=== PATIENT | male | born 1930 | race Hispanic/Latino ===

== ENCOUNTER 2017-01-21 06:32 | Day surgery (SDC) | payer MEDICARE, MEDICAID ==
[2017-01-15 09:20] VITALS: BMI 29.9
[2017-01-21 06:52] LABS: ADD MANUAL DIFF? NO
[2017-01-21 06:59] LABS: BASO # 0.01 K/mm3 (0.0-2.0); BASO % 0.2 % (0.0-3.0); EOS # 0.2 (0.0-0.7); EOS % 2.6 % (1.5-5.0); GRAN # 3.62 (1.4-6.5); GRAN % 58.8 % (50.0-68.0); HEMATOCRIT 37.6 % (42.0-52.0); LYMPH # 1.7 (1.2-3.4); LYMPH % 27.5 % (22.0-35.0); MEAN CELL VOLUME 88.9 fL (80.0-105.0); MEAN CORPUSCULAR HEMOGLOBIN 29.3 pg (25.0-35.0); MEAN PLATELET VOLUME 9.7 fl (7.0-11.0); MONO # 0.7 (0.1-0.6); MONO % 10.9 % (1.0-6.0); PLATELET COUNT 158 10^3/uL (120.0-450.0); RED CELL DISTRIBUTION WIDTH 12.9 % (11.5-14.5); WHITE BLOOD COUNT 6.2 10^3/ul (4.5-11.0)
[2017-01-21 07:08] LABS: INR 1.06 (0.93-1.08); PARTIAL THROMBOPLASTIN TIME 26.3 Seconds (23.7-30.8)
[2017-01-21 07:12] VITALS: O2SAT 98
[2017-01-21 07:15] LABS: BLOOD UREA NITROGEN 18 mg/dL (7-21); CALCIUM 9.2 mg/dL (8.4-10.5); CARBON DIOXIDE 29 mmol/L (21-33); CHLORIDE 104 mmol/L (98-107); CHOLESTEROL 107 mg/dL (130-200); GFR AFRICAN-AMERICAN > 60; GLUCOSE,RANDOM 113 mg/dL (70-110); POTASSIUM 4.1 mmol/L (3.6-5.0); SODIUM 144 mmol/L (132-148)
--- NOTE | 2017-01-21 08:01 | HP ---
REASON FOR ADMISSION: Left heart catheterization, possible angioplasty. BRIEF CLINICAL HISTORY: This is an 86-year-old male with past medical history significant for davis ry artery disease, status post cardiac catheterization in at [facility] recently having sh ortness of breath, underwent a stress test, abnormal, so patient is scheduled for elective cardiac ca th, possible angioplasty. PAST MEDICAL HISTORY: Significant for coronary artery disease, hypertension, hyperlipidemia. SOCIAL HISTORY: Denies any history of smoking. Denies any history of alcohol abuse. Cardiac workup as follows: The patient underwent a stress test 12/31/2015, Lexiscan, that showed proba jimmie abnormal SPECT myocardial perfusion study, partially reversible apical and inferior defect suspic ious for ischemia, ejection fraction reported 60%. When compared from the last study dated 12/13/2014 , previous defect appears partially reversible on current study. EKG shows normal sinus. No acute ST-T changes noted. CURRENT MEDICATIONS: The patient is taking nitroglycerin sublingual p.r.n., metoprolol succinate 12. 5 mg daily, Zetia 10 mg daily, aspirin 81 mg daily, triamcinolone acetonide topical, Crestor 10 mg da aman, Norvasc 5 mg daily. REVIEW OF SYSTEMS: As per HPI. PHYSICAL EXAMINATION: VITAL SIGNS: Height of the patient is 5 feet 5 inches. Weight of the patient 180 pounds, body mass index 30 kg/m2. HEENT: PERRLA. Extraocular muscles intact. NECK: Supple. No carotid bruits. No thyromegaly. CHEST: Clear to auscultation. HEART: S1, S2 regular. ABDOMEN: Soft. EXTREMITIES: Clubbing and cyanosis negative. BLOOD WORKUP: Pending. IMPRESSION AND PLAN: Abnormal stress test, inferior anterior defect suspicious for ischemia on a str ess test dated 12/29/2016, and shows apical and inferior defect, ejection fraction 60% dated 12/29/2016. Abnormal stress test, rule out coronary artery disease. Further recommendation after cardiac cathete rization. We will load him with 300 mg of Plavix, aspirin 325. Further recommendation after the ___ __. We will follow with you. Thank you, Dr. Sanchez, for providing the opportunity in taking care of the patient. Tyree Dale MD cc: [phone] TT: 01/20/2017 20:22:41 rashmi
[2017-01-21] MEDS ORDERED: Lidocaine 2% Inj (20ml) ONE (08:41)
[2017-01-21] MEDS ORDERED: Midazolam 2 MG/2 ML VIAL ONE (08:42)
[2017-01-21] MEDS ORDERED: Iodixanol 320 MG/ML 200 ML BOTTLE IV ONE (08:43)
[2017-01-21] MEDS ORDERED: Iohexol 350mgl/ml 50 ML ONE (08:43)
[2017-01-21] MEDS ORDERED: Nitroglycerin 50mg in D5W 250 ML IV ONE (08:43)
[2017-01-21] MEDS ORDERED: Eptifibatide 20 mg/10mL Inj IVP ONE (09:45)
[2017-01-21] MEDS ORDERED: Bacitracin 500 Units/gm Oint Foilpak UD TOP ONE (10:56)
[2017-01-21] MEDS ORDERED: Sodium Chloride 0.9% 1,000 ML IV SCH (11:00)
[2017-01-21 14:03] LABS: ADD MANUAL DIFF? NO
[2017-01-21 14:05] LABS: BASO # 0.01 K/mm3 (0.0-2.0); BASO % 0.2 % (0.0-3.0); EOS # 0.1 (0.0-0.7); EOS % 1.8 % (1.5-5.0); GRAN # 2.93 (1.4-6.5); GRAN % 58.6 % (50.0-68.0); HEMATOCRIT 34.4 % (42.0-52.0); LYMPH # 1.2 (1.2-3.4); MEAN CELL VOLUME 87.8 fL (80.0-105.0); MEAN CORPUSCULAR HEMOGLOBIN 29.8 pg (25.0-35.0); MEAN PLATELET VOLUME 9.5 fl (7.0-11.0); MONO # 0.8 (0.1-0.6); MONO % 15.4 % (1.0-6.0); PLATELET COUNT 148 10^3/uL (120.0-450.0)
[2017-01-21 14:15] LABS: BLOOD UREA NITROGEN 14 mg/dL (7-21); CALCIUM 8.7 mg/dL (8.4-10.5); CARBON DIOXIDE 25 mmol/L (21-33); CHLORIDE 106 mmol/L (98-107); GFR AFRICAN-AMERICAN > 60; GLUCOSE,RANDOM 135 mg/dL (70-110); POTASSIUM 3.9 mmol/L (3.6-5.0); SODIUM 140 mmol/L (132-148)
[2017-01-21] MEDS ORDERED: Bacitracin 500 Units/gm Oint Foilpak UD ONE (14:59)
[2017-01-21 17:57] VITALS: BP 152/78; RESP 20; TEMP 98.5
[2017-01-21] MEDS ORDERED: Metoprolol Succinate 25 mg XL Tab PO SCH (18:00)
[2017-01-21 18:21] VITALS: PULSE 72
--- NOTE | 2017-01-21 18:24 | CARD ---
APPROVED REPORT EKG Measurement Heart [id number] <Conclusion> Normal sinus rhythm Left axis deviation Abnormal ECG
[2017-01-22] MEDS ORDERED: Rosuvastatin Calcium [Crestor] 20 MG (HOME MED) PO SCH (10:00)
--- NOTE | 2017-01-22 18:05 | CARD ---
APPROVED REPORT Procedure(s) performed: Left Heart Catheterization PTCA with Stenting of Mid LAD with EUSEBIA PTCA with Stenting of Distal RCA with EUSEBIA PTCA with Stenting of R PDA HISTORY dyslipidemia . INDICATION The indication(s) include : positive stress test. CASE TECHNIQUE The patient was brought electively to the Cardiac Catheterization Laboratory in a fasting state and was prepped and draped in a sterile manner. The left wrist was infiltrated with 2% Lidocaine subcutaneous anesthesia. A 6 Fr Glidesheath (Radial) sheath was inserted into the left radial artery without difficulty. Coronary angiography was performed using coronary diagnostic catheters. The left coronary system was accessed and visualized with a Diagnostic ,Jl3.5,5Fr catheter. The right coronary system was accessed and visualized with a Diagnostic ,JR3.5,5Fr catheter. The left ventricle was accessed and visualized with a pig tail catheter. Left ventricular/Aortic Valve gradient assessed on pullback. Left ventriculogram was performed in LAWLER projection. Closure device was deployed with a Fr TR Band (Large) without any complications. The patient tolerated the procedure well and there were no complications associated with the procedure. Vessel Analysis The patient's coronary anatomy is co-dominant. The left main coronary artery is a medium size vessel with diffuse calcification noted throughout this vessel and without significant stenosis. The left main bifurcates to the left anterior descending and circumflex. The left anterior descending artery is a medium size vessel with diffuse calcification noted throughout this vessel and with significant stenosis. There is a 80% stenosis in the mid segment. The first diagonal branch is a medium size vessel with diffuse calcification noted throughout this vessel and without significant stenosis. The second diagonal branch is a medium size vessel with diffuse calcification noted throughout this vessel and without significant stenosis. The third diagonal branch is a medium size vessel with diffuse calcification noted throughout this vessel and without significant stenosis. The circumflex artery is a medium size vessel with diffuse calcification noted throughout this vessel and with significant stenosis. There is a 100% stenosis in the mid segment. with bridge collaterals The first obtuse marginal branch is a medium size vessel with diffuse calcification noted throughout this vessel and without significant stenosis. The left posterior descending artery is a small size vessel with diffuse calcification noted throughout this vessel and without significant stenosis. The right coronary artery is a large size vessel with diffuse calcification noted throughout this vessel and with significant stenosis. There is a 90% stenosis in the distal segment. The right posterior descending artery is a medium size vessel with diffuse calcification noted throughout this vessel and with significant stenosis. There is a 95% stenosis in the proximal segment. The right posterolateral branch is a medium size vessel with diffuse calcification noted throughout this vessel and with significant stenosis. There is a 100% stenosis in the ostial segment. Left Ventricle The left ventricle is normal in size with normal contractility. There was no cardiomyopathy. The left ventricular ejection fraction is estimated to be 55%. The left ventricular end diastolic pressure is 15 mmHg. There was no gradient across the aortic valve upon pullback. PCI Technique Lesion Anticoagulation was achieved with Heparin. Percutaneous coronary intervention was performed on the mid left anterior descending artery segment. The lesion stenosis prior to intervention was 80% with CYNDEE 2 flow. A 6 Fr XB 3.5 Guide Catheter was used to engage the ostium. STENT DEPLOYMENT A drug-eluting stent 2.75 x 14 mm Resolute EUSEBIA was inserted and inflated up to 13.00atm for 28seconds. Final angiography reveals 0 % stenosis with CYNDEE 3 flow. PCI Technique Lesion 2 Percutaneous Coronary Intervention was performed on the Distal right coronary artery. The lesion stenosis prior to intervention was 90% with CYNDEE 2 flow. A 6 Fr 3DRC Guide Catheter was used to engage the ostium. BALLOON DILATION A Balloon catheter 2.75 x 9 mm Sprinter NC was inserted and inflated up to 6.00atm for 46seconds. STENT DEPLOYMENT A drug-eluting stent 3.0 x 9 mm Resolute EUSEBIA was inserted and inflated up to 14.00atm for 27seconds. Final angiography reveals 0 % stenosis with CYNDEE 3 flow. PCI Technique Lesion 3 Percutaneous Coronary Intervention was performed on the posterior descending septal perforators segment. The lesion stenosis prior to intervention was 95% with CYNDEE 2 flow. A 6 Fr 3DRC Guide Catheter was used to engage the ostium. BALLOON DILATION A Balloon catheter 2.5 x 20 mm Sprinter RX was inserted and inflated up to 6atm for 20seconds. STENT DEPLOYMENT A drug-eluting stent 2.5 x 12 mm Resolute EUSEBIA was inserted and inflated up to 12atm for 20seconds. Final angiography reveals 0 % stenosis with CYNDEE 3 flow. Conclusion Triple vessel Disease Preserved LV Fx Successful PTCa with EUSEBIA of Mid LAD, Distal RCa and R PDA done Recommendations Cardiac Rehabilitation Referral Aggressive Medical TherapyCardiac Risk Reduction Program Weight Loss Reduction Program CC; Dr. Sanchez.
== END 2017-01-21 21:17 | disposition home or self-care (01) ==
LOC: CATH 06:32 → 2RSO 11:09 → CATH 21:17
PROVIDERS: ATTEND Internal Medicine Cardiovascular Disease
DX: I25.10 Atherosclerotic heart disease of native coronary artery without angina pectoris (principal); R06.02 Shortness of breath; E78.5 Hyperlipidemia, unspecified; I10 Essential (primary) hypertension; R94.39 Abnormal result of other cardiovascular function study
CPT/HCPCS: 36415; 80048; 80061; 85025; 85610; 85730; 86850; 86900; 93005; 93458; 99152; 99153; C1725 ×2; C1769 ×3; C1874 ×3; C1887 ×4; J0360; J1327; J1644 ×2; J2250; J3010; J7030; J7040 ×2; Q9967

== ENCOUNTER 2017-01-29 09:51 | Inpatient (IN) | payer MEDICARE, MEDICAID ==
--- NOTE | 2017-01-29 10:27 | ED PDOC ---
Arrival/HPI - General Chief Complaint: Shortness Of Breath Time Seen by Provider: 01/29/17 10:09 Historian: Patient, Family EM Caveat: Language Barrier (family functioning as enterprise systems engineer as per patient request) - History of Present Illness Narrative History of Present Illness (Text): 01/29/17 10:14 A 86 year old male, whose past medical history includes CAD with 3 stents ( placed on 01/21/17), presents to the emergency department complaining of shortness of breath that began this morning. Patient reports he was was doing find until today when he decided to go out for a walk. He say when he got to the end of the block he started to feel short of breath. Patient took his nitroglycerin. He denies any chest pain, fever, cough, or any other complaints at this time. Patient cousin function as enterprise systems engineer, as per patient request. PMD: Dr. Sanchez 01/29/17 14:54 Time/Duration: Prior to Arrival Symptom Onset: Sudden Symptom Course: Unchanged Quality: Other Activities at Onset: Light Context: Exertion Past Medical History - Provider Review Nursing Documentation Reviewed: Yes - Cardiac Hx Pacemaker: No Other/Comment: cardiac stent january 21 2017 - Neurological Hx Paralysis: No - Hematological/Oncological Hx Blood Transfusions: No - Musculoskeletal/Rheumatological Hx Musculoskeletal Disorders: Yes - Psychiatric Hx Emotional Abuse: No Hx Physical Abuse: No Hx Substance Use: No - Surgical History Hx Cardiac Catheterization: Yes (january 21, 2017) - Anesthesia Hx Anesthesia Reactions: No Hx Malignant Hyperthermia: No - Suicidal Assessment Feels Threatened In Home Enviroment: No Family/Social History - Physician Review Nursing Documentation Reviewed: Yes Family/Social History: Unknown Family HX Smoking Status: Never Smoked Hx Alcohol Use: Yes (OCCASIONAL) Hx Substance Use: No Allergies/Home Meds Allergies/Adverse Reactions: Allergies No Known Allergies Allergy (Verified 11/22/13 14:42) Home Medications: Home Meds Medication Instructions Recorded Confirmed Aspirin [Ecotrin] 81 mg PO DAILY 01/15/17 01/29/17 Ezetimibe [Zetia] 10 mg PO DAILY 01/15/17 01/29/17 Metoprolol Succinate 12.5 mg PO BID 01/15/17 01/29/17 Nitroglycerin 0.4 mg SL PRN PRN 01/15/17 01/29/17 Rosuvastatin Calcium [Crestor] 20 mg PO DAILY 01/15/17 01/29/17 Triamcinolone 0.1% [Triamcinolone 1 appl TP BID 01/15/17 01/29/17 Acetonide] amLODIPine [Norvasc] 5 mg PO DAILY 01/15/17 01/29/17 Review of Systems - Physician Review All systems were reviewed & negative as marked: Yes - Review of Systems Constitutional: absent: Fevers Respiratory: SOB. absent: Cough Cardiovascular: absent: Chest Pain Physical Exam Vital Signs Reviewed: Yes Vital Signs Temp Pulse Resp BP Pulse Ox 01/29/17 14:00 66 16 150/80 95 01/29/17 10:19 18 01/29/17 10:15 98.2 F 75 18 140/73 99 01/29/17 10:09 98.2 F 75 18 140/73 99 Temperature: Afebrile Blood Pressure: Normal Pulse: Regular Respiratory Rate: Normal Appearance: Positive for: Well-Appearing, Non-Toxic, Comfortable Pain Distress: None Mental Status: Positive for: Alert and Oriented X 3 - Systems Exam Head: Present: Atraumatic, Normocephalic Pupils: Present: PERRL Extroacular Muscles: Present: EOMI Conjunctiva: Present: Normal Mouth: Present: Moist Mucous Membranes Neck: Present: Normal Range of Motion Respiratory/Chest: Present: Clear to Auscultation, Good Air Exchange. No: Respiratory Distress, Accessory Muscle Use Cardiovascular: Present: Regular Rate and Rhythm, Normal S1, S2. No: Murmurs Abdomen: Present: Normal Bowel Sounds. No: Tenderness, Distention, Peritoneal Signs Back: Present: Normal Inspection Upper Extremity: Present: Normal Inspection. No: Cyanosis, Edema Lower Extremity: Present: Normal Inspection. No: Edema Neurological: Present: GCS=15, CN II-XII Intact, Speech Normal Skin: Present: Warm, Dry, Normal Color. No: Rashes Psychiatric: Present: Alert, Oriented x 3, Normal Insight, Normal Concentration Medical Decision Making ED Course and Treatment: 01/29/17 10:14 Impression: A 86 year old male with dyspnea on exertion. Differential Diagnosis include but are not limited to: CHF Plan: -- EKG -- Chest X-ray -- Labs -- Urinalysis -- Reassess and disposition Progress Notes: EKG: Ordered, reviewed, and independently interpreted the EKG. Rate : 74 BPM Rhythm : NSR Interpretation : No ST/T changes. Comparison : No previous EKG for comparison. Patient cousin states he is leaving and if we need to contact him his phone number is [phone]. 01/29/17 10:45 Chest X-ray: Creator : Sloan Mcdaniels MD COMPARISON: No prior. FINDINGS: LUNGS: No active pulmonary disease. PLEURA: No significant pleural effusion identified, no pneumothorax apparent. CARDIOVASCULAR: Normal. OSSEOUS STRUCTURES: No significant abnormalities. VISUALIZED UPPER ABDOMEN: Normal. OTHER FINDINGS: None. IMPRESSION: No active disease. 01/29/17 12:18 Patient has an elevated D-Dimer. Angio-Chest CT ordered. 01/29/17 14:[address]: Creator : Sloan Mcdaniels MD COMPARISON: None available. FINDINGS: PULMONARY ARTERIES: Unremarkable. No pulmonary embolism. AORTA: There is a focal area of mural thrombus in the aortic arch seen on image 74 series 3 and coronal image 76. The thrombus measures 10 x 28 mm in size. The age of the thrombus is uncertain. There are no prior studies for comparison. LUNGS: Unremarkable. No nodule, mass or pulmonary consolidation. PLEURAL SPACES: Unremarkable. No effusion or pneuomothorax. HEART: Unremarkable. No cardiomegaly. No significant pericardial effusion. LYMPH NODES: No lymphadenopathy. BONES, CHEST WALL: Unremarkable. No fracture or destructive lesion OTHER FINDINGS: Unremarkable. IMPRESSION: No evidence of pulmonary embolus. 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 The age of the thrombus is uncertain. Dr. Dale paged. 01/29/17 14:[address] Dale, who is aware and states to give patient Heparin and admit to Dr. Zavala's service. Dr. Zavala paged. I have discussed the results and plan with the patient via family, who expresses understanding. Patient and family given the opportunity to ask question, all questions were answered and there is agreement with the plan to be admitted to the hospital. 01/29/17 14:54 pt with age indeterminate thrombus to aortic arch. case discussed with dr dale. requests heparin. pt will need echo r/o other thrombus, iv heparin. request dr valle as accepting. dr valle paged and accepts - Lab Interpretations Lab Results: 01/29/17 10:45 01/29/17 10:45 Lab Results 01/29/17 10:45: WBC 5.1, RBC 4.06, Hgb 12.2 L, Hct 36.0 L, MCV 88.7, MCH 30.0, MCHC 33.9, RDW 12.9, Plt Count 175, MPV 9.5, Gran % 57.3, Lymph % (Auto) 27.9, [place] % (Auto) 12.6 H, Eos % (Auto) 2.0, Baso % (Auto) 0.2, Gran # 2.92, Lymph # 1.4, [place] # 0.6, Eos # 0.1, Baso # 0.01, PT 11.2, INR 1.04, APTT 25.7, D-Dimer, Quantitative 0.69 H, Sodium 142, Potassium 4.3, Chloride 103, Carbon Dioxide 28 , Anion Gap 15, BUN 15, Creatinine 1.0, Est GFR ( Amer) > 60, Est GFR ( Non-Af Amer) > 60, Random Glucose 147 H, Calcium 9.2, Magnesium 2.3 H, Total Bilirubin 0.8, AST 39, ALT 28, Alkaline Phosphatase 86, Lactate Dehydrogenase 457, Total Creatine Kinase 66, Troponin I < 0.01, NT-Pro-B Natriuret Pep 217, Total Protein 7.8, Albumin 4.2, Globulin 3.6, Albumin/Globulin Ratio 1.2, Urine Color Yellow, Urine Appearance Clear, Urine pH 5.5, Ur Specific [place] >= 1.030 , Urine Protein Negative, Urine Glucose (UA) Negative, Urine Ketones Negative, Urine Blood Negative, Urine Nitrate Negative, Urine Bilirubin Small H, Urine Urobilinogen 0.2, Ur Leukocyte Esterase Negative I have reviewed the lab results: Yes - RAD Interpretation Radiology Orders: 01/29/17 10:22 CHEST PORTABLE [RAD] Stat 01/29/17 12:18 ANGIO CHEST PE PROTOCOL [CT] Stat - Medication Orders Current Medication Orders: Heparin Sodium/Sodium Chloride (Heparin 57089 Units/250ml 1/2 Normal Saline) 250 mls @ 15.268 mls/hr IV .[id number] PRN; Protocol; 18 UNITS/KG/HR PRN Reason: ADJUST RATE PER PROTOCOL Discontinued Medications Heparin Sodium (Porcine) (Heparin) 4,200 units IV ONCE ONE PRN Reason: Protocol Stop: 01/29/17 14:35 Iodixanol (Visipaque 320 Mg/Ml 100 Ml) Confirm Administered Dose 100 ml IV .K- MED ONE Stop: 01/29/17 13:27 - Scribe Statement The provider has reviewed the documentation as recorded by the Scribe Denny Carlisle Provider Scribe Attestation: All medical record entries made by the Scribe were at my direction and personally dictated by me. I have reviewed the chart and agree that the record accurately reflects my personal performance of the history, physical exam, medical decision making, and the department course for this patient. I have also personally directed, reviewed, and agree with the discharge instructions and disposition. Disposition/Present on Arrival - Present on Arrival Any Indicators Present on Arrival: No History of DVT/PE: No History of Uncontrolled Diabetes: No Urinary Catheter: No History of Decub. Ulcer: No History Surgical Site Infection Following: None - Disposition Have Diagnosis and Disposition been Completed?: Yes Diagnosis: Aortic mural thrombus, Dyspnea Disposition: HOSPITALIZED Disposition Time: 14:36 Patient Problems: Current Active Problems Problem Status Diagnosed Aortic mural thrombus Acute Dyspnea Acute Condition: STABLE Referrals: Tyree Sanchez MD [Primary Care Provider] - Follow up with primary
--- NOTE | 2017-01-29 10:45 | RAD ---
HISTORY: sob COMPARISON: No prior. FINDINGS: LUNGS: No active pulmonary disease. PLEURA: No significant pleural effusion identified, no pneumothorax apparent. CARDIOVASCULAR: Normal. OSSEOUS STRUCTURES: No significant abnormalities. VISUALIZED UPPER ABDOMEN: Normal. OTHER FINDINGS: None. IMPRESSION: No active disease.
[2017-01-29 10:49] LABS: ADD MANUAL DIFF? NO
[2017-01-29 10:52] LABS: BASO # 0.01 K/mm3 (0.0-2.0); BASO % 0.2 % (0.0-3.0); EOS # 0.1 (0.0-0.7); GRAN # 2.92 (1.4-6.5); GRAN % 57.3 % (50.0-68.0); LYMPH # 1.4 (1.2-3.4); LYMPH % 27.9 % (22.0-35.0); MEAN CELL VOLUME 88.7 fL (80.0-105.0); MEAN CORPUSCULAR HGB CONC 33.9 g/dl (31.0-37.0); MEAN PLATELET VOLUME 9.5 fl (7.0-11.0); MONO # 0.6 (0.1-0.6); MONO % 12.6 % (1.0-6.0); PLATELET COUNT 175 10^3/uL (120.0-450.0); RED CELL DISTRIBUTION WIDTH 12.9 % (11.5-14.5); WHITE BLOOD COUNT 5.1 10^3/ul (4.5-11.0)
[2017-01-29 10:57] LABS: PH,URINE 5.5 (4.7-8.0); URINE BILIRUBIN SMALL (NEGATIVE); URINE BLOOD NEGATIVE (NEGATIVE); URINE GLUCOSE (UA) NEGATIVE (NEGATIVE); URINE KETONE NEGATIVE (NEGATIVE); URINE LEUKOCYTE ESTERASE NEGATIVE Leu/uL (NEGATIVE); URINE PROTEIN NEGATIVE mg/dL (<30 mg/dL); URINE UROBILINOGEN 0.2 E.U./dL (<1 E.U./dL)
[2017-01-29 10:59] LABS: URINE APPEARANCE CLEAR (CLEAR); URINE COLOR YELLOW (YELLOW)
[2017-01-29 11:06] LABS: INR 1.04 (0.93-1.08); PARTIAL THROMBOPLASTIN TIME 25.7 Seconds (23.7-30.8)
[2017-01-29 11:07] LABS: D DIMER 0.69 mg/L FEU (0-0.50)
[2017-01-29 12:12] LABS: ALB/GLOB RATIO 1.2 (1.1-1.8); ALKALINE PHOSPHATASE 86 U/L (38-133); ALT/SGPT 28 U/L (7-56); AST/SGOT 39 U/L (15-59); BILIRUBIN,TOTAL 0.8 mg/dL (0.2-1.3); BLOOD UREA NITROGEN 15 mg/dL (7-21); CALCIUM 9.2 mg/dL (8.4-10.5); CARBON DIOXIDE 28 mmol/L (21-33); CHLORIDE 103 mmol/L (98-107); GFR AFRICAN-AMERICAN > 60; GLUCOSE,RANDOM 147 mg/dL (70-110); MAGNESIUM 2.3 mg/dL (1.7-2.2); POTASSIUM 4.3 mmol/L (3.6-5.0); SODIUM 142 mmol/L (132-148); TOTAL PROTEIN 7.8 g/dL (5.8-8.3)
[2017-01-29 12:32] LABS: TROPONIN I < 0.01 ng/mL
[2017-01-29] MEDS ORDERED: Iodixanol 320 MG/ML 100 ML BOTTLE IV ONE (13:26)
--- NOTE | 2017-01-29 14:13 | CT ---
PROCEDURE: CT Chest with contrast (Pulmonary Angiogram) HISTORY: sob elevated dimer COMPARISON: None available. TECHNIQUE: Axial computed tomography images were obtained of the chest in the pulmonary arterial phase of enhancement. Coronal and sagittal reformatted images were created and reviewed. Intravenous contrast dose: 100 cc of Visipaque Radiation dose: Total exam DLP = 697 mGy-cm. This CT exam was performed using one or more of the following dose reduction techniques: Automated exposure control, adjustment of the mA and/or kV according to patient size, and/or use of iterative reconstruction technique. FINDINGS: PULMONARY ARTERIES: Unremarkable. No pulmonary embolism. AORTA: There is a focal area of mural thrombus in the aortic arch seen on image 74 series 3 and coronal image 76. The thrombus measures 10 x 28 mm in size. The age of the thrombus is uncertain. There are no prior studies for comparison. LUNGS: Unremarkable. No nodule, mass or pulmonary consolidation. PLEURAL SPACES: Unremarkable. No effusion or pneuomothorax. HEART: Unremarkable. No cardiomegaly. No significant pericardial effusion. LYMPH NODES: No lymphadenopathy. BONES, CHEST WALL: Unremarkable. No fracture or destructive lesion OTHER FINDINGS: Unremarkable. IMPRESSION: No evidence of pulmonary embolus. 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 The age of the thrombus is uncertain.
[2017-01-29] MEDS ORDERED: Heparin25000 units/250ml 1/2NS 250 ML IV PRN (14:34)
[2017-01-29 15:44] VITALS: BMI 29.7
[2017-01-29] MEDS: Heparin25000 units/250ml 1/2NS 250 ML IV PRN ×2 (16:13→20:17)
--- NOTE | 2017-01-29 16:44 | CARD ---
APPROVED REPORT EKG Measurement Heart [id number] LA [id number] <Conclusion> Normal sinus rhythm Left axis deviation Left ventricular hypertrophy with QRS widening Abnormal ECG
[2017-01-29] MEDS ORDERED: Metoprolol Succinate 25 mg XL Tab PO SCH (18:00)
--- NOTE | 2017-01-29 18:55 | CARD ---
APPROVED REPORT EXAM: Two-dimensional and M-mode echocardiogram with Doppler and color Doppler. INDICATION R/O THROMBUS 2D DIMENSIONS Left Atrium (2D)4.4 (1.6-4.0cm)IVSd1.3 (0.7-1.1cm) LVDd4.9 (3.9-5.9cm)PWd1.3 (0.7-1.1cm) LVDs3.4 (2.5-4.0cm)FS (%) 30.3 % LVEF (%)57.4 (>50%) M-Mode DIMENSIONS Aortic Root3.30 (2.2-3.7cm)Aortic Cusp Exc.1.80 (1.5-2.0cm) Aortic Valve AoV Peak Gdzxpnth341.0cm/Haim Peak GR.13mmHg Mitral Valve MV E Rfbmjhet79.7cm/sMV A Zmaoyezi56.9cm/sE/A ratio0.8 TDI Lateral E' Peak V10.10cm/sMedial E' Peak V5.26cm/sE/Lateral E'6.4 E/Medial E'12.3 Pulmonary Valve PV Peak Jwveracy919.0cm/sPV Peak Grad.5mmHg Tricuspid Valve TR Peak Sgqheemw233vw/sRAP VFQCXSMK74pzFaPZ Peak Gr.48mmHg [id number] LEFT VENTRICLE The left ventricle is normal size. There is mild concentric left ventricular hypertrophy. The left ventricular function is normal.EF-55-60% There is mild hypokinesis in the apical anterior wall. Transmitral Doppler flow pattern is Grade III-reversible restrictive diastolic dysfunction. No left ventricle thrombus noted on this study. There is no ventricular septal defect visualized. There is no left ventricular aneurysm. There is no mass noted in the left ventricle. RIGHT VENTRICLE The right ventricle is normal size. There is normal right ventricular wall thickness. The right ventricular systolic function is normal. ATRIA The left atrium is mildly dilated. The right atrium size is normal. The interatrial septum is intact with no evidence for an atrial septal defect. AORTIC VALVE The aortic valve is thickened but opens well. The aortic valve is mildly sclerotic. No thrombus or Dissection noted. There is trace aortic regurgitation. There is no aortic valvular stenosis. There is no aortic valvular vegetation. MITRAL VALVE The mitral valve is thickened but opens well. Mitral regurgitation is trace. There is no mitral valve stenosis. There is no evidence of mitral valve prolapse. TRICUSPID VALVE The tricuspid valve leaflets are thickened , but open well. There is mild to moderate tricuspid regurgitation.RVSP-58 mmof Hg. There is no tricuspid valve stenosis. There is no tricuspid valve prolapse or vegetation. PULMONIC VALVE The pulmonic valve is borderline thickened. There is trace pulmonic valvular regurgitation. There is no pulmonic valvular stenosis. GREAT VESSELS The aortic root is normal in size. The ascending aorta is normal in size. The pulmonary artery is normal. The IVC is normal in size and collapses >50% with inspiration. PERICARDIAL EFFUSION There is no pleural effusion. There is no pericardial effusion. <Conclusion> The left ventricle is normal size. There is mild concentric left ventricular hypertrophy. The left ventricular function is normal.EF-55-60% There is trace aortic regurgitation. There is no aortic valvular stenosis. Mitral regurgitation is trace. There is mild to moderate tricuspid regurgitation.RVSP-58 mmof Hg. No Dissection or thrombus noted.
[2017-01-29] MEDS ORDERED: Pneumococcal 23-Valent Vaccine IM ONE (22:13)
[2017-01-30] MEDS: Heparin25000 units/250ml 1/2NS 250 ML IV PRN (03:45)
--- NOTE | 2017-01-30 05:24 | CP.PCM.PN ---
Subjective - Date & Time of Evaluation Date of Evaluation: 01/30/17 Time of Evaluation: 05:22 - Subjective Subjective: Patient was seen at bedside. Had rectal bleeding. about 2 cup full liquid dark ,coffee brown stool seen. He has been on heparin drip. 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 Has PMH of CAD,HTN, HLD,cardiac cath in 01/4998 at [facility]. Objective - Vital Signs/Intake and Output Vital Signs (last 24 hours): Temp Pulse Resp BP Pulse Ox 98.0 F 55 L 18 136/77 95 01/30/17 00:01 01/30/17 00:01 01/30/17 00:01 01/30/17 00:01 01/30/17 00:01 - Medications Medications: Current Medications Amlodipine Besylate (Norvasc) 5 mg PO DAILY [facility] Aspirin (Ecotrin) 81 mg PO DAILY [facility] Atorvastatin Calcium (Lipitor) 40 mg PO DAILY [facility] Last Admin: 01/29/17 17:32 Dose: 40 mg Clopidogrel Bisulfate (Plavix) 75 mg PO DAILY [facility] Ezetimibe (Zetia) 10 mg PO DAILY [facility] Heparin Sodium/Sodium Chloride (Heparin 78650 Units/250ml 1/2 Normal Saline) 250 mls @ 14.615 mls/hr IV .Q17H7M PRN; Protocol; 18 UNITS/KG/HR PRN Reason: ADJUST RATE PER PROTOCOL Last Admin: 01/30/17 03:45 Dose: 13.803 mls/hr Metoprolol Succinate (Toprol Xl) 12.5 mg PO BID [facility] Last Admin: 01/29/17 19:46 Dose: Not Given - Labs Labs: PT 11.2 Seconds (9.9-11.8) 01/29/17 10:45 INR 1.04 (0.93-1.08) 01/29/17 10:45 APTT 103.8 Seconds (23.7-30.8) H* 01/30/17 01:45 - Constitutional Appears: Well, No Acute Distress - Head Exam Head Exam: ATRAUMATIC, NORMAL INSPECTION, NORMOCEPHALIC - Eye Exam Eye Exam: Normal appearance - ENT Exam ENT Exam: Normal External Ear Exam - Neck Exam Neck Exam: Normal Inspection - Respiratory Exam Respiratory Exam: Clear to Ausculation Bilateral, NORMAL BREATHING PATTERN - Cardiovascular Exam Cardiovascular Exam: REGULAR RHYTHM. absent: JVD - GI/Abdominal Exam GI & Abdominal Exam: Soft, Normal Bowel Sounds. absent: Distended, Tenderness - Rectal Exam Rectal Exam: Deferred - Extremities Exam Extremities Exam: Normal Inspection - Back Exam Back Exam: NORMAL INSPECTION - Neurological Exam Neurological Exam: Alert - Psychiatric Exam Psychiatric exam: Normal Affect, Normal Mood - Skin Skin Exam: Normal Color Assessment and Plan - Assessment and Plan (Free Text) Assessment: A/P:Lower GI bleeding. Aortic mural thrombus on heparin. CAD. HTN. HLD. NPO. STAT CBC. Serial H & H. Protonix 40 mg IV stat. Hold heparin. Will discuss with PMD -did GI consultation-,spoke to him.Planning colonoscopy about noon time.
[2017-01-30 06:31] LABS: ADD MANUAL DIFF? NO
[2017-01-30 06:34] LABS: BASO # 0.02 K/mm3 (0.0-2.0); BASO % 0.4 % (0.0-3.0); EOS # 0.1 (0.0-0.7); EOS % 1.5 % (1.5-5.0); GRAN # 3.49 (1.4-6.5); GRAN % 66.5 % (50.0-68.0); HEMATOCRIT 35.8 % (42.0-52.0); LYMPH # 1.2 (1.2-3.4); LYMPH % 22.1 % (22.0-35.0); MEAN CELL VOLUME 88.2 fL (80.0-105.0); MEAN CORPUSCULAR HEMOGLOBIN 29.3 pg (25.0-35.0); MEAN CORPUSCULAR HGB CONC 33.2 g/dl (31.0-37.0); MEAN PLATELET VOLUME 9.4 fl (7.0-11.0); MONO # 0.5 (0.1-0.6); MONO % 9.5 % (1.0-6.0); PLATELET COUNT 163 10^3/uL (120.0-450.0); RED CELL DISTRIBUTION WIDTH 12.8 % (11.5-14.5); WHITE BLOOD COUNT 5.3 10^3/ul (4.5-11.0)
[2017-01-30] MEDS: Dextrose 5%/0.45% NS 1,000 ML IV SCH ×2 (06:48→22:30)
[2017-01-30] MEDS: Pantoprazole 40mg/100ml IVPB 100 ML IVPB SCH ×4 (06:48→21:13)
[2017-01-30 06:52] LABS: ALB/GLOB RATIO 1.1 (1.1-1.8); ALKALINE PHOSPHATASE 89 U/L (38-133); ALT/SGPT 38 U/L (7-56); AST/SGOT 41 U/L (15-59); BILIRUBIN,TOTAL 0.9 mg/dL (0.2-1.3); BLOOD UREA NITROGEN 16 mg/dL (7-21); CARBON DIOXIDE 29 mmol/L (21-33); CHLORIDE 103 mmol/L (98-107); CHOLESTEROL 98 mg/dL (130-200); GFR AFRICAN-AMERICAN > 60; GLUCOSE,RANDOM 104 mg/dL (70-110); MAGNESIUM 2.3 mg/dL (1.7-2.2); PHOSPHOROUS 3.5 mg/dL (2.5-4.5); POTASSIUM 4.1 mmol/L (3.6-5.0); SODIUM 141 mmol/L (132-148); TOTAL PROTEIN 7.3 g/dL (5.8-8.3)
--- NOTE | 2017-01-30 06:57 | CP.PCM.CON ---
History of Present Illness - History of Present Illness History of Present Illness: Reason for ICU Consult: Large GI Bleeding HPI: 86 y/o Jordanian male with a PMHx Htn, CAD s/p cardiac cath with placement of 3 stents 10 days ago on 01/21/17 who was admitted to the hospital for dyspnea on exertion. Patient was admitted to the telemetry floor and had a CT of the Chest done which showed a mural thrombus in the aortic arch. He was placed on a heparin drip however early this morning at approximately 5am (less than 2hrs ago) he had 2 moderate sized melanotic stools described as a cup's worth followed by a 3rd melanotic bowel movement that appeared to be approximately 400 -500cc worth in the bedpan. When using the Jordanian multi disciplined language analyst (ID # [id number]) the patient denies any complaints of shortness of breath, chest pain, abdominal pain, nausea, vomiting, headache, light headedness, dizziness, fever or chills. He does report some pain and discomfort from the needles used to draw his blood otherwise denies any new acute complaints. PMHx: as above Allergies: NKDA Fam Hx: unable to obtain Soc Hx: unable to obtain Meds: heparin drip - now off ASA 81mg po daily - on hold Plavix 75mg po daily - on hold Norvasc 5mg po daily Zetia Toprol XL 12.5mg po bid? Recent Echo shows an adequate EF of 57% Cath on 01/21/17: 3 total stents to mid LAD and RCA Review of Systems - Review of Systems Review of Systems: As per HPI otherwise negative for a 10 point review of systems Past Patient History - Past Social History Smoking Status: Former Smoker - CARDIAC Hx Cardiac Disorders: Yes (CAD) Hx Pacemaker: No Other/Comment: cardiac stent january 21 2017 - PULMONARY Hx Respiratory Disorders: No - NEUROLOGICAL Hx Neurological Disorder: No - HEENT Hx HEENT Problems: No (WEARS RX GLASSES) - RENAL Hx Chronic Kidney Disease: No - ENDOCRINE/METABOLIC Hx Endocrine Disorders: No - HEMATOLOGICAL/ONCOLOGICAL Hx Blood Disorders: No - INTEGUMENTARY Hx Dermatological Problems: No - MUSCULOSKELETAL/RHEUMATOLOGICAL Hx Musculoskeletal Disorders: No Hx Falls: No - GASTROINTESTINAL Hx Gastrointestinal Disorders: No - GENITOURINARY/GYNECOLOGICAL Hx Genitourinary Disorders: No - PSYCHIATRIC Hx Psychophysiologic Disorder: No Hx Emotional Abuse: No Hx Physical Abuse: No Hx Substance Use: No - SURGICAL HISTORY Hx Surgeries: Yes (HEART STENTS X 3 01-21-17) Hx Cardiac Catheterization: Yes (january 21, 2017) Other/Comment: SCAR TO LEFT LOWER LEG. CUT WHEN HE WAS A KID. - ANESTHESIA Hx Anesthesia Reactions: No Hx Malignant Hyperthermia: No Meds Allergies/Adverse Reactions: Allergies Allergy/AdvReac Type Severity Reaction Status Date / Time No Known Allergies Allergy Verified 01/29/17 19:01 - Medications Medications: Current Medications Amlodipine Besylate (Norvasc) 5 mg PO DAILY [facility] Aspirin (Ecotrin) 81 mg PO DAILY [facility] Atorvastatin Calcium (Lipitor) 40 mg PO DAILY [facility] Last Admin: 01/29/17 17:32 Dose: 40 mg Clopidogrel Bisulfate (Plavix) 75 mg PO DAILY [facility] Ezetimibe (Zetia) 10 mg PO DAILY [facility] Heparin Sodium/Sodium Chloride (Heparin 19771 Units/250ml 1/2 Normal Saline) 250 mls @ 14.615 mls/hr IV .Q17H7M PRN; Protocol; 18 UNITS/KG/HR PRN Reason: ADJUST RATE PER PROTOCOL Last Admin: 01/30/17 03:45 Dose: 13.803 mls/hr Dextrose/Sodium Chloride (Dextrose 5%/0.45% Ns 1000 Ml) 1,000 mls @ 125 mls/hr IV .Q8H [facility] Pantoprazole Sodium (Protonix 40mg Ivpb) 100 mls @ 20 mls/hr IVPB .Q5H [facility] Metoprolol Succinate (Toprol Xl) 12.5 mg PO BID [facility] Last Admin: 01/29/17 19:46 Dose: Not Given Physical Exam - Constitutional Appears: Well, Non-toxic, No Acute Distress - Head Exam Head Exam: ATRAUMATIC, NORMOCEPHALIC - Eye Exam Eye Exam: EOMI, Normal appearance - ENT Exam ENT Exam: Mucous Membranes Moist - Neck Exam Neck exam: Positive for: Normal Inspection - Respiratory Exam Respiratory Exam: Clear to Auscultation Bilateral, NORMAL BREATHING PATTERN. absent: Rhonchi, Wheezes - Cardiovascular Exam Cardiovascular Exam: Bradycardia, REGULAR RHYTHM, +S1, +S2 - GI/Abdominal Exam GI & Abdominal Exam: Hyperactive Bowel Sounds, Soft. absent: Guarding, Rebound , Tenderness - Rectal Exam Rectal Exam: Black Stool (malodorous melena) - Extremities Exam Extremities exam: Positive for: normal inspection. Negative for: calf tenderness - Neurological Exam Neurological exam: Alert, Oriented x3 - Psychiatric Exam Psychiatric exam: Normal Affect, Normal Mood Results - Vital Signs Recent Vital Signs: Last Vital Signs Temp 98.4 F 01/30/17 06:00 Pulse 55 L 01/30/17 06:00 Resp 20 01/30/17 06:00 BP 157/84 H 01/30/17 06:00 Pulse Ox 95 01/30/17 06:00 - Labs Result Diagrams: 01/30/17 06:30 01/30/17 06:30 Labs: Laboratory Results - last 24 hr 01/29/17 01/30/17 18:50 01:45 APTT 45.7 H 103.8 H* - Imaging and Cardiology CT scan - chest Status: Report reviewed by me (focal mural thrombus in the aortic arch; age of the thrombus is uncertain.) Assessment & Plan - Assessment and Plan (Free Text) Assessment: 86 y/o male with a PMHx Htn, dyslipidemia, CAD s/p recent stent placement 10 days ago was admitted to the hospital with dyspnea on exertion, found to have an age indeterminate aortic arch thrombus and was placed on a heparin drip. Patient has had 3 bouts of melanotic stool within the past 2 hours; although he is hemodynamically doing ok for now, he is extremely high risk given his recent stents as well as frequency and size of his bowel movements. He will be transferred to the ICU for closer care and monitoring. Plan: Neuro: no acute issues at this time; stable; will monitor Pulm: saturating well without any respiratory distress; will place on nasal cannula at 2L and titrate as needed CVS: most recent bp checked myself was 157/79 with a pulse of 50. He has been on beta blockade therapy which will be held to allow for tachyardia should he have a massive bleed; currently on D5 1/2NS @ 125cc/hr which I will continue; trend H&H Q4H; blood transfusion consent obtained by house doctor Calderon. Pending repeat labs, will transfuse as needed. GI: will keep him NPO; protonix iv drip ordered; as per my discussion with the house doctor, he stated speaking with GI (Dr. Baig) who planned to perform a colonoscopy early this afternoon. Renal: no acute issues at this time; will monitor closely; monitor strict i's and o's Endo: no acute issues ID: does not appear to have any infectious etiology at this time heme: repeat hgb shows a slight drop from 12.2 to 11.9 which is somewhat reassuring given the size of his melena; will repeat hgb in another 4 hours Case discussed with Dr. Calderon at length patient to be transferred to the ICU total time of care: 35 minutes
--- NOTE | 2017-01-30 08:52 | HP ---
CHIEF COMPLAINT: Shortness of breath, chest pain. HISTORY OF PRESENT ILLNESS: The patient is an 86-year-old male with past medical history of coronary artery disease with 3 stents placed on 01/21/17, came to the Emergency Room complaining of shortness of breath that began this morning. The patient reports he was doing fine until 2 days and he decided to go out for a walk. He says, when he got to end of the block, he started to feel shortness of abdi ath. The patient took doses of nitroglycerin. He denies any fever, chills, cough, nausea, vomiting, or diarrhea. No fever, no chills. The patient was seen in the Emergency Room. PAST MEDICAL HISTORY: Cardiac stents put in 01/21/2017. FAMILY HISTORY: Father and mother, noncontributory. HABITS: Never smoked; alcohol occasionally socially; substance abuse never. ALLERGIES: The patient is not allergic with any medication. HOME MEDICATIONS: Aspirin, Zetia, metoprolol, nitroglycerin, Crestor, triamcinolone, amlodipine. REVIEW OF SYSTEMS: The patient seen and examined on the bedside in ER. No fever, no chills. No hea dache, no dizziness. No hematuria or hematochezia. No nausea, vomiting, or diarrhea. PHYSICAL EXAMINATION: VITAL SIGNS: Temperature 98.2, pulse 75, respiratory rate 18, blood pressure 120/73, pulse oximetry 99. HEENT: Head normocephalic, atraumatic. Eyes: PERRLA. Extraocular muscles intact. Conjunctivae pi nk. Eyelids unremarkable. Nose patent. NECK: Supple. No carotid bruit, JVD or thyromegaly. CHEST: Bilaterally symmetrical. HEART: S1, S2 positive. LUNGS: Clear to auscultation. ABDOMEN: Soft. Bowel sounds present. No organomegaly. EXTREMITIES: No edema, no cyanosis. NEUROLOGIC: The patient is awake, alert, moving all 4 extremities. No focal deficit. LABORATORY DATA: White blood cells 5.1, hemoglobin 12.2, hematocrit 36.0, platelets 175. Sodium 142 , potassium 4.3, BUN 15, creatinine 1.0, glucose 147. ASSESSMENT AND PLAN: The patient is an 86-year-old male with coronary artery disease, status post 3 cardiac stents put on 01/21/17, history of hypertension, hypercholesterolemia, has aortic mural thromb us, dyspnea, shortness of breath. Discussion done with Dr. Dale, put the patient on heparin. Anemia . The patient and patient's family know about the patient's condition Gastrointestinal and deep vein thrombosis prophylaxis. Started on aspirin, Lipitor, amlodipine, Plavix, Toprol, Zetia. We will fo llow up. Rosita Zavala MD cc: [id number] TT: 01/30/2017 08:51:35 tn
--- NOTE | 2017-01-30 09:39 | PN ---
DATE: 01/30/2017 SUBJECTIVE: The patient is resting in bed, recently transferred to the intensive care unit. He has no complaints of chest pain, no abdominal pain, no active GI bleeding at this time. The patient is c omfortable on room air. No complaints of cough or congestion, and no shortness of breath, no wheezin g. No fever, chills, nausea or vomiting. PHYSICAL EXAMINATION: Note that his temperature is 98.4, pulse is 58, respirations are 17, and BP is 157/84. O2 sat is 95 on room air. HEAD: Atraumatic, normocephalic. EYES: Reactive to light. EARS, NOSE AND THROAT: Seem to be within normal limits. NECK: Supple. No JVD, no thyroid enlargement, no lymph nodes. HEART: Has a regular rate and rhythm. Normal S1, S2. LUNGS: Reveal good breath sounds bilaterally. ABDOMEN: Soft. Decreased bowel sounds. GENITALIA AND RECTAL: Deferred. MUSCULOSKELETAL: No joint deformities. EXTREMITIES: Reveal no edema. NEUROLOGICALLY: The patient seems to be grossly intact. As far as his laboratory are concerned, his white count is 5.3, hemoglobin is 11.9, hematocrit 35.8 w ith platelets of 163,000. The patient's PTT is 103.8. His sodium is 141, potassium 4.1, chloride 10 3, CO2 of 29, BUN of 19, creatinine of 1.0, and glucose of 104. CT of the chest reveals no obvious abnormalities. IMPRESSION: This patient has aortic mural thrombus and developed a lower gastrointestinal bleed, but continues to remain a stable hemoglobin. The patient has a history of coronary artery disease statu s post stents placed x 3, has a history of hypertension, and hyperlipidemia. PLAN: The patient is being followed by GI, and will be scheduled for a GI procedure to evaluate the GI bleed. The patient is getting IV fluids, and all anticoagulants have been DC'd. We will follow h is PTT closely. The patient will continue his pantoprazole, and we will follow him hemodynamically a nd follow his hemoglobin closely. We will continue to treat aggressively, along with the other consu ltants and the primary care doc. Kentrell Armijo MD cc: [id number] TT: 01/30/2017 09:38:18 Confirmation # [id number] Dictation # [id number] jn
[2017-01-30 11:47] LABS: HEMATOCRIT 34.2 % (42.0-52.0)
--- NOTE | 2017-01-30 12:20 | PN ---
DATE: 01/30/2017 REASON FOR CONSULTATION AND FOLLOWUP: Possible mural thrombus in the arch of the aorta, status post gastrointestinal bleed. Echo is negative for mural arch thrombus. BRIEF CLINICAL HISTORY: This is an 86-year-old male with past medical history significant for davis ry artery disease, status post catheterization 01/1998, who recently underwent cardiac catheterization on 01/21/2017 with placement of 3 drug-eluting stents, mid LAD, distal RCA and RPDA, who was admitted yesterday with complaint of dizziness and headache. Troponin was negative, but D-dimer was positive . The patient was sent for a CT angio that shows suspicious mural thrombus, so patient was admitted, started on heparin. Echo was done this morning and found to be negative mural thrombus. At 2 a.m., patient had a large rectal bleed, bright red blood per rectum, so moved to the ICU. Denies any ches t pain, shortness of breath, any palpitation. PHYSICAL EXAMINATION: VITAL SIGNS: Temperature afebrile, heart rate 58, blood pressure 157/84. HEENT: PERRLA. Extraocular muscles intact. NECK: Supple. No carotid bruits. No thyromegaly. CHEST: Clear to auscultation. HEART: S1, S2 regular. ABDOMEN: Soft. EXTREMITIES: Clubbing and cyanosis negative. BLOOD WORKUP: As follows: WBC ____, hemoglobin 11.8, hematocrit 35.8, platelet count 163. Chemistr y shows sodium 141, potassium ____, chloride 106, carbon dioxide 29, anion gap of 13, BUN 16, creatin ine 1.0. IMPRESSION: Rectal bleed, status post percutaneous transluminal coronary angioplasty of right davis ry artery and left anterior descending on 01/21/2017, a stent in mid left anterior descending, stent i n mid to distal right coronary artery and right posterior descending artery. The CT angio was suspic ious for thrombus in the aortic arch. A stat echo was done yesterday that shows ejection fraction 55 %-60%, trace aortic regurgitation, no active stenosis, mitral regurg trace, mild to moderate tricuspi d ____ systolic pressure 58, gastrointestinal bleed. RECOMMENDATION: We will discontinue heparin. Continue aspirin and Plavix. Moved to the ICU. Monit or H and H. GI consult, Dr. Baig. Monitor H and H. Try to avoid stopping aspirin and Plavix efrain use of recently placed stent, 3 stents, LAD, RCA, and RPDA one week ago. We will follow Diane sher. Thank you, Dr. Zavala, for providing the opportunity in taking care of this patient. YESTERDAY'S CONSULT DICTATED IS NOT AVAILABLE OF YET. Tyree Dale MD cc: [id number] TT: 01/30/2017 12:20:00 Confirmation # [id number] Dictation # [id number] rashmi
[2017-01-30 17:54] LABS: HEMATOCRIT 33.7 % (42.0-52.0)
[2017-01-30] MEDS ORDERED: Midazolam 2 MG/2 ML VIAL ONE (18:38)
[2017-01-30] MEDS ORDERED: Propofol 10 mg/ml Inj (20 ML) ONE (18:38)
[2017-01-30] MEDS ORDERED: Etomidate 20 mg/10ml Inj IV ONE (18:39)
--- NOTE | 2017-01-30 20:38 | CON ---
DATE: 01/30/2017 REFERRING PHYSICIAN: Dr. Zavala. REASON FOR CONSULT: Admitted to intensive care unit with a large GI bleed. Has pulmonary hypertensi on. May have sleep apnea syndrome. HISTORY OF PRESENT ILLNESS: This is an 86-year-old gentleman with known history of hypertension, cor onary artery disease status post coronary stent about 10 days ago, so was placed on aspirin and Plavi x, came in with some shortness of breath. Had a CT angio done which shows mural thrombus in the aort ic arch. Heparin was started. Within 2 hours or so had a melenotic stool. He was transferred to in tensive care unit, his heparin was stopped, and also noted aspirin and Plavix was stopped. Last vidhi l movement was 2 hours ago with dark, small amount of stool but no active bleed reported. He admits to have loud snoring, daytime sleepy and tired. No chest pain, no nausea, no vomiting, no leg pain o r leg swelling. PAST MEDICAL HISTORY: Hypertension, coronary artery disease status post coronary stent, aortic arch mural thrombus. ALLERGIES: None known. SOCIAL HISTORY: Nonsmoker, nondrinker. FAMILY HISTORY: No significant cardiopulmonary disease reported. MEDICATIONS: He is on IV fluid D5 half-normal saline 125 mL per hour, Ecotrin ____ mg which is on ho ld, Lipitor 40 mg daily, Norvasc 5 mg daily, Plavix 75 mg daily which is on hold, Protonix 40 mg IV d aily, Toprol-XL 12.5 mg twice a day, Zetia 10 mg daily. REVIEW OF SYSTEMS: No headache, no rhinitis. Admits to have loud snoring, daytime sleepy and tired. No chest pain, no nausea, no vomiting, no abdominal pain. Does have a dark-colored stool this afte rnoon. No leg pain or leg swelling. PHYSICAL EXAMINATION: Lying in the bed in no acute distress. Temp is 98, heart rate is 55, respiratory rate is 25, blood pressure 162/85, pulse ox 99% on room air . HENT: Moist mucous membranes. Crowded airway. Mallampati score is 4. NECK: Supple. No JVD. LUNGS: Has a fair airflow with few rhonchi. HEART: S1 and S2 irregular. ABDOMEN: Soft, nontender. No organomegaly. EXTREMITIES: There is no edema. NEUROLOGICALLY: Awake, alert. Follows simple commands. LABORATORY DATA: Shows latest hemoglobin 11.4, hematocrit 33.7, WBC 5.3, platelet is 163. His PTT l ast one 11 o'clock this morning is 25. Sodium 141, potassium 4.1, chloride 103, bicarbonate 29, BUN 16, creatinine 1.0, glucose 104, calcium is 9.0, phosphorus 2.5, magnesium 2.3, iron 91. AST 41, ALT 38, alk phos is 89, albumin 3.9, cholesterol is 89. TSH 2.14, B12 and folate is pending. CT scan of the chest is remarkable for aortic arch mural thrombus. No PE. IMPRESSION AND PLAN: Gastrointestinal bleed, coronary artery disease status post coronary stent, hyp ertension, anemia, aortic arch mural thrombus, pulmonary hypertension, cardiac diastolic dysfunction, may have sleep apnea syndrome. Dr. Dale's note reviewed from today, who suggested to continue aspirin and Plavix, and hold aspirin. Will clarify with about the anticoagulation and platelet inhibitors. Sleep apnea precauti on. Keep head elevated 45 degree. Will need attended sleep study once improved, as an outpatient. Follow up H and H. Thank you, and will follow with you. Tyree Duque MD cc: [id number] TT: 01/30/2017 20:37:42 Confirmation # [id number] Dictation # [id number] jn
[2017-01-30 22:14] LABS: FOLATE 8.8 ng/mL
--- NOTE | 2017-01-30 22:57 | PN ---
DATE: 01/30/2017 This patient underwent upper GI endoscopy which showed no obvious source of blood loss. The patient does have no active source of blood loss noticed. The patient has a polyp at the EG junction area wi th a small superficial erosion noticed, but there was clear bile noticed in the duodenum, and also th e stomach. There was some gastric intestinal metaplasia and gastritis noticed in the antral area. N o biopsies taken. PLAN: To monitor the closely hemoglobin, hematocrit, and restart the aspirin and Plavix in view of t he recent stent. I did discuss with Dr. Pratt and with Dr. Dale earlier, who felt that heparin is not indicated in view of this negative echo of thrombosis. Will continue to closely monitor the hem oglobin and hematocrit while the patient is on aspirin and Plavix. If there is any significant drop in hemoglobin or bleeding, will consider colonoscopic evaluation. I have discussed with Dr. Armijo, int ensivist, post-procedure regarding the findings and our GI recommendations. Thank you again for allowing us to participate in the care of the patient. Lesly Baig MD cc: [id number] TT: 01/30/2017 22:56:20 Confirmation # [id number] Dictation # [id number] gali
--- NOTE | 2017-01-31 00:44 | CON ---
DATE: 01/30/2017 REASON FOR CONSULTATION: GI bleeding. HISTORY OF PRESENT ILLNESS: This 86-year-old patient who had recently underwent coronary artery PCI with stent placement about 10 days ago. She had 3 stents placed; on aspirin and Plavix. Admitted wit h shortness of breath. The patient was found to have mildly elevated D-dimer; subsequently had a CT angio done which suspected of mural thrombus in the aortic arch. The patient was started on heparin. The patient was noticed to have dark stool per rectum. GI consult was requested to evaluate it. N o complaints of any abdominal pain. No vomiting. No history of any GI bleeding in the past. The edwige hinton has been on aspirin and Plavix for the last 10 days. No bleeding. This apparently appeared to have started after he was started on heparin. OTHER PAST MEDICAL HISTORY: Significant for hypertension, coronary artery disease, and history of ao rtic arch mural thrombus. ALLERGIES: No known drug allergies. SOCIAL HISTORY: Denies smoking. No alcohol. FAMILY HISTORY: Noncontributory. REVIEW OF THE OTHER SYSTEMS: Positive as above. All other systems reviewed, and negative. On examination, the patient is lying on the bed, not in acute distress. Heart rate 55, temperature 9 8, respirations 25, blood pressure is 162/85. HENT: Atraumatic. Anicteric. NECK: Supple. HEART: S1, S2 heard. LUNGS: Bilateral air entry present. ABDOMEN: Soft. There is no mass palpable. No tenderness. EXTREMITIES: No edema. NEUROLOGICALLY: Alert, oriented. Moves all the extremities. LABORATORY DATA: Hemoglobin 11.9 in the morning. Subsequently had 2 other settings. On admission i t was 12.2 , and today morning at 6:30 it was 11.9. Subsequently, had other readings done which sage ined stable. Hemoglobin is 11.2. No further episodes of bleeding per rectum or melena since transfe rred to the ICU. Chemistry is essentially unremarkable. Magnesium 2.3. Coagulation: The patient w as on heparin, which was discontinued, then repeat PTT was 25.3. IMPRESSION: This 86-year-old patient with a history of coronary artery disease status post percutane ous coronary intervention and 3 stents placed about 10 days ago, was presented to the Emergency Room with shortness of breath. The patient was found to have mildly elevated D-dimer. Had subsequently a CT angiogram done which showed aortic thrombus. The patient was started on heparin and was noticed to have dark stool. Appears to be like melanotic type of stool. The patient was transferred to the ICU. Since that the patient's hemoglobin has been stable. The patient's aspirin and Plavix has been on hold, and heparin has been discontinued. The differential diagnosis for this gastrointestinal bleeding should include right colonic bleeding, peptic ulcer disease, erosive esophagitis, and small bowel etiology also to be considered. Since the bleeding is not bright red, and black, then there is more concerned about the upper gastrointestinal and right colon bleeding than the left colon bleeding. The patient has been on Protonix IV. Hemogl obin has been stable. I did discuss with Dr. Dale regarding this patient's cardiac status. Since the patient had drug-elut ing stent, there is strong indication to restart the antiplatelet therapy as soon as possible. There is a higher risk giving any platelet transfusion at this time. The reasonable option in this patien t, and also the patient did have an echocardiogram done which did not demonstrate any significant thr ombosis requiring heparin therapy. PLAN: We will consider upper GI endoscopy to further evaluate the GI bleeding. If the upper GI endo scopy is negative, will restart the aspirin and Plavix and continue to monitor the hemoglobin and hem atocrit. If it hemoglobin continues to drop, then will consider colonoscopic evaluation. The real c oncern is to restart the aspirin and Plavix as early as possibly in view of the history of recent betty g-eluting stent. The findings and followup recommendations have been discussed with the patient through the interprete r, and informed consent was obtained for an EGD and colonoscopy. I have spent approximately 1 hour 15 minutes in evaluating the patient and coordinating the care, and arranging for a subsequent endoscopy. Thank you very much for allowing us to participate in the care of the patient. Will continue to clos nikky follow up his care, and suggest further management based on the clinical course. Lesly Baig MD cc: [id number] TT: 01/31/2017 00:43:51 Confirmation # [id number] Dictation # [id number] gali
[2017-01-31] MEDS: Pantoprazole 40mg/100ml IVPB 100 ML IVPB SCH (02:30)
--- NOTE | 2017-01-31 03:05 | PN ---
DATE: 01/30/2017 SUBJECTIVE: The patient is an 86-year-old male. The patient seen and examined at the bedside, weak and tired. No nausea, vomiting, or diarrhea. No fever. Denies any chest pain, no shortness of breath, no palpitations. Echo was done this morning and found to have negative mural thrombus, as per Dr. Dale. At 2: 00 a.m., the patient has a large rectal bleed, bright red blood per rectum, so moved to the ICU, and Dr. Dale was stopped the heparin. PHYSICAL EXAMINATION: VITAL SIGNS: Temperature 98, heart rate 18, blood pressure 157/84, respiratory rate 18. HEENT: Head normocephalic, atraumatic. Eyes: PERRLA, extraocular muscles intact, conjunctivae pink. Eyelids unremarkable. Nose patent. Mucous membranes moist. NECK: Supple. No carotid bruit, JVD, or thyromegaly. CHEST: Bilaterally symmetrical. HEART: S1, S2 positive. LUNGS: Clear to auscultation. ABDOMEN: Soft. Bowel sounds positive. No organomegaly. EXTREMITIES: No edema, no cyanosis. NEUROLOGIC: Awake, alert, and moving all 4 extremities. No focal deficit. LABORATORY DATA: White blood cells 5.3, hemoglobin 11.4, 11.2, 11.2, 11.9, 12.2 , is almost stable, platelets 163. Sodium 141, potassium 4.1, BUN 16, creatinine 1.0, Liver function tests within normal limits. ASSESSMENT AND PLAN: The patient is a an 86-year-old male with anemia, hemoglobin stable, hyperglycemia, hypermagnesemia, with history of hypertension , coronary artery disease status post coronary stent, aortic arch mural thrombosis; but today, echo shows there is no thrombosis, history of gastrointestinal bleeding, hypertension, pulmonary hypertension, cardiac diastolic dysfunction, maybe has sleep apnea syndrome. The patient is seen by Dr. Baig, discussion done with Dr. Baig. He did emergency endoscopy, esophagogastroduodenoscopy is done. It showed GE junction polyp, antral gastritis, antral polyp, intestinal metaplasia, but cannot find any source of active bleeding. According to him, we can continue aspirin, Plavix; even according to Dr. Dale, will continue on aspirin and Plavix. Discontinue heparin. Discussion done with Dr. Baig. GI and DVT prophylaxis. We will follow up. Rosita Zavala MD cc: [id number] TT: 01/31/2017 03:04:28 Confirmation # [id number] Dictation # [id number] vn [id number]
--- NOTE | 2017-01-31 04:00 | CON ---
DATE: 01/29/2017 SERVICE: Cardiology. REASON FOR CONSULTATION AND FOLLOWUP: Shortness of breath, history of recent catheterization, came i n with complaint of shortness of breath. BRIEF CLINICAL HISTORY: This is an 86-year-old female with a past medical history significant for co ronary artery disease who was complaining of shortness of breath, abnormal stress test. The patient underwent cardiac catheterization and a drug-eluting stent was placed in LAD, RCA and RPDA, now came in with complaint of shortness of breath, so patient underwent blood tests, troponin was negative, D- dimer was borderline, so patient was sent for CT angio that showed suspicious of mural thrombus, so t he patient was admitted. The patient denies any chest pain, but complained that he had a stressful s ituation after the patient's shortness of breath, nothing from baseline. PAST MEDICAL HISTORY: Significant for coronary artery disease, hypertension, hyperlipidemia, recent coronary intervention 01/21/2017. Previous cardiac workup as follows: The patient underwent cardiac catheterization and PTCA on 017 where the catheterization revealed triple vessel disease, preserved LV function, successful PTCA with a [place] of mid LAD, distal RCA and RPDA. ____ ejection fraction 55%, EDP was in the range of 15. The patient had a stress test prior to cardiac catheterization on 12/31/2015. Lexiscan shows probably abnormal ____ myocardial perfusion study, inferior defect suspicious for ischemia that prompted the c ardiac catheterization. When compared from the previous study 12/13/____ previous defect appears to b e reversible on the recent study. EKG shows normal sinus. No acute ST-T changes noted. CURRENT MEDICATIONS: The patient is taking at home, nitroglycerin p.r.n., metoprolol 12.5 mg daily, Zetia 10 mg daily, aspirin 81 mg daily, triamcinolone, Crestor 10 mg daily, Norvasc 5 mg daily and ba by aspirin as well. REVIEW OF SYSTEMS: As per HPI. PHYSICAL EXAMINATION: VITAL SIGNS: Temperature afebrile, heart rate ____, blood pressure 150/80. HEENT: PERRLA. Extraocular muscles intact. NECK: Supple. No carotid bruits. No thyromegaly. CHEST: Clear to auscultation. HEART: S1, S2 regular. ABDOMEN: Soft. EXTREMITIES: Clubbing and cyanosis negative. LABORATORY DATA: Blood workup as follows: WBC ____, hemoglobin 12.2, hematocrit 36.0, platelet coun t 175. INR 1.04. D-dimer 0.69. Sodium 140, potassium ____, chloride 106, carbon dioxide 28, anion gap of 15, BUN 15, creatinine 1.0. Troponin 0.01 negative. IMPRESSION AND PLAN: D-dimer positive. The patient went for CT angio that showed suspicious of mural thrombus, status post cardiac catheterization recently and intervention on 01/21/2017 with PTCA with a drug-eluting stent in the mid LAD, mid RCA and RPDA, preserved LV function, ejection fraction 55%, EDP ____. Since the patient has recent coronary intervention, will get a stat echo to verify the thr ombus. If ____ then will consider SKYLAR. Otherwise, echo will ____. In the interim, will start hepari n. Resume medication including aspirin, Plavix, beta marvin, Zetia. Will follow with you. Thank you, Dr. Zavala, for providing the opportunity in taking care of this patient. Tyree Dale MD cc: [id number] TT: 01/29/2017 21:46:30 Confirmation # [id number] Dictation # [id number] rashmi
[2017-01-31 06:36] LABS: ADD MANUAL DIFF? NO
[2017-01-31 06:58] LABS: ALB/GLOB RATIO 1.2 (1.1-1.8); ALKALINE PHOSPHATASE 70 U/L (38-133); ALT/SGPT 35 U/L (7-56); AST/SGOT 43 U/L (15-59); BILIRUBIN,TOTAL 0.8 mg/dL (0.2-1.3); BLOOD UREA NITROGEN 13 mg/dL (7-21); CALCIUM 8.5 mg/dL (8.4-10.5); CARBON DIOXIDE 29 mmol/L (21-33); CHLORIDE 105 mmol/L (98-107); GFR AFRICAN-AMERICAN > 60; GLUCOSE,RANDOM 111 mg/dL (70-110); MAGNESIUM 2.2 mg/dL (1.7-2.2); PHOSPHOROUS 3.2 mg/dL (2.5-4.5); POTASSIUM 3.9 mmol/L (3.6-5.0); SODIUM 142 mmol/L (132-148); TOTAL PROTEIN 6.5 g/dL (5.8-8.3)
[2017-01-31 07:17] LABS: BASO # 0.01 K/mm3 (0.0-2.0); BASO % 0.2 % (0.0-3.0); EOS # 0.1 (0.0-0.7); EOS % 3.1 % (1.5-5.0); GRAN # 2.32 (1.4-6.5); GRAN % 56.1 % (50.0-68.0); HEMATOCRIT 32.1 % (42.0-52.0); LYMPH % 23.7 % (22.0-35.0); MEAN CELL VOLUME 88.7 fL (80.0-105.0); MEAN CORPUSCULAR HEMOGLOBIN 29.6 pg (25.0-35.0); MEAN CORPUSCULAR HGB CONC 33.3 g/dl (31.0-37.0); MEAN PLATELET VOLUME 9.5 fl (7.0-11.0); MONO # 0.7 (0.1-0.6); MONO % 16.9 % (1.0-6.0); PLATELET COUNT 149 10^3/uL (120.0-450.0); RED CELL DISTRIBUTION WIDTH 12.9 % (11.5-14.5); WHITE BLOOD COUNT 4.1 10^3/ul (4.5-11.0)
--- NOTE | 2017-01-31 08:38 | PN ---
DATE: 01/31/2017 SUBJECTIVE: The patient is resting in bed and has no complaint of shortness of breath, cough, wheezi ng, chest congestion. No abdominal pain or chest pain at this time. The patient is comfortable on r oom air. The patient has been restarted on his aspirin and Plavix, but the heparin is being held. PHYSICAL EXAMINATION: VITAL SIGNS: His temperature is 98.4, his pulse is 54, respirations are 20, and BP is 163/77, O2 sat uration is 99% with nasal cannula. HEAD: Atraumatic, normocephalic. EYES: Reactive to light. EARS, NOSE AND THROAT: Seemed to be within normal limits. NECK: Supple. No JVD, no thyroid enlargement, no lymph nodes. CARDIOVASCULAR: Heart has a regular rate and rhythm, normal S1, S2. LUNGS: Reveal good breath sounds bilaterally. ABDOMEN: Soft, nontender, normal bowel sounds. GENITALIA AND RECTAL: Deferred. MUSCULOSKELETAL: No joint deformities. EXTREMITIES: Reveal trace lower extremity edema. NEUROLOGIC: He seems to be grossly intact. LABORATORIES: His last hemoglobin was 11.4. A.m. labs are pending. IMPRESSION: The patient has possible aortic mural thrombus and is status post a lower gastrointestin al bleed. His hemoglobin continues to remain stable. He has a history of coronary artery disease an d is status post stents and hypertension as well as hyperlipidemia. The patient is being followed by GI and cardiology. We will continue IV fluids, aspirin and Plavix, and will follow his hemoglobin c losely. We will continue to treat aggressively along with the other consultants and the primary care doctor. Kentrell Armijo MD cc: [id number] TT: 01/31/2017 08:38:26 Confirmation # [id number] Dictation # [id number] en
[2017-01-31] MEDS ORDERED: Dextrose 5%/0.45% NS 1,000 ML IV SCH (11:28)
--- NOTE | 2017-01-31 12:50 | PN ---
DATE: 01/31/2017 REASON FOR CONSULTATION AND FOLLOWUP: Admitted for possible mural thrombus in arch of aorta, was neg ative for by echo, but patient had a massive lower gastrointestinal bleed. BRIEF CLINICAL HISTORY: An 86-year-old male with a past medical history significant for coronary art leonidas disease, status post catheterization at [facility]. Recently, patient had a cardiac catheteri zation and 3 stents were deployed on 01/21/2017 in LAD, RCA and RPDA, who admitted with dizziness, unc ontrolled hypertension, but patient was about to be discharged when the D-dimer was positive, so genia ent underwent a CAT scan that suspicious of mural thrombus in arch of aorta, so patient started hepar in. Echo was done and was negative. Overnight, patient had lower gastrointestinal bleed and so move d to the ICU endoscopy. Denies any further episode of bleeding. PHYSICAL EXAMINATION: VITAL SIGNS: Temperature afebrile, heart rate , blood pressure 142/76. HEENT: PERRLA. Extraocular muscles intact. NECK: Supple. No carotid bruits. No thyromegaly. CHEST: Clear to auscultation. HEART: S1, S2 regular. ABDOMEN: Soft. EXTREMITIES: Clubbing, cyanosis negative. BLOOD WORKUP: WBC 4.8, hemoglobin 10.7, hematocrit 32.1, platelet count 149. Chemistry shows sodium 140, potassium 3.9, chloride of 105, carbon dioxide , anion gap of 12, BUN 13, creatinine 1.1. IMPRESSION: Gastrointestinal bleed, dropping H and H, history of recent 3 drug-eluting stents, 1 in right coronary artery, 1 in right posterior descending artery, 1 in left anterior descending, history of gastrointestinal bleed, status post CAT scan suspicious of mural thrombus in arch of aorta. Echo was done. It was negative for no thrombus. RECOMMENDATION: Continue aspirin and Plavix because patient had recent 3 stents on 01/21/2017. Monit or H and H. Decrease IV fluid to 50 mL an hour. If patient starts p.o., cleared by GI, then we will discontinue IV fluid. We will follow with you. If patient remains stable, he can be transferred ou t to telemetry. Thank you, Dr. Zavala, for providing us the opportunity in taking care of the patient. Tyree Dale MD cc:Rosita Zavala MD [id number] TT: 01/31/2017 12:49:49 Confirmation # [id number] Dictation # [id number] en
--- NOTE | 2017-01-31 18:00 | PN ---
DATE: 01/31/2017 REFERRING PHYSICIAN: Dr. Zavala. SUBJECTIVE: He is out of bed to chair, status post endoscopy done yesterday, which was basically unr emarkable for any bleeding source. There is no hematemesis, no melena today. He was started back on Plavix and aspirin last night. This morning has a clear liquid diet, tolerated well. No headache, no rhinitis, no nausea, no vomiting, no leg pain or leg swelling. OBJECTIVE: GENERAL: No acute distress. VITAL SIGNS: Temperature is 98, heart rate 66, respiratory rate is 20, blood pressure 158/96, pulse ox 97% on nasal cannula. HEENT: Moist mucous membranes. Crowded airway. Mallampati score is 4. NECK: Supple. No JVD. LUNGS: Have a fair airflow with few rhonchi. HEART: S1, S2. ABDOMEN: Soft, nontender. No organomegaly. EXTREMITIES: No edema. NEUROLOGIC: Awake, alert, follows simple commands. MEDICATIONS: He is on IV fluid D5 half normal saline 50 mL per hour, Ecotrin 81 mg daily, Lipitor 40 mg daily, Norvasc 5 mg daily, Plavix 75 mg daily, Protonix 40 mg daily, Toprol-XL 12.5 mg twice a da y, Zetia 10 mg daily. LABORATORY DATA: Shows hemoglobin 10.7, hematocrit 32.1, WBC 4.1, platelet count is 149. Sodium 142 , potassium 3.9, chloride 105, bicarbonate 29, BUN 13, creatinine 1.1, glucose 111, calcium 8.5, phos phorus 3.2, magnesium 2.2. AST 43, ALT 35, alkaline phosphatase is 70, albumin is 3.5. TSH is 2.14. Endoscopy report noted. IMPRESSION AND PLAN: Gastrointestinal bleed, coronary artery disease, status post coronary stent, hy pertension, anemia, aortic arch mural thrombus, pulmonary hypertension, cardiac diastolic dysfunction , may have sleep apnea syndrome. I spoke to nursing staff. The patient is started back on aspirin a nd Plavix. H and H is still dropping, but there is no melena or hematochezia. Started on clear liqu id diet. Follow up H and H closely. Sleep apnea precautions. Keep head elevated at 45 degrees. Av oid anticoagulation for now. May need to start on if iron is okay. Will follow with you. Tyree Duque MD cc: [id number] TT: 01/31/2017 18:00:12 Confirmation # [id number] Dictation # [id number] rn
--- NOTE | 2017-01-31 20:01 | PN ---
DATE: 01/31/2017 SUBJECTIVE: The patient was seen and examined on the bedside, looks comfortable. No nausea, vomiting, or diarrhea. Sitting on the chair. No fever , no chills, no rhinitis, no headache, no vomiting. No swelling of the legs. The patient is status post endoscopy done yesterday by Dr. Baig, which was basically unremarkable for any bleeding source. PHYSICAL EXAMINATION: VITAL SIGNS: Temperature 98, heart rate 66, respiratory rate 20, blood pressure 158/96, pulse oximeter 97% on nasal cannula. HEENT: Head normocephalic, atraumatic. Eyes: PERRLA. Extraocular muscles are intact. Conjunctivae are clear. Nose patent. Mucous membranes moist. NECK: Supple. No carotid bruit, JVD or thyromegaly. LUNGS: Has a fair airflow with a few rhonchi. ABDOMEN: Soft and nontender. No organomegaly. EXTREMITIES: No edema, no cyanosis. NEUROLOGIC: The patient is awake, alert, follows simple commands. MEDICATIONS: IV fluid, Ecotrin, Lipitor, Norvasc, Plavix, Protonix, Toprol, Zetia. LABORATORY DATA: Hemoglobin 10.7, hematocrit 32.1, white blood cells 4.1, platelets 149. Sodium 142, potassium 3.9, BUN 13, creatinine 1.1 and glucose 111. AST 43, ALT 35. TSH 2.14. ASSESSMENT AND PLAN: The patient is an 86-year-old male who had an episode of gastrointestinal bleeding, endoscopy and colonoscopy done by Dr. Baig; coronary artery disease status post coronary artery stent, hypertension, anemia , thrombosis, was on heparin, now after GI bleeding discontinued heparin, the patient is still on Plavix and aspirin; pulmonary hypertension, cardiac diastolic dysfunction, sleep apnea syndrome. We are monitoring H and H. If it is still dropping, will talk to GI, but there is no melena or hematochezia. Started the patient on a clear liquid diet. Sleep apnea precautions. Avoid anticoagulation for now. Out of bed, physical therapy. Will followup. Rosita Zavala MD cc: [id number] TT: 01/31/2017 20:00:14 Confirmation # [id number] Dictation # [id number] dn MTDD
--- NOTE | 2017-02-01 04:43 | PN ---
DATE: 01/31/2017 SUBJECTIVE: This patient was seen and evaluated earlier. Discussed with the ICU staff. The patient has had a bowel movement brown stool. No complaints of abdominal pain, tolerating the liquid diet. PHYSICAL EXAMINATION: VITAL SIGNS: Temperature is afebrile. Blood pressure 140/82, respiration 54. HEENT: Atraumatic, anicteric. NECK: Supple. HEART: S1, S2 heard. LUNGS: Bilateral normal vesicular breath sounds. ABDOMEN: Soft. There is no mass palpable. No tenderness. EXTREMITIES: No edema. NEUROLOGIC: Alert, oriented. Moves all the extremities. LABORATORY DATA: Hemoglobin 10.7, hematocrit 32.1, WBC 4.1, platelets was 149, BUN 13, creatinine 1. 1. IMPRESSION: This 86-year-old patient admitted with shortness of breath, history of coronary artery d isease, status post recent percutaneous coronary intervention with stent placement on aspirin and Chaya vix. Had episode of dark stool. Had an EGD done yesterday, had an EG junction polyp with a small ford perficial erosion. No obvious source of upper gastrointestinal source of active bleeding source noti manuelito. The patient does have a patchy erythematous areas in suggestive of intestinal metaplasia in the stomach. Biopsies were not taken as the patient has been on aspirin and Plavix. The patient was initially on heparin for a suspected thrombus of the aorta. Subsequently it was discontinued fol lowing the echocardiograph read as per senior tech manufacturing engineering. Hemodynamically, the patient remains stable, th ere is a slight drop in hemoglobin from 10.4 to 11.4 to 10.7. RECOMMENDATIONS: We follow up the hemoglobin and hematocrit and reduce the Protonix drip to once grupo ly 40 mg IV. The reasonable thing is to consider colonoscopy as the patient needs to be on aspirin a nd Plavix. The patient did have a documented dark bleeding and dark stool. We will prepare the genia ent for colonoscopy on Wednesday and we will continue to keep the patient on liquid diet. Thank you very much for allowing us to participate in the care of the patient. We will continue to c losely follow up care and suggest further management based on the clinical course. Lesly Baig MD cc: [id number] TT: 02/01/2017 04:43:44 Confirmation # [id number] Dictation # [id number] kn
[2017-02-01 05:29] LABS: ADD MANUAL DIFF? NO
[2017-02-01 05:41] LABS: BASO # 0.05 K/mm3 (0.0-2.0); EOS # 0.2 (0.0-0.7); EOS % 3.8 % (1.5-5.0); GRAN # 2.71 (1.4-6.5); GRAN % 56.8 % (50.0-68.0); HEMATOCRIT 32.8 % (42.0-52.0); LYMPH # 1.1 (1.2-3.4); LYMPH % 23.8 % (22.0-35.0); MEAN CELL VOLUME 89.6 fL (80.0-105.0); MEAN CORPUSCULAR HEMOGLOBIN 29.5 pg (25.0-35.0); MEAN CORPUSCULAR HGB CONC 32.9 g/dl (31.0-37.0); MEAN PLATELET VOLUME 9.7 fl (7.0-11.0); MONO # 0.7 (0.1-0.6); MONO % 14.6 % (1.0-6.0); PLATELET COUNT 144 10^3/uL (120.0-450.0); RED CELL DISTRIBUTION WIDTH 13.1 % (11.5-14.5); WHITE BLOOD COUNT 4.8 10^3/ul (4.5-11.0)
[2017-02-01 05:42] LABS: ALB/GLOB RATIO 1.1 (1.1-1.8); ALKALINE PHOSPHATASE 78 U/L (38-133); ALT/SGPT 32 U/L (7-56); AST/SGOT 39 U/L (15-59); BILIRUBIN,TOTAL 0.7 mg/dL (0.2-1.3); BLOOD UREA NITROGEN 10 mg/dL (7-21); CALCIUM 8.6 mg/dL (8.4-10.5); CARBON DIOXIDE 27 mmol/L (21-33); CHLORIDE 105 mmol/L (95-110); GFR AFRICAN-AMERICAN > 60; GLUCOSE,RANDOM 88 mg/dL (70-110); MAGNESIUM 2.2 mg/dL (1.7-2.2); PHOSPHOROUS 3.2 mg/dL (2.5-4.5); POTASSIUM 3.8 mmol/L (3.6-5.0); SODIUM 141 mmol/L (132-148); TOTAL PROTEIN 6.7 g/dL (5.8-8.3)
--- NOTE | 2017-02-01 12:25 | PN ---
DATE: 02/01/2017 Seen and examined at the bedside earlier in CCU. The patient was out of bed. No reports of acute ov ernight events. He denies any nausea, vomiting, no abdominal pain. Denies any blood per rectum. De nies any shortness of breath or chest pain. VITAL SIGNS: Temperature is 98.4, blood pressure 157/69, pulse 72, respirations 21, 99 on room air. LABORATORY DATA: WBC 4.8, H and H are 10.8 and 32.8, platelets of 144. Sodium 141, K is 3.8, BUN 10 , creatinine is 1.0, magnesium 2.2. LFTs are within normal limits. PHYSICAL EXAMINATION: HEENT: Sclerae anicteric. NECK: Supple. CARDIAC: S1, S2. LUNGS: Decreased breath sounds but good aeration, no rales or wheeze. ABDOMEN: With bowel sounds. Soft. It is not distended, nontender. No organomegaly. EXTREMITIES: No edema. NEUROLOGIC: Awake, alert, and oriented. ASSESSMENT: This is an 86-year-old male with a history of coronary artery disease status post PTCA _ ___ on aspirin and Plavix, admitted with shortness of breath; patient with lower gastrointestinal ble ed, status post endoscopy the other day, found to have an esophagogastric junction polyp and superfic ial erosions; no active gastrointestinal bleed noted. The patient initially started on heparin ____ for thrombus but, after gastrointestinal bleed, was discontinued. Other comorbidities are pulmonary hypertension, cardiac diastolic dysfunction. PLAN: The patient is going to be prepared for a colonoscopy tomorrow. He will go on a clear liquid diet and start GoLYTELY prep around 3 p.m. in the afternoon, n.p.o. after midnight, and we will reche ck his labs in the a.m. The patient remains on aspirin and Plavix. The patient was seen and case dis cussed with Dr. Baig, as per cardiology and pulmonary. Sondra HARDING cc: [id number] TT: 02/01/2017 12:25:01 Confirmation # [id number] Dictation # [id number] mn
--- NOTE | 2017-02-01 13:13 | PN ---
DATE: 02/01/2017 REASON FOR CONSULTATION AND FOLLOWUP: GI bleed, history of recent coronary intervention. BRIEF CLINICAL HISTORY: This is an 86-year-old male with past medical history significant for davis ry artery disease, status post catheterization and angioplasty on 01/21/2017 of LAD, mid RCA and RPDA . Admitted with dizziness and uncontrolled hypertension after a stressful situation at home. The pa mary jane was discharged with a D-dimer positive so the ER physician did a CAT scan and that showed suspi cious mural thrombus. Heparin is started. Stat echo was done. Echo was negative for mural thrombus . But patient had bright red blood per rectum and was moved to ICU. The patient had endoscopy yeste rday and now is going for colonoscopy. Denies any chest pain, shortness of breath, any palpitation. Denies any further episode of bleeding per rectum. PHYSICAL EXAMINATION: VITAL SIGNS: Temperature afebrile, heart rate ____, blood pressure 157/69. HEENT: PERRLA. Extraocular muscles intact. NECK: Supple. No carotid bruit or thyromegaly. CHEST: Clear to auscultation. HEART S1, S2 regular. ABDOMEN: Soft. EXTREMITIES: Clubbing and cyanosis are negative. BLOOD WORKUP: WBC 4.____, hemoglobin 10.8, hematocrit 32.8, platelet count 144. Chemistry shows sod ium 141, potassium 3.____, chloride 105, carbon dioxide 27, anion gap of 13, BUN 10, creatinine 1.0. IMPRESSION: Gastrointestinal bleed, bright red blood per rectum; recent coronary intervention of lef t anterior descending, right coronary artery, and right posterior descending artery 01/21/2017. CAT scan was suspicious for mural thrombus, but echocardiogram was essentially negative. RECOMMENDATIONS: Continue aspirin and Plavix because recently a stent was done, a week ago. Follow up GI. Discontinue IV fluid. The patient has adequate p.o. Further recommendation depending upon G I workup. Will follow with you. Thank you, Dr. Zavala, for providing the opportunity in taking care of this patient. Echo shows ejection fraction 65-70%, trace aortic regurgitation, trace to mild mitral regurgitation, mild to moderate tricuspid regurgitation, right ventricular systolic pressure of 58. Repeat the bloo d workup in the morning. Thank you, Dr. Zavala, for providing the opportunity in taking care of the patient. Tyree Dale MD cc:Rosita Zavala MD [id number] TT: 02/01/2017 11:46:55 Confirmation # [id number] Dictation # [id number] mn 02/01/2017 11:20:14
--- NOTE | 2017-02-01 14:09 | PN ---
DATE: 02/01/2017 SUBJECTIVE: This patient was seen and evaluated earlier. Discussed with ICU staff and also ICU atte nding. No further episodes of bleeding. Abdomen is soft, no tenderness, on clear liquid diet. The patient's hemoglobin remains stable at 10.8. The patient is back on aspirin and Plavix. This is an 86-year-old patient with status post [employer]ER and recent stent placement, has GI bleeding. Upp er GI endoscopy revealed EG junction polyp, gastritis, intestinal metaplasia. No active source of bl ood loss. Heparin is off now. The patient is scheduled for a colonoscopy to further evaluate the GI bleeding. It will be a diagnostic gastrointestinal bleeding. Continue the aspirin and Plavix. Gisele se monitoring of the hemoglobin and hematocrit. Thank you very much for allowing us to participate in the care of the patient. Lesly Baig MD cc: [id number] TT: 02/01/2017 14:08:51 Confirmation # [id number] Dictation # [id number] gali
--- NOTE | 2017-02-01 14:14 | CP.CCUPN ---
<Kye Price - Last Filed: 02/01/17 13:59> CCU Subjective - Physician Review Subjective (Free Text): 02/01/17 13:59 Patient seen and examined at bedside in ICU. Today is hospital day 4. No acute events overnight, no further bloody bowel movements. Patient denies any acute complaints; no chest pain, abdominal pain, emesis, shortness of breath, pain with respiration. Resting comfortably in bed. CCU Objective - Vital Signs / Intake & Output Intake and Output (Last 8hrs): Intake & Output 01/31/17 02/01/17 02/01/17 22:59 06:59 14:59 Intake Total 730 320 Output Total 450 600 Balance 280 -280 Intake: IV 250 20 Right Forearm 250 20 Oral 480 300 Output: Urine 450 600 Urine, Voided 450 600 Other: Voiding Method Bedside Commode Bedside Commode # Bowel Movements 1 - Physical Exam Head: Positive for: Atraumatic, Normocephalic. Negative for: Contusion, Abrasion, Laceration Extroacular Muscles: Positive for: EOMI. Negative for: Gaze Palsy, Entrapment Conjunctiva: Positive for: Normal. Negative for: Injected, Icteric Mouth: Positive for: Moist Mucous Membranes. Negative for: Dry, Drooling Nose (External): Positive for: Atraumatic. Negative for: Abrasion, Contusion, Laceration Neck: Positive for: Normal Range of Motion. Negative for: JVD Respiratory/Chest: Positive for: Clear to Auscultation, Good Air Exchange. Negative for: Respiratory Distress, Accessory Muscle Use, Wheezes, Decreased Breath Sounds, Rales, Rhonchi, Tachypneic, Tender to Palpation Cardiovascular: Positive for: Regular Rate and Rhythm, Normal S1, S2. Negative for: Murmurs, Irregular Rhythm, Tachycardic, Bradycardic Abdomen: Positive for: Normal Bowel Sounds. Negative for: Tenderness, Distention, Peritoneal Signs, Guarding, Mass/Organomegaly Upper Extremity: Positive for: Normal Inspection, Normal ROM, NORMAL PULSES, Other (spontaneously moving). Negative for: Cyanosis, Edema, Tenderness, Swelling, Erythema, Deformity Lower Extremity: Positive for: Normal Inspection, NORMAL PULSES, Normal ROM, Other (spontanously moving). Negative for: Edema, CALF TENDERNESS, Cyanosis, Tenderness, Swelling, Erythema, Deformity Neurological: Positive for: GCS=15, CN II-XII Intact, Speech Normal, Motor Func Grossly Intact (spontaneously moving all extremities) Skin: Positive for: Warm, Dry, Normal Color. Negative for: Rashes, Diaphoretic , Erythematous, Hot, Cold, Laceration, Abrasion Psychiatric: Positive for: Alert Other physical findings (Free Text): awake and alert, able to follow commands and answer simple yes/no questions appropriately, unable to assess orientation due to language barrier (albanian- speaking) - Medications Active Medications: Active Medications Generic Name Dose Route Start Last Admin Trade Name Freq PRN Reason Stop Dose Admin Amlodipine Besylate 5 mg 01/30/17 10:00 02/01/17 09:57 Norvasc PO 5 mg DAILY KIA Administration Aspirin 81 mg 01/30/17 10:00 02/01/17 09:55 Ecotrin PO 81 mg DAILY KIA Administration Atorvastatin Calcium 40 mg 01/29/17 17:00 02/01/17 09:56 Lipitor PO 40 mg DAILY KIA Administration Clopidogrel Bisulfate 75 mg 01/30/17 10:00 02/01/17 09:58 Plavix PO 75 mg DAILY KIA Administration Ezetimibe 10 mg 01/30/17 10:00 02/01/17 09:58 Zetia PO 10 mg DAILY KIA Administration Metoprolol Succinate 12.5 mg 01/29/17 18:00 01/29/17 19:46 Toprol Xl PO Not Given BID KIA Pantoprazole Sodium 40 mg 02/01/17 10:00 02/01/17 10:00 Protonix Inj IVP 40 mg DAILY KIA Administration Polyethylene Glycol/Electrolytes 4,000 ml 02/01/17 15:00 Golytely PO 02/01/17 15:01 ONCE ONE - Patient Studies Lab Studies: Microbiology Studies 01/30/17 08:15 MRSA Culture (Admit) - Final Nose MRSA NOT DETECTED Lab Studies 02/01/17 01/30/17 Range/Units 05:00 06:30 WBC 4.8 (4.5-11.0) 10^3/ul RBC 3.66 (3.5-6.1) 10^6/uL Hgb 10.8 L (14.0-18.0) gm/dL Hct 32.8 L (42.0-52.0) % MCV 89.6 (80.0-105.0) fL MCH 29.5 (25.0-35.0) pg MCHC 32.9 (31.0-37.0) g/dl RDW 13.1 (11.5-14.5) % Plt Count 144 (120.0-450.0) 10^3/uL MPV 9.7 (7.0-11.0) fl Gran % 56.8 (50.0-68.0) % Lymph % (Auto) 23.8 (22.0-35.0) % Mccracken % (Auto) 14.6 H (1.0-6.0) % Eos % (Auto) 3.8 (1.5-5.0) % Baso % (Auto) 1.0 (0.0-3.0) % Gran # 2.71 (1.4-6.5) Lymph # 1.1 L (1.2-3.4) Mccracken # 0.7 H (0.1-0.6) Eos # 0.2 (0.0-0.7) Baso # 0.05 (0.0-2.0) K/mm3 Sodium 141 (132-148) mmol/L Potassium 3.8 (3.6-5.0) mmol/L Chloride 105 (95-110) mmol/L Carbon Dioxide 27 (21-33) mmol/L Anion Gap 13 (10-20) BUN 10 (7-21) mg/dL Creatinine 1.0 (0.5-1.4) mg/dL Est GFR ( Amer) > 60 Est GFR (Non-Af Amer) > 60 Random Glucose 88 (70-110) mg/dL Hemoglobin A1c 5.9 (4.2-6.5) % Calcium 8.6 (8.4-10.5) mg/dL Phosphorus 3.2 (2.5-4.5) mg/dL Magnesium 2.2 (1.7-2.2) mg/dL Total Bilirubin 0.7 (0.2-1.3) mg/dL AST 39 (15-59) U/L ALT 32 (7-56) U/L Alkaline Phosphatase 78 (38-133) U/L Total Protein 6.7 (5.8-8.3) g/dL Albumin 3.5 (3.0-4.8) g/dL Globulin 3.1 gm/dL Albumin/Globulin Ratio 1.1 (1.1-1.8) Laboratory Results - last 24 hr 01/30/17 02/01/17 06:30 05:00 WBC 4.8 RBC 3.66 Hgb 10.8 L Hct 32.8 L MCV 89.6 MCH 29.5 MCHC 32.9 RDW 13.1 Plt Count 144 MPV 9.7 Gran % 56.8 Lymph % (Auto) 23.8 Mccracken % (Auto) 14.6 H Eos % (Auto) 3.8 Baso % (Auto) 1.0 Gran # 2.71 Lymph # 1.1 L Mccracken # 0.7 H Eos # 0.2 Baso # 0.05 Sodium 141 Potassium 3.8 Chloride 105 Carbon Dioxide 27 Anion Gap 13 BUN 10 Creatinine 1.0 Est GFR ( Amer) > 60 Est GFR (Non-Af Amer) > 60 Random Glucose 88 Hemoglobin A1c 5.9 Calcium 8.6 Phosphorus 3.2 Magnesium 2.2 Total Bilirubin 0.7 AST 39 ALT 32 Alkaline Phosphatase 78 Total Protein 6.7 Albumin 3.5 Globulin 3.1 Albumin/Globulin Ratio 1.1 Review of Systems - Review of Systems Systems not reviewed;Unavailable: Language Barrier (primarily albanian-speaking) Review of Systems: denies chest pain, shortness of breath, pain with respiration, abdominal pain, weakness Critical Care Progress Note - Nutrition Nutrition: Nutrition Category Date Time Status Liquid Diet [DIET] Diets 01/31/17 Lunch Ordered Assessment/Plan - Assessment and Plan (Free Text) Assessment: This is an 86 yo Georgian-speaking M with PMH of CAD s/p cardiac cath and 3 stents (01/21/17), HTN, and HLD initially admitted for dyspnea on exertion who was transferred to the ICU for acute GI bleed while on heparin for management of aortic arch mural thrombosis. Plan: Neuro: -awake, alert, following all commands, spontaneously moving all extremities -maintain normothermia Pulm: -initially presented with dyspnea on exertion, no current shortness of breath -clear to auscultation bilaterally on exam -satting well on room air, 99% on bedside monitor at time of exam -no need for supplemental O2 at this time -maintain SaO2 > 92% and paO2 > 60 -Pulm (Dr. Duque) consulted, appreciate any recs -Sleep apnea precautions, as per Pulm Cardio -s/p cardiac cath and placement of 3 drug-eleuting stents on 01/21/17 -Aortic arch mural thrombi found on CT, not seen on 2D echo, Cardio aware -Initially on heparin for thrombi, stopped after 3x bloody bowel movements; as per Cardio will continue on ASA/Plavix, will not restart Heparin -Hgb stable (10.7 today, 10.8 yesterday), hemodynamically stable -Maintain MAP > 65 -Cardio (Dr. Dale) consulted, appreciate any recs -Continue Zetia, Lipitor, ASA, Plavix, Norvasc, Toprol XL -TSH on 01/30 wnl, Lipid panel notable for Chol 98, LDL 42, HDL 34 -2D echo on 01/29 notable for LVEF 55-60%, trace AR, no , trace MR, mold- moderate TR, no dissection or thrombus noted -Chest CT on 01/29 notable for focal mural thrombus in aortic arch (age uncertain) , no evidence of PE -2 units pRBCs on hold, no transfusions thus far, no indication for transfusion at this time as Hgb stable at 10.8 GI: -Clear liquid diet as per GI, tolerating; can d/c IVF per GI -Protonix for GI ppx; converted from drip to 40mg daily as per GI -GI (Dr. Baig) consulted, appreciate any recs -Scheduled for colonoscopy tomorrow (02/02), NPO after midnight, bowel prep ordered by GI -Underwent EGD on 01/30, notable for 5mm polyp at gastroesophageal junction and chronic gastritis Renal: -Making urine, monitor I's & O's -no hematuria noted -Cr 1.0 (was 1.1) -monitor and replete electrolytes as needed -avoid nephrotoxic drugs where feasible -maintain euglycemia and euvolemia ID: -afebrile, no leukocytosis (WBCs 4.8, was 4.1) -continue to monitor Heme: -Hgb 10.8 was 10.7, stable -avoid AC due to GI bleed risk -SCDs for DVT ppx -continue antiplatelet agents due to CAD and recent cardiac cath with stent placement Dispo: ICU for GI bleed while on heparin for mural thrombi, pending colonoscopy per GI; stable for transfer to telemetry (discussed with cardio) FEN: Clear liquid diet, NPO after midnight for Colonscopy Access: Peripheral IV Consults: Cardio, GI, Pulm Ppx: Protonix for GI, SCDs for DVT (avoid AC given GI bleed risk) Code status: Unknown, so full code Patient seen, reviewed, and discussed with attending, Dr. Conner. - Date & Time Date: 02/01/17 Time: 15:20 <Dalila HAYNES,Daniel H - Last Filed: 02/01/17 15:27> CCU Objective - Vital Signs / Intake & Output Intake and Output (Last 8hrs): Intake & Output 02/01/17 02/01/17 02/01/17 06:59 14:59 22:59 Intake Total 320 Output Total 600 Balance -280 Intake: IV 20 Right Forearm 20 Oral 300 Output: Urine 600 Urine, Voided 600 Other: Voiding Method Bedside Commode - Medications Active Medications: Active Medications Generic Name Dose Route Start Last Admin Trade Name Freq PRN Reason Stop Dose Admin Amlodipine Besylate 5 mg 01/30/17 10:00 02/01/17 09:57 Norvasc PO 5 mg DAILY KIA Administration Aspirin 81 mg 01/30/17 10:00 02/01/17 09:55 Ecotrin PO 81 mg DAILY KIA Administration Atorvastatin Calcium 40 mg 01/29/17 17:00 02/01/17 09:56 Lipitor PO 40 mg DAILY KIA Administration Clopidogrel Bisulfate 75 mg 01/30/17 10:00 02/01/17 09:58 Plavix PO 75 mg DAILY KIA Administration Ezetimibe 10 mg 01/30/17 10:00 02/01/17 09:58 Zetia PO 10 mg DAILY KIA Administration Metoprolol Succinate 12.5 mg 01/29/17 18:00 01/29/17 19:46 Toprol Xl PO Not Given BID KIA Pantoprazole Sodium 40 mg 02/01/17 10:00 02/01/17 10:00 Protonix Inj IVP 40 mg DAILY KIA Administration - Patient Studies Lab Studies: Microbiology Studies 01/30/17 08:15 MRSA Culture (Admit) - Final Nose MRSA NOT DETECTED Lab Studies 02/01/17 01/30/17 Range/Units 05:00 06:30 WBC 4.8 (4.5-11.0) 10^3/ul RBC 3.66 (3.5-6.1) 10^6/uL Hgb 10.8 L (14.0-18.0) gm/dL Hct 32.8 L (42.0-52.0) % MCV 89.6 (80.0-105.0) fL MCH 29.5 (25.0-35.0) pg MCHC 32.9 (31.0-37.0) g/dl RDW 13.1 (11.5-14.5) % Plt Count 144 (120.0-450.0) 10^3/uL MPV 9.7 (7.0-11.0) fl Gran % 56.8 (50.0-68.0) % Lymph % (Auto) 23.8 (22.0-35.0) % Mccracken % (Auto) 14.6 H (1.0-6.0) % Eos % (Auto) 3.8 (1.5-5.0) % Baso % (Auto) 1.0 (0.0-3.0) % Gran # 2.71 (1.4-6.5) Lymph # 1.1 L (1.2-3.4) Mccracken # 0.7 H (0.1-0.6) Eos # 0.2 (0.0-0.7) Baso # 0.05 (0.0-2.0) K/mm3 Sodium 141 (132-148) mmol/L Potassium 3.8 (3.6-5.0) mmol/L Chloride 105 (95-110) mmol/L Carbon Dioxide 27 (21-33) mmol/L Anion Gap 13 (10-20) BUN 10 (7-21) mg/dL Creatinine 1.0 (0.5-1.4) mg/dL Est GFR ( Amer) > 60 Est GFR (Non-Af Amer) > 60 Random Glucose 88 (70-110) mg/dL Hemoglobin A1c 5.9 (4.2-6.5) % Calcium 8.6 (8.4-10.5) mg/dL Phosphorus 3.2 (2.5-4.5) mg/dL Magnesium 2.2 (1.7-2.2) mg/dL Total Bilirubin 0.7 (0.2-1.3) mg/dL AST 39 (15-59) U/L ALT 32 (7-56) U/L Alkaline Phosphatase 78 (38-133) U/L Total Protein 6.7 (5.8-8.3) g/dL Albumin 3.5 (3.0-4.8) g/dL Globulin 3.1 gm/dL Albumin/Globulin Ratio 1.1 (1.1-1.8) Laboratory Results - last 24 hr 01/30/17 02/01/17 06:30 05:00 WBC 4.8 RBC 3.66 Hgb 10.8 L Hct 32.8 L MCV 89.6 MCH 29.5 MCHC 32.9 RDW 13.1 Plt Count 144 MPV 9.7 Gran % 56.8 Lymph % (Auto) 23.8 Mccracken % (Auto) 14.6 H Eos % (Auto) 3.8 Baso % (Auto) 1.0 Gran # 2.71 Lymph # 1.1 L Mccracken # 0.7 H Eos # 0.2 Baso # 0.05 Sodium 141 Potassium 3.8 Chloride 105 Carbon Dioxide 27 Anion Gap 13 BUN 10 Creatinine 1.0 Est GFR ( Amer) > 60 Est GFR (Non-Af Amer) > 60 Random Glucose 88 Hemoglobin A1c 5.9 Calcium 8.6 Phosphorus 3.2 Magnesium 2.2 Total Bilirubin 0.7 AST 39 ALT 32 Alkaline Phosphatase 78 Total Protein 6.7 Albumin 3.5 Globulin 3.1 Albumin/Globulin Ratio 1.1 Critical Care Progress Note - Nutrition Nutrition: Nutrition Category Date Time Status Liquid Diet [DIET] Diets 01/31/17 Lunch Ordered Attending/Attestation - Attestation I have personally seen and examined this patient.: Yes I have fully participated in the care of the patient.: Yes I have reviewed all pertinent clinical information: Yes Notes (Text): 02/01/17 15:25 86 y/o M w/ Possible Mural thrombus age undefined on CT chest with G.I bleed. Currently off heparin drip per cardiology. TTE does not show mural thrombus. No P.E or VTE currently. HGB stablized, no active bleeding overnight. PPI, On advanced diet, plans for NPO after midnight. Colonscopy tomorrow. Out of bed to chair. cc time 45 min
[2017-02-01] MEDS ORDERED: Peg-Electrolyte Oral Soln 4L (Golytely) PO ONE (15:00)
--- NOTE | 2017-02-01 20:46 | PN ---
DATE: 02/01/2017 REFERRING PHYSICIAN: Dr. Zavala. SUBJECTIVE: He is lying in the bed, head at 45 degrees. Night was unremarkable. No headache, no rh initis. No nausea, no vomiting, no diarrhea. Denied any melena or hematochezia. No leg pain or leg swelling. OBJECTIVE: GENERAL: No acute distress. VITAL SIGNS: Temp is 98, heart rate is 77, respiratory rate is 20, blood pressure 157/69, pulse ox 9 8% on room air. HEENT: Moist mucous membranes. Crowded airway. Mallampati score is 4. NECK: Supple. No JVD. LUNGS: Have fair airflow with a few rhonchi. HEART: S1 and S2. ABDOMEN: Soft, nontender. No organomegaly. EXTREMITIES: There is no edema. NEUROLOGIC: Awake, alert, follows simple command. MEDICATIONS: He is on Ecotrin 81 mg daily, Lipitor 40 mg daily, Norvasc 5 mg daily, Plavix 75 mg grupo ly, Protonix 40 mg daily, Toprol-XL 12.5 mg twice a day, Zetia 10 mg daily. LABORATORY DATA: Shows hemoglobin 10.8, hematocrit 32.8, WBC 4.8, platelet count is 144. Sodium 141 , potassium 3.8, chloride 105, bicarbonate 27, BUN 10, creatinine 1.0, glucose 88, calcium is 8.6, ph osphorus 3.2, magnesium 2.2. AST 39, ALT 32, alkaline phosphatase is 78, albumin is 3.5. IMPRESSION AND PLAN: Gastrointestinal bleed; coronary artery disease, status post coronary stent; hy pertension, anemia, aortic mural thrombus, pulmonary hypertension, cardiac diastolic dysfunction, may have a sleep apnea syndrome. Esophagogastroduodenoscopy: Nondiagnostic. Awaiting for colonoscopy. Off anticoagulation, but on platelet inhibitor, both aspirin and Plavix. Followup H and H. GI foll owup. Follow up CBC in the morning. Thank you, and will follow with you. Tyree Duque MD cc: [id number] TT: 02/01/2017 20:46:21 Confirmation # [id number] Dictation # [id number] mn
--- NOTE | 2017-02-02 01:55 | PN ---
DATE: 02/01/2017 SUBJECTIVE: The patient is seen and examined on the bedside in the unit lying comfortably. No fever, no chills, no nausea, vomiting, or diarrhea. No change in the status. No rhinitis. Denies melena or hematochezia. No swelling of the legs. No shortness of breath. No headache, no dizziness. PHYSICAL EXAMINATION: VITAL SIGNS: Temperature 98, heart rate is 77, respiratory rate 20, blood pressure 157/69, and pulse oximetry 98% on room air. HEAD: Normocephalic and atraumatic. EYES: PERRLA. Extraocular muscles are intact. Conjunctivae are clear. Nose is patent. NECK: Supple. No carotid bruit. No JVD or thyromegaly. CHEST: Bilaterally symmetrical. HEART: S1, S2 positive. LUNGS: Clear to auscultation. ABDOMEN: Soft. Bowel sounds positive. No organomegaly. EXTREMITIES: No edema, no cyanosis. NEUROLOGIC: The patient is awake, alert, moving all 4 extremities. No focal deficit. MEDICATIONS: Ecotrin, Lipitor, Norvasc, Plavix, Protonix, Toprol, Zetia. LABORATORY DATA: Hemoglobin 10.8, hematocrit 32.8, white blood cells 4.8, platelets 144. Sodium 141, potassium 3.8, BUN 10, creatinine 1.0, glucose 88, calcium noted , AST 36, ALT 32, albumin 3.5. ASSESSMENT AND PLAN: The patient is an 86-year-old male who has GI bleeding, coronary artery disease status post coronary stent placed recently, hypertension , anemia, aortic Mural thrombosis while on heparin, started gastrointestinal bleeding, stopped heparin now patient is on Plavix and aspirin. Dr. Baig did the endoscopy cannot find active source of bleeding, pulmonary hypertension , cardiac diastolic dysfunction, sleep apnea syndrome. endoscopy done nondiagnostic waiting for colonoscopy. Follow H and H. Dr. Baig is on the case, was seen by Dr. Dale also. No further blood in the stool. No event overnight noted. CT scan of the chest showed Mural thrombosis undetermined. PE does not show Mural thrombosis. No PE or VTE. Currently H and H is stabilized. PPI, advance diet. Plans for n.p.o. after midnight. Colonoscopy tomorrow. We will follow up. Rosita Zavala MD cc: [id number] TT: 02/02/2017 01:54:11 Confirmation # [id number] Dictation # [id number] MTDD
[2017-02-02 06:09] LABS: ADD MANUAL DIFF? NO
[2017-02-02 06:19] LABS: BASO # 0.01 K/mm3 (0.0-2.0); BASO % 0.2 % (0.0-3.0); EOS # 0.1 (0.0-0.7); EOS % 2.9 % (1.5-5.0); GRAN # 2.41 (1.4-6.5); GRAN % 57.8 % (50.0-68.0); HEMATOCRIT 32.7 % (42.0-52.0); LYMPH # 1.1 (1.2-3.4); LYMPH % 25.7 % (22.0-35.0); MEAN CELL VOLUME 87.4 fL (80.0-105.0); MEAN CORPUSCULAR HEMOGLOBIN 29.9 pg (25.0-35.0); MEAN CORPUSCULAR HGB CONC 34.3 g/dl (31.0-37.0); MEAN PLATELET VOLUME 9.5 fl (7.0-11.0); MONO # 0.6 (0.1-0.6); MONO % 13.4 % (1.0-6.0); PLATELET COUNT 146 10^3/uL (120.0-450.0); RED CELL DISTRIBUTION WIDTH 12.9 % (11.5-14.5); WHITE BLOOD COUNT 4.2 10^3/ul (4.5-11.0)
[2017-02-02 06:25] LABS: INR 1.14 (0.93-1.08)
[2017-02-02 06:33] LABS: MAGNESIUM 2.1 mg/dL (1.7-2.2); PHOSPHOROUS 3.1 mg/dL (2.5-4.5)
--- NOTE | 2017-02-02 12:06 | PN ---
DATE: 02/02/2017 REASON FOR CONSULTATION: Gastrointestinal bleed, history of recent coronary intervention. BRIEF CLINICAL HISTORY: An 86-year-old male with past medical history significant for coronary arter y disease, status post cardiac catheterization and angioplasty 01/21/2017 with 3 stents, mid LAD, mid RCA, and RPDA, admitted with dizziness. CT angio was negative for PE, but suspicious for thrombus in the ascending aorta, so patient started on heparin. The patient had GI bleed. Echo shows no eviden ce of thrombus. The patient is going for colonoscopy today. PHYSICAL EXAMINATION: VITAL SIGNS: Temperature afebrile, heart rate 70, blood pressure 118/72. HEENT: PERRLA. Extraocular muscles intact. NECK: Supple. No carotid bruits. No thyromegaly. CHEST: Clear to auscultation. HEART: S1, S2 regular. ABDOMEN: Soft. EXTREMITIES: Clubbing and cyanosis negative. LABORATORY DATA: Blood workup as follows: WBC 4.2, hemoglobin , hematocrit 32.7, platelet coun t 146. Chemistry shows sodium 141, potassium chloride 105, carbon dioxide 27, anion gap of 13, BUN 10, creatinine 1.0. IMPRESSION: Gastrointestinal bleed, now H and H is stable, off anticoagulation, history of coronary artery disease, history of recent coronary intervention, 3 stents in left anterior descending, right coronary artery, and right posterior descending artery. RECOMMENDATION: The patient is going for colonoscopy. Discussed with Dr. Baig. Continue aspiri n and Plavix. We will follow with you. Further recommendation after colonoscopy. We will follow wi th you. If the patient remains stable, possible discharge in a day or two. We will repeat the blood workup in the morning. Tyree Dale MD cc: [id number] TT: 02/02/2017 12:05:15 Confirmation # [id number] Dictation # [id number] rashmi
[2017-02-02] MEDS ORDERED: Propofol 10 mg/ml Inj (20 ML) ONE (18:13)
--- NOTE | 2017-02-02 19:06 | PN ---
DATE: 02/02/2017 REFERRING PHYSICIAN: Dr. Zavala. SUBJECTIVE: He is lying in the bed. Night was unremarkable. No active bleed reported today. No ch est pain, no nausea, no vomiting. No leg pain or leg swelling. Scheduled for colonoscopy. OBJECTIVE: GENERAL: In no acute distress. VITAL SIGNS: Temp is 98, heart rate is 70, respiratory rate is 20, blood pressure 159/78, pulse ox 9 6% on room air. HEENT: Moist mucous membranes. Crowded airway. Mallampati score is 4. NECK: Supple. No JVD. LUNGS: Had a fair airflow with few rhonchi. HEART: S1, S2. ABDOMEN: Soft, nontender. No organomegaly. EXTREMITIES: There is no edema. NEUROLOGIC: Awake, alert, follows simple command. MEDICATIONS: He is on Ecotrin 81 mg daily, Lipitor 40 mg daily, Norvasc 5 mg daily, Plavix 75 mg grupo ly, Protonix 40 mg daily, Toprol-XL 12.5 mg twice a day, Zetia 10 mg daily. LABORATORY DATA: Shows hemoglobin 11.2, hematocrit 32.7, WBC 4.2, platelets is 146. INR 1.14. Sodi um from yesterday. Phosphorus 3.1, magnesium 2.1. IMPRESSION AND PLAN: Gastrointestinal bleed, coronary artery disease status post coronary artery genie nt, hypertension, anemia, aortic mural thrombus clot, pulmonary hypertension, cardiac diastolic dysfu nction, may have sleep apnea syndrome. EGD was unremarkable, scheduled for colonoscopy today. Pulmo nary point of view, doing well. Keep head elevated at 45 degrees. Gastric prophylaxis, on aspirin a nd Plavix. Follow up CBC and SMA-7 in the morning. GI followup. Tyree Duque MD cc: [id number] TT: 02/02/2017 19:05:22 Confirmation # [id number] Dictation # [id number] mn
--- NOTE | 2017-02-02 22:10 | PN ---
DATE: 02/02/2017 SUBJECTIVE: The patient is seen and examined on the bedside in the unit. Night was unremarkable. N o change in the status. No active bleeding. No shortness of breath, no chest pain. No nausea, vomi ting, or diarrhea. No swelling of the legs. Went for colonoscopy today. PHYSICAL EXAMINATION: VITAL SIGNS: Temperature 98, heart rate 70, respiratory rate 20, blood pressure 159/78, pulse oximet ry 96% on room air. HEENT: Head normocephalic, atraumatic. Eyes: PERRLA. Extraocular muscles intact. Conjunctivae pi nk. Eyelids unremarkable. Nose patent. Mucous membranes moist. NECK: Supple. No carotid bruit, JVD or thyromegaly. LUNGS: Have fair airflow with a few rhonchi. HEART: S1, S2 positive. ABDOMEN: Soft, nontender. No organomegaly. EXTREMITIES: No edema, no cyanosis. NEUROLOGIC: The patient is awake, alert, follows simple commands. MEDICATIONS: Ecotrin, Lipitor, Norvasc, Plavix, Protonix, Toprol, Zetia. LABORATORY DATA: Hemoglobin 11.2, hematocrit 32.7, white blood cell 4.2, platelets 146. Phosphorus 3.1, magnesium 2.1. ASSESSMENT AND PLAN: The patient is an 86-year-old male with coronary artery disease status post cor onary artery stent, hypertension; had aortic mural thrombotic clot, was put on heparin, started gastr ointestinal bleeding, got anemia. Now heparin stopped. The patient is getting Plavix and aspirin. Pulmonary hypertension, cardiac diastolic dysfunction, sleep apnea syndrome. Esophagogastroduodenosc opy was done by Dr. Baig. Cannot see any source of bleeding. Went for colonoscopy today. Accor ding to Dr. Baig, the patient has lesion at 26 cm, hemorrhoids, polyps at the anal verge. Seen b y Dr. Duque and the lead setter, Dr. Dale. Now hemoglobin and hematocrit are stable off anticoagul ation. Has 3 stents in the left anterior descending, right coronary artery, and right posterior desc ending artery. GI and DVT prophylaxis. Repeat labs. Will follow up. Rosita Zavala MD cc: [id number] TT: 02/02/2017 22:09:39 Confirmation # [id number] Dictation # [id number] mn
--- NOTE | 2017-02-02 23:13 | PN ---
DATE: 02/02/2017 This patient underwent colonoscopy examination, however, the scope could not be passed beyond 20 cm d ue to left partially obstructing ulcerated lesion. The endoscopic appearance was suggestive of malig deneen. There was small amount of bleeding on contact was noticed. The patient has been on aspirin a nd Plavix, so the decision was taken not to biopsy it at that time. The patient tolerated the proced ure well; after that, the patient sent back to the floor. The findings were discussed with Dr. Zavala. The plan is to do a CT of the abdomen and pelvis, and chest, with p.o. and IV contrast to rule out an y metastatic lesions. We will discuss with the coverstitch machine operator regarding further workup in view of the patient's recent drug-eluting stent, and the patient on aspirin and Plavix. Lelsy Baig MD cc: [id number] TT: 02/02/2017 23:12:49 Confirmation # [id number] Dictation # [id number] jn
[2017-02-03 05:17] LABS: ADD MANUAL DIFF? NO
[2017-02-03 05:23] LABS: BASO # 0.01 K/mm3 (0.0-2.0); BASO % 0.2 % (0.0-3.0); EOS # 0.1 (0.0-0.7); EOS % 3.1 % (1.5-5.0); GRAN # 2.42 (1.4-6.5); GRAN % 57.3 % (50.0-68.0); HEMATOCRIT 33.1 % (42.0-52.0); LYMPH % 24.3 % (22.0-35.0); MEAN CELL VOLUME 87.1 fL (80.0-105.0); MEAN CORPUSCULAR HEMOGLOBIN 29.7 pg (25.0-35.0); MEAN CORPUSCULAR HGB CONC 34.1 g/dl (31.0-37.0); MEAN PLATELET VOLUME 9.2 fl (7.0-11.0); MONO # 0.6 (0.1-0.6); MONO % 15.1 % (1.0-6.0); PLATELET COUNT 144 10^3/uL (120.0-450.0); RED CELL DISTRIBUTION WIDTH 12.9 % (11.5-14.5); WHITE BLOOD COUNT 4.2 10^3/ul (4.5-11.0)
[2017-02-03 06:11] LABS: BLOOD UREA NITROGEN 9 mg/dL (7-21); CARBON DIOXIDE 27 mmol/L (21-33); CHLORIDE 104 mmol/L (98-107); GFR AFRICAN-AMERICAN > 60; GLUCOSE,RANDOM 85 mg/dL (70-110); MAGNESIUM 2.3 mg/dL (1.7-2.2); PHOSPHOROUS 3.6 mg/dL (2.5-4.5); POTASSIUM 3.9 mmol/L (3.6-5.0); SODIUM 141 mmol/L (132-148)
[2017-02-03] MEDS ORDERED: Barium Sulfate Susp 2.1% w/v, 2.0% w/w 450 mL Bottle PO ONE (09:30)
[2017-02-03] MEDS ORDERED: Iohexol 350 MG/100 ML VIAL ONE (10:00)
--- NOTE | 2017-02-03 10:08 | PN ---
DATE: 02/03/2017 REASON FOR CONSULTATION AND FOLLOWUP: Gastrointestinal bleed, history of recent coronary interventio n, rule out CA colon, colonic mass. BRIEF CLINICAL HISTORY: This is an 86-year-old male with past medical history significant for davis ry artery disease, status post cardiac catheterization and angioplasty 01/11/2017, 3 stents, mid LAD, RCA and RPDA, admitted with dizziness. CT angio negative for PE, suspicious thrombus in the ascendin g aorta. The patient started on heparin. The patient has a GI bleed. Echo shows no evidence of thr ombus. Heparin was discontinued. The patient yesterday went under colonoscopy, found a colonic mass . EGD was negative. PHYSICAL EXAMINATION: VITAL SIGNS: Temperature afebrile, heart rate 70, blood pressure 124/76. HEENT: PERRLA. Extraocular muscles intact. NECK: Supple. No carotid bruits. No thyromegaly. CHEST: Clear to auscultation. HEART: S1, S2 regular. ABDOMEN: Soft. EXTREMITIES: Clubbing and cyanosis negative. 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 History of recent coronary intervention, 3 stents, mid left anterior descending, right coronary artery and right posterior desc ending artery on 01/21/2017. No evidence of ascending aortic thrombus. RECOMMENDATION: Continue aspirin and Plavix. The patient going for CAT scan. Surgical evaluation p ossibly once the CAT scan was done. We will follow with GI. Thank you, Dr. Zavala, for providing us the opportunity in taking care of the patient. Tyree Dale MD cc: [id number] TT: 02/03/2017 10:08:29 Confirmation # [id number] Dictation # [id number] tn
--- NOTE | 2017-02-03 11:48 | PN ---
DATE: 02/03/2017 Seen and examined at the bedside earlier today in CCU. He had a colonoscopy yesterday. Denies any n ausea, vomiting, or abdominal pain. No reports of any overt GI bleed. On colonoscopy, he was found to have a sigmoid mass and the colonoscopy could not be advanced beyond this. He is drinking the ora l CAT scan for CT scan of abdomen and pelvis. His cousin is at the bedside. VITAL SIGNS: Temperature is 98.2, blood pressure 124/76, pulse 72, respirations 17, 94 on room air. LABORATORY DATA: WBC is 4.2, H and H is 11.3 and 33.1, platelets are 144. Sodium 141, K is 3.9, BUN is 9, creatinine is 1.0, magnesium 2.3. PHYSICAL EXAMINATION: HEENT: Sclerae are anicteric. NECK: Supple. CARDIAC: S1, S2. LUNGS: Decreased breath sounds. No rales or wheeze. ABDOMEN: With bowel sounds, soft, nontender. No rebound or guarding. ASSESSMENT: This is an 86-year-old male with history of coronary artery disease with cardiac stents with no evidence of ascending aortic thrombus. He is status post gastrointestinal bleed, had an endo scopy. He had endoscopy and found to have chronic gastritis and gastroesophageal junction polyp. No specimens were obtained as patient was on aspirin and Plavix. Then he went for a colonoscopy yester day. He was found to have ulcerative partially obstructing large mass in the sigmoid colon at 20 cm, as well as internal hemorrhoids and a diminutive polyp in the rectum. The patient also has pulmonar y hypertension. PLAN: He is going for CT scan of abdomen and pelvis with IV and oral contrast to further evaluate th is obstructing mass. We will continue the clear liquid diet for now. Continue to monitor H and H. H e remains on aspirin and Plavix. Will continue GI prophylaxis with Protonix. Discussed with the pat ient at the bedside and family, as per cardiology, pulmonology. The patient was seen and case discus sed with Dr. Baig. Also discussed with Dr. Zavala. Sondra HARDING cc: [id number] TT: 02/03/2017 11:48:23 Confirmation # [id number] Dictation # [id number] rn
--- NOTE | 2017-02-03 13:14 | PN ---
DATE: 02/03/2017 REFERRING PHYSICIAN: Dr. Zavala SUBJECTIVE: He is lying in the bed, getting ready for his clear liquid lunch. Overnight events note d. No headache, no rhinitis, no cough, no chest pain. Had a colonoscopy yesterday. No leg pain or leg swelling. OBJECTIVE: GENERAL: No acute distress. VITAL SIGNS: Temperature is 98, heart rate is 72, respiratory rate is 20, blood pressure 124/76, pul se ox 94% on room air. HEENT: Moist mucous membrane. Crowded airway. Mallampati score is 4. NECK: Supple. No JVD. LUNGS: Has a fair airflow with few rhonchi. HEART: S1 and S2. ABDOMEN: Soft, nontender. No organomegaly. EXTREMITIES: There is no edema. NEUROLOGIC: Awake, alert, follows simple commands. MEDICATIONS: He is on Ecotrin 81 mg daily, Lipitor 40 mg daily, Norvasc 5 mg daily, Plavix 75 mg grupo ly, Protonix 40 mg daily, Toprol-XL 12.5 mg twice a day, Zetia 10 mg daily. LABORATORY DATA: Shows hemoglobin 11.3, hematocrit 33.1, WBC 4.2, platelet is 144. Sodium 141, pota ssium 3.9, chloride 104, bicarbonate 27, BUN 9, creatinine 1.0, glucose 85, calcium is 9.0, phosphoru s 3.6, magnesium is 2.3. IMPRESSION AND PLAN: Gastrointestinal bleed, coronary artery disease, status post coronary artery st ent, hypertension, anemia, aortic mural thrombus/clot, pulmonary hypertension, cardiac diastolic dysf unction, may have a sleep apnea syndrome. Colonoscopy remarkable for colonic tumor. Scheduled for a CT of the abdomen and pelvis today to make further decision about treatment. We will continue to fo angelo H and H. Sleep apnea precaution. If sedated, needs close cardiopulmonary monitoring. Case dis cussed with Dr. Zavala. I also spoke to patient. Spoke to nursing staff. Follow up labs in the [facility]. Thank you and we will follow with you. Tyree Duque MD cc: [id number] TT: 02/03/2017 13:13:09 Confirmation # [id number] Dictation # [id number] en
--- NOTE | 2017-02-03 14:12 | CT ---
PROCEDURE: CT Abdomen and Pelvis with contrast HISTORY: sigmoid mass COMPARISON: None. TECHNIQUE: Contrast dose: 100 cc of Omni 350 Radiation dose: Total exam DLP = 712 mGy-cm. This CT exam was performed using one or more of the following dose reduction techniques: Automated exposure control, adjustment of the mA and/or kV according to patient size, and/or use of iterative reconstruction technique. FINDINGS: LOWER THORAX: Unremarkable. LIVER: Unremarkable. No gross lesion or ductal dilatation. GALLBLADDER AND BILE DUCTS: Unremarkable. PANCREAS: Unremarkable. No gross lesion or ductal dilatation. SPLEEN: Unremarkable. ADRENALS: Unremarkable. No mass. KIDNEYS AND URETERS: Unremarkable. No hydronephrosis. No solid mass. There is a 9 cm simple cyst in the left kidney VASCULATURE: Unremarkable. No aortic aneurysm. BOWEL: There is mural thickening and enhancement measuring 7 cm in length in the sigmoid colon. This is consistent with the history of the sigmoid mass. There is no adjacent adenopathy. There is no obstruction APPENDIX: Normal appendix. PERITONEUM: Unremarkable. No free fluid. No free air. LYMPH NODES: Unremarkable. No enlarged lymph nodes. BLADDER: Unremarkable. REPRODUCTIVE: Unremarkable. BONES: No acute fracture. OTHER FINDINGS: None. IMPRESSION: Annular lesion in the sigmoid colon measuring 7 cm in length. There is no evidence of adenopathy or metastatic disease
--- NOTE | 2017-02-03 14:17 | PN ---
DATE: 02/03/2017 SUBJECTIVE: The patient is seen and examined on the bedside. Looks comfortable. I saw patient in the unit, then he was transferred to medical floor. Give clear liquid lunch. No overnight incident happened. Discussion done with Dr. Baig. The patient is going today for a CAT scan of the chest , abdomen and pelvis with p.o. and IV contrast. No confusion, no shortness of breath, no fever, no chills. PHYSICAL EXAMINATION: VITAL SIGNS: Temperature 98, heart rate 72, respiratory rate 20, blood pressure 124/80 , and pulse oximetry 94% on room air. HEENT: Head normocephalic, atraumatic. Eyes: PERRLA. Extraocular muscles intact. Conjunctivae pink. Eyelids unremarkable. Nose patent. Mucous membranes moist. NECK: Supple. No carotid bruit, JVD or thyromegaly. CHEST: Bilaterally symmetrical. HEART: S1, S2 positive. LUNGS: Have fair airflow with a few rhonchi. ABDOMEN: Soft, nontender. No organomegaly. EXTREMITIES: No edema, no cyanosis. NEUROLOGIC: Awake, alert and follows simple commands. MEDICATIONS: Ecotrin, Lipitor, Norvasc, Plavix, Protonix, Toprol, Zetia. LABORATORY DATA: Hemoglobin 11.3, hematocrit 33.1, white blood cells 4.2, and platelets 144. Sodium 141, potassium 3.9, BUN 9, creatinine 1.0, glucose 85, magnesium is 2.3. ASSESSMENT AND PLAN: The patient is an 86-year-old male with gastrointestinal bleeding, status post blood transfusion; coronary artery disease, status post coronary artery stent; hypertension; anemia, status post blood transfusion; aortic mural thrombus/clot; pulmonary hypertension, cardiac diastolic dysfunction, may have sleep apnea syndrome. Colonoscopy was done. 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 He cannot pass his scope beyond that tumor. Biopsy was not taken because the patient was taking Plavix and aspirin. According to Dr. Baig, tumor does not look benign. Scheduled CT of abdomen and pelvis with p.o. and IV contrast to make further decisions, diagnosis and treatment. We will continue to follow up H and H. Sleep apnea precautions. Length of time discussion done with the patient through the dean of graduate studies who speaks the [place]ian language. Then a length of time discussion done with the patient's nurse and Dr. Duque; a treatment plan made. Will follow up. Rosita Zavala MD cc: [id number] TT: 02/03/2017 14:16:45 Confirmation # [id number] Dictation # [id number] mn ILIANA
--- NOTE | 2017-02-03 23:59 | PN ---
DATE: 02/03/2017 ADDENDUM This is an addendum to the GI progress report dictated by Sondra Larkin NP. The patient's CT scan was reviewed and it did not show any obvious metastatic lesion. PHYSICAL EXAMINATION: ABDOMEN: Soft. No tenderness. IMPRESSION: Sigmoid colon mass lesion, ulcerated. Endoscopy appearance suggestive of malignancy. B iopsy was not taken as the patient was on aspirin and Plavix. The patient did have a contact bleedin g with the scope at the site of this ulcerated lesion. The patient had recent percutaneous coronary intervention with 3 stents, placed on aspirin and Plavix. Request for a surgical consultation. We h ave to make a decision about stopping the Plavix for the surgery. This will be further discussed wit h the group leader semiconductor processing. Thank you very much for allowing us to participate in the care of this patient. Lesly Baig MD cc: [id number] TT: 02/03/2017 23:59:04 Confirmation # [id number] Dictation # [id number] ln
[2017-02-04 07:55] LABS: ALB/GLOB RATIO 1.1 (1.1-1.8); ALKALINE PHOSPHATASE 100 U/L (38-133); ALT/SGPT 39 U/L (7-56); AST/SGOT 37 U/L (15-59); CALCIUM 8.8 mg/dL (8.4-10.5); CARBON DIOXIDE 31 mmol/L (21-33); CHLORIDE 102 mmol/L (98-107); GFR AFRICAN-AMERICAN > 60; GLUCOSE,RANDOM 89 mg/dL (70-110); MAGNESIUM 2.3 mg/dL (1.7-2.2); PHOSPHOROUS 3.7 mg/dL (2.5-4.5); POTASSIUM 3.9 mmol/L (3.6-5.0); SODIUM 142 mmol/L (132-148); TOTAL PROTEIN 6.9 g/dL (5.8-8.3)
[2017-02-04 08:03] LABS: EOS # 0.1 (0.0-0.7); EOS % 2.3 % (1.5-5.0); GRAN # 3.05 (1.4-6.5); GRAN % 64.9 % (50.0-68.0); HEMATOCRIT 33.1 % (42.0-52.0); LYMPH # 0.8 (1.2-3.4); LYMPH % 16.8 % (22.0-35.0); MEAN CORPUSCULAR HEMOGLOBIN 29.3 pg (25.0-35.0); MEAN CORPUSCULAR HGB CONC 33.2 g/dl (31.0-37.0); MEAN PLATELET VOLUME 9.7 fl (7.0-11.0); MONO # 0.8 (0.1-0.6); PLATELET COUNT 151 10^3/uL (120.0-450.0); RED CELL DISTRIBUTION WIDTH 13.2 % (11.5-14.5); WHITE BLOOD COUNT 4.7 10^3/ul (4.5-11.0)
[2017-02-04 08:05] LABS: ADD MANUAL DIFF? NO
[2017-02-04 08:11] LABS: BLOOD UREA NITROGEN 8 mg/dL (7-21)
--- NOTE | 2017-02-04 12:11 | PN ---
DATE: 02/04/2017 Seen and examined at the bedside earlier this morning. The patient went for a CAT scan yesterday, th e report was reviewed. The patient denies symptoms of nausea, vomiting or abdominal pain. No report s of any rectal bleeding, shortness of breath or chest pains. No acute overnight events reported. VITAL SIGNS: Temperature is 98.5, blood pressure 130/81, pulse 71, respirations 18, 94 on room air. LABORATORY DATA: Today, WBC is 4.7, H and H is 11.0 and 33.1, platelets 151. Sodium is 142, K is 3. 9, BUN is 8, creatinine is 1.1. Magnesium is 2.3. LFTs are within normal limits. CT scan ____ IV s hows an anular lesion in the sigmoid colon measuring 7 cm in length. There is no evidence of adenopa thy or metastatic disease. No adjacent adenopathy or no obstruction. PHYSICAL EXAMINATION: HEENT: Sclera is anicteric. NECK: Supple. CARDIAC: S1, S2. LUNGS: With decreased breath sounds, but good air entry, no rales or wheeze. ABDOMEN: With bowel sounds, soft, nontender. No rebound or guarding. EXTREMITIES: No edema. ASSESSMENT: An 86-year-old male with history of coronary artery disease with cardiac stents, status post no evidence of ascending aortic thrombus. The patient was on anticoagulants, had episode of gas trointestinal bleed. The patient had endoscopy, found to have gastroesophageal junction polyp and ga stritis. The patient was on aspirin and Plavix. No specimens were obtained. He is status post colo noscopy, found to have ____ partially obstructing large mass in the colon at 20 cm as well as ____ po lyp in the rectum and internal hemorrhoids. CT scan was done yesterday, which does report an annular mass, but no adenopathy or metastatic lesions. PLAN: The patient is going to have evaluation with surgery and oncology has been requested to evalua te this patient. Currently, he is on aspirin and his Plavix. We will continue GI prophylaxis. He i s on Protonix and remains on a clear liquid diet. The patient was seen and case discussed with Dr. Baig, who was covering rounds. Sondra HARDING cc: [id number] TT: 02/04/2017 12:10:15 Confirmation # [id number] Dictation # [id number] sn
--- NOTE | 2017-02-04 14:33 | CP.PCM.CON ---
<Paulie Coleman - Last Filed: 02/04/17 23:58> History of Present Illness - History of Present Illness History of Present Illness: Surgery Consult note. Dr. Diego 86yo M with PMHx of HTN, HLD and CAD s/p 3 coronary stents placed by Dr. Dale on 01/21/17. Patient was admitted on 01/29/17, came in with CC of shortness of breath. Patient was found to have an aortic arch thrombus and was transferred to the ICU on heparin drip. This was complicated with 3 melanotic episodes and heparin was stopped. Patient had a diagnostic colonoscopy on 02/02 which showed an ulcerated partially obstructing mass in the sigmoid colon at 20cm scope level. No spicemens were able to be sent for biopsy. CT Abd/Pelvis revealed a 7cm annular mass at the sigmoid with no CT evidence of metastases. General surgery was consulted for further evaluation. Currently, Patient denies any any abdominal pain, N/V/D. Patient does state that he has been passing gas, last BM was two days ago. No more episodes of blood per rectum reported. Denies any fever, chills. Patient is sitting up in chair. Does report mild dizziness. Tolerating soft diet. PT hx obtained using computational mathematician. PMH: HTN, HLD, CAD PSHx: PCI s/p 3 stents placed on 02/21 (on ASA and Plavix), R inguinal hernia repair Family Hx: Denies Social Hx: Former 20 pack year smoker, stopped smoking 30 years ago. 1 shot of vodka daily. Denies any illicit drugs. Lives alone. Review of Systems - Review of Systems All systems: reviewed and no additional remarkable complaints except - Constitutional Constitutional: absent: Fever - EENT Eyes: absent: Blurred Vision Nose/Mouth/Throat: absent: Epistaxis - Cardiovascular Cardiovascular: Dyspnea. absent: Chest Pain - Respiratory Respiratory: Dyspnea - Gastrointestinal Gastrointestinal: absent: Abdominal Pain, Diarrhea, Melena, Nausea, Vomiting Past Patient History - Past Social History Smoking Status: Former Smoker - CARDIAC Hx Cardiac Disorders: Yes (CAD) Hx Pacemaker: No Other/Comment: cardiac stent january 21 2017 - PULMONARY Hx Respiratory Disorders: No - NEUROLOGICAL Hx Neurological Disorder: No - HEENT Hx HEENT Problems: No (WEARS RX GLASSES) - RENAL Hx Chronic Kidney Disease: No - ENDOCRINE/METABOLIC Hx Endocrine Disorders: No - HEMATOLOGICAL/ONCOLOGICAL Hx Blood Transfusions: No - INTEGUMENTARY Hx Dermatological Problems: No - MUSCULOSKELETAL/RHEUMATOLOGICAL Hx Musculoskeletal Disorders: No Hx Falls: No - GASTROINTESTINAL Hx Gastrointestinal Disorders: No - GENITOURINARY/GYNECOLOGICAL Hx Genitourinary Disorders: No - PSYCHIATRIC Hx Psychophysiologic Disorder: No Hx Emotional Abuse: No Hx Physical Abuse: No Hx Substance Use: No - SURGICAL HISTORY Hx Surgeries: Yes (HEART STENTS X 3 01-21-17) - ANESTHESIA Hx Anesthesia Reactions: No Hx Malignant Hyperthermia: No Meds Allergies/Adverse Reactions: Allergies Allergy/AdvReac Type Severity Reaction Status Date / Time No Known Allergies Allergy Verified 03/22/17 19:50 - Medications Medications: Current Medications Amlodipine Besylate (Norvasc) 5 mg PO DAILY [facility] Last Admin: 02/04/17 09:48 Dose: 5 mg Aspirin (Ecotrin) 81 mg PO DAILY [facility] Last Admin: 02/04/17 09:49 Dose: 81 mg Atorvastatin Calcium (Lipitor) 40 mg PO DAILY [facility] Last Admin: 02/04/17 09:48 Dose: 40 mg Clopidogrel Bisulfate (Plavix) 75 mg PO DAILY [facility] Last Admin: 02/04/17 09:49 Dose: 75 mg Ezetimibe (Zetia) 10 mg PO DAILY [facility] Last Admin: 02/04/17 09:48 Dose: 10 mg Metoprolol Succinate (Toprol Xl) 12.5 mg PO BID [facility] Last Admin: 01/29/17 19:46 Dose: Not Given Pantoprazole Sodium (Protonix Inj) 40 mg IVP DAILY [facility] Last Admin: 02/04/17 09:48 Dose: 40 mg Physical Exam - Constitutional Appears: Well, No Acute Distress - Head Exam Head Exam: ATRAUMATIC, NORMAL INSPECTION, NORMOCEPHALIC - Eye Exam Eye Exam: EOMI - ENT Exam ENT Exam: Mucous Membranes Moist - GI/Abdominal Exam GI & Abdominal Exam: Normal Bowel Sounds, Soft. absent: Distended, Firm, Guarding, Tenderness Additional comments: ABD soft, non tender, BS all four quadrants. No distention. No rebound. No obvious surgical scars - Extremities Exam Extremities exam: Positive for: normal inspection - Neurological Exam Neurological exam: Alert - Psychiatric Exam Psychiatric exam: Normal Affect - Skin Skin Exam: Dry, Intact, Normal Color, Warm Results - Vital Signs Recent Vital Signs: Last Vital Signs Temp 98.9 F 02/04/17 12:00 Pulse 70 02/04/17 13:42 Resp 16 02/04/17 12:00 BP 115/75 02/04/17 12:00 Pulse Ox 94 L 02/04/17 06:00 - Labs Result Diagrams: 02/04/17 06:20 02/04/17 06:20 Labs: Laboratory Results - last 24 hr 02/04/17 06:20 WBC 4.7 RBC 3.76 Hgb 11.0 L Hct 33.1 L MCV 88.0 MCH 29.3 MCHC 33.2 RDW 13.2 Plt Count 151 MPV 9.7 Gran % 64.9 Lymph % (Auto) 16.8 L Ponce % (Auto) 16.0 H Eos % (Auto) 2.3 Baso % (Auto) 0.0 Gran # 3.05 Lymph # 0.8 L Ponce # 0.8 H Eos # 0.1 Baso # 0.00 Sodium 142 Potassium 3.9 Chloride 102 Carbon Dioxide 31 Anion Gap 13 BUN 8 Creatinine 1.1 Est GFR ( Amer) > 60 Est GFR (Non-Af Amer) > 60 Random Glucose 89 Calcium 8.8 Phosphorus 3.7 Magnesium 2.3 H Total Bilirubin 1.0 AST 37 ALT 39 Alkaline Phosphatase 100 Total Protein 6.9 Albumin 3.6 Globulin 3.3 Albumin/Globulin Ratio 1.1 Assessment & Plan - Assessment and Plan (Free Text) Assessment: 86yo M with PMHx of HTN, HLD, CAD s/p 3 cardiac stents on 01/21 (on ASA and Plavix), found to have sigmoid mass. - S/P Colonoscopy on 02/02. Large partially obstructing sigmoid mass. Unable to bx - CT Abd/Pelvis - 7cm annular mass at the sigmoid with no CT evidence of metastases - Discussed case with Dr. Dale, Cardiology. Patient is at high risk for cardiac event perioperatively. Patient recommended to continue on ASA/Plavix for 1-3 months at a minimum. - continue to monitor H/H. No current signs of bleeding - serial abdominal exams - tolerating soft diet - Will discuss with family and patient about the risks and benefits of any surgical intervention. - Patient will benefit from bx of mass. F/U GI recs. No evidence of metastasis on CT at this time. Discussed case with Dr. Johnathon Coleman PGY1 surgery pager: [phone] <Wesley Diego - Last Filed: 05/13/17 00:22> Results - Vital Signs Recent Vital Signs: Last Vital Signs Temp 98.0 F 02/05/17 08:00 Pulse 64 02/05/17 08:00 Resp 20 02/05/17 08:00 BP 126/62 02/05/17 10:07 Pulse Ox 96 02/05/17 10:33 - Labs Result Diagrams: 02/05/17 05:10 02/05/17 05:10 Assessment & Plan - Assessment and Plan (Free Text) Plan: Patient was seen and examined by me. I agree with assessment and plan as per resident's note. - Date & Time Date: 02/04/17 Time: 20:20
--- NOTE | 2017-02-04 16:58 | PN ---
DATE: 02/04/2017 REASON FOR CONSULTATION AND FOLLOWUP: Gastrointestinal bleed, history of recent coronary interventio n, rule out CA colon, clonic mass. BRIEF CLINICAL HISTORY: This is an 86-year-old male with past medical history significant for davis ry artery disease, status post cardiac catheterization and angioplasty, 3 stents -- one in LAD, one i n RCA, one in RPDA dated 01/21/2017, who came in with dizziness and then during the hospitalization, p torey had bright red blood per rectum. The patient was admitted and workup shows a large sigmoid co lonic mass highly suspicious for malignancy. Biopsy was not done because the patient was on aspirin and Plavix recently. A week ago, patient had coronary intervention with 3 stents, but touching with a colonoscope, patient was bleeding. CAT scan was negative for ____, metastasis, but shows an annul ar lesion. Being evaluated by surgery as well as hem/onc. PHYSICAL EXAMINATION: As follows: VITAL SIGNS: Temperature afebrile, heart rate 70, blood pressure 115/75. HEENT: PERRLA. Extraocular muscles intact. NECK: Supple. No carotid bruits. No thyromegaly. CHEST: Clear to auscultation. HEART: S1, S2 regular. ABDOMEN: Soft. EXTREMITIES: Clubbing, cyanosis negative. BLOOD WORKUP: As follows: WBC 4.7, hemoglobin 11, hematocrit 33.1, platelet count 151. Chemistry s hows sodium 142, potassium 3.9, chloride 102, carbon dioxide 31, anion gap of 13, BUN 8, creatinine 1 .1, magnesium 2.3. IMPRESSION: Large colonic mass suspicious of colon cancer. Biopsy was not taken because patient is on aspirin and Plavix and when touched with the colonoscope, patient started oozing. History of rect al bleed. No evidence of ascending aortic aneurysm as mentioned in the CT angio. Echo was negative for ascending aortic thrombus, no evidence. Coronary artery disease status post recent intervention in left anterior descending, right coronary artery and right posterior descending artery 3 stents, dr murphy, on 01/21/2017. Hypertension, hyperlipidemia. RECOMMENDATION: Continue aspirin, continue Plavix because of one week history of coronary interventi on. CT scan did not show any metastasis. Being evaluated as followup surgical as well heme/onc. Ca lled the nephew, Sloan ____, and updated patient's condition, who was unaware of his uncle's colonic mass. Explained that patient had a colonic mass suspicious for malignancy, not definite diagnosis ye t, and ____ his line of management. We will follow with you. Thank you, Dr. Zavala, for providing us the opportunity in taking care of the patient. We will disco ntinue telemetry. We will follow up blood workup. The patient himself does not understand or talk i n Maori. We will follow with you. Interim, continue aspirin, continue atorvastatin, continue amlo dipine, continue Plavix, continue low dose beta marvin and Zetia. We will follow with you. Thank you, Dr. Zavala, for providing us the opportunity in taking care of the patient. Follow up the lab in the morning. Again explained to the patient's nephew, ____ Sloan, on telephone number today and explained in detail. Tyree Dale MD cc: [id number] TT: 02/04/2017 16:57:15 Confirmation # [id number] Dictation # [id number] sn
--- NOTE | 2017-02-04 18:00 | PN ---
DATE: 02/04/2017 ADDENDUM REASON FOR DICTATION: Addendum to the initial progress note. REASON FOR ADDENDUM: Preop clearance for discontinuation of Plavix and aspirin. I received a call from senior vice president and chief information officer as well as , who was a medical physiologist rotating as senior vice president and chief information officer that Dr. Diego is scheduling the patient for OR for surgery on Wednesday and would like to stop the Plavix 5 days prior to surgery. I told him it would be very high risk for subacute stent thrombosis because the stent was placed one week ago and the 3 stents -- one in LAD, one in RCA, one in RPDA. Circ is total. So, can be very devastating, can lead to , arrhythmic from stopping of the Plavix because of acute stent thrombosis, but at the same time if the risk of metastasizing of the disease in the malignancy would be high, then patient can have the surgery. We will suggest at least hold Plavix on the day and if patient needed blood transfusion, give the blood as there is no substitute for aspirin and Plavix to substitute with heparin or Lovenox as wildlife policy professional has question to substitute it for heparin and Lovenox for a couple of days and then discontinue the aspirin and Plavix. But, as a matter of fact, no substitute and holding aspirin and Plavix and substituting with heparin and Lovenox will not fulfill and will not decrease the risk for subacute stent thrombosis because of the different mechanism of heparin and Plavix. So, if surgical intervention is needed immediately, no clear answer to stop and go for surgery or not to stop and go with Plavix and ASA, As patient can bleed massively and may need reexploration and evacuation of the blood clot after the surgery. At the same time, holding aspirin and Plavix would be very high risk for subacute stent thrombosis leading to arrhythmic and a massive DE. So , we will follow closely and if the surgical intervention needs, would suggest to hold Plavix for one day or two and continue aspirin perioperative and once the surgery is done, the patient can resume back Plavix as far as possible. Though it became very high risk, no clear cut answer for this and no definite answer, but we will follow with this and should be discussed with the patient about the risks with the family. Thank you for the questions and consideration for surgery. We will follow with you. Thank you, Dr. Zavala, for providing is the opportunity in taking the care of this patient. Tyree Dale MD cc: [id number] TT: 02/04/2017 18:00:03 Confirmation # [id number] Dictation # [id number] sn BARRIENTOS
--- NOTE | 2017-02-04 22:10 | CON ---
DATE: 02/04/2017 This is his consult on the telemetry floor. For Dr. Clinton. CHIEF COMPLAINT: Shortness of breath status post stenting, with new colon mass. HISTORY OF PRESENT ILLNESS: The patient is an 86-year-old male with 3 stents placed 01/21/[address] Maryellen Dale, admitted by the Emergency Room for shortness of breath on 01/29/2017. With this, the patient was then worked up and found to have anemic indices. The patient was typed and crossed but not tristan sfused, with the patient then worked up and found to have a 7 cm sigmoid colon mass for which he was evaluated by Dr. Baig, with no biopsy, as the patient is on Plavix. He is presently denying any type of obstruction, with no abdominal discomfort, and is in no acute distress. OBJECTIVE: PHYSICAL EXAMINATION: VITAL SIGNS: Temperature 98.1, pulse 63, respirations 19, blood pressure 123/74, with a pulse ox 94% . ALLERGIES: No known allergies. MEDICATIONS: For this patient include Ecotrin, Lipitor, Norvasc, Plavix, Protonix, Toprol-XL, and Ze tia. PAST MEDICAL HISTORY: For this patient is significant for ASCVD status post stenting 01/21/2017, hype rtension. Also, hyperlipidemia. FAMILY HISTORY/SOCIAL HISTORY: Noncontributory. Nonsmoker, rare alcohol. REVIEW OF SYSTEMS: Essentially negative to questioning except as above. OBJECTIVE: PHYSICAL EXAMINATION: VITAL SIGNS: Temperature 98.1, pulse 63, respirations 19, blood pressure 123/74, pulse ox of 94%. HENT: Unremarkable. NECK: Supple. HEART: Regular rate. LUNGS: Clear. ABDOMEN: Soft, obese, nontender. EXTREMITIES: No edema. SKIN: Warm, dry, and clear. Labs were done. White blood cell count today 4.7, hemoglobin 11.0, hematocrit 33.1, platelet count 1 51,000, with a chem panel completely within normal range except for magnesium 2.3. INR of 1.1 done t wo days prior. The patient had a CT scan of the chest done on 01/29/2017. It was read as no evidence of PE, focal t hrombus in the aortic arch, with further testing done by Dr. Dale showing that this was artifactual i nflating. However, the CT scan and endoscopy were significant for a lesion in the colon as described above. The assessment for this patient is that of new sigmoid colon mass suggestive of malignancy, anticoagu lation on Plavix and aspirin, status post stenting 12 days prior, hypertension, arteriosclerotic card iovascular, hyperlipidemia. The plan for this patient is to continue present medical regimen as per consultants' recommendations, with strong recommendation to hold off any type of surgical procedure after conversation with Dr. Abhilash ortega and Dr. Dale, as the patient is at significant risk for morbidity and mortality should his Plav ix and aspirin be discontinued prematurely. We will continue present medical regimen, and follow up as indicated. The patient was translated these findings and recommendations as he speaks Amharic, and this physician. Carlos Wong MD cc: [id number] TT: 02/04/2017 22:09:39 Confirmation # [id number] Dictation # [id number] jn
--- NOTE | 2017-02-04 22:17 | PN ---
DATE: 02/04/2017 REFERRING PHYSICIAN: Dr. Zavala. SUBJECTIVELY: He is sitting up in a chair. Unremarkable night. No headache, no rhinitis, no nausea , no vomiting, no abdominal pain, no leg pain or leg swelling. OBJECTIVELY: No acute distress. Temp is 98, heart rate 63, respiratory rate is 19, blood pressure 123/74, pulse ox 94% on room air. HENT: Moist mucous membranes. Crowded airway. Mallampati score is 4. NECK: Supple. No JVD. LUNGS: Have a fair airflow with few rhonchi. HEART: S1, S2. ABDOMEN: Soft, nontender. No organomegaly. EXTREMITIES: There is no edema. NEUROLOGICALLY: Awake, alert. Follows simple commands. MEDICATIONS: He is on Ecotrin 81 mg daily, Lipitor 40 mg daily, Norvasc 5 mg daily, Plavix 75 mg grupo ly, Protonix 40 mg daily, Toprol-XL 12.5 mg twice a day, Zetia 10 mg daily. LABORATORY DATA: Shows hemoglobin 11.0, hematocrit 33.1, WBC 4.7, platelet count is 151. Sodium 142 , potassium 3.9, chloride 102, bicarbonate 31, BUN 8, creatinine 1.1, glucose is 89, calcium is 8.8, phosphorus 2.7, magnesium is 2.3. AST 37, ALT 39, alk phos is 100, albumin is 3.6. CAT scan of the abdomen and pelvis done yesterday shows annular tear lesion in the sigmoid colon parviz uring 7 cm in length. There is no evidence of adenopathy or metastatic disease. IMPRESSION AND PLAN: Sigmoid mass with bleeding, coronary artery disease status post coronary artery stent, hypertension, anemia, aortic mural thrombosis, pulmonary hypertension, cardiac diastolic dysf unction, may have a sleep apnea syndrome. Will need surgery. The patient is being followed by GI, surgery, cardiology. Presently has a dilemma. Need surgery for resection of tumor, but at the same time cannot hold aspirin and Plavix. If surgery has to be done, understanding risk/benefit ratio, the patient could be switched to IV antiplatelet that could be sto pped day before surgery, and also could be restarted day after surgery. Hopefully, things go well wi th the surgery, but will leave those decisions between, of course cardiology and surgical team to dec nate. Pulmonary point of view, needs close cardiopulmonary monitoring. Sedated. Has a high risk for sleep apnea. Has a pulmonary hypertension with cardiac diastolic dysfunction. Thank you, and will follow with you. Tyree Duque MD cc: [id number] TT: 02/04/2017 22:17:03 Confirmation # [id number] Dictation # [id number] jn
--- NOTE | 2017-02-05 00:41 | PN ---
DATE: 02/04/2017 SUBJECTIVE: The patient is an 86-year-old male. The patient was seen and examined at the bedside, looks comfortable. No nausea, vomiting, or diarrhea. No hematuria or hematochezia. No swelling of the legs. No more blood in the stool. The patient was explained about his situation. PHYSICAL EXAMINATION: VITAL SIGNS: Temperature 98, heart rate is 63, respiratory rate 19, blood pressure 123/74, and pulse oximetry 94% on room air. HEENT: Head normocephalic, atraumatic. Eyes: PERRLA, extraocular muscles intact, conjunctivae pink. Eyelids: Unremarkable. Nose: Patent. Mucous membranes: Moist. NECK: Supple. No carotid bruit, no JVD or thyromegaly. CHEST: Bilaterally symmetrical. HEART: S1, S2 positive. LUNGS: Clear to auscultation. ABDOMEN: Soft. Bowel sounds present. No organomegaly. EXTREMITIES: No edema, no cyanosis. NEUROLOGIC: The patient is awake, alert, moving all 4 extremities, no focal deficits. MEDICATIONS: Ecotrin, Lipitor, Norvasc, Plavix, Protonix, Toprol, Zetia. LABORATORY DATA: Hemoglobin 11.0, hematocrit 33.1, white blood cells 4.7, platelets 151. Sodium 142, potassium 3.9, chloride 102, BUN 8, creatinine 1.1, glucose 89, calcium 8.8. AST 37, ALT 39. CT scan of abdomen and pelvis done yesterday with p.o. and IV contrast, shows big lesion in the sigmoid colon, maybe 7 cm in length. There is no evidence of adenopathy or metastatic disease. ASSESSMENT AND PLAN: The patient is a 86-year-old male with sigmoid mass with bleeding; 7 cm in length, coronary artery disease; status post coronary artery stent, hypertension, anemia, aortic mural thrombosis, pulmonary hypertension, cardiac diastolic dysfunction, sleep apnea syndrome. Discussion done with nursing practitioner, Oanh, about treatment plan. Consult called with Oncology surgery and Surgery, Dr. Diego, and will discuss with Dr. Dale. Appreciate admission Dr. Dale's and Dr. Duque's input. The patient needs surgery for resection of the tumor, but at the same time, cannot hold aspirin because of recent drug-eluting stent, but we have decided in the presence of risks and benefits, but gastrointestinal and deep venous thrombosis prophylaxis. We will follow up. Rosita Zavala MD cc: [id number] TT: 02/05/2017 00:40:40 Confirmation # [id number] Dictation # [id number] vn [id number]
--- NOTE | 2017-02-05 05:43 | CON ---
DATE: 02/04/2017 ADDENDUM: This is an addendum to the GI consultation report dictated by Sondra Larkin NP. The patient was seen and evaluated earlier. The patient's daughter was at bedside. The patient who lives alone, but daughters are living close by. Was brought to primary doctor's office in view of th sorin complaints of shortness of breath and epigastric pain. The patient was found to have O2 sat 91%. The patient complains of pain in the epigastric and also of the left . PHYSICAL EXAMINATION: On examination, the patient does have tenderness in the epigastric area. Ther e is no rebound guarding. IMPRESSION: This 86-year-old patient is status post liver transplant at the [facility] admitted with complaints of abdominal pain, vomiting, and also low grade fever and . We will continue to fol low up the cultures, followup the antibiotics as per ID, and followup of the cultures. Continue the antibiotics. We will continue to closely follow up her care and suggest further management based on the clinical course. Lesly Baig MD cc: [id number] TT: 02/05/2017 05:42:34 Confirmation # [id number] Dictation # [id number] gali
[2017-02-05 06:12] LABS: ADD MANUAL DIFF? NO; EOS # 0.1 (0.0-0.7); EOS % 2.9 % (1.5-5.0); GRAN # 2.75 (1.4-6.5); GRAN % 61.3 % (50.0-68.0); HEMATOCRIT 33.6 % (42.0-52.0); LYMPH # 0.9 (1.2-3.4); LYMPH % 19.8 % (22.0-35.0); MEAN CORPUSCULAR HEMOGLOBIN 29.6 pg (25.0-35.0); MEAN CORPUSCULAR HGB CONC 33.6 g/dl (31.0-37.0); MEAN PLATELET VOLUME 9.7 fl (7.0-11.0); MONO # 0.7 (0.1-0.6); PLATELET COUNT 150 10^3/uL (120.0-450.0); RED CELL DISTRIBUTION WIDTH 13.2 % (11.5-14.5); WHITE BLOOD COUNT 4.5 10^3/ul (4.5-11.0)
[2017-02-05 06:32] LABS: ALB/GLOB RATIO 1.1 (1.1-1.8); ALKALINE PHOSPHATASE 96 U/L (38-133); ALT/SGPT 37 U/L (7-56); AST/SGOT 30 U/L (15-59); BILIRUBIN,TOTAL 1.1 mg/dL (0.2-1.3); BLOOD UREA NITROGEN 10 mg/dL (7-21); CARBON DIOXIDE 29 mmol/L (21-33); CHLORIDE 104 mmol/L (98-107); GFR AFRICAN-AMERICAN > 60; GLUCOSE,RANDOM 106 mg/dL (70-110); MAGNESIUM 2.3 mg/dL (1.7-2.2); PHOSPHOROUS 3.7 mg/dL (2.5-4.5); POTASSIUM 3.9 mmol/L (3.6-5.0); SODIUM 142 mmol/L (132-148)
[2017-02-05 08:18] VITALS: BP 126/62; PULSE 64; RESP 20; TEMP 98; O2SAT 96
--- NOTE | 2017-02-05 14:06 | PN ---
DATE: 02/05/2017 The patient is in room 570, bed 2. REASON FOR CONSULTATION AND FOLLOWUP: Gastrointestinal bleeding, history of recent coronary artery i ntervention, rule out CA colon. HISTORY OF PRESENT ILLNESS: The patient is an 86-year-old male with past medical history significant for coronary artery disease, status post cardiac catheterization and angioplasty, 3 stents, 1 in LAD and RCA RPDA dated 01/21/2017 who came with dizziness and during the hospitalization, the patient had bright red blood per rectum. The patient was worked up for GI, was found to have large sigmoid colo n mass, highly suspicious for malignancy. Biopsy could not be done because the patient was on aspiri n and Plavix. The patient had only to this stent insertion a week ago. CAT scan negative for any me tastasis. There is no evidence of ascending aortic aneurysm or thrombosis on CT angio. The patient now denies any chest pain, shortness of breath, palpitation. PHYSICAL EXAMINATION: VITAL SIGNS: Blood pressure 126/62, respirations 20, pulse 64, temperature 98.0. HEENT: Head is normocephalic. Eyes: Pupils normal. Conjunctivae slightly pale. NECK: JVP low. Carotid equal. THORAX: AP diameter normal. LUNGS: Clear. CARDIOVASCULAR: S1, S2. ABDOMEN: Soft, no tenderness, no organomegaly. Bowel sounds normal. EXTREMITIES: No clubbing, no cyanosis. LABORATORY DATA: WBC 4.5, hemoglobin 11.3, hematocrit 33.6, platelets 150. Sodium 142, potassium 3. 9, BUN 10, and creatinine 1.1. AST, ALT normal. Total protein and albumin normal. DIAGNOSES: Large colonic mass, probably malignancy, coronary artery disease, recent angioplasty and stent insertion 1 week ago. No evidence of aortic aneurysm or thrombus in the aorta by CT angiograph y. Echo was negative for ascending aortic thrombus, 3 drug-eluting stents on 01/21/2017, hypertension , hyperlipidemia. PLAN: The patient has probably malignant tumor in the colon, but we cannot stop Plavix and aspirin a t present at least for 3 months, so it was suggested to postpone surgery for 3 months if possible. I f surgery will be done now, there is a high risk for bleeding. If we stop aspirin and Plavix, there is a high risk of acute stent closure causing myocardial infarction, so we will suggest to hold off t he surgery for 3 months and in the meantime, clinically cardiac status is stable. We will continue p resent therapy. Tyree Sanchez MD cc: [id number] TT: 02/05/2017 14:05:55 Confirmation # [id number] Dictation # [id number] tn
--- NOTE | 2017-02-05 14:53 | PN ---
DATE: 02/05/2017 REFERRING PHYSICIAN: Dr. Zavala. SUBJECTIVE: Sitting on side of the bed, seen by hematology/oncology. Night was unremarkable. No mo re rectal bleed. Does have snoring, daytime sleepy. No significant cough, no nausea, no vomiting, n o leg pain or leg swelling. OBJECTIVE: GENERAL: No acute distress. VITAL SIGNS: Temperature is 98, heart rate is 64, respiratory rate is 20, blood pressure 126/62, pul se ox 96% on room air. HEENT: Moist mucous membrane. Crowded airway. NECK: Supple. No JVD. LUNGS: Has a fair airflow with few rhonchi. HEART: S1, S2. ABDOMEN: Soft, nontender. No organomegaly. EXTREMITIES: There is no edema. NEUROLOGIC: Awake, alert, follows simple commands. MEDICATIONS: He is on Ecotrin 81 mg daily, Lipitor 40 mg daily, Norvasc 5 mg daily, Plavix 75 mg grupo ly, Protonix 40 mg daily, Toprol-XL 12.5 mg twice a day, Zetia 10 mg daily. LABORATORY DATA: Shows hemoglobin 11.3, hematocrit 33.6, WBC 4.5, platelet is 150. Sodium 142, pota ssium 3.9, chloride 104, bicarbonate 29, BUN 10, creatinine 1.1, glucose 106, calcium 9.0, phosphorus 3.7, magnesium 2.3, AST 30, ALT 37, alkaline phosphatase is 96, albumin is 3.7. Carcinoembryonic an tigen is 1.3. CA 19-9 antigen is still pending. IMPRESSION AND PLAN: Sigmoid mass with bleeding while on anticoagulation, coronary artery disease, s tatus post coronary artery stent, aortic mural thrombus, pulmonary hypertension, cardiac diastolic dy sfunction, may have sleep apnea syndrome. I spoke to oncology services. Also cardiology note review ed. GI evaluation noted. Decision is being made between hematology, GI and cardiology about continu ing aspirin and Plavix. Seems like because of patient being high risk for coronary thrombus, patient is kept on aspirin and Plavix and being sent home with close followup with primary care, oncology, G I and cardiology. Once cardiology gives okay to stop aspirin and Plavix, he could go under laparotom y and sigmoid surgery outpatient. Will need PFT and attended sleep study. We will follow with you. Tyree Duque MD cc: [facility] TT: 02/05/2017 14:52:49 Confirmation # [id number] Dictation # [id number] rn
--- NOTE | 2017-02-05 15:48 | CP.PCM.PN ---
<JaredPaulie blum - Last Filed: 02/05/17 16:27> Subjective - Date & Time of Evaluation Date of Evaluation: 02/05/17 Time of Evaluation: 08:20 - Subjective Subjective: Surgery Progress note. Dr. Diego Pt seen and examined at bedside. No acute events overnight. Patient reports BM last night. No melana or blood noted. Denies any abdominal pain, no N/V. No CP/ SOB. No F/C. No New complaints Objective - Vital Signs/Intake and Output Vital Signs (last 24 hours): Temp Pulse Resp BP Pulse Ox 98.0 F 64 20 126/62 96 02/05/17 08:00 02/05/17 08:00 02/05/17 08:00 02/05/17 10:07 02/05/17 10:33 Intake and Output: 02/05/17 02/05/17 06:59 18:59 Intake Total 660 600 Output Total 650 Balance 10 600 - Medications Medications: Current Medications Amlodipine Besylate (Norvasc) 5 mg PO DAILY [facility] Last Admin: 02/05/17 10:07 Dose: 5 mg Aspirin (Ecotrin) 81 mg PO DAILY [facility] Last Admin: 02/05/17 10:07 Dose: 81 mg Atorvastatin Calcium (Lipitor) 40 mg PO DAILY [facility] Last Admin: 02/05/17 10:06 Dose: 40 mg Clopidogrel Bisulfate (Plavix) 75 mg PO DAILY [facility] Last Admin: 02/05/17 10:08 Dose: 75 mg Ezetimibe (Zetia) 10 mg PO DAILY [facility] Last Admin: 02/05/17 10:06 Dose: 10 mg Metoprolol Succinate (Toprol Xl) 12.5 mg PO BID [facility] Last Admin: 01/29/17 19:46 Dose: Not Given Pantoprazole Sodium (Protonix Inj) 40 mg IVP DAILY [facility] Last Admin: 02/05/17 10:08 Dose: 40 mg - Labs Labs: 02/05/17 05:10 02/05/17 05:10 PT 12.3 Seconds (9.9-11.8) H 02/02/17 05:30 INR 1.14 (0.93-1.08) H 02/02/17 05:30 APTT 25.3 Seconds (23.7-30.8) 01/30/17 11:10 - Constitutional Appears: Well, No Acute Distress - Head Exam Head Exam: ATRAUMATIC, NORMAL INSPECTION, NORMOCEPHALIC - Eye Exam Eye Exam: EOMI, Normal appearance, PERRL Pupil Exam: PERRL - ENT Exam ENT Exam: Mucous Membranes Moist - GI/Abdominal Exam GI & Abdominal Exam: Soft, Normal Bowel Sounds. absent: Distended, Guarding, Rigid, Tenderness, Mass - Extremities Exam Extremities Exam: Normal Inspection - Neurological Exam Neurological Exam: Alert, Awake, Oriented x3 - Skin Skin Exam: Dry, Intact, Normal Color, Warm Assessment and Plan - Assessment and Plan (Free Text) Assessment: 86yo M with PMHx of HTN, HLD, CAD s/p 3 cardiac stents on 01/21 (on ASA and Plavix), found to have sigmoid mass. - S/P Colonoscopy on 02/02. Large partially obstructing sigmoid mass. Unable to bx - CT Abd/Pelvis - 7cm annular mass at the sigmoid with no CT evidence of metastases - High risk for cardiac event perioperatively. As per Cardiology, PT recommended to continue on ASA/Plavix for 1-3 months at a minimum. - continue to monitor H/H. Stable. No current signs of bleeding - tolerating soft diet. No signs of obstruction at this time - Will discuss with Primary team, family and patient about the risks and benefits of any surgical intervention. However, it may be advised to hold any surgical procedures until after 3 months as patient does not have any signs of acute obstruction. - F/U GI recs. No evidence of metastasis on CT at this time. Discussed case with Dr. Johnathon Coleman PGY1 surgery pager: [phone] <Wesley Diego - Last Filed: 05/13/17 00:24> Objective - Vital Signs/Intake and Output Vital Signs (last 24 hours): Temp Pulse Resp BP Pulse Ox 98.0 F 64 20 126/62 96 02/05/17 08:00 02/05/17 08:00 02/05/17 08:00 02/05/17 10:07 02/05/17 10:33 - Labs Labs: 02/05/17 05:10 02/05/17 05:10 PT 12.3 Seconds (9.9-11.8) H 02/02/17 05:30 INR 1.14 (0.93-1.08) H 02/02/17 05:30 APTT 25.3 Seconds (23.7-30.8) 01/30/17 11:10 Assessment and Plan - Assessment and Plan (Free Text) Plan: Patient was seen and examined by me. I agree with assessment and plan as per resident's note.
--- NOTE | 2017-02-05 16:27 | PN ---
DATE: 02/05/[address] Clinton. SUBJECTIVE: The patient is an 86-year-old male in no acute distress with recently diagnosed sigmoid mass, also status post stenting recently, with consideration for surgical procedure put on hold for n ow due to a significant possible problems. The patient is immediately post stenting. Therefore, we will recommend holding any surgical procedure for the time being as per Dr. Clinton's recommendation. He is otherwise without complaint. OBJECTIVE PHYSICAL EXAMINATION: VITAL SIGNS: Temperature 98, pulse 64, respirations 20, blood pressure 126/62, pulse ox 96%. HEENT: Unremarkable. NECK: Supple. HEART: Regular rate. LUNGS: Clear. ABDOMEN: Soft, nontender. EXTREMITIES: No edema. SKIN: Warm, dry and clear. NEUROLOGIC: Awake, alert, and oriented x 3. LABORATORY DATA: The patient's labs were done. White blood cell count 4.5, hemoglobin 11.3, hematoc rit 33.6, platelet count 150,000 with a chem panel within normal limits except for magnesium of 2.3. CEA value is 1.3. CA 19-9 is pending. The patient's colonoscopy report per Dr. Baig showed a postop diagnosis of lesion at ____ cm, hem orrhoids, polyps at the anal verge. He initially had a rectal bleed. 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 PLAN: To continue present medical regimen with consideration for stopping Plavix and aspirin once he is cleared by Dr. Dale and Dr. Sanchez, cardiologists, post-stenting with surgical procedure to be he ld off unless emergency with obstruction or increased bleeding should change the medical recommendati on. Otherwise, we will monitor clinically and with labs as per Dr. Zavala. Carlos Wong MD cc: [id number] TT: 02/05/2017 16:26:51 Confirmation # [id number] Dictation # [id number] tn
--- NOTE | 2017-02-05 16:28 | PN ---
DATE: 02/05/2017 Seen and examined at the bedside earlier today. No reports of any overt GI bleed or any nausea, vomi ting, or abdominal pain. He is tolerating oral intake. He reports bowel movements. No bleeding. VITAL SIGNS: Temperature is 98, blood pressure is 126/62, pulse 64, respirations 20, 96 on room air. LABORATORY DATA: WBC is 4.5, H and H is 11.3 and 33.6, platelets is 150. Chem: Sodium 142, K is 3. 9, BUN is 10, creatinine is 1.1. Magnesium is 2.3. His LFTs are within normal limits. PHYSICAL EXAMINATION: HEENT: Sclera is anicteric. NECK: Supple. CARDIAC: S1, S2. LUNGS: Sounds are clear. ABDOMEN: With bowel sounds, soft, nontender. No rebound or guarding. ASSESSMENT: This is an 86-year-old patient found to have a sigmoid mass. The patient had a gastroin testinal bleed, was on anticoagulant. The patient has history of coronary artery disease status post coronary artery stent, aortic mural thrombus, pulmonary hypertension. Sent patient for a CT scan an d no metastasis was noted. He also had an endoscopy and was found to have gastritis and a gastroesop hageal junction polyp. No biopsies were obtained from the endoscopy and colonoscopy as patient was o n Plavix. CT scan did not show any adenopathy or metastatic lesion. PLAN: The patient was evaluated by surgery who recommend biopsy. The patient had recent angioplasty and stent insertion a week ago. He has 3 drug-eluting stents and as per cardiology recommendations cannot stop Plavix and aspirin at the present time for at least 3 months. The patient is high risk f or acute stent closure causing CT and obviously if the Plavix is not stopped he is high risk for blee ding. So recommend holding off surgery for 3 months in the meantime. Appreciate cardiology input. The patient was also seen by oncology. For now the patient is going to be discharged home to follow up with Dr. Sanchez his primary care. The patient was seen and case discussed with Dr. Baig. Sondra HARDING cc: [id number] TT: 02/05/2017 16:27:19 Confirmation # [id number] Dictation # [id number] jn
[2017-02-05 16:54] LABS: CA 19-9 6.3 U/mL (0-37)
--- NOTE | 2017-02-06 07:45 | DS ---
CHIEF COMPLAINT: Shortness of breath, chest pain. HISTORY OF PRESENT ILLNESS: The patient is an 86-year-old male with past medical history of coronary artery disease with 3 stents placed on 01/21/17, came to the Emergency Room complaining of shortness of breath, began that morning. The patient reports that he was doing fine until 2 days ago, ready to go out for a walk. He says when he got to the end of the block he started feeling shortness of breath. The patient took doses of nitroglycerin. He denies any fever, chills, nausea, vomiting. We admitted the patient. CAT scan of the chest is done. Endoscopy done by Dr. Baig, colonoscopy done by Dr. Baig. CAT scan of the abdomen and pelvis done with IV and p.o. contrast. The patient was seen Dr. Baig, Dr. Wong consult called, who was covering Dr. Clinton to rule out cancer; seen by Dr. Duque for shortness of breath, Dr. Sanchez. CAT scan shows the patient has a clot in the aorta. The patient was started on heparin, then started bleeding rectally. Heparin was stopped. Kept the patient on Plavix and aspirin. The patient bled so badly, we had to give him blood transfusion. Colonoscopy done by Dr. Baig showed the patient has tumor in the colon that was not biopsied because the patient was on Plavix and aspirin. Endoscopy was also done. Endoscopy cannot explain the source of bleeding. Even the patient has gastritis. Now, surgical consult called, oncology consult called and plan is do procedure as outpatient because the patient is on Plavix and aspirin. As outpatient Dr. Johnathon Powell and Dr. Dale will work together to get surgery. The patient knows his condition. Now discharged home. Follow up as outpatient. PAST MEDICAL HISTORY: Cardiac stent. FAMILY HISTORY: Father and mother noncontributory. HABITS: Never smoked. Alcohol, occasionally socially. Substance abuse, never. ALLERGIES: The patient is not allergic to any medications. HOME MEDICATIONS: Aspirin, Zetia, metoprolol, nitroglycerin, Crestor, triamcinolone and amlodipine. REVIEW OF SYSTEMS: The patient seen and examined on the bedside early in the morning, looks comfortable. No nausea, vomiting, or diarrhea. No hematuria or hematochezia. No swelling of the leg. No chest pain, no palpitation, no headache, no dizziness, no fever, no chills. Feeling better. Actually tried to send the patient to [facility] , but according to physical therapy, the patient is not a candidate. PHYSICAL EXAMINATION: VITAL SIGNS: Temperature 98, blood pressure 123/62, pulse 64, respiratory rate 20 and oxygenation 96% on room air. HEENT: Head normocephalic, atraumatic. Eyes: PERRLA. Extraocular muscles intact. Conjunctivae pink. Eyelids unremarkable. Nose patent. NECK: Supple. No carotid bruit, JVD or thyromegaly. CHEST: Bilaterally symmetrical. HEART: S1, S2 positive. LUNGS: Clear to auscultation. ABDOMEN: Soft. Bowel sounds present. No organomegaly. EXTREMITIES: No edema, no cyanosis. NEUROLOGIC: The patient is awake, alert, follows simple commands. LABORATORY DATA: White blood cells 4.5, hemoglobin 11.3, hematocrit 33.6, and platelets 150. Sodium 142, potassium 3.9, BUN 10, creatinine 1.1, magnesium 2.3. Liver function tests within normal limits. ASSESSMENT AND PLAN: The patient is an 86-year-old male has sigmoid mass. The patient had associated gastrointestinal bleeding, was on anticoagulation, heparin. The patient has history of coronary artery disease, status post cardiac stents, aortic mural thrombus, pulmonary hypertension, sent for CAT scan of the abdomen and chest for metastatic disease. The patient had endoscopy and was found to have gastritis and gastroesophageal reflux disease, and gastroesophageal junction polyp. No biopsies were obtained from the endoscopy and colonoscopy as the patient was on Plavix and used to be on heparin. CT does not show any adrenopathy or metastatic disease. Plan is evaluation of surgery. The patient has recent angioplasty and stent insertion a week ago, had 3 drug-eluted stents. As per solar site assessment specialist's recommendation, cannot stop Plavix and aspirin at the present time for at least 3 months. The patient is high risk for acute stent closure causing myocardial infarction off this. If the Plavix is not stopped, he is high risk of bleeding with biopsy and surgery. So recommended holding surgery for 3 months. In the meantime, appreciated gastroenterology and cardiology input and working together. The patient seen by the oncologist. The patient is discharging home. Prescription of medications given. Follow up with primary care physician. Gastrointestinal and deep venous thrombosis prophylaxis. Colonic mass is suggestive of malignancy. According to oncology, continue present treatment. Considering for stopping Plavix and aspirin once cleared by Drs. Dale and Laura, cardiologists, post-stenting with surgical procedure to be held off unless emergency with the obstruction or increasing bleeding should change the medical recommendation. Otherwise, we will follow up. Rosita Zavala MD cc: [id number] TT: 02/06/2017 07:44:23 tn [email or web address]
== END 2017-02-05 18:00 | disposition home or self-care (01) | DRG 375 ==
LOC: ED 09:51 → ERH 14:56 → 2RNO 18:55 → CCU 01-30 08:24 → 2RNO 02-03 11:50 → 5RSO 02-04 18:04
PROVIDERS: ADMIT Internal Medicine; ATTEND Internal Medicine
PROC: 0DJ08ZZ Inspection of Upper Intestinal Tract, Via Natural or Artificial Opening Endoscopic (ICD-10-PCS; 2017-01-30)
PROC: 0DJD8ZZ Inspection of Lower Intestinal Tract, Via Natural or Artificial Opening Endoscopic (ICD-10-PCS; principal; 2017-02-02 13:30)
DX: C18.7 Malignant neoplasm of sigmoid colon (principal); K92.2 Gastrointestinal hemorrhage, unspecified; I74.11 Embolism and thrombosis of thoracic aorta; I27.2 Other secondary pulmonary hypertension; Z94.4 Liver transplant status; E83.41 Hypermagnesemia; I08.3 Combined rheumatic disorders of mitral, aortic and tricuspid valves; D64.9 Anemia, unspecified; I10 Essential (primary) hypertension; K21.9 Gastro-esophageal reflux disease without esophagitis; E78.5 Hyperlipidemia, unspecified; E78.00 Pure hypercholesterolemia, unspecified; G47.30 Sleep apnea, unspecified; I25.10 Atherosclerotic heart disease of native coronary artery without angina pectoris; Z95.5 Presence of coronary angioplasty implant and graft; K29.50 Unspecified chronic gastritis without bleeding; K62.1 Rectal polyp; K64.8 Other hemorrhoids; Z79.01 Long term (current) use of anticoagulants; Z79.02 Long term (current) use of antithrombotics/antiplatelets; Z79.82 Long term (current) use of aspirin; Z79.899 Other long term (current) drug therapy; Z87.891 Personal history of nicotine dependence; R73.9 Hyperglycemia, unspecified; K31.7 Polyp of stomach and duodenum

== ENCOUNTER 2017-03-10 02:56 | Inpatient (IN) | payer MEDICARE, MEDICAID ==
[2017-03-10] MEDS: Sodium Chloride 0.9% 1,000 ML IV SCH ×2 (03:18→15:00)
[2017-03-10 03:44] LABS: ALB/GLOB RATIO 1.2 (1.1-1.8); ALKALINE PHOSPHATASE 104 U/L (38-133); ALT/SGPT 33 U/L (7-56); AST/SGOT 43 U/L (15-59); BILIRUBIN,TOTAL 1.1 mg/dL (0.2-1.3); BLOOD UREA NITROGEN 17 mg/dL (7-21); CALCIUM 9.3 mg/dL (8.4-10.5); CARBON DIOXIDE 32 mmol/L (21-33); CHLORIDE 99 mmol/L (98-107); GFR AFRICAN-AMERICAN > 60; GLUCOSE,RANDOM 136 mg/dL (70-110); LIPASE 33 U/L (23-300); POTASSIUM 4.2 mmol/L (3.6-5.0); SODIUM 141 mmol/L (132-148); TOTAL PROTEIN 7.8 g/dL (5.8-8.3)
[2017-03-10 03:50] LABS: WHITE BLOOD COUNT 5.9 10^3/ul (4.5-11.0)
[2017-03-10 03:51] LABS: HEMATOCRIT 35.9 % (42.0-52.0); INR 1.03 (0.93-1.08); MEAN CELL VOLUME 88.9 fL (80.0-105.0); MEAN CORPUSCULAR HEMOGLOBIN 29.2 pg (25.0-35.0); MEAN CORPUSCULAR HGB CONC 32.9 g/dl (31.0-37.0); MEAN PLATELET VOLUME 9.7 fl (7.0-11.0); PARTIAL THROMBOPLASTIN TIME 26.4 Seconds (23.7-30.8)
[2017-03-10] MEDS ORDERED: metroNIDAZOLE IV 500 mg/100 ml 500 MG/100 ML BAG IVPB STA (04:26)
[2017-03-10] MEDS ORDERED: cefTRIAXone 1 gm 1 GM/100 ML BAG IV STA (04:26)
--- NOTE | 2017-03-10 04:33 | ED PDOC ---
Arrival/HPI - General Time Seen by Provider: 03/10/17 02:56 Historian: Patient - History of Present Illness Narrative History of Present Illness (Text): 03/10/17 02:56 Speedy De Jesus is an 87 year old male, whose past medical history includes colon cancer and CAD with stents, who presents to the Emergency department complaining of abdominal discomfort for the past 4 days. Patient states he has not had a bowel movement in 4 days. Relative states patient had magnesium citrate at home, with no significant relief. Patient denies any chest pain, shortness of breath, nausea, vomiting, diarrhea, urinary symptoms, back pain, neck pain, headache, dizziness, or any other complaints. Time/Duration: < week (4 days) Symptom Onset: Gradual Symptom Course: Unchanged Activities at Onset: Rest, Light Context: Home Past Medical History - Provider Review Nursing Documentation Reviewed: Yes - Cardiac Hx Cardiac Disorders: Yes (CAD) Hx Pacemaker: No Other/Comment: cardiac stent january 21 2017 - Pulmonary Hx Respiratory Disorders: No - Neurological Hx Neurological Disorder: No - HEENT Hx HEENT Disorder: No (WEARS RX GLASSES) - Renal Hx Renal Disorder: No - Endocrine/Metabolic Hx Endocrine Disorders: No - Hematological/Oncological Hx Blood Transfusions: No - Integumentary Hx Dermatological Disorder: No - Musculoskeletal/Rheumatological Hx Musculoskeletal Disorders: No Hx Falls: No - Gastrointestinal Hx Gastrointestinal Disorders: No - Genitourinary/Gynecological Hx Genitourinary Disorders: No - Psychiatric Hx Psychophysiologic Disorder: No Hx Emotional Abuse: No Hx Physical Abuse: No Hx Substance Use: No - Surgical History Hx Cardiac Catheterization: Yes (january 21, 2017) Other/Comment: SCAR TO LEFT LOWER LEG. CUT WHEN HE WAS A KID. - Anesthesia Hx Anesthesia Reactions: No Hx Malignant Hyperthermia: No - Suicidal Assessment Feels Threatened In Home Enviroment: No Family/Social History - Physician Review Nursing Documentation Reviewed: Yes Family/Social History: No Known Family HX Smoking Status: Former Smoker Hx Alcohol Use: Yes (OCCASIONALLY) Hx Substance Use: No Allergies/Home Meds Allergies/Adverse Reactions: Allergies No Known Allergies Allergy (Verified 01/29/17 19:01) Home Medications: Home Meds Medication Instructions Recorded Confirmed Aspirin [Ecotrin] 81 mg PO DAILY 01/15/17 03/10/17 Ezetimibe [Zetia] 10 mg PO DAILY 01/15/17 03/10/17 Metoprolol Succinate 12.5 mg PO BID 01/15/17 03/10/17 Nitroglycerin 0.4 mg SL PRN PRN 01/15/17 03/10/17 Rosuvastatin Calcium [Crestor] 20 mg PO DAILY 01/15/17 03/10/17 Triamcinolone 0.1% [Triamcinolone 1 appl TP BID 01/15/17 03/10/17 0.1% Oint] amLODIPine [Norvasc] 5 mg PO DAILY 01/15/17 03/10/17 Review of Systems - Physician Review All systems were reviewed & negative as marked: Yes - Review of Systems Constitutional: Normal. absent: Fevers Eyes: Normal ENT: Normal Respiratory: Normal. absent: SOB, Cough Cardiovascular: Normal. absent: Chest Pain Gastrointestinal: Abdominal Pain, Constipation. absent: Nausea, Vomiting Genitourinary Male: Normal. absent: Dysuria, Frequency, Hematuria, Urinary Output Changes Musculoskeletal: Normal. absent: Back Pain, Neck Pain Skin: Normal. absent: Rash Neurological: Normal. absent: Headache, Dizziness Endocrine: Normal Hemo/Lymphatic: Normal Psychiatric: Normal Physical Exam Vital Signs Reviewed: Yes Temperature: Afebrile Blood Pressure: Normal Pulse: Regular Respiratory Rate: Normal Appearance: Positive for: Well-Appearing, Non-Toxic, Comfortable Pain Distress: None Mental Status: Positive for: Alert and Oriented X 3 - Systems Exam Head: Present: Atraumatic, Normocephalic Pupils: Present: PERRL Extroacular Muscles: Present: EOMI Conjunctiva: Present: Normal Mouth: Present: Moist Mucous Membranes Neck: Present: Normal Range of Motion Respiratory/Chest: Present: Clear to Auscultation, Good Air Exchange. No: Respiratory Distress, Accessory Muscle Use Cardiovascular: Present: Regular Rate and Rhythm, Normal S1, S2. No: Murmurs Abdomen: Present: Tenderness (LLQ tenderness), Normal Bowel Sounds. No: Distention, Peritoneal Signs Back: Present: Normal Inspection Upper Extremity: Present: Normal Inspection. No: Cyanosis, Edema Lower Extremity: Present: Normal Inspection. No: Edema Neurological: Present: GCS=15, CN II-XII Intact, Speech Normal Skin: Present: Warm, Dry, Normal Color. No: Rashes Psychiatric: Present: Alert, Oriented x 3, Normal Insight, Normal Concentration Medical Decision Making ED Course and Treatment: 03/10/17 02:56 Impression: 86 year old male complaining of abdominal discomfort and constipation x 4 days. Plan: -- CT Abdomen and Pelvis w/o contrast -- EKG -- Chest X-ray -- Labs, lipase -- Fleet Enema -- IV fluids -- Reassess and disposition Prior Visits: Notes and results from previous visits were reviewed. Progress Notes: Reviewed EKG, NSR at 76 bpm. LAD. LVH. Non-specific ST/T wave changes. 03/10/17 04:17 Reviewed radiology, CT Abdomen and Pelvis shows: 1. Colonic diverticulosis with diverticulitis or segmental colitis of the sigmoid colon. Since 02/03/2017, inflammatory changes are decreased in the distal sigmoid but increased in the mid sigmoid. 2. Minimal nonobstructing bilateral renal calculi. 3. Borderline distention of the ascending and to a lesser degree transverse colon with pneumatosis of the colonic wall of the ascending and to a lesser degree transverse colon. There is no associated wall thickening and findings may related to the degree of colonic distention which is increased since the prior study. 4. Fluid in the colon to the level of the sigmoid which may be a reflection of diarrhea or loose stool. 03/10/17 04:[address] Zavala, who is aware and agrees with plan. Accepts pt in to her service. Pt will be admitted to [facility] for diverticulitis and abdominal pain. Requests Dr. Baig on consult. - Lab Interpretations Lab Results: 03/10/17 03:12 03/10/17 03:12 Lab Results 03/10/17 03:12: PT 11.1, INR 1.03, APTT 26.4 03/10/17 03:12: Sodium 141, Potassium 4.2, Chloride 99, Carbon Dioxide 32, Anion Gap 14, BUN 17, Creatinine 1.0, Est GFR ( Amer) > 60, Est GFR (Non- Af Amer) > 60, Random Glucose 136 H, Calcium 9.3, Total Bilirubin 1.1, AST 43, ALT 33, Alkaline Phosphatase 104, Total Protein 7.8, Albumin 4.3, Globulin 3.6, Albumin/Globulin Ratio 1.2, Lipase 33 03/10/17 03:12: WBC 5.9 D, RBC 4.04, Hgb 11.8 L, Hct 35.9 L, MCV 88.9, MCH 29.2 , MCHC 32.9, RDW 14.0, Plt Count 145, MPV 9.7 I have reviewed the lab results: Yes - RAD Interpretation Narrative RAD Interpretations (Text): CT Abdomen and Pelvis shows: Lower thorax: Mild bibasilar atelectasis or scar. ABDOMEN: Liver: Unremarkable. Gallbladder and bile ducts: Unremarkable. No calcified stones. No ductal dilation. Pancreas: Unremarkable. No ductal dilation. Spleen: Unremarkable. No splenomegaly. Adrenals: Unremarkable. No mass. Kidneys and ureters: Minimal nonobstructing bilateral renal calculi. There is a left renal cyst measuring up to 11.5 cm. Stomach and bowel: Borderline distention of the ascending and to a lesser degree the transverse colon. There is some pneumatosis of the ascending colon and to a lesser degree the transverse colon without wall thickening. There is fluid in the colon to the proximal sigmoid. There is diverticulosis of the colon with segmental wall thickening of the sigmoid but is greatest in the mid and distal portions. There is pericolonic induration about the mid sigmoid extending along the supplying mesentery suggesting diverticulitis or segmental colitis. Appendix: A normal appendix is seen. PELVIS: Bladder: Unremarkable. No stones. Reproductive: Unremarkable as visualized. ABDOMEN and PELVIS: Intraperitoneal space: Unremarkable. No free air. No significant fluid collection. Bones/joints: Minimal dextroscoliosis of the lumbar spine. No acute fracture. No dislocation. Soft tissues: Unremarkable. Vasculature: Slight ectasia of the infrarenal abdominal aorta measuring 3.1 cm. No abdominal aortic aneurysm. Lymph nodes: Unremarkable. No enlarged lymph nodes. IMPRESSION: 1. Colonic diverticulosis with diverticulitis or segmental colitis of the sigmoid colon. Since 02/03/2017, inflammatory changes are decreased in the distal sigmoid but increased in the mid sigmoid. 2. Minimal nonobstructing bilateral renal calculi. 3. Borderline distention of the ascending and to a lesser degree transverse colon with pneumatosis of the colonic wall of the ascending and to a lesser degree transverse colon. There is no associated wall thickening and findings may related to the degree of colonic distention which is increased since the prior study. 4. Fluid in the colon to the level of the sigmoid which may be a reflection of diarrhea or loose stool. Radiology Orders: 03/10/17 03:00 CHEST PORTABLE [RAD] Stat 03/10/17 03:01 ABD & PELVIS W/O PO OR IV CONT [CT] Stat Contact Assembler: ED Physician, Radiologist - EKG Interpretation Interpreted by ED Physician: Yes Type: 12 lead EKG - Medication Orders Current Medication Orders: Sodium Chloride (Sodium Chloride 0.9%) 1,000 mls @ 100 mls/hr IV .Q10H KIA Sodium Chloride (Sodium Chloride 0.9%) 1,000 mls @ 100 mls/hr IV .Q10H STA Stop: 03/10/17 14:34 Discontinued Medications Ceftriaxone Sodium (Rocephin 1 Gram Ivpb) 1 gm in 100 mls @ 200 mls/hr IV ONCE STA PRN Reason: Protocol Stop: 03/10/17 04:55 Metronidazole (Flagyl) 500 mg in 100 mls @ 100 mls/hr IVPB STAT STA PRN Reason: Protocol Stop: 03/10/17 05:25 Sodium Phosphate (Fleet Enema) 135 ml RC STAT STA Stop: 03/10/17 03:02 - Scribe Statement The provider has reviewed the documentation as recorded by the Scriblove Capellan All medical record entries made by the Scribe were at my direction and personally dictated by me. I have reviewed the chart and agree that the record accurately reflects my personal performance of the history, physical exam, medical decision making, and the department course for this patient. I have also personally directed, reviewed, and agree with the discharge instructions and disposition. Disposition/Present on Arrival - Present on Arrival Any Indicators Present on Arrival: No History of DVT/PE: No History of Uncontrolled Diabetes: No Urinary Catheter: No History Surgical Site Infection Following: None - Disposition Have Diagnosis and Disposition been Completed?: Yes Diagnosis: Diverticulitis Disposition: HOSPITALIZED Disposition Time: 04:34 Patient Plan: Admission Patient Problems: Current Active Problems Problem Status Onset Diverticulitis Acute Condition: STABLE Referrals: Tyree Sanchez MD [Primary Care Provider] - Follow up with primary
[2017-03-10] MEDS ORDERED: Sodium Chloride 0.9% 1,000 ML IV STA (04:35)
[2017-03-10 04:38] VITALS: BMI 28.8
--- NOTE | 2017-03-10 07:02 | RAD ---
HISTORY: abdominal pain COMPARISON: 01/29/2017 FINDINGS: LUNGS: No active pulmonary disease. PLEURA: No significant pleural effusion identified, no pneumothorax apparent. CARDIOVASCULAR: Normal. OSSEOUS STRUCTURES: Thoracic spondylosis VISUALIZED UPPER ABDOMEN: Normal. OTHER FINDINGS: None. IMPRESSION: No active disease.
--- NOTE | 2017-03-10 09:14 | CP.PCM.CON ---
<Jannie Rice - Last Filed: 03/10/17 09:30> History of Present Illness - History of Present Illness History of Present Illness: GI consult for Dr. Baig Speedy De Jesus is an 87 year old male, whose past medical history includes colon mass and CAD with stents, who presents with abdominal discomfort for the past 4 days. Patient states he has not had a bowel movement in 4 days. Relative states patient had magnesium citrate at home, with no significant relief. Patient denies any chest pain, shortness of breath, nausea, vomiting, diarrhea, urinary symptoms, back pain, neck pain, headache, dizziness, or any other complaints. Pt was here in January and c-scope showed partially obstructing circumferential sigmoid colon mass. Today CT showed dilated cecum and near obstructing sigmoid mass. Review of Systems - Review of Systems Systems not reviewed;Unavailable: Language Barrier Review of Systems: See HPI - Gastrointestinal Gastrointestinal: Abdominal Pain, Bloating, Change in Bowel Habits, Constipation. absent: Diarrhea, Loose Stools, Melena Past Patient History - Past Social History Smoking Status: Never Smoked - CARDIAC Hx Cardiac Disorders: Yes (CAD) Hx Pacemaker: No Other/Comment: cardiac stent january 21 2017 - PULMONARY Hx Respiratory Disorders: No - NEUROLOGICAL Hx Neurological Disorder: No - HEENT Hx HEENT Problems: No (WEARS RX GLASSES) - RENAL Hx Chronic Kidney Disease: No - ENDOCRINE/METABOLIC Hx Endocrine Disorders: No - HEMATOLOGICAL/ONCOLOGICAL Hx Blood Disorders: No - INTEGUMENTARY Hx Dermatological Problems: No - MUSCULOSKELETAL/RHEUMATOLOGICAL Hx Falls: No - GASTROINTESTINAL Hx Gall Bladder Disease: Yes Other/Comment: abdominal pain - GENITOURINARY/GYNECOLOGICAL Hx Genitourinary Disorders: No - PSYCHIATRIC Hx Psychophysiologic Disorder: No Hx Emotional Abuse: No Hx Physical Abuse: No - SURGICAL HISTORY Hx Cardiac Catheterization: Yes (january 21, 2017) Other/Comment: SCAR TO LEFT LOWER LEG. CUT WHEN HE WAS A KID. - ANESTHESIA Hx Anesthesia Reactions: No Hx Malignant Hyperthermia: No Meds Allergies/Adverse Reactions: Allergies Allergy/AdvReac Type Severity Reaction Status Date / Time No Known Allergies Allergy Verified 01/29/17 19:01 - Medications Medications: Current Medications Sodium Chloride (Sodium Chloride 0.9%) 1,000 mls @ 100 mls/hr IV .Q10H [facility] Last Admin: 03/10/17 03:18 Dose: 100 mls/hr Sodium Chloride (Sodium Chloride 0.9%) 1,000 mls @ 100 mls/hr IV .Q10H [facility] Stop: 03/10/17 14:34 Physical Exam - Constitutional Appears: No Acute Distress - Head Exam Head Exam: ATRAUMATIC, NORMAL INSPECTION, NORMOCEPHALIC - Eye Exam Eye Exam: EOMI, Normal appearance, PERRL Pupil Exam: NORMAL ACCOMODATION, PERRL - ENT Exam ENT Exam: Mucous Membranes Moist, Normal Exam - Neck Exam Neck exam: Positive for: Normal Inspection - Respiratory Exam Respiratory Exam: Clear to Auscultation Bilateral, NORMAL BREATHING PATTERN - Cardiovascular Exam Cardiovascular Exam: REGULAR RHYTHM - GI/Abdominal Exam GI & Abdominal Exam: Soft, Tenderness. absent: Distended, Firm, Guarding, Hernia, Pulsatile Mass, Rebound, Rigid Additional comments: Low abd TTP. - Extremities Exam Extremities exam: Positive for: normal inspection - Back Exam Back exam: NORMAL INSPECTION - Neurological Exam Neurological exam: Alert, CN II-XII Intact, Normal Gait, Oriented x3, Reflexes Normal - Psychiatric Exam Psychiatric exam: Normal Affect, Normal Mood - Skin Skin Exam: Dry, Intact, Normal Color, Warm Results - Vital Signs Recent Vital Signs: Last Vital Signs Temp 98.3 F 03/10/17 06:17 Pulse 68 03/10/17 06:17 Resp 20 03/10/17 08:09 BP 153/83 H 03/10/17 06:17 Pulse Ox 96 03/10/17 06:17 - Labs Result Diagrams: 03/10/17 03:12 03/10/17 03:12 Assessment & Plan - Assessment and Plan (Free Text) Assessment: 86 yr mail w PMH of sigmoid colon mass, GI bleed, CAD s/p PCI w drug eluded stents came with constipation and abd pain. CT shows Near obstructing Sigmoid mass and dilated cecum worrisome for perforation. Consider Clemens's procedure: Surgery consulted. Discussed with Dr. Dale regarding pt's cardiac status. Can hold anticoagulants. NPO IVF We will continue to follow closely. Case Discussed with Dr. Baig <Lesly Baig V - Last Filed: 03/10/17 21:39> Meds - Medications Medications: Current Medications Sodium Chloride (Sodium Chloride 0.9%) 1,000 mls @ 100 mls/hr IV .Q10H [facility] Last Admin: 03/10/17 03:18 Dose: 100 mls/hr Metronidazole (Flagyl) 500 mg in 100 mls @ 100 mls/hr IVPB Q8 [facility] PRN Reason: Protocol Ceftriaxone Sodium (Rocephin 1 Gram Ivpb) 1 gm in 100 mls @ 100 mls/hr IVPB DAILY [facility] PRN Reason: Protocol Ondansetron HCl (Zofran Inj) 4 mg IVP Q4H PRN PRN Reason: Nausea/Vomiting Pantoprazole Sodium (Protonix Inj) 40 mg IVP DAILY [facility] Results - Vital Signs Recent Vital Signs: Last Vital Signs Temp 98.3 F 03/10/17 06:17 Pulse 68 03/10/17 06:17 Resp 20 03/10/17 08:09 BP 153/83 H 03/10/17 06:17 Pulse Ox 96 03/10/17 06:17 - Labs Result Diagrams: 03/10/17 03:12 03/10/17 03:12 Assessment & Plan - Assessment and Plan (Free Text) Assessment: This is an addendum note for the consult of Dr. Jannie Rice, resident. The patient was seen and examined this morning. The chart, labs, ct scan and previous workup was reviewed. This patient has partially sigmoid obstructing mass, he is on ASA and Plavix for CAD, s/p PCI with drug eluding stent, came with abdominal pain.Parial colonic obstruction with cecal distention. The patient will need surgical intervention, discussed with Dr. Dale regarding anticoagulants. Also spoke to Dr. Beasley, will request for surgical and cardiology evaluation. Patient c/o LLQ pain, was started on IV antibiotics, less likely that this is diverticulitis. Discuused Dr Johansen . Patient has now passing flatus . Can avoid colostomy if we can prepare colon and this depends on clinical course.
[2017-03-10] MEDS: cefTRIAXone 1 gm 1 GM/100 ML BAG IVPB SCH (11:00)
--- NOTE | 2017-03-10 11:11 | CT ---
PROCEDURE: CT Abdomen and Pelvis without intravenous contrast HISTORY: abdominal pain > LL abdomen COMPARISON: 02/03/2017 TECHNIQUE: Without contrast.. Contrast Dose: Radiation dose: Total exam DLP = 807 mGy-cm. This CT exam was performed using one or more of the following dose reduction techniques: Automated exposure control, adjustment of the mA and/or kV according to patient size, and/or use of iterative reconstruction technique. FINDINGS: LOWER THORAX: Coronary artery calcifications are seen LIVER: Unremarkable. No gross lesion or ductal dilatation. GALLBLADDER AND BILE DUCTS: Unremarkable. PANCREAS: Unremarkable. No gross lesion or ductal dilatation. SPLEEN: Unremarkable. ADRENALS: Unremarkable. No mass. KIDNEYS AND URETERS: Unremarkable. No hydronephrosis. No solid mass. VASCULATURE: Unremarkable. No aortic aneurysm. BOWEL: There is acute diverticulitis of the mid sigmoid colon. There is also some persistent mural thickening of the distal sigmoid. An underlying mass cannot be excluded. There is also moderate distention of the ascending and transverse colon with retained stool. APPENDIX: Unremarkable. Normal appendix. PERITONEUM: Unremarkable. No free fluid. No free air. LYMPH NODES: Unremarkable. No enlarged lymph nodes. BLADDER: Unremarkable. REPRODUCTIVE: Unremarkable. BONES: No acute fracture. OTHER FINDINGS: The report concurs with the preliminary [facility] report IMPRESSION: Acute diverticulitis of the mid sigmoid colon. Persistent mural thickening in the distal sigmoid colon.
--- NOTE | 2017-03-10 12:27 | CP.PCM.CON ---
Addendum entered and electronically signed by Rene Richardson DO 03/10/17 16:19 : Addendum to plan: Once constipation resolved and colon clease done, pt will get colonoscopy with biopsy of mass. Then prep for one stage L colon mass resection. PGY3 Original Note: <Rene Richardson - Last Filed: 03/10/17 11:45> History of Present Illness - History of Present Illness History of Present Illness: 86M, known to surgical service. Pt had a diagnostic colonoscopy on 02/02 which showed an ulcerated partially obstructing mass in the sigmoid colon at 20cm. He required anticoagulation for aortic thrombus and recent PCI stenting at the time and cardiology recommended a minimum of 1-3 months of ASA/plavix to reduce perioperative thrombotic risk. On this admission, pt had presented with 4 days of generalized abdominal pain, with his last BM being 4 days ago. Denies any F/C , N/V, SOB, chest pain, melena, or hematochezia. Currently, pt had a soft non- bloody BM and pain has improved but is still present. PMH: HTN, HLD, CAD PSH: PCI s/p 3 stents placed on 02/21 (on ASA and Plavix), R inguinal hernia repair SH: Former 20 pack year smoker, quit 30 years ago. 1 shot of vodka daily. Denies any illicit drugs. Lives alone. All: NKDA Meds: see MAR Review of Systems - Review of Systems All systems: reviewed and no additional remarkable complaints except (as per HPI ) Past Patient History - Past Social History Smoking Status: Never Smoked - CARDIAC Hx Cardiac Disorders: Yes (CAD) Hx Pacemaker: No Other/Comment: cardiac stent january 21 2017 - PULMONARY Hx Respiratory Disorders: No - NEUROLOGICAL Hx Neurological Disorder: No - HEENT Hx HEENT Problems: No (WEARS RX GLASSES) - RENAL Hx Chronic Kidney Disease: No - ENDOCRINE/METABOLIC Hx Endocrine Disorders: No - HEMATOLOGICAL/ONCOLOGICAL Hx Blood Disorders: No - INTEGUMENTARY Hx Dermatological Problems: No - MUSCULOSKELETAL/RHEUMATOLOGICAL Hx Falls: No - GASTROINTESTINAL Hx Gall Bladder Disease: Yes Other/Comment: abdominal pain - GENITOURINARY/GYNECOLOGICAL Hx Genitourinary Disorders: No - PSYCHIATRIC Hx Psychophysiologic Disorder: No Hx Emotional Abuse: No Hx Physical Abuse: No - SURGICAL HISTORY Hx Cardiac Catheterization: Yes (january 21, 2017) Other/Comment: SCAR TO LEFT LOWER LEG. CUT WHEN HE WAS A KID. - ANESTHESIA Hx Anesthesia Reactions: No Hx Malignant Hyperthermia: No Meds Allergies/Adverse Reactions: Allergies Allergy/AdvReac Type Severity Reaction Status Date / Time No Known Allergies Allergy Verified 03/22/17 19:50 - Medications Medications: Current Medications Sodium Chloride (Sodium Chloride 0.9%) 1,000 mls @ 100 mls/hr IV .Q10H [facility] Last Admin: 03/10/17 03:18 Dose: 100 mls/hr Sodium Chloride (Sodium Chloride 0.9%) 1,000 mls @ 100 mls/hr IV .Q10H [facility] Stop: 03/10/17 14:34 Metronidazole (Flagyl) 500 mg in 100 mls @ 100 mls/hr IVPB Q8 [facility] PRN Reason: Protocol Ceftriaxone Sodium (Rocephin 1 Gram Ivpb) 1 gm in 100 mls @ 100 mls/hr IVPB DAILY [facility] PRN Reason: Protocol Ondansetron HCl (Zofran Inj) 4 mg IVP Q4H PRN PRN Reason: Nausea/Vomiting Pantoprazole Sodium (Protonix Inj) 40 mg IVP DAILY [facility] Physical Exam - Constitutional Appears: Non-toxic, No Acute Distress - Head Exam Head Exam: ATRAUMATIC, NORMOCEPHALIC - Eye Exam Eye Exam: EOMI. absent: Scleral icterus - ENT Exam ENT Exam: Mucous Membranes Moist Additional comments: trachea midline - Respiratory Exam Respiratory Exam: NORMAL BREATHING PATTERN. absent: Respiratory Distress - Cardiovascular Exam Cardiovascular Exam: RRR, +S1, +S2 - GI/Abdominal Exam GI & Abdominal Exam: Guarding (in RLQ), Soft, Tenderness (most in RLQ some in RUQ). absent: Distended, Firm, Rebound, Rigid - Rectal Exam Rectal Exam: Deferred - Extremities Exam Extremities exam: Positive for: normal capillary refill. Negative for: calf tenderness, tenderness - Back Exam Back exam: absent: CVA tenderness (L), CVA tenderness (R) - Neurological Exam Neurological exam: Alert, Oriented x3 - Psychiatric Exam Psychiatric exam: Normal Affect, Normal Mood - Skin Skin Exam: Dry, Warm Results - Vital Signs Recent Vital Signs: Last Vital Signs Temp 98.3 F 03/10/17 06:17 Pulse 68 03/10/17 06:17 Resp 20 03/10/17 08:09 BP 153/83 H 03/10/17 06:17 Pulse Ox 96 03/10/17 06:17 - Labs Result Diagrams: 03/10/17 03:12 03/10/17 03:12 - Imaging and Cardiology CT scan - abdomen Status: Image reviewed by me, Report reviewed by me Assessment & Plan - Assessment and Plan (Free Text) Assessment: 86M with annular sigmoid mass, partially obstructing Plan: Pt moving bowels Mag citrate Will diiscuss getting tissue biopsy with GI IVF D/W Dr. Johnathon Richardson PGY3 <Wesley Diego - Last Filed: 03/29/17 00:04> Results - Vital Signs Recent Vital Signs: Last Vital Signs Temp 96.3 F L 03/22/17 17:10 Pulse 77 03/22/17 17:10 Resp 17 03/22/17 17:10 BP 137/86 03/22/17 17:10 Pulse Ox 95 03/22/17 17:10 - Labs Result Diagrams: 03/22/17 06:00 03/22/17 06:00 Assessment & Plan - Assessment and Plan (Free Text) Plan: Patient was seen and examined by me. I agree with assessment and plan as per resident's note.
[2017-03-10] MEDS: metroNIDAZOLE IV 500 mg/100 ml 500 MG/100 ML BAG IVPB SCH ×2 (15:00→21:19)
--- NOTE | 2017-03-10 16:26 | CARD ---
APPROVED REPORT EKG Measurement Heart [id number] MD [id number] <Conclusion> Normal sinus rhythm Left axis deviation Left ventricular hypertrophy with QRS widening Abnormal ECG
--- NOTE | 2017-03-10 17:58 | CON ---
DATE: 03/10/2017 REASON FOR CONSULTATION: Acute abdomen and coronary artery disease, recent angioplasty and stent ins ertion. HISTORY OF PRESENT ILLNESS: This is an 86-year-old male who is known to have coronary artery disease and had successful PTCA with drug-eluting stent of mid LAD, distal RCA and RPDA on 01/21/2017, LV ej ection fraction of 55%. The patient now admitted with abdominal pain and a CAT scan of the abdomen s howed acute diverticulitis of the mid sigmoid colon and there is also persistent mural thickening of the distal sigmoid. An underlying mass cannot be excluded. There is also moderate distention of the ascending and transverse colon with retained stool. The patient lying flat in bed without any chest pain, shortness of breath or palpitation. The patient recently was found to have a large mass in th e sigmoid colon, but surgery was postponed because of the angioplasty and stents. We wanted to wait 3 months. PAST MEDICAL HISTORY: Significant for coronary artery disease, status post angioplasty, stent insert ion on 01/21/2017, hypertension, hyperlipidemia. PERSONAL HISTORY: Denies smoking, denies drinking. HOME MEDICATIONS: Amlodipine 5 mg daily, metoprolol succinate 12.5 mg b.i.d., Zetia 10 mg daily, asp irin 81 mg p.o. daily, Plavix 75 mg p.o. daily. From a list of medication on the chart [facility] it does not show that the patient was on Plavix at home. REVIEW OF SYSTEMS: All other systems were reviewed, positive mentioned in the history, others were n egative. ALLERGIES: Denies any allergies. PHYSICAL EXAMINATION: VITAL SIGNS: Blood pressure 153/83, earlier pressure was 128/74, respirations 18, pulse 68, temperat ure 98.3. HEAD: Normocephalic. EYES: Pupils normal. Conjunctivae normal. NECK: JVP low. Carotid equal. THORAX: AP diameter normal. LUNGS: Clear. CARDIOVASCULAR: S1, S2. ABDOMEN: Soft, vague tenderness, no organomegaly. EXTREMITIES: No clubbing, no cyanosis. LABORATORY DATA: WBC 5.9, hemoglobin 11.8, hematocrit 35.9, platelets 145. Sodium 141, potassium 4. 2, BUN 17, creatinine 1.0, random glucose 136. Calcium, bilirubin, AST, ALT normal. Total protein a nd albumin normal. Chest x-ray: No active disease. EKG showed regular sinus rhythm, left anterior hemiblock. DIAGNOSES: Coronary artery disease, angioplasty and drug-eluting stent insertion on 01/21 2017, hype rtension, hyperlipidemia, acute diverticulitis, colon mass, possibility of obstruction due to colon m ass. PLAN: The patient can go for surgery and he was on Plavix and aspirin. He can bleed, but if patient has an obstruction and there is no choice but to do surgery, then patient can go for surgery as a hi gh risk because once we stop Plavix and aspirin there is a high chance that patient can have acute my ocardial infarction due to acute stent closure which was inserted on 01/21/2017. In the meantime, th e patient on metronidazole 500 mg IV q. 8 hours, Protonix 40 IV daily, ceftriaxone 1 gram IV daily. The patient is getting IV fluid therapy. When patient is not n.p.o., we will put on metoprolol 12.5 mg b.i.d. We will follow with you. Tyree Sanchez MD cc: [id number] TT: 03/10/2017 17:57:49 Confirmation # [id number] Dictation # [id number] mn
--- NOTE | 2017-03-10 19:38 | CON ---
DATE: 03/10/2017 REFERRING PHYSICIAN: REASON FOR CONSULT: Loud snoring, daytime sleepy, may have a sleep apnea syndrome, admitted with abd ominal pain. HISTORY OF PRESENT ILLNESS: This is an 87-year-old gentleman with past medical history significant f or coronary artery disease with coronary stent, has a history of colonic mass in the past, has been h aving abdominal pain for a few days. Also, complaining about constipation, seen by GI and surgery. Had a CT of the abdomen done, which shows dilated cecum and near obstructing sigmoid mass. Denying a ny cough, no sputum production, no dysuria, no leg pain or leg swelling. PAST MEDICAL HISTORY: Coronary artery disease, coronary stent. ALLERGIES: None known. SOCIAL HISTORY: Nonsmoker, nondrinker. FAMILY HISTORY: No significant cardiopulmonary disease reported. MEDICATIONS: Presently, he is on Flagyl 500 mg q. 8 hours, Protonix 40 mg daily, Rocephin 1 g daily, IV fluid normal saline 100 mL per hour, Zofran on a p.r.n. basis. REVIEW OF SYSTEMS: No headache, no rhinitis. He is edentulous. Admitted to loud snoring, daytime s leepy and tired. No cough, no shortness of breath. No chest pain. Has abdominal discomfort and con stipation. No dysuria. No leg pain or leg swelling. PHYSICAL EXAMINATION: GENERAL: Lying in the bed in no acute distress. VITAL SIGNS: Temp is 98, heart rate is 68, respiratory rate is 20, blood pressure 153/83, pulse ox 9 6% on room air. HEENT: Edentulous, small oral cavity. Crowed airway. Mallampati score is 4. NECK: Supple. No JVD. LUNGS: Have a fair airflow with few rhonchi. HEART: S1, S2. ABDOMEN: Positive bowel sounds. Not much distended, but tender to palpation. EXTREMITIES: There is no edema. NEUROLOGIC: Awake, alert, follows simple commands. LABORATORY DATA: Shows hemoglobin 11.8, hematocrit 35.9, WBC 5.9, and platelet is 145. INR , P TT is 26, sodium 141, potassium 4.2, chloride 99, bicarbonate 32, BUN 17, creatinine 1.0, glucose 136 , calcium 9.3. Total bilirubin 1.1, AST 43, ALT 33, alkaline phosphatase is 104. Albumin 4.3, lipas e is 33. CAT scan of the abdomen and pelvis is done, which shows acute diverticulitis of the mid sig moid colon consistent with mural thickening in the distal sigmoid colon. mass cannot be exclu ded due to moderate distention of the transverse colon and retained stool. IMPRESSION AND PLAN: Diverticulitis with mural thickening of the sigmoid colon with partial obstruct ion, history of coronary artery disease with coronary stent, may have a component of sleep apnea synd sarah. The patient is being evaluated by gastroenterology and surgery. From the pulmonary point of v iew, he is okay. Needs close cardiopulmonary monitoring. Postoperative period may have component of sleep apnea. He also needs cardiology clearance because of recent coronary stent and has been on as pirin and Plavix. Thank you. I will follow with you. Tyree Duque MD cc: [id number] TT: 03/10/2017 19:37:22 Confirmation # [id number] Dictation # [id number] dn
--- NOTE | 2017-03-11 07:00 | HP ---
CHIEF COMPLAINT: Abdominal discomfort. HISTORY OF PRESENT ILLNESS: The patient is an 86-year-old male with past medical history of colon ca ncer, coronary artery disease with stents, came to the Emergency Department complaining of abdominal discomfort for past 4 days. The patient states he has not had bowel movements for 4 days. Caregiver states the patient had magnesium citrate at home with no significant relief. The patient denies any chest pain, shortness of breath, nausea or vomiting. No diarrhea, even has constipation. No back p ain, headache, dizziness, but sometimes complaining about shortness of breath. PAST MEDICAL HISTORY: Coronary artery disease, cardiac stent on 01/21/2017. FAMILY HISTORY: Father and mother noncontributory. HABITS: Former smoker. Alcohol: Occasionally. Substance abuse: No. ALLERGIES: The patient is not allergic with any medications. HOME MEDICATIONS: Aspirin, Zetia, metoprolol, nitroglycerin, Crestor, triamcinolone and amlodipine. REVIEW OF SYSTEMS: The patient seen and examined on the bedside, still complaining about abdominal p ain. No fever, no chills. No coughing. No chest pain. Having abdominal pain, constipation. No na usea or vomiting. No dysuria, frequency or hematuria or urinary output changes. No back pain, neck pain. No rashes. No headache, no dizziness. PHYSICAL EXAMINATION: VITAL SIGNS: Temperature 99, pulse 76, blood pressure 150/80, and respiratory rate 18. HEENT: Head normocephalic, atraumatic. Eyes: PERRLA. Extraocular muscles intact. Conjunctivae cl ear. Nose patent. Mucous membranes moist. NECK: Supple. No carotid bruit, JVD or thyromegaly. CHEST: Bilaterally symmetrical. HEART: S1, S2 positive. LUNGS: Clear to auscultation. ABDOMEN: Soft. Tender in the middle area. Bowel sounds are positive. No organomegaly. EXTREMITIES: No edema, no cyanosis. NEUROLOGIC: The patient is awake, alert, follows simple commands. LABORATORY DATA: White blood cells 5.8, hemoglobin 11.8, hematocrit 35.9, platelets 145. Sodium 141 , potassium 4.2, BUN 70, creatinine 1.0, glucose 136. ASSESSMENT AND PLAN: The patient is an 86-year-old male with history of colon cancer, coronary arter y disease, came with abdominal pain. CAT scan of the abdomen and pelvis done, showed acute diverticu litis of mid sigmoid colon, persistent mural thickening in the distal sigmoid colon. Needs antibioti cs for diverticulitis, seen by Dr. Sanchez and Dr. Duque for shortness of breath. Gastrointestinal a nd deep venous thrombosis prophylaxis. Repeat labs. We will follow up. Rosita Zavala MD cc: [id number] TT: 03/11/2017 06:59:47 tn
--- NOTE | 2017-03-11 16:54 | PN ---
DATE: 03/11/2017 REASON FOR CONSULTATION AND FOLLOWUP: Preop evaluation, coronary artery disease, cecal mass. BRIEF CLINICAL HISTORY: An 86-year-old male with past medical history significant for coronary arter y disease, status post PTCA recently, admitted last time with a GI bleed found to be a colonic mass, possible malignancy, now is obstructing and patient is n.p.o. Denies any chest pain, shortness of br eath, any palpitation. PHYSICAL EXAMINATION: VITAL SIGNS: Temperature afebrile, heart rate 80, blood pressure 120/80. HEENT: PERRLA. Extraocular muscles intact. NECK: Supple. No carotid bruits. No thyromegaly. CHEST: Clear to auscultation. HEART: S1, S2 regular. ABDOMEN: Soft. EXTREMITIES: Clubbing and cyanosis negative. LABORATORY DATA: Blood workup pending. IMPRESSION: Acute abdomen, intestinal obstruction secondary to cecal mass, history of gastrointestin al bleed, coronary artery disease, hypertension, hyperlipidemia. RECOMMENDATION: The patient is off aspirin and Plavix. The patient needs OR surgery. Discussed wit h GI. The patient is a high risk for surgery because of recent intervention and detrimental, bu t choices are limited. The patient may need to go surgery. We will follow closely. The patient is high risk, can get acute thrombosis and can from this. Thank you, Dr. Zavala, for providing the opportunity in taking care of this patient. Tyree Dale MD cc:Rosita Zavala MD [id number] TT: 03/11/2017 16:53:50 Confirmation # [id number] Dictation # [id number]
[2017-03-11 21:47] LABS: ADD MANUAL DIFF? NO
--- NOTE | 2017-03-11 22:28 | PN ---
DATE: 03/11/2017 REFERRING PHYSICIAN: Dr. Zavala. SUBJECTIVE: He is lying in the bed, head up 45 degrees. No headache, no rhinitis, no cough. Still has abdominal pain. No leg pain or leg swelling. OBJECTIVE: GENERAL: No acute distress. VITAL SIGNS: Temperature is 98, heart rate 68, respiratory rate is 18, blood pressure 156/83, pulse ox 95% on nasal cannula. HEENT: Moist mucous membrane. Crowded airway. Edentulous. NECK: Short, thick neck. LUNGS: Has a fair airflow with few rhonchi. HEART: S1 and S2. ABDOMEN: Positive bowel sounds. Positive tenderness on palpation. EXTREMITIES: There is no edema. NEUROLOGIC: Awake, alert, follows simple command. MEDICATIONS: He is on Flagyl 500 mg q. 8 hours, Protonix 40 mg daily, Rocephin 1 g daily, IV fluid n ormal saline 100 mL per hour, Zofran on p.r.n. basis. LABORATORY DATA: Reviewed. IMPRESSION AND PLAN: Diverticulitis with mural thickening in the sigmoid colon, partial obstruction, coronary artery disease, history of coronary stent, may have sleep apnea syndrome. Antiplatelets guadarrama ve been stopped in anticipation of surgery because of fear of intestinal obstruction. The genia ent is high risk for because of platelet inhibitor . The patient understands the risk and agrees with the treatment. Keep head elevated at 45 degrees. Sleep apnea precaution. If post operative cardiopulmonary monitoring. Thank you and will follow with you. Tyree Duque MD cc: [id number] TT: 03/11/2017 22:27:47 Confirmation # [id number] Dictation # [id number] ln
[2017-03-11] MEDS: metroNIDAZOLE IV 500 mg/100 ml 500 MG/100 ML BAG IVPB SCH (22:29)
[2017-03-12 05:12] LABS: ALB/GLOB RATIO 1.1 (1.1-1.8); ALKALINE PHOSPHATASE 90 U/L (38-133); ALT/SGPT 36 U/L (7-56); AST/SGOT 78 U/L (15-59); BILIRUBIN,TOTAL 1.1 mg/dL (0.2-1.3); BLOOD UREA NITROGEN 11 mg/dL (7-21); CALCIUM 8.6 mg/dL (8.4-10.5); CARBON DIOXIDE 27 mmol/L (21-33); CHLORIDE 104 mmol/L (98-107); GFR AFRICAN-AMERICAN > 60; GLUCOSE,RANDOM 82 mg/dL (70-110); POTASSIUM 3.8 mmol/L (3.6-5.0); SODIUM 140 mmol/L (132-148); TOTAL PROTEIN 6.8 g/dL (5.8-8.3)
[2017-03-12 05:21] LABS: CHOLESTEROL 95 mg/dL (130-200)
[2017-03-12 05:39] LABS: IRON 55 ug/dL (45-180)
[2017-03-12] MEDS: metroNIDAZOLE IV 500 mg/100 ml 500 MG/100 ML BAG IVPB SCH ×3 (05:43→22:44)
[2017-03-12] MEDS: Sodium Chloride 0.9% 1,000 ML IV SCH ×2 (05:46→21:09)
[2017-03-12 06:04] LABS: PH,URINE 6.5 (4.7-8.0); URINE BILIRUBIN NEGATIVE (NEGATIVE); URINE BLOOD NEGATIVE (NEGATIVE); URINE GLUCOSE (UA) NEGATIVE (NEGATIVE); URINE KETONE 40 mg/dL (NEGATIVE); URINE LEUKOCYTE ESTERASE NEGATIVE Leu/uL (NEGATIVE); URINE PROTEIN NEGATIVE mg/dL (<30 mg/dL); URINE UROBILINOGEN 0.2 E.U./dL (<1 E.U./dL)
[2017-03-12 06:05] LABS: URINE APPEARANCE CLEAR (CLEAR); URINE COLOR YELLOW (YELLOW)
--- NOTE | 2017-03-12 08:17 | PN ---
DATE: 03/11/2017 HISTORY OF PRESENT ILLNESS: This patient was seen and evaluated earlier. Appears much more comfortable than before. Positive bowel movements and flatus. PHYSICAL EXAMINATION: GENERAL: Lying on bed, comfortable. VITAL SIGNS: Afebrile. Blood pressure is 156/83, respirations 18. Heart rate is 68. HEENT: Atraumatic, anicteric. NECK: Supple. HEART: S1, S2 heard. LUNGS: Bilateral air entry present. ABDOMEN: There is some mild tenderness present in the right lower quadrant area. EXTREMITIES: No edema, no cyanosis. NEUROLOGIC: Alert, oriented. LABORATORY DATA: There were no labs available the time of examination. 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 PLAN: The reasonable thing is to start the patient on clear liquids and start the gentle bowel preparation. The idea is to do a bowel clearance and consider one-stage surgery. The patient is status post myocardial infarction. The patient had status post NSTEMI and stent placement recently. We will restart the patient on aspirin. He can start the aspirin. Will hold off the Plavix. The patient may benefit from surgery. We will start the bowel preparation over the weekend if the patient can tolerate and patient will be scheduled for OR on Wednesday. The patient can have a frozen section if needed. Biopsy may not be helpful for this patient as, endoscopically, it was a malignant-appearing structure. Thank you very much for allowing us to participate in the care of the patient. Lesly Baig MD cc: [id number] TT: 03/12/2017 02:53:09 Confirmation # [id number] Dictation # [id number] farhana BARRIENTOS
[2017-03-12] MEDS: cefTRIAXone 1 gm 1 GM/100 ML BAG IVPB SCH (09:53)
--- NOTE | 2017-03-12 11:15 | CP.PCM.PN ---
<Aleksandra Wall - Last Filed: 03/12/17 11:11> Subjective - Date & Time of Evaluation Date of Evaluation: 03/12/17 Time of Evaluation: 11:12 - Subjective Subjective: Progress Note: Dr. Diego Pt seen and examined. No acute overnight events. States he feels ok. Denies any complaints at this time. Denies F/C, N/V. Objective - Vital Signs/Intake and Output Vital Signs (last 24 hours): Temp Pulse Resp BP Pulse Ox 97.9 F 64 18 173/88 H 94 L 03/12/17 06:00 03/12/17 06:00 03/12/17 06:00 03/12/17 06:00 03/12/17 06:00 Intake and Output: 03/12/17 03/12/17 06:59 18:59 Intake Total 2250 Output Total 1650 Balance 600 - Medications Medications: Current Medications Sodium Chloride (Sodium Chloride 0.9%) 1,000 mls @ 100 mls/hr IV .Q10H [facility] Last Admin: 03/12/17 05:46 Dose: 100 mls/hr Metronidazole (Flagyl) 500 mg in 100 mls @ 100 mls/hr IVPB Q8 [facility] PRN Reason: Protocol Last Admin: 03/12/17 05:43 Dose: 100 mls/hr Ceftriaxone Sodium (Rocephin 1 Gram Ivpb) 1 gm in 100 mls @ 100 mls/hr IVPB DAILY [facility] PRN Reason: Protocol Last Admin: 03/12/17 09:53 Dose: 100 mls/hr Ondansetron HCl (Zofran Inj) 4 mg IVP Q4H PRN PRN Reason: Nausea/Vomiting Pantoprazole Sodium (Protonix Inj) 40 mg IVP DAILY [facility] Last Admin: 03/12/17 09:53 Dose: 40 mg - Labs Labs: 03/11/17 06:30 PT 11.1 Seconds (9.9-11.8) 03/10/17 03:12 INR 1.03 (0.93-1.08) 03/10/17 03:12 APTT 26.4 Seconds (23.7-30.8) 03/10/17 03:12 - Constitutional Appears: Well, No Acute Distress - Head Exam Head Exam: ATRAUMATIC, NORMOCEPHALIC - ENT Exam ENT Exam: Mucous Membranes Moist - Respiratory Exam Respiratory Exam: NORMAL BREATHING PATTERN - Cardiovascular Exam Cardiovascular Exam: RRR - GI/Abdominal Exam GI & Abdominal Exam: Soft. absent: Distended, Tenderness, Rebound - Extremities Exam Extremities Exam: absent: Tenderness - Neurological Exam Neurological Exam: Alert, Awake, Oriented x3 - Skin Skin Exam: Dry, Warm Assessment and Plan - Assessment and Plan (Free Text) Assessment: 86M with sigmoid mass Plan: - As per discussion with GI, there's no plan for colonoscopy at this time - Will start pt on FLD and keep on FLD through the weekend - Will give CLD on Wed & bowel prep on in preparation for OR on Wednesday - Hold Plavix for 7 days - plan discussed with Dr. Johnathon Wall, PGY-2 Surgery <Wesley Diego - Last Filed: 03/29/17 00:06> Objective - Vital Signs/Intake and Output Vital Signs (last 24 hours): Temp Pulse Resp BP Pulse Ox 96.3 F L 77 17 137/86 95 03/22/17 17:10 03/22/17 17:10 03/22/17 17:10 03/22/17 17:10 03/22/17 17:10 - Labs Labs: 03/22/17 06:00 03/22/17 06:00 PT 11.7 Seconds (9.9-11.8) 03/17/17 07:00 INR 1.08 (0.93-1.08) 03/17/17 07:00 APTT 25.7 Seconds (23.7-30.8) 03/17/17 07:00 Assessment and Plan - Assessment and Plan (Free Text) Plan: Patient was seen and examined by me. I agree with assessment and plan as per resident's note.
--- NOTE | 2017-03-12 11:17 | PN ---
DATE: 03/12/2017 Seen and examined at the bedside this morning. His nephew was at the bedside. The patient still has left lower quadrant discomfort, pain, but is not in any distress. No nausea, vomiting. Denies any shortness of breath or chest pain. He has not had any bowel movements since he initially came in. VITAL SIGNS: Temperature is 97.9, blood pressure 173/88, pulse 64, respirations 18. LABORATORIES: Noted from yesterday, the CMP: Sodium 140, K 3.8, BUN 11, creatinine 0.9. Iron is 55 , TIBC 232, it is low, percent saturation is 24. Total bilirubin is 1.1, AST 78, ALT 36, alk phos is 90. Vitamin B12 and folate are pending. No new labs are noted for today. CBC looks like it is pen ding. PHYSICAL EXAMINATION: HEENT: Sclera is anicteric. NECK: Supple. CARDIAC: S1, S2. LUNG SOUNDS: With decreased breath sounds, but good air entry. No rales or wheeze. ABDOMEN: With bowel sounds, soft. He does have tenderness to left lower quadrant. No rebound or gu arding or organomegaly. ASSESSMENT: This is an 86-year-old male who came with abdominal pain. He has a sigmoid lesion with partial obstruction and cecal distention. The patient initially was having bowel movement, nothing t hese past 2 days. The patient has history of coronary artery disease, status post percutaneous trans luminal coronary angioplasty recently. He also has history of hypertension. PLAN: The patient may benefit from surgery. The patient is going to be started on bowel prep over t for cleanout and plan for OR possibly on Wednesday and consider frozen section. Right now, t he patient is n.p.o. He is off of Plavix. He is getting IV antibiotics, ceftriaxone and Flagyl. Ge tting gastrointestinal GI prophylaxis of Protonix and is on IV fluids for hydration. Being followed by surgery and cardiology and pulmonology. We will follow closely. The patient was seen and case discussed with Dr. Baig. Sondra HARDING cc: [id number] TT: 03/12/2017 11:16:14 Confirmation # [id number] Dictation # [id number] en
[2017-03-12 13:22] LABS: FOLATE 12.4 ng/mL
[2017-03-12] MEDS ORDERED: POLYETHYLENE GLYCOL 3350 17 GM/Dose PACKET PO SCH (14:15)
[2017-03-12 16:14] LABS: BASO # 0.01 K/mm3 (0.0-2.0); BASO % 0.3 % (0.0-3.0); EOS # 0.1 (0.0-0.7); EOS % 2.9 % (1.5-5.0); GRAN # 2.18 (1.4-6.5); GRAN % 57.6 % (50.0-68.0); LYMPH # 0.9 (1.2-3.4); LYMPH % 24.9 % (22.0-35.0); MEAN CELL VOLUME 87.3 fL (80.0-105.0); MEAN CORPUSCULAR HEMOGLOBIN 29.1 pg (25.0-35.0); MEAN CORPUSCULAR HGB CONC 33.3 g/dl (31.0-37.0); MEAN PLATELET VOLUME 9.9 fl (7.0-11.0); MONO # 0.5 (0.1-0.6); MONO % 14.3 % (1.0-6.0); PLATELET COUNT 135 10^3/uL (120.0-450.0); RED CELL DISTRIBUTION WIDTH 13.8 % (11.5-14.5); WHITE BLOOD COUNT 3.8 10^3/ul (4.5-11.0)
--- NOTE | 2017-03-12 19:48 | PN ---
DATE: 03/12/2017 REASON FOR CONSULTATION AND FOLLOWUP: Status post recent stent placement, preop evaluation, acute ab domen probably secondary to cecal mass obstruction. BRIEF CLINICAL HISTORY: This is an 86-year-old male with a past medical history significant for sky nary artery disease, status post PTCA recently done. Admitted with GI bleed. Found to be colonic ma ss, possible malignancy, now is obstructing. The patient is n.p.o. and is being treated medically. PHYSICAL EXAMINATION: As follows: VITAL SIGNS: Temperature afebrile, heart rate 64, blood pressure 133/88. HEENT: PERRLA. Extraocular muscles intact. NECK: Supple. No carotid bruits. No thyromegaly. CHEST: Clear to auscultation. HEART: S1, S2 regular. ABDOMEN: Soft. EXTREMITIES: Clubbing and cyanosis negative. BLOOD WORKUP: As follows: WBC 3.8, hemoglobin 11, hematocrit 33, platelet count 135. Chemistry jaycee ws sodium 140, potassium ____, chloride 104, carbon dioxide 27, anion gap of 13, BUN 11, creatinine 0 .9. IMPRESSION: Status post percutaneous transluminal coronary angioplasty in 12/2016, acute intestinal o bstruction, colonic mass, possible malignancy. The patient is off aspirin and Plavix for possible ford rgery. The patient needs surgery. The patient can go for surgery with high risk, but stent can clos e also. Since we cannot keep aspirin, Plavix for indefinite period, we will start at least a baby as pirin today and if the patient is not going for surgery, consider restarting Plavix as well because i s a high risk for the stent, acute ____ stent thrombosis and the patient can from the acute stent thrombosis if leave it for protracted time without Plavix. Overall, patient's condition is critical and the judgment is very clinical to ____ continue Plavix or not because if the patient needs surger y, can he bleed torrential and patient also bled before at the time of last admission on aspirin and Plavix, so Plavix is on hold. We will continue baby aspirin for now. We will follow with you. Thank you, Dr. Zavala, for providing the opportunity in taking care of the patient. Tyree Dale MD cc: [facility] TT: 03/12/2017 19:47:19 Confirmation # [id number] Dictation # [id number] sn
--- NOTE | 2017-03-12 19:59 | PN ---
DATE: 03/12/2017 REFERRING PHYSICIAN: Dr. Zavala. SUBJECTIVE: Sitting side of the bed. Had a bowel movement today, unclear . Family is at [facility]. No headache, no rhinitis, no nausea. Still has abdominal pain. No leg pain or leg swelling. OBJECTIVE: GENERAL: No acute distress. VITAL SIGNS: Temperature is 98, heart rate is 64, respiratory rate is 18, blood pressure 166/99, pul se ox 94% on room air. HEENT: Moist mucous membrane. Crowded airway. Edentulous. NECK: Supple. No JVD. LUNGS: Has a fair airflow with few rhonchi. HEART: S1 and S2. ABDOMEN: Positive bowel sounds, mild tenderness on palpation. EXTREMITIES: There is no edema. NEUROLOGIC: Awake, alert, follows simple command. MEDICATIONS: Ecotrin 81 mg daily, Flagyl 500 mg q. 8 hours, MiraLax 17 grams daily, Norvasc 10 mg da aman, Protonix 40 mg daily, Rocephin 1 g daily, IV fluid normal saline 100 mL per hour, Zofran on a p. r.n. basis. LABORATORY DATA: Reviewed. No new lab is available. IMPRESSION AND PLAN: Sigmoid colon most suspicious for malignancy, diverticulitis, partial obstructi on, coronary artery disease, history of coronary stent, may have sleep apnea syndrome. Case discusse d with Dr. Bryan. Plavix has been discontinued. Restarted on aspirin yesterday. Plan is the pa tient will go laparotomy. They can do frozen section for diagnosis and hemicolectomy. I spoke to e patient and family. The patient understands the risk of thromboembolic disease, especially with a new stent, agrees with the plan. Sleep apnea precaution. If sedated, needs close cardiopulmonary mo nitoring, kallie and postoperative. Thank you and will follow with you. Tyree Duque MD cc: [id number] TT: 03/12/2017 19:58:34 Confirmation # [id number] Dictation # [id number] mn
[2017-03-13] MEDS: metroNIDAZOLE IV 500 mg/100 ml 500 MG/100 ML BAG IVPB SCH ×3 (05:25→21:30)
[2017-03-13] MEDS: Sodium Chloride 0.9% 1,000 ML IV SCH ×3 (05:25→21:18)
--- NOTE | 2017-03-13 06:40 | CP.PCM.PN ---
<Génessi Pleitez - Last Filed: 03/13/17 10:09> Subjective - Date & Time of Evaluation Date of Evaluation: 03/13/17 Time of Evaluation: 07:20 - Subjective Subjective: Pt s/e at bedside this AM. NAEO. Patient tolerated FLD and had a bowel movement overnight. Objective - Vital Signs/Intake and Output Vital Signs (last 24 hours): Temp Pulse Resp BP Pulse Ox 99.2 F 70 18 166/99 H 95 03/12/17 16:00 03/12/17 16:00 03/12/17 16:00 03/12/17 16:59 03/12/17 16:00 Intake and Output: 03/12/17 03/13/17 18:59 06:59 Intake Total 480 1860 Output Total 1500 Balance 480 360 - Medications Medications: Current Medications Amlodipine Besylate (Norvasc) 10 mg PO DAILY [facility] Last Admin: 03/12/17 16:59 Dose: 10 mg Aspirin (Ecotrin) 81 mg PO DAILY [facility] Sodium Chloride (Sodium Chloride 0.9%) 1,000 mls @ 100 mls/hr IV .Q10H [facility] Last Admin: 03/13/17 05:25 Dose: 100 mls/hr Metronidazole (Flagyl) 500 mg in 100 mls @ 100 mls/hr IVPB Q8 [facility] PRN Reason: Protocol Last Admin: 03/13/17 05:25 Dose: 100 mls/hr Ceftriaxone Sodium (Rocephin 1 Gram Ivpb) 1 gm in 100 mls @ 100 mls/hr IVPB DAILY [facility] PRN Reason: Protocol Last Admin: 03/12/17 09:53 Dose: 100 mls/hr Ondansetron HCl (Zofran Inj) 4 mg IVP Q4H PRN PRN Reason: Nausea/Vomiting Pantoprazole Sodium (Protonix Inj) 40 mg IVP DAILY [facility] Last Admin: 03/12/17 09:53 Dose: 40 mg Polyethylene Glycol (Miralax) 17 gm PO DAILY [facility] Last Admin: 03/12/17 14:51 Dose: 17 gm - Labs Labs: 03/11/17 06:30 03/11/17 06:30 PT 11.1 Seconds (9.9-11.8) 03/10/17 03:12 INR 1.03 (0.93-1.08) 03/10/17 03:12 APTT 26.4 Seconds (23.7-30.8) 03/10/17 03:12 - Constitutional Appears: Well, Non-toxic, No Acute Distress - Head Exam Head Exam: ATRAUMATIC, NORMOCEPHALIC - Eye Exam Eye Exam: Normal appearance. absent: Conjunctival injection, Scleral icterus - ENT Exam ENT Exam: Mucous Membranes Moist, Normal Oropharynx - Neck Exam Neck Exam: Normal Inspection - Respiratory Exam Respiratory Exam: NORMAL BREATHING PATTERN. absent: Accessory Muscle Use, Respiratory Distress - Cardiovascular Exam Cardiovascular Exam: RRR - GI/Abdominal Exam GI & Abdominal Exam: Soft, Tenderness (RUQ and LLQ mild tenderness), Normal Bowel Sounds. absent: Distended - Extremities Exam Extremities Exam: absent: Calf Tenderness, Pedal Edema, Tenderness - Neurological Exam Neurological Exam: Alert, Awake, Oriented x3 - Psychiatric Exam Psychiatric exam: Normal Affect, Normal Mood - Skin Skin Exam: Dry, Intact, Normal Color, Warm Assessment and Plan - Assessment and Plan (Free Text) Assessment: 86M with sigmoid mass and concern for large bowel obstruction BM yesterday, tolerating FLD well Afebrile, VSS Plan: - As per discussion with GI, there's no plan for colonoscopy at this time - Will start pt on FLD and keep on FLD through the weekend - Will give CLD on Wed & bowel prep on in preparation for OR on Wednesday-- prolonged bowel prep in attempt to avoid 2 stage procedure with colostomy - F/u AXR today to re-assess for obstruction - Hold Plavix for 7 days - plan discussed with Dr. Johnathon Pleitez, PGY1 <Wesley Diego - Last Filed: 03/29/17 00:06> Objective - Vital Signs/Intake and Output Vital Signs (last 24 hours): Temp Pulse Resp BP Pulse Ox 96.3 F L 77 17 137/86 95 03/22/17 17:10 03/22/17 17:10 03/22/17 17:10 03/22/17 17:10 03/22/17 17:10 - Labs Labs: 03/22/17 06:00 03/22/17 06:00 PT 11.7 Seconds (9.9-11.8) 03/17/17 07:00 INR 1.08 (0.93-1.08) 03/17/17 07:00 APTT 25.7 Seconds (23.7-30.8) 03/17/17 07:00 Assessment and Plan - Assessment and Plan (Free Text) Assessment: Patient was seen and examined by me. I agree with assessment and plan as per resident's note.
[2017-03-13 09:19] LABS: ADD MANUAL DIFF? NO
[2017-03-13 09:24] LABS: BASO # 0.01 K/mm3 (0.0-2.0); BASO % 0.3 % (0.0-3.0); EOS # 0.1 (0.0-0.7); EOS % 2.9 % (1.5-5.0); GRAN # 2.28 (1.4-6.5); GRAN % 60.6 % (50.0-68.0); LYMPH % 26.6 % (22.0-35.0); MEAN CELL VOLUME 85.9 fL (80.0-105.0); MEAN CORPUSCULAR HEMOGLOBIN 29.6 pg (25.0-35.0); MEAN CORPUSCULAR HGB CONC 34.4 g/dl (31.0-37.0); MEAN PLATELET VOLUME 9.1 fl (7.0-11.0); MONO # 0.4 (0.1-0.6); MONO % 9.6 % (1.0-6.0); PLATELET COUNT 152 10^3/uL (120.0-450.0); RED CELL DISTRIBUTION WIDTH 13.7 % (11.5-14.5); WHITE BLOOD COUNT 3.8 10^3/ul (4.5-11.0)
[2017-03-13] MEDS: cefTRIAXone 1 gm 1 GM/100 ML BAG IVPB SCH (09:33)
[2017-03-13] MEDS: POLYETHYLENE GLYCOL 3350 17 GM/Dose PACKET PO SCH ×2 (09:33→17:11)
[2017-03-13 09:35] LABS: ALB/GLOB RATIO 1.3 (1.1-1.8); ALKALINE PHOSPHATASE 91 U/L (38-133); ALT/SGPT 39 U/L (7-56); AST/SGOT 57 U/L (15-59); BLOOD UREA NITROGEN 8 mg/dL (7-21); CALCIUM 9.2 mg/dL (8.4-10.5); CARBON DIOXIDE 26 mmol/L (21-33); CHLORIDE 106 mmol/L (98-107); GFR AFRICAN-AMERICAN > 60; GLUCOSE,RANDOM 125 mg/dL (70-110); SODIUM 142 mmol/L (132-148); TOTAL PROTEIN 7.1 g/dL (5.8-8.3)
--- NOTE | 2017-03-13 14:55 | RAD ---
HISTORY: large bowel obstruction COMPARISON: No prior. FINDINGS: BOWEL: Normal. No obstruction. No free air. BONES: Normal. OTHER FINDINGS: None. IMPRESSION: No evidence of bowel obstruction.
--- NOTE | 2017-03-13 21:34 | PN ---
DATE: 03/13/2017 SUBJECTIVE: The patient was seen and examined on the bedside, sitting on the chair. No nausea, vomiting, or diarrhea. No hematuria or hematochezia. No swelling of the legs. No chest pain, no palpitations. No headache, no dizziness. No fever, no chills. PHYSICAL EXAMINATION: VITAL SIGNS: Temperature 98.4, pulse 72, blood pressure 157/86, respiratory rate 18. HEENT: Head normocephalic, atraumatic. Eyes PERRLA. Extraocular muscles intact Conjunctivae are clear. Nose patent. Mucous membranes moist. NECK: Supple. No carotid bruit, JVD or thyromegaly. CHEST: Bilaterally symmetrical. HEART: S1, S2 positive. LUNGS: Clear to auscultation. ABDOMEN: Soft. Bowel sounds present. No organomegaly. EXTREMITIES: No edema, no cyanosis. NEUROLOGIC: The patient is awake, alert, moving all 4 extremities. No focal deficits. MEDICATIONS: Ecotrin, Flagyl, MiraLax, Norvasc, Protonix, ceftriaxone, NS, Zofran. LABORATORY DATA: White blood cells 3.8, hemoglobin 12.4, hematocrit 36.0, platelets 152. Sodium 142, potassium 4.0, BUN 8, creatinine 0.9, glucose 125. ASSESSMENT AND PLAN: The patient is an 86-year-old male with leukopenia, anemia , hyperglycemia with a sigmoid mass and concern of large bowel obstruction. Had bowel movement yesterday. Tolerated fluid well. Afebrile. The patient will stay on fluid diet over the weekend and will get bowel preparation for Wednesday and Wednesday in preparing for operating room on Wednesday. Prolonged bowel movement preparation is attempting to avoid 2-staged procedure with colostomy. Hold Plavix for 7 days as per cardiology. GI is on the case. Bilingual Research Interviewer and lighting technician on the case also. The patient is status post percutaneous transluminal coronary angioplasty, acute intestinal obstruction, colonic mass. According to Dr. Dale, the patient can go for surgery with high risk, but stent can close also. Dr. Dale started the patient on baby aspirin. Holding Plavix, but after surgery may be able to restart Plavix. The patient is aware of his situation. Continue present treatment. Gastrointestinal and deep venous thrombosis prophylaxis. Will follow up. Rosita Zavala MD cc: [id number] TT: 03/13/2017 21:33:42 Confirmation # [id number] Dictation # [id number] mn MTDD
--- NOTE | 2017-03-13 21:40 | CP.PCM.PN ---
<Jannie Rice - Last Filed: 03/13/17 21:36> Subjective - Date & Time of Evaluation Date of Evaluation: 03/13/17 Time of Evaluation: 21:37 - Subjective Subjective: GI for Dr. Jovanni Charles s&eMaryellen MORENO. Having BM. Tolerating diet. Denies F/C/N/V/D/CP/SOB. AMbulating. Resting comfortably. Objective - Vital Signs/Intake and Output Vital Signs (last 24 hours): Temp Pulse Resp BP Pulse Ox 98.4 F 72 18 156/86 H 93 L 03/13/17 07:26 03/13/17 07:26 03/13/17 07:26 03/13/17 09:32 03/13/17 07:26 Intake and Output: 03/13/17 03/14/17 18:59 06:59 Intake Total 1320 Balance 1320 - Medications Medications: Current Medications Amlodipine Besylate (Norvasc) 10 mg PO DAILY [facility] Last Admin: 03/13/17 09:32 Dose: 10 mg Aspirin (Ecotrin) 81 mg PO DAILY [facility] Last Admin: 03/13/17 20:12 Dose: Not Given Sodium Chloride (Sodium Chloride 0.9%) 1,000 mls @ 100 mls/hr IV .Q10H [facility] Last Admin: 03/13/17 21:18 Dose: 100 mls/hr Metronidazole (Flagyl) 500 mg in 100 mls @ 100 mls/hr IVPB Q8 [facility] PRN Reason: Protocol Last Admin: 03/13/17 21:30 Dose: 100 mls/hr Ceftriaxone Sodium (Rocephin 1 Gram Ivpb) 1 gm in 100 mls @ 100 mls/hr IVPB DAILY [facility] PRN Reason: Protocol Last Admin: 03/13/17 09:33 Dose: 100 mls/hr Ondansetron HCl (Zofran Inj) 4 mg IVP Q4H PRN PRN Reason: Nausea/Vomiting Pantoprazole Sodium (Protonix Inj) 40 mg IVP DAILY [facility] Last Admin: 03/13/17 09:33 Dose: 40 mg Polyethylene Glycol (Miralax) 17 gm PO BID [facility] Last Admin: 03/13/17 17:11 Dose: 17 gm - Labs Labs: 03/13/17 09:15 03/13/17 09:15 PT 11.1 Seconds (9.9-11.8) 03/10/17 03:12 INR 1.03 (0.93-1.08) 03/10/17 03:12 APTT 26.4 Seconds (23.7-30.8) 03/10/17 03:12 - Constitutional Appears: No Acute Distress - Head Exam Head Exam: ATRAUMATIC, NORMAL INSPECTION, NORMOCEPHALIC - Eye Exam Eye Exam: EOMI, Normal appearance, PERRL Pupil Exam: NORMAL ACCOMODATION, PERRL - ENT Exam ENT Exam: Mucous Membranes Moist, Normal Exam - Neck Exam Neck Exam: Full ROM, Normal Inspection. absent: Lymphadenopathy - Respiratory Exam Respiratory Exam: Clear to Ausculation Bilateral, NORMAL BREATHING PATTERN - Cardiovascular Exam Cardiovascular Exam: REGULAR RHYTHM, +S1, +S2. absent: Murmur - GI/Abdominal Exam GI & Abdominal Exam: Soft, Normal Bowel Sounds. absent: Distended, Firm, Guarding, Rigid, Tenderness, Rebound - Extremities Exam Extremities Exam: Full ROM, Normal Capillary Refill, Normal Inspection. absent : Joint Swelling, Pedal Edema - Back Exam Back Exam: NORMAL INSPECTION - Neurological Exam Neurological Exam: Alert, Awake, CN II-XII Intact, Normal Gait, Oriented x3 - Psychiatric Exam Psychiatric exam: Normal Affect, Normal Mood - Skin Skin Exam: Dry, Intact, Normal Color, Warm Assessment and Plan - Assessment and Plan (Free Text) Assessment: Partial obstructing Sigmoid mass CT : Distended Cecum with stool. Thicken sigmoid wall C-scope: ulcerating circumferential mass on sigmoid AXR today: no obstruction or free air Surgery on board Diet and bowel regimen per surgery Miralax BID We will follow closely Monitor VS, abd pain, BM DW Dr. Baig <Lesly Baig V - Last Filed: 03/14/17 13:20> Subjective - Subjective Subjective: Dr Baig The patient was seen and examined at bedside. Medical records, lab studies, imagings were reviewed. Last 24 hours events reviewed. Agreed with the above findings and treatment plan as outlined in 's notes in the with the addition of the following ON MIRALAX BID on asa off plavix For or on Wednesday or wed Objective - Vital Signs/Intake and Output Vital Signs (last 24 hours): Temp Pulse Resp BP Pulse Ox 98.4 F 72 18 156/86 H 93 L 03/13/17 07:26 03/13/17 07:26 03/13/17 07:26 03/13/17 09:32 03/13/17 07:26 Intake and Output: 03/13/17 03/14/17 18:59 06:59 Intake Total 1320 Balance 1320 - Medications Medications: Current Medications Amlodipine Besylate (Norvasc) 10 mg PO DAILY [facility] Last Admin: 03/13/17 09:32 Dose: 10 mg Aspirin (Ecotrin) 81 mg PO DAILY [facility] Last Admin: 03/13/17 20:12 Dose: Not Given Sodium Chloride (Sodium Chloride 0.9%) 1,000 mls @ 100 mls/hr IV .Q10H [facility] Last Admin: 03/13/17 21:18 Dose: 100 mls/hr Metronidazole (Flagyl) 500 mg in 100 mls @ 100 mls/hr IVPB Q8 [facility] PRN Reason: Protocol Last Admin: 03/13/17 21:30 Dose: 100 mls/hr Ceftriaxone Sodium (Rocephin 1 Gram Ivpb) 1 gm in 100 mls @ 100 mls/hr IVPB DAILY [facility] PRN Reason: Protocol Last Admin: 03/13/17 09:33 Dose: 100 mls/hr Ondansetron HCl (Zofran Inj) 4 mg IVP Q4H PRN PRN Reason: Nausea/Vomiting Pantoprazole Sodium (Protonix Inj) 40 mg IVP DAILY [facility] Last Admin: 03/13/17 09:33 Dose: 40 mg Polyethylene Glycol (Miralax) 17 gm PO BID [facility] Last Admin: 03/13/17 17:11 Dose: 17 gm - Labs Labs: 03/13/17 09:15 03/13/17 09:15 PT 11.1 Seconds (9.9-11.8) 03/10/17 03:12 INR 1.03 (0.93-1.08) 03/10/17 03:12 APTT 26.4 Seconds (23.7-30.8) 03/10/17 03:12 Assessment and Plan - Assessment and Plan (Free Text) Plan: Jovanni addendum progress note This patient was seen and evaluated earlier. Patient he is on MiraLAX twice daily and also on full liquid diet the plan is to change to clear liquid diet,continue the MiraLAX Plavix was discontinued recently patient has been on aspirin Status post a drug-eluding stent .The patient did this time has sigmoid colon partially obstruction with significant cecal distention . The patient will be scheduled for OR after bowel clearence Patient cannot this surgery as an outpatient in view of his colonic obstruction and cecal distention.
--- NOTE | 2017-03-13 22:04 | PN ---
DATE: 03/13/2017 REFERRING PHYSICIAN: Dr. Zavala. SUBJECTIVE: The patient is out of bed to chair. Night was unremarkable. Had a bowel movement this morning, tolerated a clear liquid diet well. No headache, no rhinitis, no nausea, mild abdominal pa in. No leg pain or leg swelling. OBJECTIVE: GENERAL: No acute distress. VITAL SIGNS: Temp is 98, heart rate is 72, respiratory rate is 18, blood pressure 156/86, pulse ox _ ___% on room air. HEENT: Moist mucous membranes. Crowded airway. NECK: Supple, no JVD. LUNGS: Have a fair airflow with few rhonchi. HEART: S1 and S2. ABDOMEN: Soft, nontender. No organomegaly. EXTREMITIES: There is no edema. NEUROLOGIC: Awake, alert, follows simple commands. MEDICATIONS: He is on Ecotrin 81 mg daily, Flagyl 500 mg q. 8 hours, MiraLax 17 grams twice a day, N orvasc 10 mg daily, Protonix 40 mg daily, Rocephin 1 g daily, IV fluid normal saline 100 mL per hour, Zofran on a p.r.n. basis. LABORATORY DATA: Shows hemoglobin 12.4, hematocrit 36.0, WBC 3.8, platelet count is 152. Sodium 142 , potassium 4.0, chloride 106, bicarbonate 26, BUN 8, creatinine 0.9, glucose 125, calcium 9.2. AST 57, ALT 39, alkaline phosphatase is 91, albumin is 4.0. Had abdominal x-ray done today result is no evidence of bowel obstruction. IMPRESSION AND PLAN: Sigmoid colon most suspicious with malignancy, diverticulitis, coronary artery disease, history of coronary stent, may have sleep apnea syndrome, awaiting for surgery. Pulmonary p oint of view, his pulmonary status is optimized, may have component of sleep apnea syndrome, needs cl ose cardiopulmonary monitoring kallie and postop. Gastric prophylaxis. IV steroid. GI and surgery fo llowup. Thank you and will follow with you. Tyree Duque MD cc: [id number] TT: 03/13/2017 22:03:29 Confirmation # [id number] Dictation # [id number] jn
[2017-03-14 07:10] LABS: ADD MANUAL DIFF? NO
[2017-03-14 07:15] LABS: BASO # 0.01 K/mm3 (0.0-2.0); BASO % 0.3 % (0.0-3.0); EOS # 0.2 (0.0-0.7); EOS % 3.9 % (1.5-5.0); GRAN % 57.7 % (50.0-68.0); HEMATOCRIT 33.1 % (42.0-52.0); LYMPH # 0.9 (1.2-3.4); LYMPH % 23.4 % (22.0-35.0); MEAN CORPUSCULAR HEMOGLOBIN 28.6 pg (25.0-35.0); MEAN CORPUSCULAR HGB CONC 33.2 g/dl (31.0-37.0); MEAN PLATELET VOLUME 9.6 fl (7.0-11.0); MONO # 0.6 (0.1-0.6); MONO % 14.7 % (1.0-6.0); PLATELET COUNT 154 10^3/uL (120.0-450.0); RED CELL DISTRIBUTION WIDTH 13.9 % (11.5-14.5); WHITE BLOOD COUNT 3.8 10^3/ul (4.5-11.0)
[2017-03-14 07:31] LABS: ALB/GLOB RATIO 1.2 (1.1-1.8); ALKALINE PHOSPHATASE 74 U/L (38-133); ALT/SGPT 43 U/L (7-56); AST/SGOT 51 U/L (15-59); BILIRUBIN,TOTAL 0.6 mg/dL (0.2-1.3); BLOOD UREA NITROGEN 7 mg/dL (7-21); CALCIUM 8.7 mg/dL (8.4-10.5); CARBON DIOXIDE 28 mmol/L (21-33); CHLORIDE 109 mmol/L (98-107); GFR AFRICAN-AMERICAN > 60; GLUCOSE,RANDOM 92 mg/dL (70-110); POTASSIUM 3.7 mmol/L (3.6-5.0); SODIUM 143 mmol/L (132-148); TOTAL PROTEIN 6.2 g/dL (5.8-8.3)
--- NOTE | 2017-03-14 08:04 | CP.PCM.PN ---
<Jannie Rice - Last Filed: 03/14/17 07:57> Subjective - Date & Time of Evaluation Date of Evaluation: 03/14/17 Time of Evaluation: 07:57 - Subjective Subjective: Surgery for Dr. Diego Pt s&eMaryellen MORENO. Tolerating diet. Deneis F/C/N/V/D/CP/SOB. +BM. +void. +amb. Pain controlled. Objective - Vital Signs/Intake and Output Vital Signs (last 24 hours): Temp Pulse Resp BP Pulse Ox 98.6 F 69 19 155/90 H 97 03/14/17 07:40 03/14/17 07:40 03/14/17 07:40 03/14/17 07:40 03/14/17 07:40 Intake and Output: 03/14/17 03/14/17 06:59 18:59 Output Total 675 Balance -675 - Medications Medications: Current Medications Amlodipine Besylate (Norvasc) 10 mg PO DAILY [facility] Last Admin: 03/13/17 09:32 Dose: 10 mg Aspirin (Ecotrin) 81 mg PO DAILY [facility] Last Admin: 03/13/17 20:12 Dose: Not Given Sodium Chloride (Sodium Chloride 0.9%) 1,000 mls @ 100 mls/hr IV .Q10H [facility] Last Admin: 03/13/17 21:18 Dose: 100 mls/hr Metronidazole (Flagyl) 500 mg in 100 mls @ 100 mls/hr IVPB Q8 [facility] PRN Reason: Protocol Last Admin: 03/13/17 21:30 Dose: 100 mls/hr Ceftriaxone Sodium (Rocephin 1 Gram Ivpb) 1 gm in 100 mls @ 100 mls/hr IVPB DAILY [facility] PRN Reason: Protocol Last Admin: 03/13/17 09:33 Dose: 100 mls/hr Ondansetron HCl (Zofran Inj) 4 mg IVP Q4H PRN PRN Reason: Nausea/Vomiting Pantoprazole Sodium (Protonix Inj) 40 mg IVP DAILY [facility] Last Admin: 03/13/17 09:33 Dose: 40 mg Polyethylene Glycol (Miralax) 17 gm PO BID [facility] Last Admin: 03/13/17 17:11 Dose: 17 gm - Labs Labs: 03/14/17 07:00 03/14/17 07:00 PT 11.1 Seconds (9.9-11.8) 03/10/17 03:12 INR 1.03 (0.93-1.08) 03/10/17 03:12 APTT 26.4 Seconds (23.7-30.8) 03/10/17 03:12 - Constitutional Appears: Well, No Acute Distress - Head Exam Head Exam: ATRAUMATIC, NORMAL INSPECTION, NORMOCEPHALIC - Eye Exam Eye Exam: EOMI, Normal appearance, PERRL Pupil Exam: NORMAL ACCOMODATION, PERRL - ENT Exam ENT Exam: Mucous Membranes Moist, Normal Exam - Neck Exam Neck Exam: Full ROM, Normal Inspection. absent: Lymphadenopathy - Respiratory Exam Respiratory Exam: Clear to Ausculation Bilateral, NORMAL BREATHING PATTERN - Cardiovascular Exam Cardiovascular Exam: REGULAR RHYTHM, +S1, +S2. absent: Murmur - GI/Abdominal Exam GI & Abdominal Exam: Soft, Tenderness, Normal Bowel Sounds. absent: Distended, Firm, Guarding, Rigid, Hernia, Mass, Organomegaly, Pulsatile Mass, Rebound Additional comments: RLQ TTP. - Extremities Exam Extremities Exam: Full ROM, Normal Capillary Refill, Normal Inspection - Back Exam Back Exam: NORMAL INSPECTION - Neurological Exam Neurological Exam: Alert, Awake, CN II-XII Intact, Normal Gait, Oriented x3 - Psychiatric Exam Psychiatric exam: Normal Affect, Normal Mood - Skin Skin Exam: Dry, Intact, Normal Color, Warm Assessment and Plan - Assessment and Plan (Free Text) Assessment: 86M with sigmoid mass and concern for large bowel obstruction BM, tolerating FLD well Afebrile, VSS AXR: no free air, no acute findings. Plan: - As per discussion with GI, there's no plan for colonoscopy at this time - Will start pt on FLD and keep on FLD through the weekend - Will give CLD on Wed & bowel prep on in preparation for OR on Wednesday-- prolonged bowel prep in attempt to avoid 2 stage procedure with colostomy - Hold Plavix for 7 days - Will DW Dr. Diego <Wesley Diego - Last Filed: 03/29/17 00:07> Objective - Vital Signs/Intake and Output Vital Signs (last 24 hours): Temp Pulse Resp BP Pulse Ox 96.3 F L 77 17 137/86 95 03/22/17 17:10 03/22/17 17:10 03/22/17 17:10 03/22/17 17:10 03/22/17 17:10 - Labs Labs: 03/22/17 06:00 03/22/17 06:00 PT 11.7 Seconds (9.9-11.8) 03/17/17 07:00 INR 1.08 (0.93-1.08) 03/17/17 07:00 APTT 25.7 Seconds (23.7-30.8) 03/17/17 07:00 Assessment and Plan - Assessment and Plan (Free Text) Assessment: Patient was seen and examined by me. I agree with assessment and plan as per resident's note.
[2017-03-14] MEDS: cefTRIAXone 1 gm 1 GM/100 ML BAG IVPB SCH ×2 (10:13→11:16)
[2017-03-14] MEDS: POLYETHYLENE GLYCOL 3350 17 GM/Dose PACKET PO SCH ×2 (10:55→17:37)
[2017-03-14] MEDS: metroNIDAZOLE IV 500 mg/100 ml 500 MG/100 ML BAG IVPB SCH ×2 (14:25→21:40)
--- NOTE | 2017-03-14 17:03 | PN ---
DATE: 03/14/2017 ADDENDUM This patient was seen and evaluated earlier. Discussed with nursing staff. The patient has been mov ing his bowels on MiraLax twice daily. PHYSICAL EXAMINATION: VITAL SIGNS: Temperature is 98.6, blood pressure is 155/90, respiration is 19, O2 saturation 97%. HEENT: Atraumatic, anicteric. NECK: Supple. HEART: S1, S2 heard. LUNGS: Bilateral air entry present. ABDOMEN: Soft. There is only minimal tenderness on deep palpation in the right lower quadrant. EXTREMITIES: No edema, no cyanosis. LABORATORY DATA: Hemoglobin 11, hematocrit 33.1, WBCs 3.8, platelets 154. Chemistry is essentially unremarkable. IMPRESSION: This 87-year-old patient with sigmoid colon obstruction with cecal distention. The genia ent is now moving his bowels. The patient has been on MiraLax twice daily. PLAN: To change to clear liquid diet tomorrow and start the bowel preparation. The patient is off t he Plavix. Plavix has been discontinued. The patient is on antibiotics, ceftriaxone and also Flagyl . The patient is on aspirin. Thank you very much for allowing us to participate in the care of the patient. Lesly Baig MD cc: [id number] TT: 03/14/2017 17:02:19 Confirmation # [id number] Dictation # [id number] en
[2017-03-14] MEDS: Sodium Chloride 0.9% 1,000 ML IV SCH (17:37)
--- NOTE | 2017-03-14 23:50 | PN ---
DATE: 03/14/2017 REFERRING PHYSICIAN: Dr. Zavala. SUBJECTIVE: He is sitting up in a chair. Night was unremarkable. Had a bowel movement this morning . No nausea, no vomiting. Still has abdominal pain. No leg pain or leg swelling. OBJECTIVE: GENERAL: No acute distress. VITAL SIGNS: Temp is 98, heart rate is 73, respiratory rate is 20, blood pressure 155/83, pulse ox 9 5% on room air. HEENT: Moist mucous membranes. Crowded airway. Mallampati score is 4. NECK: Supple. No JVD. LUNGS: Has a fair airflow with few rhonchi. HEART: S1 and S2. ABDOMEN: Soft. No organomegaly. Abdomen in the left lower quadrant some tenderness. EXTREMITIES: There is no edema. NEUROLOGIC: Awake, alert, follows simple command. MEDICATIONS: He is on Ecotrin 81 mg daily, Flagyl 500 mg q. 8 hours, GoLYTELY started today, MiraLax 17 grams twice a day, Norvasc 10 mg daily, Protonix 40 mg daily, Rocephin 1 g daily, IV fluid normal saline 100 mL per hour, Zofran on a p.r.n. basis. LABORATORY DATA: Shows hemoglobin 11.0, hematocrit 33.1, WBC 3.8, and platelet count is 154. Sodium 142, potassium 3.7, chloride 109, bicarbonate 28, BUN 10, creatinine 0.7, glucose 92, calcium is 8.7 . AST 51, ALT 43, alkaline phosphatase is 74, albumin is 3.4. IMPRESSION AND PLAN: Sigmoid colon most suspicious for malignancy, diverticulitis, coronary artery d isease, history of coronary stent, may have sleep apnea syndrome, scheduled for surgery tomorrow. Pu lmonary point of view, doing okay, needs close cardiopulmonary monitoring, kallie and postoperative per iod. Gastric prophylaxis. Thank you and will follow with you. Tyree Duque MD cc: [id number] TT: 03/14/2017 23:49:26 Confirmation # [id number] Dictation # [id number] mn
[2017-03-15] MEDS: metroNIDAZOLE IV 500 mg/100 ml 500 MG/100 ML BAG IVPB SCH (05:53)
--- NOTE | 2017-03-15 07:21 | CP.PCM.PN ---
Subjective - Date & Time of Evaluation Date of Evaluation: 03/15/17 Time of Evaluation: 07:17 - Subjective Subjective: Gen Sx: Dr Diego Pt S&E. KIERRA. Tolerating FLD. Having BMs. Denies pain this morning. Denies N/V, SOB. Pt switched to CLD this morning and started on bowel prep Objective - Vital Signs/Intake and Output Vital Signs (last 24 hours): Temp Pulse Resp BP Pulse Ox 98.7 F 73 20 155/83 H 95 03/14/17 17:45 03/14/17 17:45 03/14/17 17:45 03/14/17 17:45 03/14/17 17:45 - Medications Medications: Current Medications Amlodipine Besylate (Norvasc) 10 mg PO DAILY [facility] Last Admin: 03/14/17 10:55 Dose: 10 mg Aspirin (Ecotrin) 81 mg PO DAILY [facility] Last Admin: 03/14/17 10:55 Dose: 81 mg Sodium Chloride (Sodium Chloride 0.9%) 1,000 mls @ 100 mls/hr IV .Q10H [facility] Last Admin: 03/14/17 17:37 Dose: 100 mls/hr Metronidazole (Flagyl) 500 mg in 100 mls @ 100 mls/hr IVPB Q8 [facility] PRN Reason: Protocol Last Admin: 03/15/17 05:53 Dose: 100 mls/hr Ceftriaxone Sodium (Rocephin 1 Gram Ivpb) 1 gm in 100 mls @ 100 mls/hr IVPB DAILY [facility] PRN Reason: Protocol Last Admin: 03/14/17 11:16 Dose: 100 mls/hr Ondansetron HCl (Zofran Inj) 4 mg IVP Q4H PRN PRN Reason: Nausea/Vomiting Pantoprazole Sodium (Protonix Inj) 40 mg IVP DAILY [facility] Last Admin: 03/14/17 11:14 Dose: 40 mg Polyethylene Glycol (Miralax) 17 gm PO BID [facility] Last Admin: 03/14/17 17:37 Dose: 17 gm Polyethylene Glycol/Electrolytes (Golytely) 4,000 ml PO ONCE ONE Stop: 03/15/17 08:01 - Labs Labs: 03/14/17 07:00 03/14/17 07:00 PT 11.1 Seconds (9.9-11.8) 03/10/17 03:12 INR 1.03 (0.93-1.08) 03/10/17 03:12 APTT 26.4 Seconds (23.7-30.8) 03/10/17 03:12 - Constitutional Appears: Non-toxic, No Acute Distress - Head Exam Head Exam: NORMOCEPHALIC - Respiratory Exam Respiratory Exam: absent: Accessory Muscle Use, Respiratory Distress - Cardiovascular Exam Cardiovascular Exam: REGULAR RHYTHM - GI/Abdominal Exam GI & Abdominal Exam: Distended, Soft, Normal Bowel Sounds. absent: Guarding, Rigid, Tenderness, Mass - Extremities Exam Extremities Exam: absent: Pedal Edema - Neurological Exam Neurological Exam: Alert, Awake - Psychiatric Exam Psychiatric exam: Normal Affect, Normal Mood - Skin Skin Exam: Normal Color, Warm Assessment and Plan - Assessment and Plan (Free Text) Assessment: 87M with near obstructing sigmoid mass Plan: - Switched to CLD - begin Go Lytely this morning - will do neomycin/erythromycin PO tomorrow -prolonged prep in attempt to avoid 2 stage procedure with colostomy - Hold Plavix for 7 days (today day 5) - JORDON Silveira, DO, PGY2
[2017-03-15 07:30] LABS: ADD MANUAL DIFF? NO
[2017-03-15 07:34] LABS: BASO # 0.01 K/mm3 (0.0-2.0); BASO % 0.2 % (0.0-3.0); EOS # 0.2 (0.0-0.7); EOS % 4.2 % (1.5-5.0); GRAN # 2.47 (1.4-6.5); GRAN % 57.4 % (50.0-68.0); HEMATOCRIT 31.8 % (42.0-52.0); LYMPH % 24.2 % (22.0-35.0); MEAN CELL VOLUME 86.6 fL (80.0-105.0); MEAN CORPUSCULAR HEMOGLOBIN 28.9 pg (25.0-35.0); MEAN CORPUSCULAR HGB CONC 33.3 g/dl (31.0-37.0); MEAN PLATELET VOLUME 9.3 fl (7.0-11.0); MONO # 0.6 (0.1-0.6); PLATELET COUNT 152 10^3/uL (120.0-450.0); RED CELL DISTRIBUTION WIDTH 14.1 % (11.5-14.5); WHITE BLOOD COUNT 4.3 10^3/ul (4.5-11.0)
[2017-03-15] MEDS ORDERED: Peg-Electrolyte Oral Soln 4L (Golytely) PO ONE (08:00)
[2017-03-15 08:02] LABS: ALB/GLOB RATIO 1.2 (1.1-1.8); ALKALINE PHOSPHATASE 69 U/L (38-133); ALT/SGPT 41 U/L (7-56); AST/SGOT 45 U/L (15-59); BILIRUBIN,TOTAL 0.5 mg/dL (0.2-1.3); BLOOD UREA NITROGEN 6 mg/dL (7-21); CALCIUM 8.7 mg/dL (8.4-10.5); CARBON DIOXIDE 27 mmol/L (21-33); CHLORIDE 109 mmol/L (98-107); GFR AFRICAN-AMERICAN > 60; GLUCOSE,RANDOM 90 mg/dL (70-110); POTASSIUM 3.7 mmol/L (3.6-5.0); SODIUM 142 mmol/L (132-148); TOTAL PROTEIN 6.1 g/dL (5.8-8.3)
--- NOTE | 2017-03-15 08:29 | PN ---
DATE: 03/12/2017 ADDENDUM: This is an addendum to the GI progress report dictated by MEHDI Daniel. The patient has been moving his bowels. Would gently start the bowel preparation. On full liquid diet. We would not advance the diet further. Discussed with the surgical team. The plan is to do a slow bowel clearance and schedule for colonoscopy. The patient scheduled for surgery. The patient has tenderness in the right lower quadrant is improving. The patient is presently on aspirin, Plavix has been discontinued. The patient has a history of status post OR with sent placement. The patient with large partially obstructing colonic lesion. Endoscopy revealed it as malignancy. The real concern the patient has significant cecal distention because of the obstruction. Since the patient has been recently on Plavix and also with partial obstruction, it is reasonable to wait for a few days and with gentle bowel preparation. We will continue to closely follow up his care and suggest further recommendation based on the clinical course. Lesly Baig MD cc: [id number] TT: 03/13/2017 08:58:16 Confirmation # [id number] Dictation # [id number] gali BARRIENTOS
--- NOTE | 2017-03-15 09:11 | PN ---
DATE: 03/12/2017 The patient seen and examined on the bedside. No acute event overnight noted. Feels better. No nausea, vomiting, diarrhea. No hematuria, hematochezia. No swelling of the leg. No chest pain or palpitation. No headache, no dizziness. PHYSICAL EXAMINATION: VITAL SIGNS: Temperature 97.9, pulse 64, respiratory 18, blood pressure 120/80 , pulse oximetry 94. HEENT: Head normocephalic, atraumatic. Eyes PERRLA. Extraocular movements intact. Conjunctivae clear. Nose patent. NECK: Supple. No carotid bruit, JVD or thyromegaly. CHEST: Bilaterally symmetrical. HEART: S1, S2 positive. LUNGS: Clear to auscultation. ABDOMEN: Soft. Bowel sounds positive. No organomegaly. EXTREMITIES: No edema, no cyanosis. NEUROLOGIC: The patient awake, alert, moving all 4 extremities. No focal deficit. MEDICATIONS: Flagyl, Rocephin, Zofran, Protonix, LABORATORY DATA: Sodium 140, potassium 3.8, BUN 11, creatinine 0.9, glucose 82. ASSESSMENT AND PLAN: The patient is an 86-year-old male with ,GI mass as per discussion with gastrointestinal. said no plan of colonoscopy at this time. Started patient on ld , keep on ld through the weekend. The patient is given , on Wednesday and bowel preparation Wednesday in the preparation for operating room. holding Plavix for [address] garcia. knows the case. He speaks his language also. The patient has history of coronary artery disease, status post cardiac stent, has mural thickening of the sigmoid colon, partial obstruction. Sleep apnea precautions. has been stopped in the anticipation of surgery. intestinal bleeding. The patient high risk for that . The patient understands the risks of treatment. Sleep apnea precautions, keeping head elevated to 45 degrees. Repeat labs. We will follow up. Rosita Zavala MD cc: [id number] TT: 03/12/2017 18:39:18 Confirmation # [id number] Dictation # [id number] BARRIENTOS
[2017-03-15] MEDS: cefTRIAXone 1 gm 1 GM/100 ML BAG IVPB SCH (10:00)
[2017-03-15] MEDS: POLYETHYLENE GLYCOL 3350 17 GM/Dose PACKET PO SCH ×3 (10:00→17:44)
--- NOTE | 2017-03-15 10:45 | PN ---
DATE: 03/14/2017 SUBJECTIVE: The patient was seen and examined on 03/14/17 and looks comfortable. No nausea, vomiting , or diarrhea. No hematuria or hematochezia, sitting on the chair, had bowel movement. Still has a little bit of abdominal pain. No swelling of the legs. No headache, no dizziness. No fever or chil ls. PHYSICAL EXAMINATION: VITAL SIGNS: Temperature is 98. Heart is 73, respiratory rate 20, blood pressure 155/83, and pulse oximetry 95% on room air. HEAD: Normocephalic, atraumatic. EYES: PERRLA. Extraocular muscles intact. Conjunctivae are clear. Nose is patent. Mucous membran es moist. NECK: Supple. No carotid bruit, JVD, or thyromegaly. CHEST: Bilaterally symmetrical. HEART: S1, S2 positive. LUNGS: Have a fair airflow with few rhonchi. ABDOMEN: Soft. No organomegaly. Had some tenderness in the left lower quadrant of the abdomen. EXTREMITIES: No edema, no cyanosis. NEUROLOGIC: The patient is awake, alert, follows simple commands, and moving all 4 extremities. MEDICATIONS: Ecotrin, Flagyl, GoLYTELY, MiraLax, Norvasc, Protonix, Rocephin, Zofran. LABORATORY DATA: Hemoglobin 11.0, hematocrit 33.1, white blood cells 3.8, and platelets 154. Sodium 142, potassium 3.7. BUN 10, creatinine 0.7. AST 51, ALT 43, albumin 3.5. ASSESSMENT AND PLAN: The patient, an 87-year-old male, has sigmoid colon mostly suspicious of malign theresa, diverticulitis, coronary artery disease, status post cardiac stents, sleep apnea syndrome, jas g for surgery by Dr. Diego. Managing Editor and set up mechanic coating machines on the case to clear the patient fo r surgery, and needs close cardiopulmonary monitoring, kallie- and postoperative period. Gastric prophylaxis: Gastrointestinal and deep venous thrombosis prophylaxis. Repeat labs. We will follow up. Rosita Zavala MD cc: [id number] TT: 03/15/2017 10:45:05 Confirmation # [id number] Dictation # [id number] jn
[2017-03-15 18:31] LABS: ALB/GLOB RATIO 1.4 (1.1-1.8); ALKALINE PHOSPHATASE 80 U/L (38-133); ALT/SGPT 38 U/L (7-56); AST/SGOT 48 U/L (15-59); BILIRUBIN,TOTAL 0.6 mg/dL (0.2-1.3); BLOOD UREA NITROGEN 5 mg/dL (7-21); CALCIUM 9.2 mg/dL (8.4-10.5); CARBON DIOXIDE 26 mmol/L (21-33); CHLORIDE 107 mmol/L (98-107); GFR AFRICAN-AMERICAN > 60; GLUCOSE,RANDOM 145 mg/dL (70-110); POTASSIUM 3.7 mmol/L (3.6-5.0); SODIUM 142 mmol/L (132-148); TOTAL PROTEIN 6.9 g/dL (5.8-8.3)
[2017-03-15 18:35] LABS: MEAN CELL VOLUME 86.3 fL (80.0-105.0); MEAN CORPUSCULAR HEMOGLOBIN 29.2 pg (25.0-35.0); MEAN CORPUSCULAR HGB CONC 33.8 g/dl (31.0-37.0); MEAN PLATELET VOLUME 9.4 fl (7.0-11.0); RED CELL DISTRIBUTION WIDTH 13.8 % (11.5-14.5); WHITE BLOOD COUNT 4.4 10^3/ul (4.5-11.0)
--- NOTE | 2017-03-15 22:02 | PN ---
DATE: 03/15/2017 PULMONARY PROGRESS NOTE REFERRING PHYSICIAN: Dr. Zavala. SUBJECTIVE: The patient is lying in the bed, head at 45 degrees. No headache, no rhinitis. Had a G oLYTELY, just had a bowel movement. Abdominal pain is better. No leg pain or leg swelling. OBJECTIVE: GENERAL: No acute distress. VITAL SIGNS: Temperature is 98, heart rate is 70, respiratory rate is 20, blood pressure 160/86, pul se ox 94% on room air. HEENT: Moist mucous membranes. Crowded airway. NECK: Supple. No JVD. LUNGS: Has a fair airflow with few rhonchi. HEART: S1, S2. ABDOMEN: Positive bowel sounds in the left lower quadrant, tenderness on palpation. EXTREMITIES: There is no edema. NEUROLOGIC: Awake, alert, follows simple commands. MEDICATIONS: He is on Ecotrin 81 mg daily, azithromycin 500 mg q. 4 hours, MiraLax 17 grams p.o. twi ce a day, neomycin 1000 mg q. 6 hours, Norvasc 10 mg daily, Protonix 40 mg daily, IV fluid normal jorge ine mL per hour, Zofran on a p.r.n. basis. LABORATORY DATA: Shows hemoglobin 11.5, hematocrit 34.0, WBC 4.4, platelet is 176. Sodium 142, pota ssium 3.7, chloride 107, bicarbonate 26, BUN 5, creatinine 0.5, glucose 145. Calcium is 9.2. AST is 48, ALT 38, alkaline phosphatase is 80, albumin is 4.0. IMPRESSION AND PLAN: Sigmoid colon mass suspicious for malignancy, diverticulitis, coronary artery d isease, history of coronary stent, sleep apnea syndrome. Continue with laxative, fluid for preparati on of surgery. Sleep apnea precaution. Gastric prophylaxis. Sequential compression device to lower extremity. Out of bed to chair. Thank you and will follow with you. Tyree Duque MD cc: [id number] TT: 03/15/2017 22:01:52 Confirmation # [id number] Dictation # [id number] mn
--- NOTE | 2017-03-16 00:44 | PN ---
DATE: 03/15/2017 ADDENDUM: This is an addendum to the GI progress report dictated by Sondra Larkin NP. SUBJECTIVE: The patient is scheduled for OR on Wednesday. The patient has been getting the bowel preparation on a clear liquid diet. 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 PLAN: Would recommend to discontinue the Flagyl, ceftriaxone, and antibiotics. Will continue to closely follow up her care. Lesly Baig MD cc: [id number] TT: 03/16/2017 00:43:47 Confirmation # [id number] Dictation # [id number] farhana BARRIENTOS
--- NOTE | 2017-03-16 06:26 | PN ---
DATE: 03/15/2017 SUBJECTIVE: The patient was seen and examined on the bedside. The patient comfortably drinking GoLY TELY. Cousin was standing on the bedside and giving him shave. Still having abdominal pain, but bet ter. No fever, no chills, nausea, vomiting, or diarrhea. No hematuria or hematochezia. No swelling of the leg. No chest pain, no palpitation, no headache, no dizziness. PHYSICAL EXAMINATION: VITAL SIGNS: Temperature 98.6, heart rate 70, respiratory rate 18, blood pressure 150/80, pulse oxim etry 94% on room air. HEENT: Head normocephalic, atraumatic. Eyes: PERRLA. Extraocular muscles intact. Conjunctivae cl ear. Nose patent. NECK: Supple. No carotid bruit, JVD or thyromegaly. CHEST: Bilaterally symmetrical. HEART: S1, S2 positive. LUNGS: Clear to auscultation. ABDOMEN: Soft. Bowel sounds present. No organomegaly. EXTREMITIES: No edema, no cyanosis. NEUROLOGIC: The patient is awake, alert, follows simple commands. MEDICATIONS: Ecotrin, azithromycin, MiraLax, neomycin, Norvasc, Protonix, and Zofran. LABORATORY DATA: Hemoglobin 11.5, hematocrit 34.0, white blood cells 4.4, and platelets 176. Sodium 142, potassium 3.7, BUN 5, creatinine 0.5, glucose 145, AST 48, ALT 38. ASSESSMENT AND PLAN: The patient is an 87-year-old male with coronary artery disease, cardiac stent ing, sigmoid colon mass suspicious of malignancy, diverticulitis, sleep apnea syndrome, obesity, is l axative, IV fluid and GoLYTELY , getting preparation for surgery. Sleep apnea precautions, gastric p rophylaxis, sequential compression devices to lower extremity. Out of bed to a chair. Discussion do ne with the patient and the patient's cousin did translation for me. All questions answered. We homar frank follow up. Rosita Zavala MD cc: [id number] TT: 03/16/2017 06:25:24 Confirmation # [id number] Dictation # [id number] tn
--- NOTE | 2017-03-16 08:06 | PN ---
DATE: 03/15/2017 The patient is in room 367, bed 1. REASON FOR CONSULTATION AND FOLLOWUP: Coronary artery disease, recent stent insertion, preop evaluat ion, acute abdomen, probably due to with obstruction. HISTORY OF PRESENT ILLNESS: An 87-year-old male with past medical history significant for coronary a rtery disease status post PTCA with recent insertion of a stent in 12/2016, admitted with abdominal p ain and the possibility of obstruction due to colonic . The patient denies any chest pain, shor tness of breath, palpitation. PHYSICAL EXAMINATION: VITAL SIGNS: Blood pressure is 158/94, respirations 20, pulse 72, temperature 98.2. HEAD: Normocephalic. EYES: Pupils normal. Conjunctivae slightly pale. NECK: JVP low. Carotid equal. THORAX: AP diameter normal. LUNGS: Clear. CARDIOVASCULAR: S1, S2. ABDOMEN: No tenderness, no organomegaly. EXTREMITIES: No clubbing, no cyanosis. LABORATORY DATA: WBC 4.3, hemoglobin 10.6, hematocrit 31.8, platelets 152. Sodium 142, potassium 3. 7, BUN 6, creatinine 0.9. AST and ALT normal. Total protein and albumin normal. Sugar 90, calcium 8.7. DIAGNOSES: Coronary artery disease, recent stent insertion 12/2016, acute , possible malignancy . PLAN: The patient has been taken off of from Plavix because of preparation for surgery. The patient has been restarted on the chest pain. The patient has high risk of acute stent closure leading to a n acute CO and further complication due to CO; however, patient need emergency surgery no choice ches t and proceed with surgery, but is high risk because of the danger of acute thrombosis of the stent a nd acute closure of a stent and MRA patient is asymptomatic from a clinical point of view at this [facility] ent present. The patient on aspirin 81 mg daily, Zosyn 500 mg p.o. q. 4 hours 5 doses have been give n, amlodipine 10 mg daily, Protonix 40 mg IV daily, IV fluid therapy and we will continue present the rapy and will follow with you. Tyree Sanchez MD cc: [id number] TT: 03/15/2017 18:28:46 Confirmation # [id number] Dictation # [id number] mn
--- NOTE | 2017-03-16 08:20 | PN ---
DATE: 03/15/2017 Seen and examined at the bedside this morning. The patient has been started on bowel prep for cleano ut and diet is a liquid diet. No reports of nausea or vomiting or reports of any overt GI bleed. VITAL SIGNS: Temperature is 98.2, blood pressure 158/94, pulse 72, respirations 20. LABORATORY DATA: WBC is 4.3, H and H are 10.6 and 31.8, platelets of 152. Chem: Sodium 142, K is 3 .7, BUN 6, creatinine 0.9. LFTs are within normal limits. Had an abdominal x-ray yesterday which wa s negative for bowel obstruction. PHYSICAL EXAMINATION: HEENT: Sclerae are anicteric. NECK: Supple. CARDIAC: S1, S2. LUNGS: With decreased breath sounds, but good aeration. Minimal rhonchi. No wheezing. ABDOMEN: With bowel sounds. Soft. Left lower quadrant tenderness. No rebound or guarding. EXTREMITIES: No edema. NEUROLOGIC: Awake, alert, and oriented. ASSESSMENT: An 87-year-old male with sigmoid colon obstruction and cecal distention; patient with hi story of yya-CT-wsvwvadnf myocardial infarction, status post stent placement, on Plavix, which is cur rently on hold in preparation for surgery. He also has history of hypertension. PLAN: The patient is starting bowel prep in preparation for surgery which is planned for early this week. The Plavix remains on hold, which is day 5. They will hold Plavix for 7 days. So, likely on Wednesday. The patient was started on antibiotics of Flagyl and Rocephin. With thoughts of divertic ulitis, we will discontinue this medication. Continue GI prophylaxis. He is on Protonix. ____ He w as on MiraLax, but patient is getting GoLYTELY; can hold the MiraLax during this time. IV fluids for hydration. He is being followed by surgery, pulmonology and cardiology. The patient was seen and c ase discussed with Dr. Baig. Sondra Selfes MEHDI cc: [id number] TT: 03/15/2017 11:51:26 Confirmation # [id number] Dictation # [id number] mn
[2017-03-16] MEDS: POLYETHYLENE GLYCOL 3350 17 GM/Dose PACKET PO SCH ×3 (09:23→11:26)
--- NOTE | 2017-03-16 11:25 | PN ---
DATE: 03/16/2017 The patient is in room 367, bed 1. REASON FOR CONSULTATION AND FOLLOWUP: Coronary artery disease, recent angioplasty with stent inserti on, preop evaluation, acute abdomen, probably due to colon mass obstruction. HISTORY OF PRESENT ILLNESS: An 87-year-old male with past medical history significant for coronary a rtery disease, status post PTCA and stent insertion in 12/2016, admitted with abdominal pain and there is a possibility of intestinal obstruction due to colonic mass. The patient denies any chest pain, s hortness of breath, or palpitation. The patient being planned for surgery tomorrow. PHYSICAL EXAMINATION: VITAL SIGNS: Blood pressure 157/86, respirations 20, pulse 65, temperature 97.5. HEAD: Normocephalic. EYES: Pupils normal. Conjunctivae are slightly pale. NECK: JVP low. Carotids equal. THORAX: AP diameter normal. LUNGS: Clear. CARDIOVASCULAR: S1, S2. ABDOMEN: Soft, no organomegaly. EXTREMITIES: No clubbing, no cyanosis. LABORATORY DATA: WBC 4.4, hemoglobin 11.5, hematocrit 34.0, platelets 176. Sodium 142, potassium 3. 7, BUN 5, creatinine 0.9. AST, ALT, total protein and albumin normal. DIAGNOSES: Coronary artery disease, recent stent insertion in 12/2016, acute abdomen with acute intes tinal obstruction, possible malignancy. PLAN: The patient has been off Plavix, which is a risk for acute stent closure causing HI. So far, patient clinically has been stable from cardiac point of view, but patient has intestinal obstruction and we have proceed with surgery. The patient has been put back on aspirin 81 mg daily. The patient is on amlodipine 10 mg daily, Protonix 40 daily, IV therapy. We will add beta marvin, Lopre ssor 12.5 b.i.d., monitoring the heart rate and blood pressure, and the patient can go for surgery as a very high risk because of danger of acute stent closure and possibility of HI because the patient has been off Plavix. We will follow closely with you. Tyree Sanchez MD cc: [id number] TT: 03/16/2017 11:24:34 Confirmation # [id number] Dictation # [id number] rn
--- NOTE | 2017-03-16 12:36 | PN ---
DATE: 03/16/2017 Seen and examined at the bedside this morning. His nephew is at the bedside. The patient is moving his bowels. Denies any nausea, vomiting. No fever or chills. His abdominal pain in the left lower quadrant is slightly better. No reports of bleeding. VITAL SIGNS: Temperature is 97.5, blood pressure 157/86, respirations 20, 95 room air. LABORATORY DATA: No new labs are noted for today. PHYSICAL EXAMINATION: HEENT: Sclerae are anicteric. NECK: Supple. CARDIAC: S1, S2. LUNGS: With decreased breath sounds but good air entry, no rales or wheeze. ABDOMEN: With bowel sounds. Soft, mild tenderness to the left lower quadrant. No rebound or guardi ng. ASSESSMENT: The patient with left lower quadrant abdominal pain, has sigmoid colon obstruction and c ecal distention. He is being prepared to have surgery for tomorrow. He took GoLYTELY bowel prep. T he patient has history of day-ND-jkrcmhxgx myocardial infarction and status post stent placement. Th e Plavix is on hold in preparation for the surgery. Other comorbidity is hypertension. PLAN: The patient is on aspirin daily. He started on erythromycin and neomycin as per surgery. Con tinue GI prophylaxis; he is on Protonix IV. He is on IV fluids for hydration. The patient will be n .p.o. after midnight for surgical intervention tomorrow. The patient was seen and discussed with Dr. Baig. Sondra HARDING cc: [id number] TT: 03/16/2017 12:35:09 Confirmation # [id number] Dictation # [id number] mn
--- NOTE | 2017-03-16 14:04 | CP.PCM.PN ---
<Caesar Silveira - Last Filed: 03/16/17 14:01> Subjective - Date & Time of Evaluation Date of Evaluation: 03/16/17 Time of Evaluation: 14:01 - Subjective Subjective: Gen Sx: Dr Diego Pt S&E. NAEO. Had go-lytely prep yesterday. Today getting Leon-Condin prep. Now NPO. Having BMs. Was tolerating diet yesterday. For OR tomorrow. Objective - Vital Signs/Intake and Output Vital Signs (last 24 hours): Temp Pulse Resp BP Pulse Ox 97.5 F L 65 20 157/86 H 95 03/16/17 08:32 03/16/17 08:32 03/16/17 08:32 03/16/17 09:22 03/16/17 08:32 Intake and Output: 03/16/17 03/16/17 06:59 18:59 Intake Total 540 Output Total 900 Balance -360 - Medications Medications: Current Medications Amlodipine Besylate (Norvasc) 10 mg PO DAILY COUNT INCLUDES [facility] Last Admin: 03/16/17 09:22 Dose: 10 mg Aspirin (Ecotrin) 81 mg PO DAILY COUNT INCLUDES [facility] Last Admin: 03/16/17 09:22 Dose: 81 mg Erythromycin (Erythromycin) 500 mg PO Q4H [facility]IA PRN Reason: Protocol Stop: 03/16/17 22:01 Last Admin: 03/16/17 09:22 Dose: 500 mg Sodium Chloride (Sodium Chloride 0.9%) 1,000 mls @ 100 mls/hr IV .Q10H COUNT INCLUDES THE [facility] Last Admin: 03/14/17 17:37 Dose: 100 mls/hr Metoprolol Tartrate (Lopressor) 12.5 mg PO BID COUNT INCLUDES THE [facility] Neomycin Sulfate (Neomycin Tab) 1,000 mg PO Q6 COUNT INCLUDES THE [facility] Stop: 03/17/17 00:01 Last Admin: 03/16/17 11:26 Dose: 1,000 mg Ondansetron HCl (Zofran Inj) 4 mg IVP Q4H PRN PRN Reason: Nausea/Vomiting Pantoprazole Sodium (Protonix Inj) 40 mg IVP DAILY COUNT INCLUDES THE [facility] Last Admin: 03/16/17 09:22 Dose: 40 mg - Labs Labs: 03/15/17 18:15 03/15/17 18:15 PT 11.1 Seconds (9.9-11.8) 03/10/17 03:12 INR 1.03 (0.93-1.08) 03/10/17 03:12 APTT 26.4 Seconds (23.7-30.8) 03/10/17 03:12 - Constitutional Appears: Non-toxic, No Acute Distress - Head Exam Head Exam: NORMOCEPHALIC - Respiratory Exam Respiratory Exam: absent: Respiratory Distress - Cardiovascular Exam Cardiovascular Exam: REGULAR RHYTHM. absent: Tachycardia - GI/Abdominal Exam GI & Abdominal Exam: Soft. absent: Distended, Firm, Guarding - Extremities Exam Extremities Exam: absent: Pedal Edema - Neurological Exam Neurological Exam: Alert, Awake, Oriented x3 - Psychiatric Exam Psychiatric exam: Normal Affect, Normal Mood - Skin Skin Exam: Normal Color, Warm Assessment and Plan - Assessment and Plan (Free Text) Assessment: 87M with near-obstructing sigmoid mass Plan: continue prep as ordered NPO @ [place] hold aspirin for OR tomorrow for yarelis-colectomy type and cross ordered with repeat coags for tomorrow morning will d/w Dr Johnathon Silveira, , PGY2 <Wesley Diego - Last Filed: 03/29/17 00:08> Objective - Vital Signs/Intake and Output Vital Signs (last 24 hours): Temp Pulse Resp BP Pulse Ox 96.3 F L 77 17 137/86 95 03/22/17 17:10 03/22/17 17:10 03/22/17 17:10 03/22/17 17:10 03/22/17 17:10 - Labs Labs: 03/22/17 06:00 03/22/17 06:00 PT 11.7 Seconds (9.9-11.8) 03/17/17 07:00 INR 1.08 (0.93-1.08) 03/17/17 07:00 APTT 25.7 Seconds (23.7-30.8) 03/17/17 07:00 Assessment and Plan - Assessment and Plan (Free Text) Plan: Patient was seen and examined by me. I agree with assessment and plan as per resident's note.
[2017-03-16 16:49] LABS: HEMATOCRIT 32.1 % (42.0-52.0); MEAN CELL VOLUME 86.3 fL (80.0-105.0); MEAN CORPUSCULAR HEMOGLOBIN 29.3 pg (25.0-35.0); RED CELL DISTRIBUTION WIDTH 13.9 % (11.5-14.5)
[2017-03-16 16:55] LABS: ALB/GLOB RATIO 1.3 (1.1-1.8); ALKALINE PHOSPHATASE 74 U/L (38-133); ALT/SGPT 43 U/L (7-56); AST/SGOT 43 U/L (15-59); BILIRUBIN,TOTAL 0.7 mg/dL (0.2-1.3); BLOOD UREA NITROGEN 4 mg/dL (7-21); CALCIUM 8.8 mg/dL (8.4-10.5); CARBON DIOXIDE 27 mmol/L (21-33); CHLORIDE 107 mmol/L (98-107); GFR AFRICAN-AMERICAN > 60; GLUCOSE,RANDOM 86 mg/dL (70-110); POTASSIUM 3.8 mmol/L (3.6-5.0); SODIUM 142 mmol/L (132-148); TOTAL PROTEIN 6.5 g/dL (5.8-8.3)
[2017-03-16] MEDS: Sodium Chloride 0.9% 1,000 ML IV SCH (21:19)
--- NOTE | 2017-03-16 23:41 | PN ---
DATE: 03/16/2017 REFERRING PHYSICIAN: Dr. Zavala. SUBJECTIVE: The patient is lying in the bed, head at 45 degrees. Night was unremarkable. On clear liquid diet, laxatives, having bowel movements. Abdomen is soft. Pain is decreased. No nause a. No leg pain or leg swelling. OBJECTIVE: GENERAL: In no acute distress. VITAL SIGNS: Temp is 98, heart rate 68, respiratory rate is 20, blood pressure 149/79, pulse ox 96% on room air. HEENT: Moist mucous membranes. Crowded airway. Mallampati score is 4. NECK: Supple. No JVD. LUNGS: Has a fair airflow with few rhonchi. HEART: S1, S2. ABDOMEN: Soft, nontender. EXTREMITIES: There is no edema. NEUROLOGIC: Awake, alert, follows simple command. MEDICATIONS: He is on Ecotrin 81 mg daily, metoprolol tartrate 12.5 mg twice a day, neomycin 1000 mg q. 6 hours, Norvasc 10 mg daily, Protonix 40 mg daily, IV fluid normal saline 100 mL per hour, Zofra n p.r.n. basis. LABORATORY DATA: Shows hemoglobin 10.9, hematocrit 32.1, WBC 4.0, platelet is 154. Sodium 142, pota ssium 3.8, chloride 107, bicarbonate 27, BUN 4, creatinine 0.8, glucose is 86, calcium is 8.8, AST 43 , ALT 43, alkaline phosphatase is 74, albumin 3.7. IMPRESSION AND PLAN: Sigmoid colon mass suspicious for malignancy, diverticulitis, coronary artery d isease, history of coronary stent, may have sleep apnea syndrome. Pulmonary point of view, is doing well. Keep head elevated at 45 degrees. I discussed sleep apnea syndrome, close cardiopulmona ry monitoring kallie and postoperatively. Sequential compression device to lower extremity. Gastric p rophylaxis. Scheduled for surgery for tomorrow. Thank you and will follow. Tyree Duque MD cc: [id number] TT: 03/16/2017 23:40:36 Confirmation # [id number] Dictation # [id number] mn
[2017-03-17] MEDS ORDERED: Propofol 10 mg/ml Inj (20 ML) ONE (07:51)
[2017-03-17] MEDS ORDERED: Midazolam 2 MG/2 ML VIAL ONE (07:52)
--- NOTE | 2017-03-17 07:52 | PN ---
DATE: 03/16/2017 SUBJECTIVE: The patient seen and examined on the bedside, sitting on the bed, having GoLYTELY. Today getting preparation, n.p.o., having bowel movement, was tolerating diet yesterday. Getting ready for surgery for tomorrow. No fever, no chills. No nausea, vomiting. No headache, no dizziness. PHYSICAL EXAMINATION: VITAL SIGNS: Temperature 97.5, pulse 55, respirations 20, blood pressure 157/86 , pulse 95. HEENT: Head normocephalic, atraumatic. Eyes: PERRLA. Extraocular muscles intact. Conjunctivae clear. Nose patent. Mucous membranes moist. NECK: Supple. No carotid bruit, JVD or thyromegaly. CHEST: Bilaterally symmetrical. HEART: S1, S2 positive. LUNGS: Clear to auscultation. ABDOMEN: Soft. Bowel sounds present. No organomegaly. EXTREMITIES: No edema, no cyanosis. NEUROLOGIC: The patient is awake, alert, follows simple commands. MEDICATIONS: Norvasc, Ecotrin, azithromycin, NS, Lopressor, neomycin, Zofran, Protonix. LABORATORY DATA: White blood cell is 4.4, hemoglobin 11.5, hematocrit 34.0, platelets 133. Sodium 142, potassium 3.7, BUN 5, creatinine 0.9, and glucose 154. ASSESSMENT AND PLAN: The patient is an 87-year-old male with leukopenia, anemia , hyperglycemia, has near obstructing sigmoid mass, getting preparation, n.p.o. , holding aspirin for tomorrow for hemicolectomy, typed and crossmatch with repeat coags for tomorrow morning. History of coronary artery disease, status post cardiac stenting, has history of non-ST elevated myocardial infarction, status post stent placement. Plavix is on hold for preparation of surgery. Other comorbidities are hypertension. The patient was started on azithromycin and neomycin as per surgery. Gastrointestinal prophylaxis: He is on Protonix IV , IV fluid for hydration. I reviewed Dr. Baig's, Dr. Sanchez's and surgical notes. We will follow up. Rosita Zavala MD cc: [id number] TT: 03/17/2017 07:52:02 Confirmation # [id number] Dictation # [id number] tn MTDJaqueline
[2017-03-17] MEDS ORDERED: Bupivacaine 0.5% Inj(30mL) ONE ×2 (07:55→11:36)
[2017-03-17] MEDS ORDERED: metroNIDAZOLE IV 500 mg/100 ml 500 MG/100 ML BAG IVPB STA (08:03)
[2017-03-17 08:05] LABS: INR 1.08 (0.93-1.08); PARTIAL THROMBOPLASTIN TIME 25.7 Seconds (23.7-30.8)
--- NOTE | 2017-03-17 08:40 | PN ---
DATE: 03/16/2017 ADDENDUM: This is a n addendum note to the GI progress note of ZEYAD Daniel. This patient was seen and evaluated earlier. The patient is scheduled for OR tomorrow. The patient has a large partially obstructing sigmoid colon lesion. History of status post PCI with stent placement recently, was on aspirin and Plavix. Presently, only on aspirin. The patient had only flexible sigmoidoscopy. Proximal colon was not evaluated. The patient would benefit from intraoperative proximal colonic evaluation. Thank you very much for allowing us to participate in the care of the patient. Lesly Baig MD cc: [id number] TT: 03/17/2017 08:39:04 Confirmation # [id number] Dictation # [id number] MTDD
[2017-03-17] MEDS ORDERED: Rocuronium 10 mg/ml (5 ml) ONE (08:48)
[2017-03-17] MEDS ORDERED: Desflurane Inhalation Anesthetic Liq (240 ml) ONE (08:48)
--- NOTE | 2017-03-17 09:16 | CP.PCM.PN ---
<Jannie Rice - Last Filed: 03/17/17 09:17> Subjective - Date & Time of Evaluation Date of Evaluation: 03/17/17 Time of Evaluation: 09:14 - Subjective Subjective: GI for Dr. Baig Pt s&e. Pt is going to OR for hemicolectomy today. Denies F/C/N/V. Had bowel prep. Objective - Vital Signs/Intake and Output Vital Signs (last 24 hours): Temp Pulse Resp BP Pulse Ox 98.3 F 76 20 140/85 96 03/17/17 07:13 03/17/17 07:13 03/17/17 07:13 03/17/17 07:13 03/17/17 07:13 Intake and Output: 03/17/17 03/17/17 06:59 18:59 Intake Total 0 Output Total 1000 Balance -1000 - Medications Medications: Current Medications Amlodipine Besylate (Norvasc) 10 mg PO DAILY [facility] Last Admin: 03/16/17 09:22 Dose: 10 mg Aspirin (Ecotrin) 81 mg PO DAILY [facility] Last Admin: 03/16/17 09:22 Dose: 81 mg Sodium Chloride (Sodium Chloride 0.9%) 1,000 mls @ 100 mls/hr IV .Q10H [facility] Last Admin: 03/16/17 21:19 Dose: 100 mls/hr Cefoxitin Sodium 2 gm/ Sodium (Chloride) 100 mls @ 100 mls/hr IV Q8H KIA PRN Reason: Protocol Metronidazole (Flagyl) 500 mg in 100 mls @ 100 mls/hr IVPB STAT STA PRN Reason: Protocol Stop: 03/17/17 09:02 Last Admin: 03/17/17 08:30 Dose: 100 mls Metoprolol Tartrate (Lopressor) 12.5 mg PO BID [facility] Last Admin: 03/16/17 17:49 Dose: 12.5 mg Ondansetron HCl (Zofran Inj) 4 mg IVP Q4H PRN PRN Reason: Nausea/Vomiting Pantoprazole Sodium (Protonix Inj) 40 mg IVP DAILY [facility] Last Admin: 03/16/17 09:22 Dose: 40 mg - Labs Labs: 03/16/17 16:35 03/16/17 16:35 PT 11.7 Seconds (9.9-11.8) 03/17/17 07:00 INR 1.08 (0.93-1.08) 03/17/17 07:00 APTT 25.7 Seconds (23.7-30.8) 03/17/17 07:00 - Constitutional Appears: No Acute Distress - Head Exam Head Exam: ATRAUMATIC, NORMAL INSPECTION, NORMOCEPHALIC - Eye Exam Eye Exam: EOMI, Normal appearance, PERRL Pupil Exam: NORMAL ACCOMODATION, PERRL - ENT Exam ENT Exam: Mucous Membranes Moist, Normal Exam - Neck Exam Neck Exam: Full ROM, Normal Inspection. absent: Lymphadenopathy - Respiratory Exam Respiratory Exam: Clear to Ausculation Bilateral, NORMAL BREATHING PATTERN - Cardiovascular Exam Cardiovascular Exam: REGULAR RHYTHM, +S1, +S2. absent: Murmur - GI/Abdominal Exam GI & Abdominal Exam: Soft, Normal Bowel Sounds. absent: Distended, Tenderness - Extremities Exam Extremities Exam: Full ROM, Normal Capillary Refill, Normal Inspection. absent : Joint Swelling, Pedal Edema - Neurological Exam Neurological Exam: Alert, Awake, CN II-XII Intact, Normal Gait, Oriented x3 - Psychiatric Exam Psychiatric exam: Normal Affect, Normal Mood - Skin Skin Exam: Dry, Intact, Normal Color, Warm Assessment and Plan - Assessment and Plan (Free Text) Assessment: Sigmoid mass -OR today for L hemicolectomy -Medical management -We will continue to follow -PT had flex sigmoidoscope. Recommend evaluating proximal colon intraop. DW Dr. Baig <Lesly Baig V - Last Filed: 05/05/17 14:38> Objective - Vital Signs/Intake and Output Vital Signs (last 24 hours): Temp Pulse Resp BP Pulse Ox 96.3 F L 77 17 137/86 95 03/22/17 17:10 03/22/17 17:10 03/22/17 17:10 03/22/17 17:10 03/22/17 17:10 - Labs Labs: 03/22/17 06:00 03/22/17 06:00 PT 11.7 Seconds (9.9-11.8) 03/17/17 07:00 INR 1.08 (0.93-1.08) 03/17/17 07:00 APTT 25.7 Seconds (23.7-30.8) 03/17/17 07:00 - GI/Abdominal Exam GI & Abdominal Exam: Soft, Normal Bowel Sounds. absent: Guarding, Tenderness, Rebound Assessment and Plan - Assessment and Plan (Free Text) Assessment: The patient was seen and examined at bedside. Chart reviewed. Last 24 hours events reviewed. Agreed with the above findings and treatment plan as outlined in 's note. Patient is for OR today.
[2017-03-17] MEDS ORDERED: Neostigmine Methylsulfate 3mg/3ml Syringe IV ONE (11:43)
[2017-03-17] MEDS ORDERED: HYDROmorphone 0.5 mg/0.5 ml ISec IVP PRN (11:59)
[2017-03-17] MEDS ORDERED: Dextrose 5%/Lactated Ringer's 1,000 ML IV SCH (11:59)
--- NOTE | 2017-03-17 12:00 | PCM.SURG1 ---
Surgeon's Initial Post Op Note - Surgeon's Notes Surgeon: Dr Diego Warehouse Delivery Driver: Dr Silveira PGY2, Neto SIERRA Type of Anesthesia: General Endo Pre-Operative Diagnosis: sigmoid mass Operative Findings: as above Post-Operative Diagnosis: as above Operation Performed: laparoscopic sigmoidectomy w/ primary anastamosis Specimen/Specimens Removed: sigmoid colon and mesentery. anastamosis circular resections Estimated Blood Loss: EBL {In ML}: 50 Blood Products Given: N/A Drains Used: Gabriel Post-Op Condition: Good Date of Surgery/Procedure: 03/17/17 Time of Surgery/Procedure: 12:00
--- NOTE | 2017-03-17 12:59 | RAD ---
HISTORY: preop COMPARISON: 03/10/2017 FINDINGS: LUNGS: No active pulmonary disease. PLEURA: No significant pleural effusion identified, no pneumothorax apparent. CARDIOVASCULAR: Normal. OSSEOUS STRUCTURES: No significant abnormalities. VISUALIZED UPPER ABDOMEN: Normal. OTHER FINDINGS: None. IMPRESSION: No active disease.
[2017-03-17] MEDS ORDERED: HYDROmorphone 0.5 mg/0.5 ml ISec ONE ×2 (13:15→13:44)
--- NOTE | 2017-03-17 13:34 | PN ---
DATE: 03/17/2017 The patient is in room 367, bed 1. REASON FOR CONSULTATION AND FOLLOWUP: Coronary artery disease. Recent angioplasty with stent insert ion, preop evaluation, acute abdomen, probably due to colon mass, obstruction. HISTORY OF PRESENT ILLNESS: An 87-year-old male with past medical history significant for coronary a rtery disease, status post PTCA and stent insertion in 12/2016, admitted with abdominal pain, possibil ity of intestinal obstruction due to colonic mass. The patient denies any chest pain, shortness of b reath, palpitation. PHYSICAL EXAMINATION: VITAL SIGNS: Blood pressure is 145/67, earlier pressure was 133/65, respirations 20, pulse 65, tempe rature 97.8. HEAD: Normocephalic. EYES: Pupils normal. Conjunctivae slightly pale. NECK: JVP low. Carotid equal. THORAX: AP diameter normal. LUNGS: Clear. CARDIOVASCULAR: S1, S2. ABDOMEN: Soft, no tenderness, no organomegaly. EXTREMITIES: No clubbing, no cyanosis. LABORATORY DATA: WBC 4.0, hemoglobin 10.9, hematocrit 32.1, platelets 154, sodium 142, potassium 3.8 , BUN 4, creatinine 0.8, calcium 8.8. AST, ALT normal. Total protein and albumin normal. Troponin less than 0.01. DIAGNOSES: Coronary artery disease, recent stent insertion in 12/2016, acute abdomen with acute intes tinal obstruction, possible malignancy. PLAN: The patient's plan has been already discussed in all our previous notes. The patient is high risk for surgery because we have to stop the Plavix due to the risk of acute stent closure and acute MS. Anyhow, the patient has intestinal obstruction to a mass. The patient needs to have surgery. W ith that understanding it is a high risk surgery because of that recent stent insertion and the patie nt not being on Plavix. I started on Lopressor 12.5 b.i.d. along with amlodipine 10 mg daily, aspiri n 81 mg daily, Protonix 40 IV daily. We will follow. Tyree Sanchez MD cc: [id number] TT: 03/17/2017 13:33:33 Confirmation # [id number] Dictation # [id number] tn
[2017-03-17] MEDS ORDERED: HYDROmorphone 0.5 mg/0.5 ml ISec IVP ONE (13:50)
[2017-03-17] MEDS ORDERED: metroNIDAZOLE IV 500 mg/100 ml 500 MG/100 ML BAG IVPB SCH (14:00)
[2017-03-17 17:12] LABS: MEAN CELL VOLUME 85.9 fL (80.0-105.0); MEAN CORPUSCULAR HEMOGLOBIN 28.9 pg (25.0-35.0); MEAN CORPUSCULAR HGB CONC 33.6 g/dl (31.0-37.0); MEAN PLATELET VOLUME 8.7 fl (7.0-11.0); RED CELL DISTRIBUTION WIDTH 13.7 % (11.5-14.5); WHITE BLOOD COUNT 11.2 10^3/ul (4.5-11.0)
[2017-03-17 17:28] LABS: ALB/GLOB RATIO 1.3 (1.1-1.8); ALKALINE PHOSPHATASE 71 U/L (38-133); ALT/SGPT 39 U/L (7-56); AST/SGOT 40 U/L (15-59); BILIRUBIN,TOTAL 1.2 mg/dL (0.2-1.3); BLOOD UREA NITROGEN 5 mg/dL (7-21); CALCIUM 8.5 mg/dL (8.4-10.5); CARBON DIOXIDE 24 mmol/L (21-33); CHLORIDE 103 mmol/L (98-107); GFR AFRICAN-AMERICAN > 60; GLUCOSE,RANDOM 188 mg/dL (70-110); POTASSIUM 3.5 mmol/L (3.6-5.0); SODIUM 135 mmol/L (132-148); TOTAL PROTEIN 6.2 g/dL (5.8-8.3)
[2017-03-17] MEDS: metroNIDAZOLE IV 500 mg/100 ml 500 MG/100 ML BAG IVPB SCH (17:29)
[2017-03-17] MEDS: Sodium Chloride 0.9% 1,000 ML IV SCH (17:31)
--- NOTE | 2017-03-17 17:49 | PN ---
DATE: 03/17/2017 REFERRING PHYSICIAN: Dr. Zavala. SUBJECTIVE: He is seen in the recovery room status post laparotomy, has drainage, awake, alert, has a nasogastric tube. No cough, no sputum production. He has abdominal pain. No leg pain or leg swel ling. OBJECTIVE: GENERAL: In no acute distress. VITAL SIGNS: Temp is 98, heart rate is 70, respiratory rate is 22, blood pressure 134/68, pulse ox 9 7% on 2 liters nasal cannula. HEENT: Moist mucous membranes. Crowded airway. Mallampati score is 4. NECK: Supple. No JVD. LUNGS: Has a fair airflow with few rhonchi. HEART: S1 and S2. ABDOMEN: Has a dressing. No bowel sounds. Has drainage. EXTREMITIES: There is no edema. NEUROLOGIC: Sleepy, arousable. MEDICATIONS: He is on 2 gram, Dilaudid 1 mg IV q. 4 hours p.r.n., Ecotrin 81 mg daily, Flagyl 500 mg 2 times a day, heparin 5000 units subQ q. 12 hours, metoprolol tartrate 12.5 mg b.i.d., Norvas c 10 mg daily, Protonix 40 mg daily, IV fluids, Zofran on a p.r.n. basis. LABORATORY DATA: Reviewed. INR 1.08, PTT is 26. Troponin less than 0.01. IMPRESSION AND PLAN: Status post laparoscopic hand-assisted left hemicolectomy with mobilization of splenic flexure, coronary artery disease, history of coronary stent, may have sleep apnea syndrome. Continue sleep apnea precaution. Keep head elevated at 45 degree. Careful with sedation. Continue to keep on a monitored floor. Gastric prophylaxis. SCD to lower extremity. DVT prophylaxis as per surgery. Thank you and will follow with you. Tyree Duque MD cc: [id number] TT: 03/17/2017 17:48:37 Confirmation # [id number] Dictation # [id number] mn
--- NOTE | 2017-03-17 18:34 | CARD ---
APPROVED REPORT EKG Measurement Heart [id number] [id number] <Conclusion> Normal sinus rhythm Left axis deviation Left ventricular hypertrophy with QRS widening Abnormal ECG
--- NOTE | 2017-03-18 00:15 | PN ---
DATE: 03/17/2017 SUBJECTIVE: The patient was seen and examined on the bedside, looks comfortable. Was seen before surgery. Awake, alert, getting ready to go for surgery. No cough, no sputum production. No fever, no chills. No headache, no dizziness. PHYSICAL EXAMINATION: VITAL SIGNS: Temperature 98, heart rate 70, respiratory 22, blood pressure 134/ 58, pulse 96 on 2 liter nasal cannula. HEENT: Head normocephalic, atraumatic. Eyes PERRLA. Extraocular muscles intact. Conjunctivae clear. Nose patent. Mucous membranes moist. NECK: Supple. No carotid bruit, JVD or thyromegaly. CHEST: Bilaterally symmetrical. HEART: S1, S2 positive. LUNGS: Clear to auscultation. ABDOMEN: Soft. Bowel sounds present. No organomegaly. EXTREMITIES: No edema, no cyanosis. NEUROLOGIC: The patient is awake, alert, moving all 4 extremities. No focal deficit. MEDICATIONS: Dilaudid, Ecotrin, Flagyl, heparin, metoprolol, Norvasc, Protonix , Zofran. LABORATORY DATA: INR 1.08. PTT 26. Troponin less than 0.01. ASSESSMENT AND PLAN: The patient is an 87-year-old male with coronary artery disease, history of coronary artery stent, sleep apnea syndrome. Today went for surgery, status post laparoscopic hand-assisted left hemicolectomy with mobilization of the splenic flexor. Continue sleep apnea precautions. The patient has history of cardiac stenting. Continue to keep on the floor. Gastric prophylaxis. Sequential compression devices to lower extremity. Deep venous thrombosis prophylaxis. Reviewed Dr. Duque's notes. Gastrointestinal and deep venous thrombosis prophylaxis. Repeat labs. We will follow up. Rosita Zavala MD cc: [id number] TT: 03/18/2017 00:14:46 Confirmation # [id number] Dictation # [id number] sn MTDD
[2017-03-18] MEDS: metroNIDAZOLE IV 500 mg/100 ml 500 MG/100 ML BAG IVPB SCH (00:43)
--- NOTE | 2017-03-18 01:02 | PN ---
DATE: 03/17/2017 ADDENDUM This patient was seen and evaluated earlier. This is an addendum to the GI progress report dictated by Dr. Rice. The patient is scheduled for OR at the time of examination. 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 Admitted with the ulcer, had cecal distention improved. History of NSTEMI status post INNER DIAMETER GRINDER TOOL stent placement. Was on aspirin and Plavix. Plavix has been on hold, only on aspirin. We will continue to closely follow up her care along with the surgical team and cardiology. Thank you very much for allowing us to participate in the care of the patient. Lesly Baig MD cc: [id number] TT: 03/18/2017 01:01:34 Confirmation # [id number] Dictation # [id number] sn MTDD
[2017-03-18] MEDS: Sodium Chloride 0.9% 1,000 ML IV SCH ×3 (05:04→22:30)
[2017-03-18] MEDS: HYDROmorphone 1 mg/ml ISec IVP PRN ×3 (05:32→21:56)
--- NOTE | 2017-03-18 07:38 | CP.PCM.PN ---
<Caesar Silveira Wilson - Last Filed: 03/18/17 07:35> Subjective - Date & Time of Evaluation Date of Evaluation: 03/18/17 Time of Evaluation: 07:35 - Subjective Subjective: Sx: Dr Diego Pt S&E. ROVERTOO. POD#1 s/p laparoscopic left yarelis-colectomy. Pt doing well, pain well controlled. Using incentive spirometer but with minimal inhalation. Denies N/V, F/C. Has not yet been OOB NGT: 20cc Simon: 2000cc BERNARDA: 120 cc Objective - Vital Signs/Intake and Output Vital Signs (last 24 hours): Temp Pulse Resp BP Pulse Ox 97.7 F 76 19 157/88 H 94 L 03/18/17 06:00 03/18/17 06:00 03/18/17 06:00 03/18/17 06:00 03/18/17 06:00 Intake and Output: 03/18/17 03/18/17 06:59 18:59 Intake Total 1967 Balance 1967 - Medications Medications: Current Medications Amlodipine Besylate (Norvasc) 10 mg PO DAILY [facility] Last Admin: 03/16/17 09:22 Dose: 10 mg Aspirin (Ecotrin) 81 mg PO DAILY [facility] Last Admin: 03/16/17 09:22 Dose: 81 mg Heparin Sodium (Porcine) (Heparin) 5,000 units SC Q12 [facility] PRN Reason: Protocol Hydromorphone HCl (Dilaudid) 1 mg IVP Q4H PRN PRN Reason: Pain, moderate (4-7) Last Admin: 03/18/17 05:32 Dose: 1 mg Sodium Chloride (Sodium Chloride 0.9%) 1,000 mls @ 100 mls/hr IV .Q10H [facility] Last Admin: 03/18/17 05:04 Dose: 100 mls/hr Metoprolol Tartrate (Lopressor) 12.5 mg PO BID [facility] Last Admin: 03/16/17 17:49 Dose: 12.5 mg Metoprolol Tartrate (Lopressor) 12.5 mg IVP BID [facility] Ondansetron HCl (Zofran Inj) 4 mg IVP Q4H PRN PRN Reason: Nausea/Vomiting Pantoprazole Sodium (Protonix Inj) 40 mg IVP DAILY [facility] Last Admin: 03/16/17 09:22 Dose: 40 mg - Labs Labs: 03/17/17 17:08 03/17/17 17:08 PT 11.7 Seconds (9.9-11.8) 03/17/17 07:00 INR 1.08 (0.93-1.08) 03/17/17 07:00 APTT 25.7 Seconds (23.7-30.8) 03/17/17 07:00 - Constitutional Appears: Non-toxic, No Acute Distress - Head Exam Head Exam: NORMOCEPHALIC - Respiratory Exam Respiratory Exam: absent: Accessory Muscle Use, Respiratory Distress - Cardiovascular Exam Cardiovascular Exam: REGULAR RHYTHM - GI/Abdominal Exam GI & Abdominal Exam: Soft, Tenderness (incisional). absent: Distended, Firm, Guarding, Rigid Additional comments: dressing c.d.i - Extremities Exam Extremities Exam: absent: Pedal Edema - Neurological Exam Neurological Exam: Alert, Awake, Oriented x3 - Psychiatric Exam Psychiatric exam: Normal Affect, Normal Mood - Skin Skin Exam: Normal Color, Warm Assessment and Plan - Assessment and Plan (Free Text) Assessment: 87M POD#1 s/p laparoscopic yarelis-colectomy Plan: cont NPO cont simon, NGT, and BERNARDA drains encourage OOB w/ ambulation encourage IS use will d/w cardiology restarting plavix, further recs to follow will d/w Dr Johnathon Silveira, PGY2 <Wesley Diego - Last Filed: 03/29/17 00:10> Objective - Vital Signs/Intake and Output Vital Signs (last 24 hours): Temp Pulse Resp BP Pulse Ox 96.3 F L 77 17 137/86 95 03/22/17 17:10 03/22/17 17:10 03/22/17 17:10 03/22/17 17:10 03/22/17 17:10 - Labs Labs: 03/22/17 06:00 03/22/17 06:00 PT 11.7 Seconds (9.9-11.8) 03/17/17 07:00 INR 1.08 (0.93-1.08) 03/17/17 07:00 APTT 25.7 Seconds (23.7-30.8) 03/17/17 07:00 Assessment and Plan - Assessment and Plan (Free Text) Plan: Patient was seen and examined by me. I agree with assessment and plan as per resident's note.
--- NOTE | 2017-03-18 14:27 | CP.PCM.PN ---
<Jannie Rice - Last Filed: 03/18/17 14:23> Subjective - Date & Time of Evaluation Date of Evaluation: 03/18/17 Time of Evaluation: 14:24 - Subjective Subjective: \ GI for Dr. Baig Pt s&e. Pt had surgery yesterday and tolerated it well. Pain controlled. Denies F/C/N/V/D. + void, + flatus. No BM. Had NGT. Objective - Vital Signs/Intake and Output Vital Signs (last 24 hours): Temp Pulse Resp BP Pulse Ox 98.1 F 79 18 160/85 H 94 L 03/18/17 12:00 03/18/17 12:00 03/18/17 12:00 03/18/17 12:00 03/18/17 06:00 Intake and Output: 03/18/17 03/18/17 06:59 18:59 Intake Total 1967 Output Total 80 Balance 1967 -80 - Medications Medications: Current Medications Amlodipine Besylate (Norvasc) 10 mg PO DAILY [facility] Last Admin: 03/16/17 09:22 Dose: 10 mg Aspirin (Ecotrin) 81 mg PO DAILY [facility] Last Admin: 03/16/17 09:22 Dose: 81 mg Heparin Sodium (Porcine) (Heparin) 5,000 units SC Q12 [facility] PRN Reason: Protocol Last Admin: 03/18/17 11:20 Dose: 5,000 units Hydromorphone HCl (Dilaudid) 1 mg IVP Q4H PRN PRN Reason: Pain, moderate (4-7) Last Admin: 03/18/17 11:24 Dose: 1 mg Sodium Chloride (Sodium Chloride 0.9%) 1,000 mls @ 100 mls/hr IV .Q10H [facility] Last Admin: 03/18/17 05:04 Dose: 100 mls/hr Metoprolol Tartrate (Lopressor) 12.5 mg PO BID [facility] Last Admin: 03/16/17 17:49 Dose: 12.5 mg Metoprolol Tartrate (Lopressor) 12.5 mg IVP BID [facility] Ondansetron HCl (Zofran Inj) 4 mg IVP Q4H PRN PRN Reason: Nausea/Vomiting Pantoprazole Sodium (Protonix Inj) 40 mg IVP DAILY [facility] Last Admin: 03/18/17 11:20 Dose: 40 mg - Labs Labs: 03/17/17 17:08 03/17/17 17:08 PT 11.7 Seconds (9.9-11.8) 03/17/17 07:00 INR 1.08 (0.93-1.08) 03/17/17 07:00 APTT 25.7 Seconds (23.7-30.8) 03/17/17 07:00 - Constitutional Appears: No Acute Distress - Head Exam Head Exam: ATRAUMATIC, NORMAL INSPECTION, NORMOCEPHALIC - Eye Exam Eye Exam: EOMI, Normal appearance, PERRL Pupil Exam: NORMAL ACCOMODATION, PERRL - ENT Exam ENT Exam: Mucous Membranes Moist, Normal Exam - Neck Exam Neck Exam: Full ROM, Normal Inspection. absent: Lymphadenopathy - Respiratory Exam Respiratory Exam: Clear to Ausculation Bilateral, NORMAL BREATHING PATTERN - Cardiovascular Exam Cardiovascular Exam: REGULAR RHYTHM, +S1, +S2. absent: Murmur - GI/Abdominal Exam GI & Abdominal Exam: Soft, Tenderness, Normal Bowel Sounds. absent: Distended, Firm, Guarding, Rigid, Hernia, Mass, Rebound Additional comments: Dressing C/D/I. ABd TTP on incisions. On Q in place. BERNARDA in place: ss fluids. - Rectal Exam Rectal Exam: NORMAL INSPECTION - Extremities Exam Extremities Exam: Full ROM, Normal Capillary Refill, Normal Inspection. absent : Joint Swelling, Pedal Edema - Back Exam Back Exam: NORMAL INSPECTION - Neurological Exam Neurological Exam: Alert, Awake, CN II-XII Intact, Normal Gait, Oriented x3 - Psychiatric Exam Psychiatric exam: Normal Affect, Normal Mood - Skin Skin Exam: Dry, Intact, Normal Color, Warm Assessment and Plan - Assessment and Plan (Free Text) Assessment: Sigmoid mass s/p Laparoscopic L hemicolectyomy w anastomosis -Diet per surgery -Restart Anticoagulation per Surgery and Cardio -MOnitor BERNARDA -We will continue to follow Will JORDON Baig <Lesly Baig V - Last Filed: 05/06/17 19:02> Objective - Vital Signs/Intake and Output Vital Signs (last 24 hours): Temp Pulse Resp BP Pulse Ox 96.3 F L 77 17 137/86 95 03/22/17 17:10 03/22/17 17:10 03/22/17 17:10 03/22/17 17:10 03/22/17 17:10 - Labs Labs: 03/22/17 06:00 03/22/17 06:00 PT 11.7 Seconds (9.9-11.8) 03/17/17 07:00 INR 1.08 (0.93-1.08) 03/17/17 07:00 APTT 25.7 Seconds (23.7-30.8) 03/17/17 07:00 - GI/Abdominal Exam GI & Abdominal Exam: Soft, Tenderness, Normal Bowel Sounds
[2017-03-18] MEDS: Metoprolol 1 mg/ml Inj IVP SCH ×2 (16:15→21:55)
[2017-03-18 16:35] LABS: HEMATOCRIT 33.9 % (42.0-52.0); MEAN CELL VOLUME 84.3 fL (80.0-105.0); MEAN CORPUSCULAR HEMOGLOBIN 29.4 pg (25.0-35.0); MEAN CORPUSCULAR HGB CONC 34.8 g/dl (31.0-37.0); RED CELL DISTRIBUTION WIDTH 13.6 % (11.5-14.5); WHITE BLOOD COUNT 11.8 10^3/ul (4.5-11.0)
[2017-03-18 16:49] LABS: ALB/GLOB RATIO 1.2 (1.1-1.8); ALKALINE PHOSPHATASE 71 U/L (38-133); ALT/SGPT 36 U/L (7-56); AST/SGOT 30 U/L (15-59); BILIRUBIN,TOTAL 1.3 mg/dL (0.2-1.3); BLOOD UREA NITROGEN 5 mg/dL (7-21); CALCIUM 8.5 mg/dL (8.4-10.5); CARBON DIOXIDE 25 mmol/L (21-33); CHLORIDE 97 mmol/L (98-107); GFR AFRICAN-AMERICAN > 60; GLUCOSE,RANDOM 141 mg/dL (70-110); POTASSIUM 3.4 mmol/L (3.6-5.0); SODIUM 129 mmol/L (132-148); TOTAL PROTEIN 6.4 g/dL (5.8-8.3)
--- NOTE | 2017-03-18 19:52 | PN ---
DATE: 03/18/2017 REFERRING PHYSICIAN: Dr. Zavala. SUBJECTIVE: He is out of bed to chair, has some nausea. No vomiting, no shortness of breath, no declan st pain. Has abdominal pain, no leg pain or leg swelling. OBJECTIVE: GENERAL: No acute distress. VITAL SIGNS: Temp is 98, heart rate is 79, respiratory rate is 18, blood pressure 156/79, pulse ox 9 4% on nasal cannula. HEENT: Moist mucous membrane. Crowded airway. Mallampati score is 4. NECK: Supple. No JVD. LUNGS: Has a fair airflow with few rhonchi. HEART: S1, S2. ABDOMEN: Positive bowel sounds. Positive mild tenderness. Surgical drainage is seen. EXTREMITIES: There is no edema. NEUROLOGIC: Awake, alert, follows simple commands. MEDICATIONS: He is on hydralazine 10 mg q. 6 hours p.r.n., Dilaudid 1 mg IV q. 4 hours p.r.n., Ecot rin 81 mg daily, heparin 5000 units subQ q. 12 hours, metoprolol tartrate 12.5 mg twice a day, metop rolol 5 mg q. 6 hours, Norvasc 10 mg daily, Protonix 40 mg daily, IV fluid normal saline 100 mL per h our, Zofran on a p.r.n. basis. LABORATORY DATA: Shows hemoglobin 11.8, hematocrit 33.9, WBC 11.8, platelet is 161. Sodium 129, pot assium 3.4, chloride 97, bicarbonate 25, BUN 5, creatinine 0.6, glucose 141, calcium 8.5. AST 30, AL T 36, alkaline phosphatase is 71. Albumin is 3.4. IMPRESSION AND PLAN: Status post laparoscopic left hemicolectomy with the mobilization of splenic fl exure, coronary artery disease, history of coronary stent, sleep apnea syndrome. Pulmonary point of view, doing okay. Keep head elevated at 45 degree. Careful with sedation. Gastric prophylaxis, alexsander p venous thrombosis prophylaxis. Surgical followup. Thank you and will follow with you. Tyree Duque MD cc: [id number] TT: 03/18/2017 19:51:49 Confirmation # [id number] Dictation # [id number] gali
--- NOTE | 2017-03-18 19:54 | PN ---
DATE: 03/18/2017 REASON FOR CONSULTATION AND FOLLOWUP: Coronary artery disease, status post recent PTCA, acute abdome n, colonic mass status post left hemicolectomy, end-to-end anastomosis. BRIEF CLINICAL HISTORY: This is an 87-year-old male with a past medical history significant for sky nary artery disease, status post PTCA and status post a stent in 12/2016, admitted with abdominal pain with GI bleed, intestinal obstruction. Underwent a left hemicolectomy and end-to-end anastomosis. Complaining of abdominal pain, but otherwise okay. Denies any chest pain, shortness of breath, or an y palpitations. PHYSICAL EXAMINATION: VITAL SIGNS: Temperature afebrile, heart rate 82, blood pressure 156/90. HEENT: PERRLA. Extraocular muscles intact. NECK: Supple. No carotid bruits. No thyromegaly. CHEST: Clear to auscultation. HEART: S1, S2 regular. ABDOMEN: Soft. EXTREMITIES: Clubbing and cyanosis negative. BLOOD WORKUP: As follows: WBC 11.8, hemoglobin 11.8, hematocrit 33.9, platelet count 161. Chemistr y shows sodium 120, potassium 3.4, chloride 97, carbon dioxide 25, anion gap of 10, BUN 5, creatinine 0.7. IMPRESSION: Status post recently angioplasty 12/2016 with a drug-eluting stent, intestinal obstructio n, chronic; status post left hemicolectomy and end-to-end anastomosis, laparoscopic, anemia. No evid ence of acute myocardial infarction. Possibly malignancy of the colon. The patient is off Plavix du e to high risk. So far, the patient is doing okay. RECOMMENDATION: Continue beta marvin. Since the patient n.p.o., will change to 5 mg q.6 with hydralazine p.r.n. for high blood pressure. Once the patient is okayed and cleared from surgery, wi ll start baby aspirin first and then will start Plavix later on as the bleeding stops Will follow maria victoria villalpando you. Thank you, Dr. Zavala, for providing me the opportunity in taking care of this patient. Tyree Dale MD cc: [id number] TT: 03/18/2017 19:54:03 Confirmation # [id number] Dictation # [id number] dn
--- NOTE | 2017-03-18 21:58 | PN ---
DATE: 03/18/2017 SUBJECTIVE: The patient was seen and examined at the bedside. Using spirometer. Out of bed to the chair. Had some nausea. No fever, no chills, no vomiting, no shortness of breath, no chest pain, no abdominal pain, no swelling of the legs, no hematuria or hematochezia. PHYSICAL EXAMINATION: VITAL SIGNS: Temperature 98, heart rate is 79, respiratory rate 18, blood pressure 156/79, and pulse oximetry 94% on nasal cannula. HEAD: Normocephalic, atraumatic. EYES: PERRLA. Extraocular muscles intact. Conjunctivae clear. Nose patent. Mucous membranes moist. NECK: Supple. No carotid bruit, JVD or thyromegaly. CHEST: Bilaterally symmetrical. HEART: S1, S2 positive. LUNGS: Has a fair airflow with a few rhonchi. ABDOMEN: Soft, bowel sounds positive. Is mildly tender. Surgical drain is working. EXTREMITIES: No edema, no cyanosis. NEUROLOGIC: He is awake and alert. Follows simple commands and moving all 4 extremities. MEDICATIONS: Hydralazine, Dilaudid, Ecotrin, heparin, metoprolol, Norvasc, Protonix, IV fluid, Zofran. LABORATORY DATA: Hemoglobin 11.8, hematocrit 33.9, white blood cell 11.8 and platelets 151. Sodium 129, potassium 3.4, BUN 5, creatinine 0.6, glucose 141, AST 30, ALT 36. ASSESSMENT AND PLAN: The patient is an 87-year-old male status post laparoscopic left hemicolectomy with mobilization of the splenic flexure, coronary artery disease, history of coronary artery stent, sleep apnea syndrome , Keep head elevated at 45 degrees. Gastric prophylaxis, deep vein thrombosis prophylaxis. Surgeons on the case. Out of bed. Physical therapy. Will follow up. Rosita Zavala MD cc: [id number] TT: 03/18/2017 21:58:05 Confirmation # [id number] Dictation # [id number] zay BARRIENTOS
--- NOTE | 2017-03-19 02:21 | PN ---
DATE: 03/18/2017 ADDENDUM: This is an addendum to the GI progress report dictated by Dr. Rice. Status post colectomy. Continue the antibiotics. Continue the postop as per surgery, coronary artery disease status post PCI. The patient's aspirin and Plavix on hold. Would restart the Plavix when he is given surgical c learance. Lesly Baig MD cc: [id number] TT: 03/19/2017 02:21:00 Confirmation # [id number] Dictation # [id number] an
[2017-03-19] MEDS: Metoprolol 1 mg/ml Inj IVP SCH ×4 (05:32→23:53)
[2017-03-19] MEDS: HYDROmorphone 1 mg/ml ISec IVP PRN ×2 (05:36→22:15)
--- NOTE | 2017-03-19 08:13 | CP.PCM.PN ---
Addendum entered and electronically signed by Caesar Silveira DO 03/19/17 16: 13: OK to resume plavix 03/20/17 Original Note: <Maricel Silveiraew Wilson - Last Filed: 03/19/17 08:10> Subjective - Date & Time of Evaluation Date of Evaluation: 03/19/17 Time of Evaluation: 08:10 - Subjective Subjective: Gen Sx: Dr Diego Pt S&E. NAEO. NGT removed yesterday. Simon removed this morning. Has been NPO w/ ice chips and tolerating. Denies N/V. Not yet passing flatus. Dressings changed this morning. Hitting 1500cc on incentive spirometer. BERNARDA w/ 130cc out/24hours Objective - Vital Signs/Intake and Output Vital Signs (last 24 hours): Temp Pulse Resp BP Pulse Ox 97.9 F 79 20 174/90 H 92 L 03/19/17 05:40 03/19/17 05:40 03/19/17 05:40 03/19/17 05:40 03/19/17 05:40 Intake and Output: 03/19/17 03/19/17 06:59 18:59 Intake Total 1300 Output Total 1950 Balance -650 - Medications Medications: Current Medications Amlodipine Besylate (Norvasc) 10 mg PO DAILY [facility] Last Admin: 03/16/17 09:22 Dose: 10 mg Aspirin (Ecotrin) 81 mg PO DAILY [facility] Last Admin: 03/16/17 09:22 Dose: 81 mg Heparin Sodium (Porcine) (Heparin) 5,000 units SC Q12 [facility] PRN Reason: Protocol Last Admin: 03/18/17 21:55 Dose: 5,000 units Hydralazine HCl (Apresoline) 10 mg IVP Q6 PRN PRN Reason: FOR SBP>170 and Diastolic>100 Hydromorphone HCl (Dilaudid) 1 mg IVP Q4H PRN PRN Reason: Pain, moderate (4-7) Last Admin: 03/19/17 05:36 Dose: 1 mg Sodium Chloride (Sodium Chloride 0.9%) 1,000 mls @ 100 mls/hr IV .Q10H [facility] Last Admin: 03/18/17 22:30 Dose: 100 mls/hr Metoprolol Tartrate (Lopressor) 12.5 mg PO BID [facility] Last Admin: 03/16/17 17:49 Dose: 12.5 mg Metoprolol Tartrate (Lopressor) 5 mg IVP Q6 [facility] Last Admin: 03/19/17 05:32 Dose: 5 mg Ondansetron HCl (Zofran Inj) 4 mg IVP Q4H PRN PRN Reason: Nausea/Vomiting Pantoprazole Sodium (Protonix Inj) 40 mg IVP DAILY [facility] Last Admin: 03/18/17 11:20 Dose: 40 mg - Labs Labs: 03/18/17 16:33 03/18/17 16:33 PT 11.7 Seconds (9.9-11.8) 03/17/17 07:00 INR 1.08 (0.93-1.08) 03/17/17 07:00 APTT 25.7 Seconds (23.7-30.8) 03/17/17 07:00 - Constitutional Appears: Non-toxic, No Acute Distress - Head Exam Head Exam: NORMOCEPHALIC - Eye Exam Eye Exam: Normal appearance - Respiratory Exam Respiratory Exam: absent: Accessory Muscle Use, Respiratory Distress - Cardiovascular Exam Cardiovascular Exam: REGULAR RHYTHM. absent: Tachycardia - GI/Abdominal Exam GI & Abdominal Exam: Soft, Tenderness (minimal post op pain). absent: Distended , Firm Additional comments: incisions c/d/i - Extremities Exam Extremities Exam: absent: Pedal Edema - Neurological Exam Neurological Exam: Alert, Awake, Oriented x3 - Psychiatric Exam Psychiatric exam: Normal Affect, Normal Mood - Skin Skin Exam: Normal Color, Warm Assessment and Plan - Assessment and Plan (Free Text) Assessment: 87M POD#2 laparoscopic left yarelis-colectomy Plan: d/c simon - trial to void cont ice chips cont incentive spirometer physical therapy will d/w attending restarting plavix this morning will d/w Dr Johnathon Silveira, DO, PGY2 <Wesley Diego - Last Filed: 03/29/17 00:12> Objective - Vital Signs/Intake and Output Vital Signs (last 24 hours): Temp Pulse Resp BP Pulse Ox 96.3 F L 77 17 137/86 95 03/22/17 17:10 03/22/17 17:10 03/22/17 17:10 03/22/17 17:10 03/22/17 17:10 - Labs Labs: 03/22/17 06:00 03/22/17 06:00 PT 11.7 Seconds (9.9-11.8) 03/17/17 07:00 INR 1.08 (0.93-1.08) 03/17/17 07:00 APTT 25.7 Seconds (23.7-30.8) 03/17/17 07:00 Assessment and Plan - Assessment and Plan (Free Text) Plan: Patient was seen and examined by me. I agree with assessment and plan as per resident's note.
[2017-03-19 08:59] LABS: BLOOD UREA NITROGEN 9 mg/dL (7-21); CALCIUM 8.6 mg/dL (8.4-10.5); CARBON DIOXIDE 27 mmol/L (21-33); CHLORIDE 103 mmol/L (98-107); GFR AFRICAN-AMERICAN > 60; GLUCOSE,RANDOM 93 mg/dL (70-110); POTASSIUM 3.3 mmol/L (3.6-5.0); SODIUM 136 mmol/L (132-148)
[2017-03-19 09:00] LABS: HEMATOCRIT 30.9 % (42.0-52.0); MEAN CELL VOLUME 85.1 fL (80.0-105.0); MEAN CORPUSCULAR HEMOGLOBIN 29.8 pg (25.0-35.0); MEAN PLATELET VOLUME 9.1 fl (7.0-11.0)
[2017-03-19] MEDS: Sodium Chloride 0.9% 1,000 ML IV SCH ×2 (10:03→22:15)
--- NOTE | 2017-03-19 15:48 | PN ---
DATE: 03/19/2017 SUBJECTIVE: Seen and examined at the bedside this morning. His family member was at the bedside. Denies any nausea, vomiting. He does have abdominal pain from surgery, but it is under control. He is belching. No reports of any bowel movement. No reports of any overt GI bleed. No acute overnight events. VITAL SIGNS: Temperature 97.9, blood pressure 174/90, pulse 79, respirations 20. LABORATORY DATA: WBC is 8.0, H and H are 10.8 and 30.9, platelets are 165. Sodium 136, K is 3.3, BUN is 9, creatinine 0.8. PHYSICAL EXAMINATION: HEENT: Sclerae are anicteric. NECK: Supple. CARDIAC: S1, S2. LUNGS: With decreased breath sounds but good air entry. No rales or wheeze. ABDOMEN: With bowel sounds. It is soft. He does have a surgical incision and dressings that are intact. Some are with javon that are open to air. No erythema or drainage. BERNARDA drain is in place with minimal serosanguineous drainage right now. The output was 130 mL. LOWER EXTREMITIES: No edema. NEUROLOGIC: Awake, alert, and oriented. ASSESSMENT: The patient with sigmoid mass status post laparoscopic left hemicolectomy with anastomosis. The patient has a history of an IL, status post cardiac catheterization with drug-eluting stent. PLAN: The patient is n.p.o. except ice chips. Diet as per surgery. Monitor H and H. The patient was hypokalemic, received potassium replacement. Continue PPI. He is on IV fluids for hydration. The patient is on heparin 5000 units subQ q. 12. The patient was seen and case discussed with Dr. Baig. Sondra Chaya MEHDI cc: [id number] TT: 03/19/2017 12:21:38 Confirmation # [id number] Dictation # [id number] farhana BARRIENTOS
--- NOTE | 2017-03-19 19:37 | PN ---
DATE: 03/19/2017 REFERRING PHYSICIAN: Dr. Zavala. SUBJECTIVE: He is lying in the bed, sleepy, arousable, feels better. Still has mild nausea and abdo majo pain. No chest pain, no dysuria. No leg pain or leg swelling. OBJECTIVE: GENERAL: In no acute distress. VITAL SIGNS: Temperature is 98, heart rate 74, respiratory rate is 20, blood pressure 135/89, pulse ox 93% on room air. HEENT: Moist mucous membranes. Crowded airway. Mallampati score is 4. NECK: Supple. No JVD. LUNGS: Has a fair airflow with a few rhonchi. HEART: S1, S2. ABDOMEN: Soft, mild tenderness on palpation. Surgical scar looks . EXTREMITIES: There is no edema. NEUROLOGIC: Sleepy, arousable, follows simple commands. MEDICATIONS: He is on hydralazine 10 mg q.6 hours p.r.n., Dilaudid 1 mg IV q.4 hours p.r.n., Ecotrin 81 mg daily, heparin 5000 units subQ q.12 hours, metoprolol tartrate 12.5 mg twice a day, Norvasc 10 mg daily, Plavix 75 mg daily, potassium IV, Protonix 40 mg daily, IV fluid normal saline at 75 mL pe r hour, Zofran on a p.r.n. basis. LABORATORY DATA: Shows hemoglobin 10.8, hematocrit , WBC 8.0, platelet is 165. Sodium 136, pot assium 3.3, chloride 103, bicarbonate 27, BUN 9, creatinine 0.8, glucose 93, calcium is 8.6. IMPRESSION AND PLAN: Status post laparoscopic left hemicolectomy with mobilization of splenic flexur e, coronary artery disease, history of coronary stent, sleep apnea syndrome. Pulmonary point of view , doing well. Keep head elevated at 45 degrees. Sleep apnea precaution. Gastric prophylaxis. Deep venous thrombosis prophylaxis. If cleared by GI and surgery may transfer to [facility] for continued care . Thank you and will follow with you. Tyree Duque MD cc: [id number] TT: 03/19/2017 19:36:21 Confirmation # [id number] Dictation # [id number] dn
--- NOTE | 2017-03-19 21:15 | PN ---
DATE: 03/19/2017 SUBJECTIVE: The patient is seen and examined on the bedside. Feeling better. No diarrhea, no fever , no chills. No swelling of the leg. Has mild nauseousness and abdominal pain. PHYSICAL EXAMINATION: VITAL SIGNS: Temperature 98.1, heart rate 74, respiratory rate 20, blood pressure 140/80, and pulse oximeter 93% on room air. HEENT: Head normocephalic, atraumatic. Eyes, PERRLA. Extraocular muscles intact. Conjunctivae are clear. Nose patent. Mucous membranes moist. NECK: Supple. No carotid bruit, JVD or thyromegaly. CHEST: Bilaterally symmetrical. HEART: S1, S2 positive. LUNGS: Has fair airflow with few rhonchi. HEART: S1, S2 positive. ABDOMEN: Soft, mildly tender on palpation. Surgical area looks healthy with draining tubes. EXTREMITIES: No edema, no cyanosis. NEUROLOGIC: The patient is awake, alert and moving all 4 extremities. No focal deficits. Following simple commands. MEDICATIONS: Hydralazine, Dilaudid, Ecotrin, heparin, metoprolol, Norvasc, Plavix, potassium, Proton ix, IV fluid, Zofran. LABORATORY DATA: Hemoglobin 10.8, hematocrit noted. White blood cells 8.0, platelets 165. Sodium 1 36. Glucose 93. BUN 9, creatinine 0.8. ASSESSMENT AND PLAN: The patient is an 87-year-old male with multiple medical problems, anemia, sky nary artery disease, status post cardiac stenting, status post laparoscopic left hemicolectomy with m obilization of the splenic flexor, sleep apnea syndrome, status post surgery. Sleep apnea precaution s, gastric prophylaxis and deep vein thrombosis prophylaxis. Will try to go to TCU for the patient. Reviewed Dr. Duque's notes and GI notes. The patient is n.p.o. except for ice chips. Monitoring H and H and electrolytes. Continue PPI, IV fluid hydration, and heparin. Reviewed surgical notes als o. POD #2. Discontinue Rose, trial of voiding. Continue incentive spirometer, physical therapy. We will follow up. Rosita Zavala MD cc: [id number] TT: 03/19/2017 21:15:07 Confirmation # [id number] Dictation # [id number] rn
[2017-03-20] MEDS: Metoprolol 1 mg/ml Inj IVP SCH (05:06)
[2017-03-20 07:38] LABS: ADD MANUAL DIFF? NO
[2017-03-20 07:43] LABS: EOS # 0.1 (0.0-0.7); EOS % 0.8 % (1.5-5.0); GRAN # 4.65 (1.4-6.5); GRAN % 72.7 % (50.0-68.0); LYMPH # 0.8 (1.2-3.4); LYMPH % 12.1 % (22.0-35.0); MEAN CELL VOLUME 86.1 fL (80.0-105.0); MEAN CORPUSCULAR HEMOGLOBIN 29.2 pg (25.0-35.0); MEAN CORPUSCULAR HGB CONC 33.9 g/dl (31.0-37.0); MEAN PLATELET VOLUME 9.1 fl (7.0-11.0); MONO # 0.9 (0.1-0.6); MONO % 14.4 % (1.0-6.0); PLATELET COUNT 167 10^3/uL (120.0-450.0); RED CELL DISTRIBUTION WIDTH 14.1 % (11.5-14.5); WHITE BLOOD COUNT 6.4 10^3/ul (4.5-11.0)
[2017-03-20 08:00] LABS: ALB/GLOB RATIO 1.2 (1.1-1.8); ALKALINE PHOSPHATASE 68 U/L (38-133); ALT/SGPT 34 U/L (7-56); AST/SGOT 29 U/L (15-59); BILIRUBIN,TOTAL 0.7 mg/dL (0.2-1.3); BLOOD UREA NITROGEN 9 mg/dL (7-21); CALCIUM 8.6 mg/dL (8.4-10.5); CARBON DIOXIDE 29 mmol/L (21-33); CHLORIDE 104 mmol/L (95-110); GFR AFRICAN-AMERICAN > 60; GLUCOSE,RANDOM 88 mg/dL (70-110); PHOSPHOROUS 2.5 mg/dL (2.5-4.5); POTASSIUM 3.2 mmol/L (3.6-5.0); SODIUM 140 mmol/L (132-148)
[2017-03-20] MEDS ORDERED: Potassium Chloride 20 mEq ER Tab PO ONE ×2 (08:35→08:40)
--- NOTE | 2017-03-20 08:39 | CP.PCM.PN ---
<Jannie Rice - Last Filed: 03/20/17 08:36> Subjective - Date & Time of Evaluation Date of Evaluation: 03/20/17 Time of Evaluation: 08:36 - Subjective Subjective: Surgery for Dr. Johnathon Charles s&tracie MORENO. Voiding. Tolerating CLD. Denies F/C/N/V/D/Cp/SOB. No BM. No flatus. Pain controlled. Objective - Vital Signs/Intake and Output Vital Signs (last 24 hours): Temp Pulse Resp BP Pulse Ox 97.3 F L 65 20 177/84 H 95 03/20/17 05:18 03/20/17 05:18 03/20/17 05:18 03/20/17 05:18 03/20/17 05:18 Intake and Output: 03/20/17 03/20/17 06:59 18:59 Intake Total 1515 Output Total 2430 Balance -915 - Medications Medications: Current Medications Amlodipine Besylate (Norvasc) 10 mg PO DAILY [facility] Last Admin: 03/16/17 09:22 Dose: 10 mg Aspirin (Ecotrin) 81 mg PO DAILY [facility] Last Admin: 03/16/17 09:22 Dose: 81 mg Clopidogrel Bisulfate (Plavix) 75 mg PO DAILY [facility] Hydralazine HCl (Apresoline) 10 mg IVP Q6 PRN PRN Reason: FOR SBP>170 and Diastolic>100 Hydromorphone HCl (Dilaudid) 1 mg IVP Q4H PRN PRN Reason: Pain, moderate (4-7) Last Admin: 03/19/17 22:15 Dose: 1 mg Sodium Chloride (Sodium Chloride 0.9%) 1,000 mls @ 75 mls/hr IV .[id number] [facility] Last Admin: 03/19/17 22:15 Dose: 75 mls/hr Metoprolol Tartrate (Lopressor) 12.5 mg PO BID [facility] Last Admin: 03/16/17 17:49 Dose: 12.5 mg Ondansetron HCl (Zofran Inj) 4 mg IVP Q4H PRN PRN Reason: Nausea/Vomiting Pantoprazole Sodium (Protonix Inj) 40 mg IVP DAILY [facility] Last Admin: 03/19/17 10:14 Dose: 40 mg Potassium Chloride (K-Dur 20 Meq Er Tab) 20 meq PO ONCE ONE Stop: 03/20/17 08:36 - Labs Labs: 03/20/17 07:35 03/20/17 07:35 PT 11.7 Seconds (9.9-11.8) 03/17/17 07:00 INR 1.08 (0.93-1.08) 03/17/17 07:00 APTT 25.7 Seconds (23.7-30.8) 03/17/17 07:00 - Constitutional Appears: No Acute Distress - Head Exam Head Exam: ATRAUMATIC, NORMAL INSPECTION, NORMOCEPHALIC - Eye Exam Eye Exam: EOMI, Normal appearance, PERRL Pupil Exam: NORMAL ACCOMODATION, PERRL - ENT Exam ENT Exam: Mucous Membranes Moist, Normal Exam - Neck Exam Neck Exam: Full ROM, Normal Inspection. absent: Lymphadenopathy - Respiratory Exam Respiratory Exam: Clear to Ausculation Bilateral, NORMAL BREATHING PATTERN - Cardiovascular Exam Cardiovascular Exam: REGULAR RHYTHM, +S1, +S2. absent: Murmur - GI/Abdominal Exam GI & Abdominal Exam: Soft, Tenderness, Normal Bowel Sounds. absent: Distended, Firm, Guarding, Rigid, Rebound Additional comments: Dressing C/D/I. On Q in place. BERNARDA in place: minimal output. - Exam Exam: NORMAL INSPECTION - Extremities Exam Extremities Exam: Full ROM, Normal Capillary Refill, Normal Inspection. absent : Joint Swelling, Pedal Edema - Back Exam Back Exam: NORMAL INSPECTION - Neurological Exam Neurological Exam: Alert, Awake, CN II-XII Intact, Normal Gait, Oriented x3 - Psychiatric Exam Psychiatric exam: Normal Affect, Normal Mood - Skin Skin Exam: Dry, Intact, Normal Color, Warm Assessment and Plan - Assessment and Plan (Free Text) Assessment: 87M POD#3 laparoscopic left yarelis-colectomy Plan: CLD. Advance when signs of bowel function. No BM , No flatus yet cont incentive spirometer physical therapy Restart ASA, Plavix, PO BP meds today. Hep SC DCed will d/w Dr Diego <Wesley Diego - Last Filed: 03/29/17 00:13> Objective - Vital Signs/Intake and Output Vital Signs (last 24 hours): Temp Pulse Resp BP Pulse Ox 96.3 F L 77 17 137/86 95 03/22/17 17:10 03/22/17 17:10 03/22/17 17:10 03/22/17 17:10 03/22/17 17:10 - Labs Labs: 03/22/17 06:00 03/22/17 06:00 PT 11.7 Seconds (9.9-11.8) 03/17/17 07:00 INR 1.08 (0.93-1.08) 03/17/17 07:00 APTT 25.7 Seconds (23.7-30.8) 03/17/17 07:00 Assessment and Plan - Assessment and Plan (Free Text) Assessment: Patient was seen and examined by me. I agree with assessment and plan as per resident's note.
[2017-03-20] MEDS: HYDROmorphone 1 mg/ml ISec IVP PRN (09:27)
[2017-03-20] MEDS ORDERED: Potassium Chloride 40 mEq/30 ml LIQ UD PO ONE (13:08)
[2017-03-20] MEDS: Sodium Chloride 0.9% 1,000 ML IV SCH (13:18)
[2017-03-20] MEDS ORDERED: Potassium Chloride 20 mEq/15 ml LIQ UD PO ONE (14:00)
--- NOTE | 2017-03-20 14:07 | PN ---
DATE: 03/20/2017 REASON FOR CONSULTATION AND FOLLOWUP: Coronary artery disease, status post recent PTCA, chronic mass , left hemicolectomy, end to end anastomosis. BRIEF CLINICAL HISTORY: An 87-year-old male with past medical history significant for coronary arter y disease status post PTCA recently on 12/2016, admitted with abdominal pain, GI bleed, found to have mass, status post left hemicolectomy, end-to-end anastomosis. He denies any chest pain, shortness of breath, any palpitation. Started ice chips, tolerating. PHYSICAL EXAMINATION: VITAL SIGNS: Temperature afebrile, heart rate 60, blood pressure 152/85. HEENT: PERRLA. Extraocular muscles intact. NECK: Supple. No carotid bruits. No thyromegaly. CHEST: Clear to auscultation. HEART: S1, S2 regular. ABDOMEN: Soft. EXTREMITIES: Clubbing and cyanosis negative. BLOOD WORKUP: As follows: WBC 6.4, hemoglobin 10.____, , hematocrit 31.0, platelet count 167. Chemistry shows sodium 140, potassium 3.2, chloride 104, ____ anion gap of 10, BUN 9, creatinine 0.8 . IMPRESSION: Hypokalemia. No evidence of myocardial infarction, coronary artery disease status post percutaneous transluminal coronary angioplasty 12/2016, status post ____ status post end-to-end anasto mosis, hemicolectomy. RECOMMENDATIONS: Start Plavix from today. Supplement aggressively potassium and we will give 40 of KCl again at 2:00. Follow up the lab in the morning. We will follow with you. Thank you, Dr. Zavala, for providing the opportunity in taking care of the patient. Once the patient is stable, possible transfer to rehab facility center. Tyree Dale MD cc: [id number] TT: 03/20/2017 14:07:17 Confirmation # [id number] Dictation # [id number] jn
--- NOTE | 2017-03-20 18:25 | PN ---
DATE: 03/20/2017 REFERRING PHYSICIAN: Dr. Zavala. SUBJECTIVE: He is lying in the bed. No headache, no rhinitis, no vomiting. Mild abdominal pain. N o dysuria. No leg pain or leg swelling. OBJECTIVE: GENERAL: No acute distress. VITAL SIGNS: Temp is 98, heart rate is 71, respiratory rate is 20, blood pressure 147/78. HEENT: Moist mucous membranes. Crowded airway. Mallampati score is 4. NECK: Supple. No JVD. LUNGS: Have a fair airflow with few rhonchi. HEART: S1 and S2. ABDOMEN: Positive bowel sounds, mild tenderness. EXTREMITIES: There is no edema. NEUROLOGIC: Awake, alert, and follows simple command. MEDICATIONS: He is on Apresoline 10 mg q. 6 hours p.r.n., Dilaudid 1 mg q. 4 hours p.r.n., Ecotrin 81 mg daily, heparin 5000 units subQ q. 12 hours, metoprolol tartrate 12.5 mg, Norvasc 10 mg daily, Plavix 75 mg daily, Protonix 40 mg daily, IV fluid normal saline 75 mL per hour, Zofran on a p.r.n. b asis. LABORATORY DATA: Shows hemoglobin 10.5, hematocrit 31.0, WBC 6.4, platelet is 167. Sodium 140, pota ssium 3.2, chloride 104, bicarbonate 29, BUN is 9, creatinine 0.8, glucose is 88, calcium is 8.6, lucila sphorus is 2.5, magnesium 2.0. AST 29, ALT 34, alkaline phosphatase is 68, albumin is 3.3. IMPRESSION AND PLAN: Status post laparoscopic left hemicolectomy with mobilization of the splenic fr acture, coronary artery disease, history of coronary stent, sleep apnea. Pulmonary point of view, do ing okay. Continue pain management, IV fluid. Gastric prophylaxis, deep vein thrombosis prophylaxis . Surgical followup. Out of bed to chair. Physical therapy. Once bed available may benefit to go to [facility] for continued therapy. Thank you and will follow with you. Tyree Duque MD cc: [id number] TT: 03/20/2017 18:25:07 Confirmation # [id number] Dictation # [id number] jn
[2017-03-20] MEDS ORDERED: HYDROmorphone 1 mg/ml ISec IVP PRN (21:49)
--- NOTE | 2017-03-20 22:16 | PN ---
DATE: 03/20/2017 SUBJECTIVE: The patient was seen and examined on the bedside, looks comfortable. No nausea, vomiting, or diarrhea. No hematuria or hematochezia. No swelling of the leg. No chest pain, no palpitations. No headache or dizziness. PHYSICAL EXAMINATION: VITAL SIGNS: Temperature 98, heart rate 71, respirations 20, blood pressure 147 /78. HEENT: Head normocephalic, atraumatic. Eyes PERRLA. Extraocular muscles intact. Conjunctivae are clear. Nose patent. Mucous membranes moist. NECK: Supple. No carotid bruit, JVD or thyromegaly. CHEST: Bilaterally symmetrical. HEART: S1, S2 positive. LUNGS: Has a fair airflow with a few rhonchi. ABDOMEN: Positive bowel sounds, mild tenderness at the surgical site. EXTREMITIES: No edema, no cyanosis. NEUROLOGIC: Awake, alert, follows simple commands. MEDICATIONS: Dilaudid, Ecotrin, heparin, metoprolol, Norvasc, Plavix, Protonix , and IV fluid. LABORATORY DATA: Hemoglobin 10.5, hematocrit 31.0, white blood cells 6.4, and platelets 164. Sodium 140, potassium 3.2, BUN 9, creatinine 0.8, glucose 88, AST 29, ALT 34. ASSESSMENT AND PLAN: The patient is an 87-year-old male status post laparoscopic left hemicolectomy with mobilization of the splenic flexure, coronary artery disease, history of coronary artery stenting, sleep apnea. Is getting IV fluid, gastric prophylaxis, deep venous thrombosis prophylaxis. Surgical followup. Out of bed with physical therapy. Try to transfer the patient to TCU. Repeat labs. Will followup. Rosita Zavala MD cc: [id number] TT: 03/20/2017 22:15:54 Confirmation # [id number] Dictation # [id number] MTDD
[2017-03-21] MEDS: Sodium Chloride 0.9% 1,000 ML IV SCH ×2 (07:52→07:53)
[2017-03-21 08:22] LABS: ALB/GLOB RATIO 1.1 (1.1-1.8); ALKALINE PHOSPHATASE 73 U/L (38-133); ALT/SGPT 39 U/L (7-56); AST/SGOT 42 U/L (15-59); BILIRUBIN,TOTAL 0.7 mg/dL (0.2-1.3); BLOOD UREA NITROGEN 6 mg/dL (7-21); CALCIUM 8.6 mg/dL (8.4-10.5); CARBON DIOXIDE 26 mmol/L (21-33); CHLORIDE 105 mmol/L (98-107); GFR AFRICAN-AMERICAN > 60; GLUCOSE,RANDOM 100 mg/dL (70-110); POTASSIUM 3.1 mmol/L (3.6-5.0); SODIUM 139 mmol/L (132-148); TOTAL PROTEIN 6.3 g/dL (5.8-8.3)
--- NOTE | 2017-03-21 08:58 | PN ---
DATE: 03/20/2017 SUBJECTIVE: This patient was seen and evaluated earlier today. The patient is comfortable, tolerating the diet. PHYSICAL EXAMINATION: VITAL SIGNS: Temperature 98, pulse 71, blood pressure 129/81. HEENT: Atraumatic, anicteric. NECK: Supple. HEART: S1, S2 heard. LUNGS: Bilateral air entry present. ABDOMEN: Soft. EXTREMITIES: No cyanosis, no clubbing. LABORATORY DATA: Hemoglobin 10.5, hematocrit 31, WBC 6.4, platelets 167, BUN 9 , creatinine is 0.8. 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 Plavix was on hold before preoperatively. It has been restarted now. Continue to closely follow up the hemoglobin and hematocrit. Thank you very much for allowing us to participate in the care of the patient. Lesly Baig MD cc: [id number] TT: 03/21/2017 08:58:06 Confirmation # [id number] Dictation # [id number] jn MTDD
[2017-03-21] MEDS: Potassium Chloride 20 mEq ER Tab PO SCH (10:10)
[2017-03-21] MEDS ORDERED: Potassium Chloride 20 mEq ER Tab PO ONE ×2 (11:30→17:00)
--- NOTE | 2017-03-21 12:13 | PN ---
DATE: 03/21/2017 REASON FOR CONSULTATION AND FOLLOWUP: Coronary artery disease status post recent PTCA, colonic mass, left hemicolectomy, end-to-end anastomosis. BRIEF CLINICAL HISTORY: An 87-year-old male with past medical history significant for coronary arter y disease status post PTCA recently in 12/2016 admitted with abdominal and gastrointestinal bleed, fou nd to have mass, is status post hemicolectomy, and status post end-to-end anastomosis. Denies any ch est pain, shortness of breath, off Plavix for surgery, now restarted. PHYSICAL EXAMINATION: VITAL SIGNS: Temperature afebrile, heart rate 7____, blood pressure 138/78. HEENT: PERRLA. Extraocular muscles intact. NECK: Supple. No carotid bruits. No thyromegaly. CHEST: Clear to auscultation. HEART: S1, S2 regular. ABDOMEN: Soft. EXTREMITIES: Clubbing and cyanosis negative. LABORATORY DATA: Blood workup as follows: WBC 6.____, hemoglobin 10.5, hematocrit 31.0, platelet co unt 167. Chemistry shows sodium 139, potassium 3.1, chloride 105, carbon dioxide 26, anion gap of 11 , BUN 6, creatinine 0.7. IMPRESSION: Colonic mass status post resection, left hemicolectomy, status post end-to-end anastomos is, coronary artery disease status post percutaneous transluminal coronary angioplasty with a drug-el uting stent recently, hypokalemia. RECOMMENDATION: Increase ____ support as tolerated. Supplement potassium aggressively. Continue DV T prophylaxis. Started Plavix yesterday. We will continue aspirin. Continue metoprolol. We will f ollow with you. Thank you, Dr. Zavala, for providing me the opportunity in taking care of the patient. Tyree Dale MD cc: [id number] TT: 03/21/2017 12:12:20 Confirmation # [id number] Dictation # [id number] gali
--- NOTE | 2017-03-21 13:23 | CP.PCM.PN ---
<Jannie Rice - Last Filed: 03/21/17 13:19> Subjective - Date & Time of Evaluation Date of Evaluation: 03/21/17 Time of Evaluation: 13:20 - Subjective Subjective: Surgery for Dr. Hernandez Pt leeory&tracie MORENO. Reports having BM. Tolerating diet. Denies F/C/N/V/CP/SOB. AMbulating. + void. pain controlled. On Q pump DCed this AM. Objective - Vital Signs/Intake and Output Vital Signs (last 24 hours): Temp Pulse Resp BP Pulse Ox 98 F 70 18 148/81 98 03/21/17 11:18 03/21/17 11:18 03/21/17 11:18 03/21/17 11:18 03/21/17 06:00 Intake and Output: 03/21/17 03/21/17 06:59 18:59 Intake Total 3268 Output Total 4515 Balance -1247 - Medications Medications: Current Medications Amlodipine Besylate (Norvasc) 10 mg PO DAILY [facility] Last Admin: 03/21/17 10:10 Dose: 10 mg Aspirin (Ecotrin) 81 mg PO DAILY [facility] Last Admin: 03/21/17 10:11 Dose: 81 mg Clopidogrel Bisulfate (Plavix) 75 mg PO DAILY [facility] Last Admin: 03/21/17 10:10 Dose: 75 mg Heparin Sodium (Porcine) (Heparin) 5,000 units SC Q12 [facility] PRN Reason: Protocol Last Admin: 03/21/17 10:10 Dose: 5,000 units Hydralazine HCl (Apresoline) 10 mg IVP Q6 PRN PRN Reason: FOR SBP>170 and Diastolic>100 Hydromorphone HCl (Dilaudid) 0.5 mg IVP Q6H PRN PRN Reason: Pain, moderate (4-7) Metoprolol Tartrate (Lopressor) 12.5 mg PO BID [facility] Last Admin: 03/21/17 10:11 Dose: 12.5 mg Pantoprazole Sodium (Protonix Inj) 40 mg IVP DAILY [facility] Last Admin: 03/21/17 10:10 Dose: 40 mg Potassium Chloride (K-Dur 20 Meq Er Tab) 20 meq PO DAILY [facility] Last Admin: 03/21/17 10:10 Dose: 20 meq Potassium Chloride (K-Dur 20 Meq Er Tab) 40 meq PO ONCE ONE Stop: 05/28/17 17:01 - Labs Labs: 03/20/17 07:35 03/21/17 07:30 PT 11.7 Seconds (9.9-11.8) 03/17/17 07:00 INR 1.08 (0.93-1.08) 03/17/17 07:00 APTT 25.7 Seconds (23.7-30.8) 03/17/17 07:00 - Constitutional Appears: No Acute Distress - Head Exam Head Exam: ATRAUMATIC, NORMAL INSPECTION, NORMOCEPHALIC - Eye Exam Eye Exam: EOMI, Normal appearance, PERRL Pupil Exam: NORMAL ACCOMODATION, PERRL - ENT Exam ENT Exam: Mucous Membranes Moist, Normal Exam - Neck Exam Neck Exam: Full ROM, Normal Inspection. absent: Lymphadenopathy - Respiratory Exam Respiratory Exam: Clear to Ausculation Bilateral, NORMAL BREATHING PATTERN - Cardiovascular Exam Cardiovascular Exam: REGULAR RHYTHM, +S1, +S2. absent: Murmur - GI/Abdominal Exam GI & Abdominal Exam: Soft, Normal Bowel Sounds. absent: Distended, Firm, Guarding, Rigid, Tenderness, Rebound Additional comments: Incision C/D/I. [place] in place. - Exam Exam: NORMAL INSPECTION - Extremities Exam Extremities Exam: Full ROM, Normal Capillary Refill, Normal Inspection. absent : Joint Swelling, Pedal Edema - Back Exam Back Exam: NORMAL INSPECTION - Neurological Exam Neurological Exam: Alert, Awake, CN II-XII Intact, Normal Gait, Oriented x3 - Psychiatric Exam Psychiatric exam: Normal Affect, Normal Mood - Skin Skin Exam: Dry, Intact, Normal Color, Warm Assessment and Plan - Assessment and Plan (Free Text) Assessment: 87M POD#4 laparoscopic left yarelis-colectomy Plan: HHD. BM + cont incentive spirometer physical therapy Cont ASA, Plavix, PO BP meds OK to DC in surgical standpoint will d/w Dr Diego <Wesley Diego - Last Filed: 03/29/17 00:14> Objective - Vital Signs/Intake and Output Vital Signs (last 24 hours): Temp Pulse Resp BP Pulse Ox 96.3 F L 77 17 137/86 95 03/22/17 17:10 03/22/17 17:10 03/22/17 17:10 03/22/17 17:10 03/22/17 17:10 - Labs Labs: 03/22/17 06:00 03/22/17 06:00 PT 11.7 Seconds (9.9-11.8) 03/17/17 07:00 INR 1.08 (0.93-1.08) 03/17/17 07:00 APTT 25.7 Seconds (23.7-30.8) 03/17/17 07:00 Assessment and Plan - Assessment and Plan (Free Text) Assessment: Patient was seen and examined by me. I agree with assessment and plan as per resident's note.
--- NOTE | 2017-03-21 17:32 | PN ---
DATE: 03/21/2017 REFERRING PHYSICIAN: Dr. Zavala. SUBJECTIVE: He is lying in the bed, head at 45 degree. No headache, no rhinitis. Improving slowly appetite. Abdominal pain is better. Colostomy bag working well. No leg pain or leg swelling. OBJECTIVE: GENERAL: In no acute distress. VITAL SIGNS: Temperature is 98, heart rate is 72, respiratory rate is 18, blood pressure 148/81, pul se ox 98% on room air. HEENT: Moist mucous membranes. Crowded airway. Mallampati score is 4. NECK: Supple. No JVD. LUNGS: Has a fair airflow with a few rhonchi. HEART: S1 and S2. ABDOMEN: Positive bowel sounds. The suture site line looks okay. Colostomy bag draining well. EXTREMITIES: There is no edema. NEUROLOGIC: Awake, alert, follows simple commands. MEDICATIONS: He is on hydralazine 10 mg q.6 hours, Dilaudid 0.5 mg q.6 hours p.r.n., Ecotrin 81 mg d aily, heparin 5000 units SubQ.12 hours, potassium 20 mEq daily, metoprolol tartrate 25 mg twice daily , Norvasc 10 mg daily, Plavix 75 mg daily, Protonix 40 mg IV daily. LABORATORY DATA: Reviewed and noted. Sodium 139, potassium 3.1, chloride 105, bicarbonate 26, BUN 6 , creatinine 0.7, glucose 100, calcium is 8.6, AST 22, ALT 39, alkaline phosphatase is 73, albumin is 3.3. IMPRESSION AND PLAN: Status post laparoscopic left hemicolectomy, coronary artery disease, history o f coronary stent, may have sleep apnea syndrome, activities of daily living dysfunction. Already sta rted on Plavix. Gastric prophylaxis and deep venous thrombosis prophylaxis. Out of bed to chair. S tart physical therapy. May benefit from TRCU type services. Thank you and will follow with you. Tyree Duque MD cc: [id number] TT: 03/21/2017 17:31:50 Confirmation # [id number] Dictation # [id number] dn
--- NOTE | 2017-03-21 21:05 | PN ---
DATE: 03/21/2017 The patient was seen and examined at the bedside, looks a little bit better, but still having abdominal pain and dressing is out. Colostomy bag working well. No swelling of the legs. Improving slowly. Appetite is coming back. No fever, no chills. PHYSICAL EXAMINATION: VITAL SIGNS: Temperature 98, heart rate 72, respiratory rate 18, blood pressure 140/81, and pulse oximeter 98% on room air. HEENT: Head normocephalic, atraumatic. Nose patent. Mucous membranes moist. NECK: Supple. No carotid bruit, JVD or thyromegaly. CHEST: Bilaterally symmetrical. HEART: S1, S2 positive. LUNGS: Clear to auscultation. ABDOMEN: Soft. Bowel sounds present. No organomegaly. EXTREMITIES: No edema, no cyanosis. NEUROLOGIC: The patient is awake, alert, moving all 4 extremities. No focal deficits. MEDICATIONS: Hydralazine, DuoNeb, Ecotrin, heparin, Protonix, metoprolol, Norvasc, Plavix, Protonix. LABORATORY DATA: Sodium 139, potassium 3.1, chloride 105, BUN 6, creatinine 0.7 , glucose 100. AST 22, ALT 39. ASSESSMENT AND PLAN: The patient is an 87-year-old male with multiple medical problems, history of coronary artery disease with a cardiac stenting, status post laparoscopic left hemicolectomy, sleep apnea syndrome, he is not able to do that. The patient is getting Plavix. Gastric prophylaxis. Gastrointestinal and deep venous thrombosis prophylaxis. Will repeat labs and will followup. Rosita Zavala MD cc: [id number] TT: 03/21/2017 21:04:05 Confirmation # [id number] Dictation # [id number] [email or web address] BARRIENTOS
--- NOTE | 2017-03-22 07:22 | CP.PCM.PN ---
Addendum entered and electronically signed by Jannie Rice DO 03/22/17 07:43: OK to DC home for surgical standpoint w Toradol 10mg q6hr PRN #15 tabs. Will DC BERNARDA today and pain wound with betadine. F/U with Dr. Mckeon in [address] Diego Original Note: <Jannie Rice - Last Filed: 03/22/17 07:18> Subjective - Date & Time of Evaluation Date of Evaluation: 03/22/17 Time of Evaluation: 07:19 - Subjective Subjective: Surgery for Dr. Diego Pt s&e. NAEON. Tolerating diet. Having reg BM. +void. +amb. Reports pain on the incisions and feels tired. Denies F/C/N/V/CP/SOB Objective - Vital Signs/Intake and Output Vital Signs (last 24 hours): Temp Pulse Resp BP Pulse Ox 98.3 F 63 19 163/96 H 96 03/22/17 06:00 03/22/17 06:00 03/22/17 06:00 03/22/17 06:00 03/22/17 06:00 Intake and Output: 03/22/17 03/22/17 06:59 18:59 Intake Total 300 Output Total 1450 Balance -1150 - Medications Medications: Current Medications Amlodipine Besylate (Norvasc) 10 mg PO DAILY [facility] Last Admin: 03/21/17 10:10 Dose: 10 mg Aspirin (Ecotrin) 81 mg PO DAILY [facility] Last Admin: 03/21/17 10:11 Dose: 81 mg Clopidogrel Bisulfate (Plavix) 75 mg PO DAILY [facility] Last Admin: 03/21/17 10:10 Dose: 75 mg Heparin Sodium (Porcine) (Heparin) 5,000 units SC Q12 [facility] PRN Reason: Protocol Last Admin: 03/22/17 06:17 Dose: Not Given Hydralazine HCl (Apresoline) 10 mg IVP Q6 PRN PRN Reason: FOR SBP>170 and Diastolic>100 Hydromorphone HCl (Dilaudid) 0.5 mg IVP Q6H PRN PRN Reason: Pain, moderate (4-7) Metoprolol Tartrate (Lopressor) 12.5 mg PO BID [facility] Last Admin: 03/21/17 17:21 Dose: 12.5 mg Pantoprazole Sodium (Protonix Inj) 40 mg IVP DAILY [facility] Last Admin: 03/21/17 10:10 Dose: 40 mg Potassium Chloride (K-Dur 20 Meq Er Tab) 20 meq PO DAILY [facility] Last Admin: 03/21/17 10:10 Dose: 20 meq - Labs Labs: 03/20/17 07:35 03/21/17 07:30 PT 11.7 Seconds (9.9-11.8) 03/17/17 07:00 INR 1.08 (0.93-1.08) 03/17/17 07:00 APTT 25.7 Seconds (23.7-30.8) 03/17/17 07:00 - Constitutional Appears: No Acute Distress - Head Exam Head Exam: ATRAUMATIC, NORMAL INSPECTION, NORMOCEPHALIC - Eye Exam Eye Exam: EOMI, Normal appearance, PERRL Pupil Exam: NORMAL ACCOMODATION, PERRL - ENT Exam ENT Exam: Mucous Membranes Moist, Normal Exam - Neck Exam Neck Exam: Full ROM, Normal Inspection. absent: Lymphadenopathy - Respiratory Exam Respiratory Exam: Clear to Ausculation Bilateral, NORMAL BREATHING PATTERN - Cardiovascular Exam Cardiovascular Exam: REGULAR RHYTHM, +S1, +S2. absent: Murmur - GI/Abdominal Exam GI & Abdominal Exam: Soft, Tenderness, Normal Bowel Sounds. absent: Distended, Firm, Guarding, Rigid, Rebound Additional comments: Incision javon. C/D/I. TTP - Exam Exam: NORMAL INSPECTION - Extremities Exam Extremities Exam: Full ROM, Normal Capillary Refill, Normal Inspection. absent : Joint Swelling, Pedal Edema - Back Exam Back Exam: NORMAL INSPECTION - Neurological Exam Neurological Exam: Alert, Awake, CN II-XII Intact, Normal Gait, Oriented x3 - Psychiatric Exam Psychiatric exam: Normal Affect, Normal Mood - Skin Skin Exam: Dry, Intact, Normal Color, Warm Assessment and Plan - Assessment and Plan (Free Text) Assessment: 87M POD#5 laparoscopic left yarelis-colectomy Plan: HHD. BM + cont incentive spirometer physical therapy Cont ASA, Plavix, PO BP meds OK to DC in surgical standpoint. TCU eval pending. will d/w Dr Diego <Wesley Diego - Last Filed: 03/29/17 00:14> Objective - Vital Signs/Intake and Output Vital Signs (last 24 hours): Temp Pulse Resp BP Pulse Ox 96.3 F L 77 17 137/86 95 03/22/17 17:10 03/22/17 17:10 03/22/17 17:10 03/22/17 17:10 03/22/17 17:10 - Labs Labs: 03/22/17 06:00 03/22/17 06:00 PT 11.7 Seconds (9.9-11.8) 03/17/17 07:00 INR 1.08 (0.93-1.08) 03/17/17 07:00 APTT 25.7 Seconds (23.7-30.8) 03/17/17 07:00 Assessment and Plan - Assessment and Plan (Free Text) Assessment: Patient was seen and examined by me. I agree with assessment and plan as per resident's note.
[2017-03-22 07:38] LABS: ADD MANUAL DIFF? NO
[2017-03-22 07:42] LABS: BASO # 0.01 K/mm3 (0.0-2.0); BASO % 0.2 % (0.0-3.0); EOS # 0.2 (0.0-0.7); EOS % 2.7 % (1.5-5.0); GRAN # 3.64 (1.4-6.5); GRAN % 65.2 % (50.0-68.0); HEMATOCRIT 33.6 % (42.0-52.0); LYMPH # 0.9 (1.2-3.4); LYMPH % 16.7 % (22.0-35.0); MEAN CELL VOLUME 85.5 fL (80.0-105.0); MEAN CORPUSCULAR HEMOGLOBIN 28.5 pg (25.0-35.0); MEAN CORPUSCULAR HGB CONC 33.3 g/dl (31.0-37.0); MEAN PLATELET VOLUME 9.2 fl (7.0-11.0); MONO # 0.9 (0.1-0.6); MONO % 15.2 % (1.0-6.0); PLATELET COUNT 192 10^3/uL (120.0-450.0); RED CELL DISTRIBUTION WIDTH 13.8 % (11.5-14.5); WHITE BLOOD COUNT 5.6 10^3/ul (4.5-11.0)
[2017-03-22 08:04] LABS: BLOOD UREA NITROGEN 10 mg/dL (7-21); CALCIUM 9.4 mg/dL (8.4-10.5); CARBON DIOXIDE 29 mmol/L (21-33); CHLORIDE 105 mmol/L (98-107); GFR AFRICAN-AMERICAN > 60; GLUCOSE,RANDOM 107 mg/dL (70-110); PHOSPHOROUS 4.1 mg/dL (2.5-4.5); POTASSIUM 4.1 mmol/L (3.6-5.0); SODIUM 141 mmol/L (132-148)
[2017-03-22] MEDS: Potassium Chloride 20 mEq ER Tab PO SCH (09:41)
[2017-03-22 17:11] VITALS: BP 137/86; PULSE 77; RESP 17; TEMP 96.3; O2SAT 95
--- NOTE | 2017-03-22 17:57 | PN ---
DATE: 03/22/2017 REASON FOR CONSULTATION AND FOLLOWUP: Coronary artery disease, status post recent PTCA, colonic mas s, left hemicolectomy, end-to-end anastomosis. BRIEF CLINICAL HISTORY: An 87-year-old male with a past medical history significant for coronary art leonidas disease status post PTCA recently, in 12/2016, admitted with abdominal pain, gastrointestinal ble ed, found to have a mass in the colon, status post right hemicolectomy, status post end-to-end anasto mosis. Denies any chest pain, shortness of breath. Talked to the surgical coder; the patient is cleared from their point of view. PHYSICAL EXAMINATION: VITAL SIGNS: Temperature afebrile, heart rate 71, blood pressure 121/81. HEENT: PERRLA. Extraocular muscles intact. NECK: Supple. No carotid bruit or thyromegaly. CHEST: Clear to auscultation. HEART: S1, S2 regular. ABDOMEN: Soft. EXTREMITIES: Clubbing and cyanosis negative. BLOOD WORKUP: As follows: WBC 5.6, hemoglobin 11, hematocrit 33.6, platelet count 192. Chemistry s hows sodium 141, potassium 4.____, chloride 105, carbon dioxide 29, anion gap of 11, BUN 10, creatini ne 0.8. IMPRESSION: Colonic mass, status post resection, left hemicolectomy, status post end-to-end anastomo sis, coronary artery disease, status post percutaneous transluminal angioplasty with drug-eluting genie nt recently, hypokalemia. RECOMMENDATIONS: started aspirin, Plavix. Ambulate. Transferred to transitional care unit. Contin ue metoprolol. Discussed with the surgical coder. Discussed with the nurse taking care. Continu e DVT prophylaxis. Continue to supplement potassium as needed. Will follow with you. Thank you, Dr. Zavala, for providing the opportunity in taking care of the patient. Tyree Dale MD cc: [id number] TT: 03/22/2017 17:56:55 Confirmation # [id number] Dictation # [id number] farhana
--- NOTE | 2017-03-22 20:32 | PN ---
DATE: 03/22/2017 REFERRING PHYSICIAN: Dr. Zavala. SUBJECTIVE: He is lying in the bed, head at 45 degrees, friend is at bedside. No headache, no rhini tis, no chest pain. No nausea, has abdominal pain. No leg pain or leg swelling. Has difficulty amb ulating. OBJECTIVE: GENERAL: In no acute distress. VITAL SIGNS: Temp is 98, heart rate is 77, respiratory rate is 20, blood pressure 137/86, pulse ox 9 5% on room air. HEENT: Moist mucous membranes. Crowded airway. NECK: Supple. No JVD. LUNGS: Has fair airflow with rhonchi. HEART: S1 and S2. ABDOMEN: Soft, suture line looks okay. Mild tenderness. EXTREMITIES: There is no edema. NEUROLOGIC: Awake, alert, follows simple commands. MEDICATIONS: Reviewed. LABORATORY DATA: Shows hemoglobin 11.2, hematocrit 33.6, WBC 5.6, platelet is 192. Sodium 141, pota ssium 4.1, chloride 105, bicarbonate 29, BUN 10, creatinine 0.8, glucose 107, calcium is 9.4, phospho angela 4.1, magnesium is 2.1. IMPRESSION AND PLAN: Status post laparoscopic left hemicolectomy, coronary artery disease, history o f coronary stent, sleep apnea syndrome, activities of daily living dysfunction. The patient lives al one. Has stairs to go up to the house which he cannot practically do, needs rehab. Good idea to tr lyudmila to [facility] for continued care. Fall precautions. Sleep apnea precaution. Gastric prophylaxis. DVT prophylaxis. Thank you and will follow with you. Tyree Duque MD cc: [id number] TT: 03/22/2017 20:32:05 Confirmation # [id number] Dictation # [id number] mn
--- NOTE | 2017-03-23 08:23 | PN ---
DATE: 03/19/2017 REASON FOR CONSULTATION AND FOLLOWUP: Coronary artery disease, status post recent PTCA, acute abdome n, colonic mass, status post hemicolectomy and end-to-end anastomosis. BRIEF CLINICAL HISTORY: This is an 87-year-old male with a past medical history significant for sky nary artery disease, status post percutaneous transluminal coronary angioplasty with a drug-eluting s tent 12/2016, admitted with abdominal pain, GI bleed and obstruction. Underwent left hemicolect som and end-to-end anastomosis. He is complaining of abdominal pain ; otherwise feels okay. De nies any chest pain. PHYSICAL EXAMINATION: VITAL SIGNS: Temperature afebrile, heart rate 74, blood pressure 134/89. HEENT: PERRLA. Extraocular muscles intact. NECK: Supple. No carotid bruits. No thyromegaly. CHEST: Clear to auscultation. HEART: S1, S2 regular. ABDOMEN: Soft. EXTREMITIES: Clubbing and cyanosis negative. LABORATORY DATA: Blood workup as follows: WBC 8, hemoglobin 10, hematocrit 30.9, platelet count 165 . Chemistry shows sodium 130, potassium 3.3, chloride 103, carbon dioxide 27, anion gap of 9, BUN 9, creatinine 0.8. IMPRESSION: Hypokalemia, status post left hemicolectomy with end-to-end anastomosis, history of sky nary artery disease, status post drug-eluting stent on 12/2016. PLAN: Will consider restarting Plavix when okay from the surgical point of view, 24 hours 100 mL were drained. I would now continue baby aspirin. Will supplement potassium and keep his potassiu m around 6. If it is okay will start Plavix from tomorrow. Discuss with the instructor adjunct surgical technician. I w ill repeat the blood workup in the morning. I will give 20 mEq of KCl and keep potassium around 4. Thank you, Dr. Zavala, for providing me the opportunity in taking care of the patient. Tyree Dale MD cc: [id number] TT: 03/19/2017 18:32:36 Confirmation # [id number] Dictation # [id number] dn
--- NOTE | 2017-03-23 13:45 | OP ---
PROCEDURE DATE: 03/17/2017 PREOPERATIVE DIAGNOSIS: Partially obstructing sigmoid colon lesion. POSTOPERATIVE DIAGNOSIS: Partially obstructing sigmoid colon lesion. PROCEDURES PERFORMED: 1. Laparoscopic hand-assisted low anterior resection of the rectosigmoid. 2. Splenic flexure mobilization. SURGEON: Dr. Diego DIESEL ELECTRICIAN: Dr. Silveira and Nurse VICTOR M Lees ANESTHESIOLOGIST: Dr. Beckford ANESTHESIA: General endotracheal anesthesia. ESTIMATED BLOOD LOSS: 50 mL. SPECIMEN: Rectosigmoid. INDICATION: The patient is an 87-year-old male with a history of a rectal lesion which was very tigh t and patient was unable to have a full colonoscopy. This was suspected to be a cancer. However, du e to the fact that the patient had a recent heart attack and drug-eluting stents placed, the patient' s surgery was slightly delayed to at least 2-1/2 months since the episode. Now, with a full consent and explanation from the cardiology of the risks involved, the patient was brought in for resection o f the lesion in order to prevent him from possible full obstruction. This is also suspected to be ca ncerous and therefore, a cancer operation was performed. The patient was brought to the operating room and placed on the operating table in a supine position. The patient was connected to EKG, blood pressure and pulse oximeter monitors. The patient then und erwent general endotracheal anesthesia, was prepped and draped in usual sterile fashion. A Rose cat heter was placed. First, a standard timeout procedure took place and everybody in the room agreed as to the patient's i dentity, diagnosis and procedure to be performed. Tahira Lees, who is a VICTOR M, was the commercial real estate assistant for this procedure and was involved in the entire aspect of this procedure, starting from the abdominal wall incision through the laparoscopic p art of the procedure and then through the closure of all the wounds. First, using 2 towel clips, the anterior abdominal wall was elevated and a small incision was made ford perior to the umbilicus for placement of the 12 mm trocar for insertion of the scope. Once this was done, careful evaluation of the abdominal cavity revealed the presence of a thickened wall distal sig moid with some adhesions of the sigmoid colon to the lateral wall. There was also mild distention of the cecum. The visible portion of the remaining bowel, including small bowel, appeared to be normal . There were no abnormal lesions on the liver noted. At this point, I proceeded with placing a seco nd 12 mm trocar in the right lower quadrant and a 5 mm trocar in the right upper quadrant. A careful dissection started after patient was placed in the Trendelenburg position with exposure of the infer ior mesenteric artery and careful dissection around it and all the lymph nodes adjacent to it were th en carefully swept towards the specimen. The artery itself was then carefully dissected slightly fur ther up until the left colic artery was identified and the inferior mesenteric artery was then transe cted using Harmonic scalpel. The transection took place just past the takeoff of the left colic radhika ry. The mesenteric vein was also transected out of that spot using electrocautery. Once this was do ne, I then proceeded with further dissection of the sigmoid colon mesentery all the way down into pel vis where the retrorectal space was carefully mobilized and entered. The ureters were identified on both sides and once the rectum was mobilized at least to the mid portion of it, I then proceeded with transection of the mesentery on the left side of the sigmoid colon to the level of about distal desc ending colon. Once this portion of the specimen was completely freed up, I then carefully brought do wn the distal descending colon and it appeared that there was length required in order to bring it fu lly down into the pelvis and creat anastomosis without tension. At this point, I then proceeded with dissection of the lateral aspect of the descending colon and mobilized along the line of Toldt with mobilization of the splenic flexure. In order to accomplish that, a second 5 mm trocar was inserted in the left lower quadrant. Now, the dissection took place all the way up the descending colon and t he splenic flexure was mobilized. At this point, I noted that there was adequate length of the speci men for the creation of anastomosis. I then proceeded with making an opening for the hand assist tessa stomosis creation and then brought out the specimen through the wound protector. The curved DANIELE stap ler was placed and the rectum was carefully elevated and transected using the stapler, about 5 cm pas t the palpable tumor. Once this was done, the specimen was brought out through that wound protector and the proximal sigmoid colon was then marked and the automatic suture device for anastomosis creati on with the EA stapler was applied to it. The specimen was then excised together with the excess sig moid colon, measuring about 15 cm proximal to the wound. All the lymph nodes at the mesentery of romario t portion of the colon were included with the specimen. Now, the distal descending colon was measure d with sizers up to 33 mm and a 33 sizer EA stapler was used. The anvil was placed into the distal d escending colon and the suture was ligated around the stalk of the anvil in order to create tight sea l. Once this was done, I then proceeded with placing the EA stapler through the rectum into the mid proximal rectum stump. I then carefully brought out the spike through the wall of the rectum. Then, the anvil was attached to the EA stapler. The stapler was closed and fired and the anvil together w ith the stapler device were removed. The anastomosis appeared to be without any tension. An air aury t was done on it and it appeared to be airtight. An extra couple of stitches of 3-0 silk for reinfor cement were placed on the anastomosis. The wound was then copiously irrigated. All the irrigant flu id was suctioned out. The abdominal wound was then closed using #1 PDS in a running fashion. Once t his was tested, all the irrigant fluid was suctioned out. A Gabriel drain was inserted and brought out through the left lower quadrant and placed around the anastomosis site and along the left pericolic gutter. This was all done prior to the closure of the wounds. The laparoscopy port wounds were also closed using 0 Vicryl for the fascia, 3-0 Vicryl for subcutaneus tissue and 4-0 Monocryl for skin. On-Q pump for the pain control was also placed prior to the closure. Now, a sterile dressing was ti lied to all the wounds. The patient tolerated the procedure well and there were no complications. T he patient was awakened and transferred to the recovery room for further observation. Wesley Diego MD cc: [id number] TT: 03/23/2017 13:44:36 en
--- NOTE | 2017-03-25 08:39 | DS ---
CHIEF COMPLAINT: Abdominal discomfort. HISTORY OF PRESENT ILLNESS: The patient is an 87-year-old male with past medical history of coronary artery disease with stents, came to the Emergency Room Department complaining of abdominal discomfort for 4 days. The patient states that he has not had bowel movement for 4 days. Caregiver states that patient had magnesium citrate at home with no significant relief. The patient denies any chest pain, shortness of breath, nausea or vomiting. No back pain. No headache, no dizziness. We admitted the patient, did CAT scan of the abdomen and pelvis, seen by surgeon, Dr. Diego, and GI. Plan was to go for surgery as the patient had small bowel obstruction. Dr. Duque and Dr. Sanchez consults called for cardiac clearance and pulmonary credence. The patient was prepared for surgery, seen by Dr. Baig and Dr. Diego. Finally, he went for surgery. Hemicolectomy, end-to-end anastomosis was done. The patient tolerated the procedure very well, improved, started food. No nausea, vomiting, or diarrhea. No hematuria or hematochezia. The patient lives alone, is not able to do his ADLs. Transferred to TCU for deconditioning , further treatment. Just came to know recently that the patient has adenocarcinoma. Oncology consult called in TCU and the patient will get physical therapy there, transferred there for continuity of care. PAST MEDICAL HISTORY: Coronary artery disease, cardiac stent on 01/21/17. FAMILY HISTORY: Father and mother noncontributory. HABITS: Alcohol occasionally. Substance abuse no. Smoking no. ALLERGIES: The patient is not allergic with any medications. HOME MEDICATIONS: Aspirin, Zetia, metoprolol, nitroglycerin, Crestor, triamcinolone and amlodipine. REVIEW OF SYSTEMS: The patient is seen and examined on the bedside on 03/22. Looks comfortable. No nausea, vomiting, or diarrhea. No hematuria or hematochezia. No swelling of the leg. No chest pain, no palpitation, no headache, no dizziness. Still having abdominal pain. BERNARDA is removed by Dr. Diego's team. No dyspnea. Has difficulty in ambulating, is not able to do his ADLs. PHYSICAL EXAMINATION: VITAL SIGNS: Temperature 98, heart rate 77, respiratory rate 20, blood pressure 137/86, pulse oximetry 95% on room air. HEENT: Head normocephalic, atraumatic. Eyes: PERRLA. Extraocular muscles intact. Conjunctivae clear. Nose patent. Mucous membranes moist. NECK: Supple. No carotid bruit, JVD or thyromegaly. CHEST: Bilaterally symmetrical. HEART: S1, S2 positive. LUNGS: Clear to auscultation. ABDOMEN: Soft. Bowel sounds positive. No organomegaly. Abdomen is turning sander tender on palpation. EXTREMITIES: No edema, no cyanosis. NEUROLOGIC: The patient is awake, alert, moving all 4 extremities. No focal deficit. LABORATORY DATA: Hemoglobin 11.2, hematocrit 33.3, white blood cells 5.6, platelets 196. Sodium 141, potassium 4.1, BUN 10, creatinine 0.8, magnesium 2.1. ASSESSMENT AND PLAN: The patient is an 87-year-old male status post laparoscopic left hemicolectomy, coronary artery disease, history of coronary artery stent, sleep apnea syndrome, activities of daily living dysfunction, has end-to-end anastomosis. The patient lives alone. He has stairs to go up in house which he cannot do, needs rehab. was suggested by chicken sexer and the surgical team, so we transferred the patient to TCU. Sleep apnea precautions. Gastric prophylaxis and deep venous thrombosis prophylaxis. We will continue hydralazine, DuoNeb, heparin, Protonix, metoprolol, Norvasc, Plavix restarted and Protonix. We will continue treatment there. Today, I came to know patient has adenocarcinoma of the colon and I called oncology consult. Rosita Zavala MD cc: [id number] TT: 03/25/2017 08:38:09 tn MTDD
== END 2017-03-22 17:39 | DRG 330 ==
LOC: ED 02:56 → ERH 05:00 → 3RNO 06:41 → 2RSO 03-17 15:28
PROVIDERS: ADMIT Internal Medicine; ATTEND Internal Medicine
PROC: 0DTP4ZZ Resection of Rectum, Percutaneous Endoscopic Approach (ICD-10-PCS; 2017-03-17)
PROC: 0DTN4ZZ Resection of Sigmoid Colon, Percutaneous Endoscopic Approach (ICD-10-PCS; principal; 2017-03-17 07:30)
DX: C19 Malignant neoplasm of rectosigmoid junction (principal); K56.60 Unspecified intestinal obstruction; K57.32 Diverticulitis of large intestine without perforation or abscess without bleeding; D64.9 Anemia, unspecified; I10 Essential (primary) hypertension; I25.10 Atherosclerotic heart disease of native coronary artery without angina pectoris; E78.5 Hyperlipidemia, unspecified; G47.30 Sleep apnea, unspecified; E87.6 Hypokalemia; I25.2 Old myocardial infarction; Z79.02 Long term (current) use of antithrombotics/antiplatelets; Z79.82 Long term (current) use of aspirin; Z95.5 Presence of coronary angioplasty implant and graft; Z87.891 Personal history of nicotine dependence

== ENCOUNTER 2017-03-22 17:24 | Inpatient (IN) | payer OTHER, MEDICAID ==
[2017-03-22 18:29] VITALS: BMI 27.4
[2017-03-22] MEDS: HYDROmorphone 0.5 mg/0.5 ml ISec IVP PRN (19:53)
[2017-03-22] MEDS ORDERED: Pneumococcal 23-Valent Vaccine IM ONE (21:46)
[2017-03-23] MEDS: HYDROmorphone 0.5 mg/0.5 ml ISec IVP PRN (05:09)
--- NOTE | 2017-03-23 07:11 | CP.PCM.PN ---
<Caesar Silveira - Last Filed: 03/23/17 07:07> Subjective - Date & Time of Evaluation Date of Evaluation: 03/23/17 Time of Evaluation: 07:08 - Subjective Subjective: Gen Sx: Dr Diego Pt S&E. Pt transferred to TCU overnight. Tolerating diet. Has been OOB ambulating with PT. Having bowel movements. Admits to pain, mainly in lower abdomen, controlled with pain meds. Objective - Vital Signs/Intake and Output Vital Signs (last 24 hours): Temp Pulse Resp BP Pulse Ox 98.3 F 77 18 110/73 94 L 03/23/17 05:42 03/23/17 05:42 03/23/17 05:42 03/23/17 05:42 03/23/17 05:42 - Medications Medications: Current Medications Amlodipine Besylate (Norvasc) 10 mg PO DAILY [facility] PRN Reason: Protocol Aspirin (Ecotrin) 81 mg PO 0800 [facility] Clopidogrel Bisulfate (Plavix) 75 mg PO DAILY [facility] Heparin Sodium (Porcine) (Heparin) 5,000 units SC Q12 [facility] PRN Reason: Protocol Last Admin: 03/22/17 21:02 Dose: 5,000 units Hydralazine HCl (Apresoline) 10 mg IVP Q6 PRN PRN Reason: For SBP more than 170 Hydromorphone HCl (Dilaudid) 0.5 mg IVP Q6H PRN PRN Reason: Pain, moderate (4-7) Last Admin: 03/23/17 05:09 Dose: 0.5 mg Metoprolol Tartrate (Lopressor) 12.5 mg PO 0800,1800 [facility] Pantoprazole Sodium (Protonix Inj) 40 mg IVP 0600 [facility] Last Admin: 03/23/17 05:09 Dose: 40 mg Potassium Chloride (K-Dur 20 Meq Er Tab) 20 meq PO 0800 [facility] - Constitutional Appears: Non-toxic, No Acute Distress - Head Exam Head Exam: NORMOCEPHALIC - Respiratory Exam Respiratory Exam: absent: Accessory Muscle Use, Respiratory Distress - Cardiovascular Exam Cardiovascular Exam: REGULAR RHYTHM. absent: Bradycardia, Tachycardia - GI/Abdominal Exam GI & Abdominal Exam: Soft, Tenderness (LLQ). absent: Distended, Firm, Guarding Additional comments: incisions c/d/i - Neurological Exam Neurological Exam: Alert, Awake, Oriented x3 - Psychiatric Exam Psychiatric exam: Normal Affect, Normal Mood - Skin Skin Exam: Normal Color, Warm Assessment and Plan - Assessment and Plan (Free Text) Assessment: 87M POD#6 s/p laparoscopic left-hemicolectomy Plan: cont diet cont hsq cont plavix/aspirin cont physical therapy cont incentive spirometer pt is clear for d/c from surgery once able to resume ADL's independently will d/w Dr Johnathon Silveira, DO, PGY2 <Wesley Diego - Last Filed: 03/29/17 00:15> Objective - Vital Signs/Intake and Output Vital Signs (last 24 hours): Temp Pulse Resp BP Pulse Ox 98.6 F 81 20 93/58 L 97 03/27/17 09:58 03/28/17 17:26 03/27/17 09:58 03/28/17 17:26 03/27/17 09:58 - Medications Medications: Current Medications Amlodipine Besylate (Norvasc) 10 mg PO DAILY [facility] PRN Reason: Protocol Last Admin: 03/28/17 11:00 Dose: 10 mg Aspirin (Ecotrin) 81 mg PO 0800 [facility] Last Admin: 03/28/17 09:00 Dose: 81 mg Clopidogrel Bisulfate (Plavix) 75 mg PO DAILY [facility] Last Admin: 03/28/17 11:00 Dose: 75 mg Docusate Sodium (Colace) 100 mg PO BID [facility] Last Admin: 03/28/17 17:26 Dose: 100 mg Heparin Sodium (Porcine) (Heparin) 5,000 units SC Q12 [facility] PRN Reason: Protocol Last Admin: 03/28/17 21:45 Dose: 5,000 units Hydralazine HCl (Apresoline) 10 mg PO QID PRN PRN Reason: Systolic Blood Pressure Metoprolol Tartrate (Lopressor) 12.5 mg PO 0800,1800 [facility] Last Admin: 03/28/17 17:26 Dose: Not Given Pantoprazole Sodium (Protonix Ec Tab) 40 mg PO 0630 [facility] Last Admin: 03/28/17 06:26 Dose: 40 mg Potassium Chloride (K-Dur 20 Meq Er Tab) 20 meq PO 0800 [facility] Last Admin: 03/28/17 09:00 Dose: 20 meq - Labs Labs: 03/27/17 07:57 03/27/17 07:57 Assessment and Plan - Assessment and Plan (Free Text) Plan: Patient was seen and examined by me. I agree with assessment and plan as per resident's note.
[2017-03-23 07:38] LABS: ADD MANUAL DIFF? NO
[2017-03-23 07:43] LABS: EOS # 0.2 (0.0-0.7); EOS % 2.5 % (1.5-5.0); GRAN # 3.76 (1.4-6.5); GRAN % 62.4 % (50.0-68.0); HEMATOCRIT 33.4 % (42.0-52.0); LYMPH # 1.2 (1.2-3.4); LYMPH % 19.3 % (22.0-35.0); MEAN CELL VOLUME 86.5 fL (80.0-105.0); MEAN CORPUSCULAR HEMOGLOBIN 28.8 pg (25.0-35.0); MEAN CORPUSCULAR HGB CONC 33.2 g/dl (31.0-37.0); MEAN PLATELET VOLUME 9.3 fl (7.0-11.0); MONO % 15.8 % (1.0-6.0); PLATELET COUNT 189 10^3/uL (120.0-450.0); RED CELL DISTRIBUTION WIDTH 14.2 % (11.5-14.5)
[2017-03-23 07:58] LABS: MAGNESIUM 2.1 mg/dL (1.7-2.2); PHOSPHOROUS 4.7 mg/dL (2.5-4.5)
[2017-03-23] MEDS: Potassium Chloride 20 mEq ER Tab PO SCH (08:12)
[2017-03-23] MEDS: Oxycodone/Acetaminophen 5/325 mg Tab PO PRN ×2 (08:14→19:45)
--- NOTE | 2017-03-23 13:03 | CON ---
DATE: 03/23/2017 TYPE OF DICTATION: Continuity of care in the transitional care unit, status post PTCA, status post c olonic resection. BRIEF CLINICAL HISTORY: This is an 87-year-old male with a past medical history of PTCA of LAD and R CA and RPDA on 01/21/2017, 3 drug-coated stents were placed on 01/21/2017. Later on, patient had GI bl eed. Workup shows colonic mass, status post resection, end-to-end anastomosis, was off Plavix and as pirin. Now, the aspirin and Plavix were restarted. The patient is now continuity of care. Denies a ny chest pain, shortness of breath, any palpitation. PAST MEDICAL HISTORY: Significant for coronary artery disease as mentioned, coronary artery disease status post PTCA of RCA and RPDA with a drug-eluting stent, history of hypertension, hyperlipidemia, recent coronary intervention 01/21/2017 with 3 drug-eluting stents, history of colonic mass, status po st removal of left hemicolectomy and end-to-end anastomosis. SOCIAL HISTORY: Denies smoking. Denies any history of alcohol abuse. CURRENT MEDICATIONS: The patient is taking aspirin, Plavix on the floor, oxycodone, amlodipine, meto prolol, potassium, heparin for DVT and hydralazine p.r.n. REVIEW OF SYSTEMS: As per HPI. PHYSICAL EXAMINATION: VITAL SIGNS: Temperature afebrile, heart rate 80, blood pressure 110/73. HEENT: PERRLA. Extraocular muscles intact. NECK: Supple. No carotid bruit, no thyromegaly. CHEST: Clear to auscultation. HEART: S1, S2 regular. ABDOMEN: Soft. EXTREMITIES: Clubbing, cyanosis negative. BLOOD WORKUP: WBC , hemoglobin 11.1, hematocrit 33.4, platelet count 189. Chemistry shows sodi um 141, potassium 4. , chloride 105, carbon dioxide 20, anion gap of 11, BUN 10, creatinine 0.8. IMPRESSION: Coronary artery disease, status post percutaneous transluminal coronary angioplasty of l eft anterior descending, right coronary artery and right posterior descending artery 01/21/2017, statu s post left hemicolectomy, end-to-end anastomosis, exploratory laparotomy, tolerating diet hype rtension, hyperlipidemia. RECOMMENDATION: Continue aspirin, continue Plavix, continue beta marvin. Monitor H and H. Rehab. We will follow with you. Thank you, Dr. Zavala, for providing us the opportunity in taking care of the patient. Plavix was st arted 5 days ago. We will follow with you. We will repeat the blood workup tomorrow. We will follo w with you. Tyree Dale MD cc: [id number] TT: 03/23/2017 13:01:10 Confirmation # [id number] Dictation # [id number]
[2017-03-24] MEDS: Oxycodone/Acetaminophen 5/325 mg Tab PO PRN ×2 (05:20→19:41)
--- NOTE | 2017-03-24 06:45 | HP ---
CHIEF COMPLAINT: Abdominal pain. HISTORY OF PRESENT ILLNESS: The patient is an 87-year-old male with past medical history of PTCA of LAD, RCA and PRDA, has drug eluted stents placed. Later on, the patient had GI problem. Workup showed colonic mass, status post resection, end-to-end anastomosis. Off the Plavix and aspirin. Now just on Plavix, restarted. The patient is now transferred to TCU for continuity of care. Actually, the patient lives alone, is not able to take care of himself. He is not able to do his ADL. That is why transferred to TCU for physical therapy and deconditioning. PAST MEDICAL HISTORY: Significant for coronary artery disease as mentioned above. Has drug-eluted stenting, hypercholesterolemia, history of colonic mass , status post removal of the left hemicolectomy and end-to-end anastomosis. SOCIAL HISTORY: No smoking, no drugs, no ethanol. ALLERGIES: The patient is not allergic with any medications. HOME MEDICATIONS: Aspirin, Plavix, oxycodone, amlodipine, metoprolol, potassium , heparin, hydralazine. REVIEW OF SYSTEMS: The patient seen and examined on the bedside. Cousin was standing on the bedside also. The patient tolerated food very well, but having mild abdominal pain. Did physical therapy. No hematuria or hematochezia. No swelling of the leg. No chest pain, no palpitation. PHYSICAL EXAMINATION: VITAL SIGNS: Temperature, the patient is afebrile, heart rate 80, blood pressure 110/73, respiratory rate 18. HEENT: Head normocephalic, atraumatic. Eyes: PERRLA. Extraocular muscles intact. Conjunctivae clear. Nose patent. Mucous membranes moist. NECK: Supple. No carotid bruit, JVD or thyromegaly. CHEST: Bilaterally symmetrical. HEART: S1, S2 positive. LUNGS: Clear to auscultation. ABDOMEN: Soft. Bowel sounds + . No organomegaly. EXTREMITIES: No edema, no cyanosis. NEUROLOGIC: The patient is awake, alert and moving all 4 extremities. No focal deficit. LABORATORY DATA: White blood cells 6.0, hemoglobin 11.1, hematocrit 33.4, platelets 189, phosphorus 4.7, magnesium 2.1. ASSESSMENT AND PLAN: The patient is an 87-year-old male, postoperative day #6, status post laparoscopic left hemicolectomy. Continue advancing diet. Continue Plavix and aspirin as per compensator worker. Physical therapy, incentive spirometry. History of hypertension, hypercholesterolemia, coronary artery disease, cardiac stenting, history of colonic mass. Dr. Sanchez is on the case. Gastric and deep venous thrombosis prophylaxis. Repeat labs. We will follow up. Rosita Zavala MD cc: [id number] TT: 03/24/2017 06:45:25 tn MTDD
[2017-03-24 08:02] LABS: ADD MANUAL DIFF? NO
[2017-03-24 08:08] LABS: BASO # 0.01 K/mm3 (0.0-2.0); BASO % 0.2 % (0.0-3.0); EOS # 0.1 (0.0-0.7); EOS % 2.2 % (1.5-5.0); GRAN # 4.56 (1.4-6.5); GRAN % 71.4 % (50.0-68.0); HEMATOCRIT 32.9 % (42.0-52.0); LYMPH # 0.8 (1.2-3.4); LYMPH % 13.2 % (22.0-35.0); MEAN CELL VOLUME 86.8 fL (80.0-105.0); MEAN CORPUSCULAR HGB CONC 33.4 g/dl (31.0-37.0); MEAN PLATELET VOLUME 9.5 fl (7.0-11.0); MONO # 0.8 (0.1-0.6); PLATELET COUNT 186 10^3/uL (120.0-450.0); RED CELL DISTRIBUTION WIDTH 14.1 % (11.5-14.5); WHITE BLOOD COUNT 6.4 10^3/ul (4.5-11.0)
[2017-03-24 08:15] LABS: ALB/GLOB RATIO 1.2 (1.1-1.8); ALKALINE PHOSPHATASE 87 U/L (38-133); ALT/SGPT 53 U/L (7-56); AST/SGOT 44 U/L (15-59); BILIRUBIN,TOTAL 0.6 mg/dL (0.2-1.3); BLOOD UREA NITROGEN 20 mg/dL (7-21); CARBON DIOXIDE 29 mmol/L (21-33); CHLORIDE 102 mmol/L (95-110); GFR AFRICAN-AMERICAN > 60; GLUCOSE,RANDOM 97 mg/dL (70-110); POTASSIUM 4.6 mmol/L (3.6-5.0); SODIUM 137 mmol/L (132-148); TOTAL PROTEIN 6.4 g/dL (5.8-8.3)
[2017-03-24] MEDS: Potassium Chloride 20 mEq ER Tab PO SCH (08:32)
[2017-03-24] MEDS ORDERED: POLYETHYLENE GLYCOL 3350 17 GM/Dose PACKET PO ONE (11:26)
--- NOTE | 2017-03-24 11:45 | PN ---
DATE: 03/24/2017 The patient in room 316, bed 1. REASON FOR CONSULTATION: Coronary artery disease status post PTCA, post colonic mass resection. HISTORY OF PRESENT ILLNESS: The patient is an 87-year-old male, known to have PTCA of LAD and RCA an d RPDA on 01/21/2017, including drug-eluting stent insertion. Later on, patient had GI bleeding and workup showed a colonic mass for which patient had resection with end-to-end anastomosis, and patient was taken off Plavix and aspirin. Now postop, patient is back on aspirin and Plavix. The patient l mad[place] flat in bed without chest pain, shortness of breath, palpitation. The patient is now in transit ional care unit for physical therapy and deconditioning. The patient denies any chest pain, shortnes s of breath, palpitation. PHYSICAL EXAMINATION: VITAL SIGNS: Blood pressure 125/71, respirations 14, pulse 72, temperature 97.2. HEAD: Normocephalic. EYES: Pupils normal. Conjunctivae are slightly pale. NECK: JVP low. Carotid equal. THORAX: AP diameter normal. LUNGS: Clear. CARDIOVASCULAR: S1, S2. ABDOMEN: Surgery as mentioned. PERIPHERIES: No clubbing, no cyanosis. LABORATORY DATA: WBC 6.4, hemoglobin 11.0, hematocrit 32.9, platelets 186. Sodium 137, potassium 4. 6, BUN 20, creatinine 1.1, phosphorous 4.0, magnesium 2.0. AST, ALT, protein and albumin normal. DIAGNOSES: Coronary artery disease, status post angioplasty of left anterior descending, right coron amaury artery and right posterior descending artery on 01/21/2017; status post left hemicolectomy, end-t o-end anastomosis; hypertension, hyperlipidemia. PLAN: The patient on aspirin 81 mg daily, heparin 5000 units subQ q. 12 hours, potassium 20 mEq p.o. daily, Lopressor 12.5 mg p.o. b.i.d., amlodipine 10 mg daily, Plavix 75 mg daily, Protonix injection 40 mg IV daily. Continue physical therapy. Will follow with you. Tyree Sanchez MD cc: [id number] TT: 03/24/2017 11:44:27 Confirmation # [id number] Dictation # [id number] mn
[2017-03-25] MEDS: Oxycodone/Acetaminophen 5/325 mg Tab PO PRN (02:40)
[2017-03-25] MEDS: Pantoprazole 40 mg EC Tab PO SCH (05:32)
--- NOTE | 2017-03-25 06:30 | PN ---
DATE: 03/24/2017 SUBJECTIVE: The patient was seen and examined on bedside, still complaining about abdominal pain. T aubrey, got some MiraLax because he does not have bowel movements in a couple of days. No fever, no ch ills. No chest pain or shortness of breath, no palpitation, no headache, no dizziness. The patient is lying down on the bed. He did physical therapy. PHYSICAL EXAMINATION: VITAL SIGNS: Blood pressure 125/71, respiratory rate 14, pulse 72, temperature 97.2. HEENT: Head is normocephalic, atraumatic. Eyes: PERRLA. Extraocular muscles intact. Conjunctivae clear. Nose patent. Mucous membranes moist. NECK: Supple. No carotid bruit, JVD or thyromegaly. CHEST: Bilaterally symmetrical. HEART: S1, S2 positive. LUNGS: Clear to auscultation. ABDOMEN: Soft. Bowel sounds present. No organomegaly. EXTREMITIES: No edema, no cyanosis. NEUROLOGIC: The patient is awake, alert, moving all 4 extremities. No focal deficits. LABORATORY DATA: White blood cells 6.4, hemoglobin 11.0, hematocrit 32.9, platelets 186. Sodium 137 , potassium 4.6, BUN 20, creatinine 1.1. AST and ALT are within normal limits. ASSESSMENT AND PLAN: The patient is an 87-year-old male with coronary artery disease, status post an gioplasty of left anterior descending and right coronary artery and right posterior descending on 12/25 , status post left hemicolectomy and reanastomosis, hypertension, hypercholesterolemia. Patholog y results came back, looks like the patient has adenocarcinoma of the colon. The patient was informe d about the result and oncology consult called with Dr. Schaffer. The patient is on aspirin. Continue aspirin, heparin, potassium, Lopressor, amlodipine, Plavix, Protonix. 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 History of constipation, gave MiraLax. Still having abdominal pain. Surgical team is on the c ase. We will follow up. Rosita Zavala MD cc: [id number] TT: 03/25/2017 06:29:51 Confirmation # [id number] Dictation # [id number] tn
[2017-03-25] MEDS: Potassium Chloride 20 mEq ER Tab PO SCH (08:20)
--- NOTE | 2017-03-25 12:08 | PN ---
DATE: 03/25/2017 The patient in room 316, bed 1. REASON FOR CONSULTATION AND FOLLOWUP: Coronary artery disease, status post PTCA, status post colonic mass resection. HISTORY OF PRESENT ILLNESS: The patient is an 87-year-old male, known to have PTCA of LAD, RCA, RPDA on 01/21/2017 including drug-eluting stents. Later on, patient had developed GI bleeding. Workup sh owed a colonic mass, which patient needed resection and the patient had surgery with end-to-end anast omosis. The patient was off Plavix and aspirin for surgery and now patient is back on Plavix and asp irin. The patient now in transitional care unit for deconditioning and physical therapy. Denies any chest pain, shortness of breath, or palpitation. PHYSICAL EXAMINATION: VITAL SIGNS: Blood pressure 95/67, respirations 18, pulse 86, temperature 98.5. HEAD: Normocephalic. EYES: Pupils normal. Conjunctivae slightly pale. NECK: JVP low. Carotid equal. THORAX: AP diameter normal. LUNGS: Clear. CARDIOVASCULAR: S1, S2. ABDOMEN: Soft, no tenderness, no organomegaly. Bowel sounds normal. EXTREMITIES: No clubbing, no cyanosis. LABORATORIES: WBC 6.4, hemoglobin 11.0, hematocrit 32.9, platelets 186. Sodium 137, potassium 4.6, BUN 20, creatinine 1.1, calcium 9.0, phosphorus 4.0, magnesium 2.0. AST, ALT normal. Total protein, albumin normal. DIAGNOSES: Coronary artery disease, status post angioplasty and stent insertion on 01/21/2017, gastro intestinal bleeding, colonic mass status post surgery with left hemicolectomy and end-to-end anastomo sis, hypertension, hyperlipidemia, anemia, deconditioning. PLAN: The patient continues to get physical therapy without any cardiac symptoms and patient is back on Plavix and aspirin as well as heparin 5000 units subQ q. 12 hours, metoprolol tartrate 12.5 mg b. i.d., amlodipine 10 mg daily, Protonix 40 daily. We will continue present therapy and continue physi nichole therapy. We will follow. Tyree Sanchez MD cc: [id number] TT: 03/25/2017 12:07:54 Confirmation # [id number] Dictation # [id number] en
--- NOTE | 2017-03-26 00:04 | CP.PCM.CON ---
History of Present Illness - History of Present Illness History of Present Illness: Mr. De Jesus is a 87 year old male admitted with abdominal pain. He was diagnosed with colon cancer earlier and surgery was postponed due to CAD and recent stent placement. CT chest abdomen, pelvis did not show metastatic disease. He was evaluated at [facility] in [facility]. He underwent laprotomy and rectosigmoid resection. Pathology is adneocarcinoma of colon. It was low to poorly differentiated, 0/30 lymph node positive, lymphovascular invasion present. No perforation identified. Tumor was T3. He is still complaining of abdominal pain. Requires pain meds once a day only. Complaining of constipation, on senna colace. No bowel movement for past 2 days. Review of Systems - Constitutional Constitutional: As Per HPI, Fatigue, Malaise, Weakness - EENT Eyes: absent: As Per HPI, Blind Spots, Blurred Vision, Change in Vision, Decreased Night Vision, Diplopia, Discharge, Dry Eye, Exophthalmos, Floaters, Irritation, Itchy Eyes, Loss of Peripheral Vision, Pain, Photophobia, Requires Corrective Lenses, Sees Flashes, Spots in Vision, Tunnel Vision, Other Visual Disturbances, Loss of Vision, Other Ears: absent: As Per HPI, Decreased Hearing, Ear Discharge, Ear Pain, Tinnitus, Abnormal Hearing, Disequilibrium, Dizziness, Other Nose/Mouth/Throat: absent: As Per HPI, Epistaxis, Nasal Congestion, Nasal Discharge, Nasal Obstruction, Nasal Trauma, Nose Pain, Post Nasal Drip, Sinus Pain, Sinus Pressure, Bleeding Gums, Change in Voice, Dental Pain, Dry Mouth, Dysphagia, Halitosis, Hoarsness, Lip Swelling, Mouth Lesions, Mouth Pain, Odynophagia, Sore Throat, Throat Swelling, Tongue Swelling, Facial Pain, Neck Pain, Neck Mass, Other - Cardiovascular Cardiovascular: As Per HPI - Respiratory Respiratory: absent: As Per HPI, Cough, Dyspnea, Hemoptysis, Dyspnea on Exertion , Wheezing, Snoring, Stridor, Pain on Inspiration, Chest Congestion, Excessive Mucous Production, Change in Mucous Color, Pain with Coughing, Other - Gastrointestinal Gastrointestinal: As Per HPI - Genitourinary Genitourinary: absent: As Per HPI, Change in Urinary Stream, Difficulty Urinating, Dysuria, Flank Pain, Hematuria, Pyuria, Nocturia, Urinary Incontinence, Urinary Frequency, Urinary Hesitance, Urinary Urgency, Voiding Freq/Small Amts, Freq UTI, Hx Renal/Bladder Calculi, Hx /Renal Surgery, Bladder Distension, Other - Musculoskeletal Musculoskeletal: absent: As Per HPI, Abnormal Gait, Arthralgias, Atrophy, Back Pain, Deformity, Joint Swelling, Limited Range of Motion, Loss of Height, Muscle Cramps, Muscle Weakness, Myalgias, Neck Pain, Numbness, Radiating Pain into Limb, Stiffness, Tingling, Other - Neurological Neurological: absent: As Per HPI, Abnormal Gait, Abnormal Hearing, Abnormal Movements, Abnormal Speech, Behavioral Changes, Burning Sensations, Confusion, Convulsions, Disequilibrium, Dizziness, Numbness, Focal Weakness, Frequent Falls , Headaches, Lack of Coordination, Loss of Vision, Memory Loss, Paresthesias, Radicular Pain, Restless Legs, Sensory Deficit, Syncope, Tingling, Tremor, Vertigo, Weakness, Other Visual Disturbances, Other - Psychiatric Psychiatric: absent: As Per HPI, Abnormal Sleep Pattern, Anhedonia, Anxiety, Auditory Hallucinations, Behavioral Changes, Change in Appetite, Change in Libido, Confusion, Depression, Difficulty Concentrating, Hallucinations, Homicidal Ideation, Hopelessness, Irritability, Memory Loss, Mood Swings, Panic Attacks, Paranoia, Suicidal Ideation, Visual Hallucinations, Tactile Hallucinations, Other - Endocrine Endocrine: absent: As Per HPI, Change in Body Appearance, Change in Libido, Cold Intolorance, Deepening of Voice, Excessive Sweating, Fatigue, Flushing, Heat Intolorance, Increase in Ring/Shoe/Hat Size, Palpitations, Polydipsia, Polyphagia, Polyuria, Other - Hematologic/Lymphatic Hematologic: As Per HPI Past Patient History - Past Medical History & Family History Past Medical History?: No Past Family History: Reviewed and not pertinent - Past Social History Smoking Status: Never Smoked - CARDIAC Hx Cardiac Disorders: Yes (CAD) - PULMONARY Hx Respiratory Disorders: No - NEUROLOGICAL Hx Neurological Disorder: No - HEENT Hx HEENT Problems: No (WEARS RX GLASSES) - RENAL Hx Chronic Kidney Disease: No - ENDOCRINE/METABOLIC Hx Endocrine Disorders: No - HEMATOLOGICAL/ONCOLOGICAL Hx Blood Transfusions: Yes Hx Blood Transfusion Reaction: No - INTEGUMENTARY Hx Dermatological Problems: No - MUSCULOSKELETAL/RHEUMATOLOGICAL Hx Falls: No - GASTROINTESTINAL Hx Gastrointestinal Disorders: Yes (COLONIC MASS,POST HEMICOLECTOMY -END TO END ANASTOMOSIS,GI BLEED DIVERTICUL) - GENITOURINARY/GYNECOLOGICAL Hx Genitourinary Disorders: No Hx Reproductive Disorders: No - PSYCHIATRIC Hx Psychophysiologic Disorder: No Hx Emotional Abuse: No Hx Physical Abuse: No - SURGICAL HISTORY Hx Surgeries: Yes - ANESTHESIA Hx Anesthesia Reactions: No Hx Malignant Hyperthermia: No Meds Allergies/Adverse Reactions: Allergies Allergy/AdvReac Type Severity Reaction Status Date / Time No Known Allergies Allergy Verified 03/22/17 19:50 - Medications Medications: Current Medications Amlodipine Besylate (Norvasc) 10 mg PO DAILY [facility] PRN Reason: Protocol Last Admin: 03/25/17 09:46 Dose: 10 mg Aspirin (Ecotrin) 81 mg PO 0800 [facility] Last Admin: 03/25/17 08:19 Dose: 81 mg Clopidogrel Bisulfate (Plavix) 75 mg PO DAILY [facility] Last Admin: 03/25/17 09:46 Dose: 75 mg Docusate Sodium (Colace) 100 mg PO BID [facility] Last Admin: 03/25/17 17:31 Dose: 100 mg Heparin Sodium (Porcine) (Heparin) 5,000 units SC Q12 [facility] PRN Reason: Protocol Last Admin: 03/25/17 21:08 Dose: 5,000 units Hydralazine HCl (Apresoline) 10 mg PO QID PRN PRN Reason: Systolic Blood Pressure Metoprolol Tartrate (Lopressor) 12.5 mg PO 0800,1800 [facility] Last Admin: 03/25/17 17:31 Dose: 12.5 mg Oxycodone/Acetaminophen (Percocet 5/325 Mg Tab) 1 tab PO Q4H PRN PRN Reason: Pain, Mild (1-3) Stop: 03/26/17 07:09 Last Admin: 03/25/17 02:40 Dose: 1 tab Pantoprazole Sodium (Protonix Ec Tab) 40 mg PO 0630 [facility] Last Admin: 03/25/17 05:32 Dose: 40 mg Potassium Chloride (K-Dur 20 Meq Er Tab) 20 meq PO 0800 [facility] Last Admin: 03/25/17 08:20 Dose: 20 meq Physical Exam - Constitutional Appears: Well, Non-toxic - Head Exam Head Exam: ATRAUMATIC, NORMAL INSPECTION, NORMOCEPHALIC - Eye Exam Eye Exam: Normal appearance Pupil Exam: NORMAL ACCOMODATION - ENT Exam ENT Exam: Mucous Membranes Moist, Normal Exam - Neck Exam Neck exam: Positive for: Normal Inspection - Cardiovascular Exam Cardiovascular Exam: REGULAR RHYTHM, +S1, +S2 - GI/Abdominal Exam GI & Abdominal Exam: Normal Bowel Sounds, Soft - Extremities Exam Extremities exam: Positive for: normal inspection - Back Exam Back exam: NORMAL INSPECTION - Neurological Exam Neurological exam: Alert, CN II-XII Intact, Oriented x3, Reflexes Normal - Psychiatric Exam Psychiatric exam: Normal Affect, Normal Mood - Skin Skin Exam: Dry, Intact, Normal Color, Warm Results - Vital Signs Recent Vital Signs: Last Vital Signs Temp 99.5 F 03/25/17 16:00 Pulse 78 03/25/17 17:31 Resp 18 03/25/17 16:00 BP 126/71 03/25/17 17:31 Pulse Ox 95 03/25/17 16:00 - Labs Result Diagrams: 03/24/17 07:00 03/24/17 07:00 Assessment & Plan - Assessment and Plan (Free Text) Plan: 1. Colon cancer stage IIA, s/p resection. 2. CAD, recent stents 3. Anemia 4. Constipation. 5. abdominal pain Plan : 1. Colon Cancer- stage IIA, T3,N0.MO. High risk features present - lymphovascular invasion present, foci of poorly differentiated tumor present. He had good performance status prior to admission to hospital. I will consider tumor specimen testing for MSI/MMR. he will benefit form adjuvant oral chemotherpy with capecitabine for 6 months. It reduces the recurrence rate by about 30% in stage II colon cancer. If MSI is high benefit is unknown. I had a lengthy discussion with the patient and his friend Mr. Lisa who translated also in Luxembourgish. Discussed staging, diagnosis, treatment options, further tumor testing, follow up and surveillance. They had lot of questions, all were answered to their satisfaction. They agreed with plan. If he is a candidate for oral chemo, it will be started 6 weeks after surgery. 2. CAD : recent cardiac stents. stable. No issues. 3. Anemia : work up.likely iron deficiency related to colon cancer. Will consider IV iron if iron deficient as oral will not be tolerated post op. 4. Constipation. bowel regimen as per surgery team. Thank you Dr. Zavala for allowing us to participate in his care. - Date & Time Date: 03/26/17 Time: 18:00
[2017-03-26] MEDS: Pantoprazole 40 mg EC Tab PO SCH (05:31)
[2017-03-26] MEDS: Potassium Chloride 20 mEq ER Tab PO SCH (08:07)
--- NOTE | 2017-03-26 08:26 | PN ---
DATE: 03/25/2017 SUBJECTIVE: The patient was seen and examined at the bedside looking comfortable, still complaining about abdominal pain. No nausea or vomiting. Has constipation. No fever, no chills. No shortness of breath. No headache, no dizziness. PHYSICAL EXAMINATION: VITAL SIGNS: Blood pressure 95/67, respiratory rate 18, pulse 86, temperature 98.5. HEENT: Head normocephalic, atraumatic. Eyes, PERRLA, extraocular muscles intact. Conjunctivae clear. Nose patent. Mucous membranes moist. NECK: Supple. No carotid bruit, JVD or thyromegaly. CHEST: Bilaterally symmetric. HEART: S1, S2 positive. LUNGS: Clear to auscultation. ABDOMEN: Soft. Tender on palpation. Bowel sounds positive. EXTREMITIES: No edema. No cyanosis. NEUROLOGIC: He is awake and alert. Moving all 4 extremities. No focal deficits. LABORATORY: hemoglobin 11.0, hematocrit 32.9, platelets 186. Sodium npted , potassium 4.6, BUN noted , creatinine 1.1. AST and ALT normal. MEDICATIONS: Hydralazine, Colace, Ecotrin, heparin, oxycodone, Plavix, Protonix. ASSESSMENT AND PLAN: The patient is an 87-year-old male with multiple medical problems, coronary artery disease status post cardiac stenting, angioplasty, gastrointestinal bleeding, colonic mass status post surgery with a left hemicolectomy end-to-end anastomosis, and it came out that this is adenocarcinoma. The patient was informed waiting for Dr. Schaffer's input. Hypertension, hypercholesterolemia, anemia, deconditioning. The patient is getting physical therapy. Complaining still of abdominal pain and not having bowel movement. Getting stool softener. Continue Plavix, aspirin, heparin, metoprolol, amlodipine for blood pressure, Protonix for GI prophylaxis. Physical therapy will follow up. Rosita Zavala MD cc: [id number] TT: 03/25/2017 23:56:00 Confirmation # [id number] Dictation # [id number] an 03/26/2017 03:41:27 ILIANA
--- NOTE | 2017-03-26 12:13 | PN ---
DATE: 03/26/2017 LOCATION: Room 316, bed 1. REASON FOR CONSULTATION AND FOLLOWUP: Coronary artery disease, status post PTCA, status post colonic mass resection. HISTORY OF PRESENT ILLNESS: The patient is an 87-year-old male, known to have PTCA of LAD, RCA and R PDA on 01/21/2017, including a drug-eluting stent. Later on, the patient developed GI bleeding. Wor kup showed colonic mass for which patient had colon resection with end-to-end anastomosis. The patie nt was taken off Plavix and aspirin prior to surgery. Now he is back on Plavix and aspirin. The pat ient denies any chest pain, shortness of breath, palpitation. The patient continued with physical th erapy without cardiac symptoms. PHYSICAL EXAMINATION: VITAL SIGNS: Blood pressure 104/70, respiration 16, pulse 69, and temperature 98.2. HEAD: Normocephalic. EYES: Pupils normal. Conjunctivae are slightly pale. NECK: JVP low. Carotid equal. THORAX: AP diameter normal. LUNGS: Clear. CARDIOVASCULAR: S1, S2. ABDOMEN: Surgery as mentioned. PERIPHERIES: No clubbing, no cyanosis. LABORATORY DATA: Lab done on ____. They were reported in our previous notes. DIAGNOSES: Coronary artery disease, status post angioplasty and stent insertion 01/21/2017; gastroin testinal bleeding, colonic mass which is adenocarcinoma of the colon with end-to-end anastomosis; hyp ertension, hyperlipidemia, anemia and deconditioning. PLAN: The patient is asymptomatic from cardiac point of view. Will continue present therapy of aspi rin 81 mg daily, Plavix 75 daily, amlodipine 10 mg daily, metoprolol tartrate 12.5 mg b.i.d., potassi um 20 mg p.o. daily, heparin 5000 units subQ q. 12, hours. Will repeat a CBC and SMA-7 in the [facility]. Will follow with you. Tyree Sanchez MD cc: [id number] TT: 03/26/2017 12:12:26 Confirmation # [id number] Dictation # [id number] mn
[2017-03-27] MEDS: Pantoprazole 40 mg EC Tab PO SCH (06:08)
--- NOTE | 2017-03-27 07:07 | PN ---
DATE: 03/26/2017 SUBJECTIVE: The patient was seen and examined on the bedside. Still complaining of abdominal pain, sitting on the chair. No nausea or vomiting. Tolerated food. No hematuria or hematochezia. No headache, no dizziness, no fever, no chills. PHYSICAL EXAMINATION: VITAL SIGNS: Temperature 99.7, pulse 78, respiratory rate 18, blood pressure 126/71. HEENT: Head normocephalic, atraumatic. Eyes: PERRLA. Extraocular muscles intact. Conjunctivae clear. Nose patent. Mucous membranes moist. NECK: Supple. No carotid bruit, JVD or thyromegaly. CHEST: Bilaterally symmetrical. HEART: S1, S2 positive. LUNGS: Clear to auscultation. ABDOMEN: Soft. Bowel sounds present. No organomegaly. EXTREMITIES: No edema, no cyanosis. NEUROLOGIC: The patient is awake, alert and moving all 4 extremities. No focal deficits. LABORATORY DATA: White blood cells 6.4, hemoglobin 11.0, hematocrit 32.9, platelets 186. Sodium 137, potassium 4.6, BUN 20, creatinine 1.1, glucose 97. ASSESSMENT AND PLAN: The patient is an 87 years old male with colon cancer, stage IIA, status post reaction, coronary artery disease, recent stent, anemia, constipation, getting stool softener, abdominal pain. The patient is seen by Dr. Schaffer, oncologist. According to her, the patient has colon cancer, stage IIA T3 N0 M0, high risk features present. Lymphovascular invasion present. Foci of poorly differentiated tumor present. Had good performance status prior to admission to the hospital. The patient will get tumor markers. According to Dr. Schaffer, the patient will get benefit from adjuvant oral chemotherapy with capecitabine for 6 months. It reduces the recurrence rate by about 30% in stage II colon cancer. Its benefit is unknown. Dr. Schaffer had good length of time discussion done with the patient, to his friend, Sloan, who translated for the patient. Discussion done about diagnosis, treatment and about option and further testing. The patient and the friend had a lot of questions. if patient will agree and he is candidate of oral chemotherapy, he will start after 6 weeks from surgery. Coronary artery disease, recent cardiac stent is stable. No issues. Anemia. The patient has iron deficiency with a history of colon cancer. We will consider IV iron if iron deficiency oral supplement will not be helpful. Constipation, the patient is getting stool softener, but still is constipated. Surgical team is still on the case. Front Desk Monitor is on the case. Reviewed Dr. Sanchez's and Dr. Schaffer's notes. Gastric and deep venous thrombosis prophylaxis. Repeat labs. Out of bed and physical therapy. We will follow up. Rosita Zavala MD cc: [id number] TT: 03/27/2017 07:06:25 Confirmation # [id number] Dictation # [id number] tn MTDD
[2017-03-27 08:00] LABS: ADD MANUAL DIFF? NO
[2017-03-27 08:06] LABS: BASO # 0.01 K/mm3 (0.0-2.0); BASO % 0.2 % (0.0-3.0); EOS # 0.1 (0.0-0.7); EOS % 2.3 % (1.5-5.0); GRAN # 2.98 (1.4-6.5); GRAN % 56.5 % (50.0-68.0); HEMATOCRIT 33.6 % (42.0-52.0); LYMPH # 1.4 (1.2-3.4); LYMPH % 25.6 % (22.0-35.0); MEAN CELL VOLUME 86.8 fL (80.0-105.0); MEAN CORPUSCULAR HEMOGLOBIN 28.9 pg (25.0-35.0); MEAN CORPUSCULAR HGB CONC 33.3 g/dl (31.0-37.0); MEAN PLATELET VOLUME 9.3 fl (7.0-11.0); MONO # 0.8 (0.1-0.6); MONO % 15.4 % (1.0-6.0); PLATELET COUNT 214 10^3/uL (120.0-450.0); RED CELL DISTRIBUTION WIDTH 14.1 % (11.5-14.5); WHITE BLOOD COUNT 5.3 10^3/ul (4.5-11.0)
[2017-03-27 08:22] LABS: BLOOD UREA NITROGEN 20 mg/dL (7-21); CALCIUM 9.4 mg/dL (8.4-10.5); CARBON DIOXIDE 27 mmol/L (21-33); CHLORIDE 105 mmol/L (98-107); GFR AFRICAN-AMERICAN > 60; GLUCOSE,RANDOM 102 mg/dL (70-110); MAGNESIUM 2.4 mg/dL (1.7-2.2); PHOSPHOROUS 3.9 mg/dL (2.5-4.5); POTASSIUM 4.5 mmol/L (3.6-5.0); SODIUM 141 mmol/L (132-148)
[2017-03-27] MEDS: Potassium Chloride 20 mEq ER Tab PO SCH (08:30)
--- NOTE | 2017-03-27 18:11 | PN ---
DATE: 03/27/2017 LOCATION: Room 316, bed 1. REASON FOR CONSULTATION AND FOLLOWUP: Coronary artery disease, status post PTCA, status post colonic mass resection. HISTORY OF PRESENT ILLNESS: The patient is an 87-year-old who has a PTCA of LAD, RCA and RPDA on 02/24, admitted with GI bleeding and possible acute intestinal obstruction due to colonic mass. The patient had surgery with a colonic resection with end-to-end anastomosis. [facility] and physical therapy. Denies any chest pain, shortness of breath , palpitation. PHYSICAL EXAMINATION: VITAL SIGNS: Blood pressure is 114/67, respirations 20, pulse 72, temperature 98.6. HEAD: Normocephalic. EYES: Pupils normal. Conjunctivae normal. NOSE AND THROAT: Normal. NECK: JVP low. Carotid equal. THORAX: AP diameter normal. LUNGS: Clear. CARDIOVASCULAR: S1, S2. ABDOMEN: ____ as mentioned. PERIPHERIES: No clubbing, no cyanosis. LABORATORY DATA: WBC 5.3, hemoglobin 11.2, hematocrit 33.6, platelets 214. Sodium 141, potassium 4. 5, BUN 20, creatinine 1.0, sugar 102. Calcium, phosphorus normal. Magnesium 2.4. AST, ALT, alkalin e phosphatase are normal. PLAN: The patient is back on Plavix and aspirin which were held due to surgery, metoprolol 12.5 b.i. d., amlodipine 10 daily, Protonix 40 daily. We will continue physical therapy. Tyree Sanchez MD cc: [id number] TT: 03/27/2017 18:11:18 Confirmation # [id number] Dictation # [id number] jn
[2017-03-28] MEDS: Pantoprazole 40 mg EC Tab PO SCH (06:26)
--- NOTE | 2017-03-28 07:31 | PN ---
DATE: 03/27/2017 The patient is an 87-year-old male. The patient was seen and examined on the bedside, looks comforta ble. No nausea, vomiting, diarrhea. No hematuria, no hematochezia. Status post colonic mass resect ion. No headache, no dizziness. No fever, no chills. PHYSICAL EXAMINATION: VITAL SIGNS: Blood pressure 120/60, respiratory rate 18, pulse 70, temperature 98.6. HEENT: Head normocephalic, atraumatic. Eyes: PERRLA. Extraocular muscles intact. Conjunctivae cl ear. Nose patent. Mucous membranes moist. NECK: Supple. No bruit, no JVD, no thyromegaly. CHEST: Bilaterally symmetrical. HEART: S1, S2 positive. LUNGS: Clear to auscultation. ABDOMEN: Soft. Bowel sounds positive. No organomegaly. EXTREMITIES: No edema, no cyanosis. NEUROLOGIC: The patient is alert, moving all 4 extremities. No focal deficits. MEDICATIONS: Hydralazine, Colace, Ecotrin, heparin, K-Dur, Lopressor, Norvasc, Plavix, Protonix. LABORATORIES: White blood cells 5.3, hemoglobin 11.2, hematocrit 33.6, platelets 214. Sodium 141, p otassium 4.5, BUN 20, creatinine 1.0, glucose 102, magnesium 2.4. ASSESSMENT AND PLAN: The patient is an 87-year-old male with hypomagnesemia, history of coronary art leonidas disease, cardiac stenting, hypertension, hypercholesterolemia, hemicolectomy, adenocarcinoma of t he colon. We will replace magnesium. [employer] Sales Representative is on the case. Surgeon and oncologist is on the case. The patient is back on Plavix and aspirin, which were held due to surgery, metoprolol b.i.d. and amlodipine for blood pressure, Protonix for gastrointestinal prophylaxis. Continue registered physical therapist apy. History of gastrointestinal bleeding, intestinal obstruction due to colonic mass. The patient had colonic resection with end-to-end anastomosis. The patient is getting physical therapy. He is d econditioned, living alone. He is not able to do his activities of daily living. We will follow up. Rosita Zavala MD cc: [id number] TT: 03/28/2017 07:31:09 Confirmation # [id number] Dictation # [id number] en
[2017-03-28] MEDS: Potassium Chloride 20 mEq ER Tab PO SCH (09:00)
--- NOTE | 2017-03-28 10:36 | PN ---
DATE: 03/28/2017 LOCATION: Room 316, bed 1. REASON FOR CONSULTATION: Follow up coronary artery disease, status post PTCA, status post colonic ma ss resection. HISTORY OF PRESENT ILLNESS: The patient is an 87-year-old who had PTCA of LAD, RCA and RPDA on 03/23, admitted with GI bleeding, abdominal obstruction and found to have a colon mass for which he h ad end-to-end resection and end-to-end anastomosis. The patient now in transitional care unit for de conditioning and physical therapy. The patient denies any chest pain, shortness of breath, or palpit ations. The patient's Plavix has been on hold prior to surgery, and post-surgery it has been reinsta henry. PHYSICAL EXAMINATION: VITAL SIGNS: Blood pressure 128/74, respirations 20, pulse 76, temperature 98.6. HEAD: Normocephalic. EYES: Pupils normal. Conjunctivae slightly pale. NECK: JVP low. Carotid equal. THORAX: AP diameter normal. LUNGS: Clear. CARDIOVASCULAR: S1, S2. ABDOMEN: Soft, nontender, no organomegaly. Bowel sounds normal. EXTREMITIES: No clubbing, no cyanosis. LABORATORY DATA: WBC 5.3, hemoglobin 11.2, hematocrit 33.6, platelets 214. Sodium 141, potassium 4. 5, BUN 20, creatinine 1.0, random sugar 102. Calcium, phosphorus normal, magnesium 2.4. DIAGNOSES: Coronary artery disease, status post angioplasty and stent insertion 03/23/2017, gastroin testinal bleeding, , colonic mass, adenocarcinoma of the colon, resection, end-to-end anastomosi s, hypertension, hyperlipidemia, anemia and deconditioning. PLAN: Continue physical therapy. The patient has been restarted postop on Plavix, aspirin and hepar in 5000 units subQ q. 12 hours, potassium 20 mg p.o. daily, metoprolol 12.5 b.i.d., amlodipine 10 grupo ly. We will follow with you. Tyree Sanchez MD cc: [id number] TT: 03/28/2017 10:35:35 Confirmation # [id number] Dictation # [id number] mn
--- NOTE | 2017-03-28 19:17 | PN ---
DATE: 03/28/2017 SUBJECTIVE: The patient was seen and examined on the bedside. He is lying down comfortably. Still complaining about abdominal pain, but better than the previous days. No nausea or vomiting. No feve r, no chills. No headache, no dizziness. No swelling of the legs. PHYSICAL EXAMINATION: VITAL SIGNS: Blood pressure 128/74, respirations 20, pulse 76, temperature is 98.6. HEENT: Head normocephalic, atraumatic. Eyes: PERRLA. Extraocular muscles intact. Conjunctiva andrei ar. Nose patent. Mucous membranes moist. NECK: Supple. No carotid bruit, JVD or thyromegaly. CHEST: Bilaterally symmetrical. HEART: S1, S2 positive. LUNGS: Clear to auscultation. ABDOMEN: Soft. Bowel sounds present. No organomegaly. EXTREMITIES: No edema, no cyanosis. NEUROLOGIC: The patient is awake, alert, follows simple commands. LABORATORY DATA: White blood cells 5.3, hemoglobin 11.2, hematocrit 33.6, and platelets 214. Sodium 141, potassium 4.5, BUN 20, creatinine 1.0. Random sugar is 102. Magnesium 2.4. ASSESSMENT AND PLAN: The patient is an 87-year-old male with coronary artery disease status post ang ioplasty, stent insertion in 03/06/17, gastrointestinal bleeding, chronic mass, adenocarcinoma of the colon, resection done by Dr. Diego, end-to-end anastomosis, hypertension, hypercholesterolemia, anemia, deconditioning, getting physical therapy, but still having abdominal pain. Will call a GI c onsult. Hull Drafter is on the case. The patient is getting physical therapy. We will continue Chaya vix, aspirin, heparin, potassium, metoprolol, amlodipine and will followup. Rosita Zavala MD cc: [id number] TT: 03/28/2017 19:16:30 Confirmation # [id number] Dictation # [id number] dn
[2017-03-29] MEDS: Pantoprazole 40 mg EC Tab PO SCH (06:24)
[2017-03-29] MEDS: Potassium Chloride 20 mEq ER Tab PO SCH (08:17)
--- NOTE | 2017-03-29 09:23 | PN ---
DATE: 03/29/2017 SUBJECTIVE: The patient was seen and examined on the bedside. Still complaining about abdominal pain. Yesterday GI consult was called with Dr. Baig; waiting for the input. Today, I put reconsult with Dr. Diego because the patient is still in pain and his bowel movement is not regulated enough. The patient is tolerating food. Getting physical therapy. No headache , no dizziness. No fever, no chills. PHYSICAL EXAMINATION: VITAL SIGNS: Temperature 98.6, pulse 81, blood pressure 93/58, respiratory rate 18. HEENT: Head normocephalic, atraumatic. Eyes: PERRLA. Extraocular muscles intact. Conjunctivae are clear. Nose patent. Mucous membranes moist. NECK: Supple. No carotid bruit, JVD or thyromegaly. CHEST: Bilaterally symmetrical. HEART: S1, S2 positive. LUNGS: Clear to auscultation. ABDOMEN: Soft. Bowel sounds present. No organomegaly, but long wall mining machine tender to touch in all 4 quadrants. EXTREMITIES: No edema, no cyanosis. NEUROLOGIC: The patient is awake, alert, moving all 4 extremities. No focal deficits. MEDICATIONS: Hydralazine, Colace, Ecotrin, heparin, K-Dur, Lopressor, Norvasc, Plavix, Protonix. LABORATORY DATA: White blood cells 5.3, hemoglobin 11.2, hematocrit 33.6, platelets 214. Sodium 141, potassium 4.1, BUN 20, creatinine 1.0, glucose 102, magnesium 2.4. ASSESSMENT AND PLAN: The patient is an 87-year-old male with anemia, history of hypermagnesemia, has history of coronary artery disease, history of cardiac stenting, history of hemicolectomy and end-to-end anastomosis, adenocarcinoma. Restarted Plavix and aspirin. The patient was also at [facility] also; underwent recently laparotomy. According to the pathology, patient's adenocarcinoma is low to poorly differentiated, 0/3 lymph nodes, positive lymphadenopathy, No perforation identified. Tumor was T3. Now because of patient's again pain, I put reconsult with the GI/Dr. Baig and Dr. Diego; waiting for their input. Meanwhile, patient is getting physical therapy. Length of time discussion done with patient's nurse. Rosita Zavala MD cc: [id number] TT: 03/29/2017 09:22:32 Confirmation # [id number] Dictation # [id number] mn MTDD
--- NOTE | 2017-03-29 11:43 | PN ---
DATE: 03/29/2017 Seen and examined and the chart was reviewed in TCU. This is an 87-year-old male who was being followed at the medical surgical floor with sigmoid colon cancer, status post sigmoid colectomy. He has history of coronary artery disease, status post drug-eluting stent and is back on his aspirin and Plavix. He was transferred to TCU for conditioning and we were asked to see him again for complaints of abdominal pain. The patient is actually having pain on the lower incisional area of his incisional site near the javon. It appears a little reddened, but there is no discharge. Otherwise, he is reported to be having bowel movements. No reports of any bleeding. VITAL SIGNS: Temperature febrile, his blood pressure is 115/76, pulse 73. LABORATORIES: Most recent are from 03/27 and the WBC is 5.3, his hemoglobin is 11.2, hematocrit is 33.6, platelets is 214. CMP is from 03/27 and sodium is 141 , K 4.5, BUN 20, creatinine is 1.0, magnesium 2.4. PHYSICAL EXAMINATION: HEENT: Sclera is anicteric. NECK: Supple. CARDIAC: S1, S2. LUNG SOUNDS: With breath sounds. No rales or wheeze. ABDOMEN: With bowel sounds, soft. He has javon that are open to air and complains of discomfort at the lower incision. The javon are in place, but is noted to have some redness at the site. No discharge. EXTREMITIES: No edema. NEUROLOGIC: Awake, alert. ASSESSMENT/PLAN: An 87-year-old male with colon cancer, status post hemicolectomy with end-to-end anastomosis and low anterior positive for adenocarcinoma. He has history of coronary artery disease and status post stent. The patient is back on aspirin and Plavix. The patient now complaining of abdominal pain, which states is mostly at where the javon are placed. We discussed with nursing staff and patient to request for surgical evaluation. The patient is on heart healthy diet. Continue gastrointestinal prophylaxis. He is on stool softeners and deep venous thrombosis prophylaxis. The patient was seen and discussed with Dr. Baig. Sondra HARDING cc: [id number] TT: 03/29/2017 11:42:23 Confirmation # [id number] Dictation # [id number] en MTDD
--- NOTE | 2017-03-29 13:05 | PN ---
DATE: 03/29/2017 The patient in room 316, bed 1. REASON FOR CONSULTATION AND FOLLOWUP: Coronary artery disease, status post PTCA, status post colonic mass resection. HISTORY OF PRESENT ILLNESS: The patient is an 87-year-old who had PTCA of LAD, RCA, RPDA on 03/23/20 17, admitted with GI bleeding, abdominal obstruction, small intestinal obstruction and found to have a colon mass for which he had colon resection with end-to-end anastomosis. The patient now in transi tional care unit for deconditioning, getting physical therapy. The patient denies any anginal sympto ms. He has been restarted on Plavix and aspirin which was held prior to surgery. PHYSICAL EXAMINATION: VITAL SIGNS: Blood pressure 129/77, respirations 18, pulse 73. The patient is afebrile. HEAD: Normocephalic. EYES: Pupils normal. Conjunctivae slightly pale. NECK: JVP low. Carotid equal. THORAX: AP diameter normal. LUNGS: Clear. CARDIOVASCULAR: S1, S2. ABDOMEN: Soft. The patient has an incision from the surgery. PERIPHERY: No clubbing, no cyanosis. LABORATORY DATA: Labs were done on 03/27/2017. They were reported on our previous progress note. DIAGNOSES: Coronary artery disease, status post angioplasty and stent insertion 03/23/2017; gastroin testinal bleeding, intestinal obstruction, colonic mass, adenocarcinoma of the colon, resection of co anastasia with end-to-end anastomosis, hypertension, hyperlipidemia, anemia, deconditioning. PLAN: Clinically, patient's cardiac status stable. The patient does not have any anginal symptoms. ____ continue to do physical therapy and patient is continuing on aspirin 81 daily, heparin 5000 uni ts subQ q.12 hours, potassium 20 daily, metoprolol tartrate 12.5 mg b.i.d., amlodipine 10 mg daily, P lavix 75 daily, Protonix 40 daily. The patient's potassium level is normal. We will stop the potass ium now and we will follow with you. Tyree Sanchez MD cc: [id number] TT: 03/29/2017 13:05:00 Confirmation # [id number] Dictation # [id number] sn
--- NOTE | 2017-03-29 22:49 | CP.PCM.PN ---
Subjective - Date & Time of Evaluation Date of Evaluation: 03/29/17 Time of Evaluation: 11:00 - Subjective Subjective: Comfortable in bed. denies abdominal pain. oral intake improved. Able to eat regular meals. No nausea. complaining of constipation. Objective - Vital Signs/Intake and Output Vital Signs (last 24 hours): Temp Pulse Resp BP Pulse Ox 98.6 F 80 20 147/74 97 03/27/17 09:58 03/29/17 17:23 03/27/17 09:58 03/29/17 17:23 03/27/17 09:58 - Medications Medications: Current Medications Amlodipine Besylate (Norvasc) 10 mg PO DAILY [facility] PRN Reason: Protocol Last Admin: 03/29/17 10:56 Dose: 10 mg Aspirin (Ecotrin) 81 mg PO 0800 [facility] Last Admin: 03/29/17 08:17 Dose: 81 mg Clopidogrel Bisulfate (Plavix) 75 mg PO DAILY [facility] Last Admin: 03/29/17 10:56 Dose: 75 mg Docusate Sodium (Colace) 100 mg PO BID [facility] Last Admin: 03/29/17 17:23 Dose: 100 mg Heparin Sodium (Porcine) (Heparin) 5,000 units SC Q12 [facility] PRN Reason: Protocol Last Admin: 03/29/17 10:57 Dose: 5,000 units Hydralazine HCl (Apresoline) 10 mg PO QID PRN PRN Reason: Systolic Blood Pressure Metoprolol Tartrate (Lopressor) 12.5 mg PO 0800,1800 [facility] Last Admin: 03/29/17 17:23 Dose: 12.5 mg Pantoprazole Sodium (Protonix Ec Tab) 40 mg PO 0630 [facility] Last Admin: 03/29/17 06:24 Dose: 40 mg - Labs Labs: 03/27/17 07:57 03/27/17 07:57 - Head Exam Head Exam: ATRAUMATIC, NORMAL INSPECTION, NORMOCEPHALIC - Eye Exam Eye Exam: Normal appearance Pupil Exam: NORMAL ACCOMODATION - ENT Exam ENT Exam: Mucous Membranes Moist, Normal Exam - Neck Exam Neck Exam: Full ROM, Normal Inspection - Cardiovascular Exam Cardiovascular Exam: REGULAR RHYTHM, +S1, +S2 - GI/Abdominal Exam GI & Abdominal Exam: Soft, Normal Bowel Sounds - Back Exam Back Exam: NORMAL INSPECTION - Neurological Exam Neurological Exam: Alert, Awake, CN II-XII Intact, Normal Gait, Oriented x3 - Skin Skin Exam: Normal Color, Warm Assessment and Plan - Assessment and Plan (Free Text) Assessment: A/P 1. Colon cancer stage IIA, s/p resection. 2. CAD, recent stents 3. Anemia 4. Constipation. 5. abdominal pain Plan : Stage II colon cancer. High risk features present. LVI, high grade. MSI sent on pathology specimen. If MSI low, he will benefit form oral capecitabine. anemia : Hb/hct stable. abdominal pain improved. Undergoing PT. Thank you Dr. Zavala for allowing us to participate in his care.
[2017-03-30] MEDS: Pantoprazole 40 mg EC Tab PO SCH (05:54)
[2017-03-30 07:33] VITALS: RESP 18
--- NOTE | 2017-03-30 11:04 | PN ---
DATE: 03/30/2017 REASON FOR CONSULTATION AND FOLLOWUP: Coronary artery disease, status post PTCA, status post colonic mass resection. BRIEF CLINICAL HISTORY: This is an 87-year-old male with past medical history significant for PTCA o f LAD, RCA and RPDA 03/23/2017, admitted with a GI bleed, found to be just an intestinal obstruction with intestinal mass, status post colectomy and anastomosis. Now patient is in transitional care [facility] for the continuity of care. Denies any chest pain, shortness of breath, any palpitation. PHYSICAL EXAMINATION: VITAL SIGNS: Temperature afebrile, heart rate 65, blood pressure ____/74. HEENT: PERRLA. Extraocular muscles intact. NECK: Supple. No carotid bruits. No thyromegaly. CHEST: Clear to auscultation. HEART: S1, S2 regular. ABDOMEN: Soft. EXTREMITIES: Clubbing, cyanosis negative. LABORATORY DATA: Last hemoglobin 11.2, hematocrit 33.5 on 03/27/2017, with a platelet count 214. La st BUN 20 and creatinine 1.0 on 03/27/2017. IMPRESSION: Percutaneous transluminal coronary angioplasty of left anterior descending, right davis ry artery, and right posterior descending artery on 03/23/2017; status post colonic mass, status post resection, status post colectomy, end-to-end anastomosis, adenocarcinoma of the colon; hypertension, hyperlipidemia, deconditioning of the body. RECOMMENDATION: Plavix and aspirin were resumed, tolerating. No unusual symptoms happened during in terruption of aspirin and Plavix. Continue rehab. Continue aspirin and Plavix. Continue metoprolol . Continue rehab. Will follow with you. Thank you, Dr. Zavala, for providing the opportunity in taking care of this patient. Tyree Dale MD cc: [id number] TT: 03/30/2017 11:03:28 Confirmation # [id number] Dictation # [id number] mn
--- NOTE | 2017-03-30 17:10 | CP.PCM.PN ---
Subjective - Date & Time of Evaluation Date of Evaluation: 03/30/17 Time of Evaluation: 11:40 - Subjective Subjective: Seen and examined earlier today. Nephew at [facility]. Patient report good BM today and yesterday. C/o pain abdomen to mostly right lower quaderant. Tolerating oral intake. Per nursing staff was just seen by surgical residents. Objective - Vital Signs/Intake and Output Vital Signs (last 24 hours): Temp Pulse Resp BP Pulse Ox 98.3 F 66 18 131/76 97 03/30/17 10:00 03/30/17 10:00 03/30/17 10:00 03/30/17 11:33 03/30/17 10:00 Intake and Output: 03/30/17 03/30/17 06:59 18:59 Intake Total 680 Balance 680 - Medications Medications: Current Medications Amlodipine Besylate (Norvasc) 10 mg PO DAILY [facility] PRN Reason: Protocol Last Admin: 03/30/17 11:33 Dose: 10 mg Aspirin (Ecotrin) 81 mg PO 0800 [facility] Last Admin: 03/30/17 08:20 Dose: 81 mg Clopidogrel Bisulfate (Plavix) 75 mg PO DAILY [facility] Last Admin: 03/30/17 11:29 Dose: 75 mg Docusate Sodium (Colace) 100 mg PO BID [facility] Last Admin: 03/30/17 11:28 Dose: 100 mg Heparin Sodium (Porcine) (Heparin) 5,000 units SC Q12 [facility] PRN Reason: Protocol Last Admin: 03/30/17 11:29 Dose: 5,000 units Hydralazine HCl (Apresoline) 10 mg PO QID PRN PRN Reason: Systolic Blood Pressure Metoprolol Tartrate (Lopressor) 12.5 mg PO 0800,1800 [facility] Last Admin: 03/30/17 08:19 Dose: 12.5 mg Pantoprazole Sodium (Protonix Ec Tab) 40 mg PO 0630 [facility] Last Admin: 03/30/17 05:54 Dose: 40 mg - Labs Labs: 03/27/17 07:57 03/27/17 07:57 - Constitutional Appears: No Acute Distress - Head Exam Head Exam: NORMOCEPHALIC - Eye Exam Eye Exam: Normal appearance. absent: Scleral icterus - ENT Exam ENT Exam: Mucous Membranes Moist - Respiratory Exam Respiratory Exam: NORMAL BREATHING PATTERN. absent: Respiratory Distress - Cardiovascular Exam Cardiovascular Exam: +S1, +S2 - GI/Abdominal Exam GI & Abdominal Exam: Soft, Tenderness, Normal Bowel Sounds. absent: Guarding ( tenderness right lower quaderant, incision sites with javon, JASON, not much erythema to lower mid incision.), Rebound - Extremities Exam Extremities Exam: absent: Calf Tenderness, Pedal Edema Assessment and Plan - Assessment and Plan (Free Text) Assessment: ASSESSMENT: Abdominal pain mostly right sided Colon Cancer, s/p hemicolectomy CAD, s/p stent PLAN: request ct scan abdomen and pelvis with oral contrast on Plavix and aspirin continue diet as tolerated. DVT and GI prophylaxsis continue Colace. Plan to dc home today, if ct scan is negative,await results. Seen and discussed with Dr. Snell.
--- NOTE | 2017-03-30 19:25 | PN ---
DATE: 03/30/2017 ADDENDUM: This is an addendum to the GI progress report dictated by Sondra Larkin APN. This patient was seen an d evaluated earlier. The patient did complain of some abdominal bloating and discomfort. The CT wit h oral contrast was ordered, which was reviewed later on and found the patient has a significant amou nt of stool proximally in the colon, in the ascending colon and transverse and also has a small amoun t of stool in the rectal area. The patient has been on Colace. It is reasonable to consider startin g the patient on MiraLax. The patient is due to be discharged today. The patient can be followed up with the primary care and also with the surgeon post-discharge. Thank you very much for allowing us to participate in the care of the patient. Lesly Baig MD cc: [id number] TT: 03/30/2017 19:25:16 Confirmation # [id number] Dictation # [id number] farhana
[2017-03-30] MEDS ORDERED: POLYETHYLENE GLYCOL 3350 17 GM/Dose PACKET PO PRN (19:53)
[2017-03-31] MEDS: Pantoprazole 40 mg EC Tab PO SCH (05:58)
--- NOTE | 2017-03-31 06:19 | PN ---
DATE: 03/30/2017 SUBJECTIVE: The patient was seen and examined on 03/30/17 lying down on the bed, still complaining abo ut abdominal pain. No nausea or vomiting. No hematuria or hematochezia. No fever, no chills. Tole rating the food. The patient was seen by residential living assistant and was seen by melter assistant, Dr. Emily gamez. PHYSICAL EXAMINATION: VITAL SIGNS: Temperature 98.3, pulse 56, respiratory rate 18, blood pressure 131/76. HEENT: Head normocephalic, atraumatic. Eyes: PERRLA. Extraocular muscles intact. Conjunctivae cl ear. Nose patent. Mucous membranes moist. NECK: Supple. No carotid bruit, JVD or thyromegaly. CHEST: Bilaterally symmetrical. HEART: S1, S2 positive. LUNGS: Clear to auscultation. ABDOMEN: Soft, tender on palpation. No organomegaly. EXTREMITIES: No edema, no cyanosis. NEUROLOGIC: The patient is awake, alert, follows simple commands. MEDICATIONS: Ecotrin, Plavix, Colace heparin, Protonix, hydralazine, Lopressor. LABORATORY DATA: White blood cells 5.3, hemoglobin 11.2, hematocrit 33.6, platelets 240. Sodium 141 , potassium 4.5, BUN 20, creatinine 1.0, and glucose 102. ASSESSMENT AND PLAN: The patient is an 87-year-old male with anemia, came with abdominal pain, mostl y right sided, colon cancer, status pot hemicolectomy, coronary artery disease, end-to-end anastomosi s, history of stent placement. CAT scan of the abdomen and pelvis done with oral contrast. The genia ent is on still Plavix and aspirin. According to Sondra Larkin, continue diet as tolerated. Deep vein thrombosis and gastrointestinal prophylaxis. Continue Colace.. I reviewed Dr. Baig's addendum He reviewed the CAT scan. According to him, abdomen is filled with stool. Even the patient is on C olace, we can add MiraLax; seen by surgical team as per staff, but I am not seeing any progress note from surgical team, seen by career services officer and Dr. Schaffer, oncologist. Meanwhile, we will continue pres ent treatment. Gastrointestinal and deep venous thrombosis prophylaxis. Repeat labs. We will follo w up. Rosita Zavala MD cc: [id number] TT: 03/31/2017 06:17:34 Confirmation # [id number] Dictation # [id number] tn
--- NOTE | 2017-03-31 09:42 | PN ---
DATE: 03/31/2017 Seen and examined at the bedside earlier this morning. The patient had a CAT scan yesterday which wa s showing fecal impaction. The patient was started on MiraLax last night and was given a dose. The patient reported having 4 bowel movements last night with relief. No reports of bleeding and he destiny es any abdominal pain; just some discomfort near the incisional line. No acute distress. VITAL SIGNS: Stable. LABORATORY DATA: No new labs are noted today. PHYSICAL EXAMINATION: HEENT: Sclerae are anicteric. NECK: Supple. CARDIAC: S1, S2. LUNGS: Sounds are clear. ABDOMEN: With bowel sounds. Soft. Incision with javon and it is dry and intact. Tenderness is i mproved; mostly mid. No right quadrant tenderness. No rebound or guarding. EXTREMITIES: No edema. ASSESSMENT: Improved abdominal pain. The patient with fecal impaction, constipation, status post CA T scan. There was no evidence of dehiscence, shows postoperative changes, but no mechanical obstruct ion. History of coronary artery disease, status post stent. PLAN: Continue current diet. The patient is on MiraLax which he can take daily. He is on his aspir in and Plavix. From GI point of view, as long as patient is stable and the patient is having bowel m ovements and pain is better, he can be discharged home with MiraLax, and follow up with PCP and surge on on discharge. The patient was seen and discussed with Dr. Baig. Sondra HARDING cc: [id number] TT: 03/31/2017 09:41:34 Confirmation # [id number] Dictation # [id number] farhana
[2017-03-31 10:40] VITALS: BP 101/52; PULSE 75
--- NOTE | 2017-03-31 13:06 | CP.PCM.PCO ---
Physician Communication Note - Physician Communication Note Physician Communication Note: GI recs Mircornelx for d/c. coldeo ok as well
--- NOTE | 2017-03-31 13:49 | PN ---
DATE: 03/31/2017 LOCATION: Room 316, bed 1. REASON FOR CONSULTATION AND FOLLOWUP: Coronary artery disease, status post PTCA, status post colonic masses. HISTORY OF PRESENT ILLNESS: The patient is an 87-year-old male with past medical history significant for PTCA of LAD, RCA, and RPDA on 03/23/2017, admitted with GI bleeding and bowel obstruction due to colonic mass for which she had dissection and end-to-end anastomosis. The patient now in [facility] care unit for deconditioning and physical therapy. Denies any cardiac symptoms. Getting physical therapy. PHYSICAL EXAMINATION: VITAL SIGNS: Blood pressure 101/52, respirations 18, pulse 74, temperature 98.3. HEAD: Normocephalic. EYES: Pupils normal. Conjunctivae are slightly pale. NECK: JVP low. Carotids equal. THORAX: AP diameter normal. LUNGS: No rales. CARDIOVASCULAR: S1, S2. ABDOMEN: Soft, nontender. No organomegaly. Bowel sounds normal. EXTREMITIES: No clubbing, no cyanosis. LABORATORY DATA: WBC 5.3, hemoglobin 11.2, hematocrit 33.6, platelets 214. Sodium 141, potassium 4. 5, BUN 20, creatinine 1.0, calcium 9.4, phosphorus 3.9, magnesium 2.4. DIAGNOSES: Coronary artery disease, status post angioplasty, stent insertion in left anterior descen ding, right coronary artery, and right posterior descending artery on 03/23/2017, status post surgery for colonic mass with end-to-end anastomosis, adenocarcinoma of the colon, hypertension, hyperlipidem ia, deconditioning. PLAN: The patient is getting physical therapy without any cardiac symptoms. The patient's Plavix an d aspirin have been restarted, which was put on hold because of surgery. The patient is also getting amlodipine 10 mg daily. We will continue present therapy and we will follow with you. Tyree Sanchez MD cc: [id number] TT: 03/31/2017 13:48:54 Confirmation # [id number] Dictation # [id number] rashmi
[2017-03-31 16:54] VITALS: TEMP 98.7; O2SAT 98
--- NOTE | 2017-05-10 08:26 | DS ---
CHIEF COMPLAINT: Abdominal pain. HISTORY OF PRESENT ILLNESS: Mr. Singh is an 87 years old male with past medical history of PTCA of LAD, RCA, PDA, had drug eluting stents placed. Later on the patient has GI problem. Workup showed colonic mass status post resection, end-to-end anastomosis of Plavix and aspirin. The patient was treated on acute medical side, transferred to CTU for continuity of care and for physical therapy because he lives alone. He is not able to do his ADL. He is not able to take care of himself. The patient got better, got physical therapy, discharged home. His cousin was with him, who did translation for me and the patient will go in to cousin's home for couple of days before he has to go to his apartment. Prescription of medications given, follow up with primary care physician PAST MEDICAL HISTORY: Coronary artery disease status post drug eluting stents, hypercholesterolemia, history of colonic mass status post removal of the left hemicolectomy and end-to-end anastomosis. SOCIAL HISTORY: Never smoked. No drugs or ethanol as per the patient. ALLERGIES: THE PATIENT IS NOT ALLERGIC TO ANY MEDICATIONS. HOME MEDICATION: Reviewed by me. REVIEW OF SYSTEMS: The patient was seen and examined on the bedside. Looks comfortable. No nausea, vomiting, or diarrhea. No hematuria. No hematochezia. No headache. No dizziness. No chest pain. No shortness of breath. Did physical therapy. PHYSICAL EXAMINATION: VITAL SIGNS: Temperature 98.7, pulse 75, blood pressure 101/52 and respiratory rate 18. HEENT: Head is normocephalic and atraumatic. Eyes PERRLA. EOMs intact. Conjunctivae clear. Nose patent. Mucous membrane moist. NECK: Supple. No carotid bruit or thyromegaly. CHEST: Bilaterally symmetrical. HEART: S1 and S2 positive. LUNGS: Clear to auscultation. ABDOMEN: Soft, tender on surgical area. Bowel sounds are positive. EXTREMITIES: No edema. No cyanosis. NEUROLOGIC: The patient is awake and alert. Moving all 4 extremities. No focal deficit. LABORATORY DATA: We do not have recent labs today, but reviewed old labs. White blood cell 5.3, hemoglobin 11.2, hematocrit 33.6 and platelets 214. Sodium 141, potassium 4.5, BUN 20, calcium is 1.0, glucose 102 and magnesium 2.4. ASSESSMENT AND PLAN: is an 87-year-old male with anemia, hypomagnesemia replaced, constipation seen by surgeon he ordered MiraLax. The patient has history of coronary artery disease status post angioplasty, stent insertion in left and right coronary artery and right posterior descending artery. The patient is status post surgery for colonic mass with end-to-end anastomosis, adenocarcinoma of the colon, hypertension, hypercholesterolemia, deconditioning and got physical therapy. The patient was started on Plavix and aspirin. Starting amlodipine. Discharge home after clearing by the surgery. We will follow up with line installer trolley, surgeon and rn lpn lvn and Dr. Schaffer for treatment of adenocarcinoma, gastrointestinal and deep venous thrombosis prophylaxis given in the hospital. Education done. Discussion done with the patient's cousin the importance of seeing Dr. Schaffer for the follow up adenocarcinoma. The patient was seen by ordered MiraLax and Colace. We will follow with you. Rosita Zavala MD MTDJaqueline
== END 2017-03-31 17:57 | disposition home health service (06) | DRG 375 ==
LOC: TRCU 17:24
PROVIDERS: ADMIT Internal Medicine; ATTEND Internal Medicine
PROC: F07Z9ZZ Gait Training/Functional Ambulation Treatment (ICD-10-PCS; principal; 2017-03-23)
PROC: F07M6ZZ Therapeutic Exercise Treatment of Musculoskeletal System - Whole Body (ICD-10-PCS; 2017-03-23)
PROC: F08Z1ZZ Dressing Techniques Treatment (ICD-10-PCS; 2017-03-23)
PROC: F08Z2ZZ Grooming/Personal Hygiene Treatment (ICD-10-PCS; 2017-03-23)
PROC: F08Z4ZZ Home Management Treatment (ICD-10-PCS; 2017-03-23)
DX: C18.7 Malignant neoplasm of sigmoid colon (principal); K92.2 Gastrointestinal hemorrhage, unspecified; D64.9 Anemia, unspecified; E83.41 Hypermagnesemia; E83.42 Hypomagnesemia; E61.1 Iron deficiency; E78.00 Pure hypercholesterolemia, unspecified; E78.5 Hyperlipidemia, unspecified; I10 Essential (primary) hypertension; I25.10 Atherosclerotic heart disease of native coronary artery without angina pectoris; K56.41 Fecal impaction; Z79.82 Long term (current) use of aspirin; Z90.49 Acquired absence of other specified parts of digestive tract; Z95.5 Presence of coronary angioplasty implant and graft; R10.9 Unspecified abdominal pain; K59.00 Constipation, unspecified; R53.81 Other malaise

== ENCOUNTER 2018-05-12 09:50 | Inpatient (IN) | payer MEDICARE, MEDICAID ==
[2018-05-12 10:01] VITALS: BMI 29.7
--- NOTE | 2018-05-12 10:16 | ED PDOC ---
Arrival/HPI - General Chief Complaint: Chest Pain Time Seen by Provider: 05/12/18 10:01 Historian: Patient, Other (friend) - History of Present Illness Narrative History of Present Illness (Text): 05/12/18 10:10 88 year old male, whose PMH includes CAD, colon CA (in remission), and coronary stents, who presents to the emergency department accompanied with friend, complaining of near syncopal episode since prior to arrival. Patient reports having an MRI appointment today, requested by Dr. Jewell. Per friend, prior to the MRI, patient began to feel lightheadedness and almost lost consciousness. Friend notes patient had full syncopal episode 2 weeks ago with abrasion on left knee and is unsure how long patient had LOC. Has also been having chest pain intermittently for weeks. Patient denies any symptoms at this times. No chest pain, shortness of breath, abdominal pain, fever, nausea, vomiting, diarrhea, or other complaints. He also notes taking Aspirin every evening. PMD: Dr. Marin Software Systems Engineer: Dr. Damon Onc: Karime Time/Duration: Prior to Arrival Symptom Onset: Sudden Symptom Course: Improving Context: Street Past Medical History - Provider Review Nursing Documentation Reviewed: Yes - Infectious Disease Hx of Infectious Diseases: None - Cardiac Hx Cardiac Disorders: Yes (CAD) Other/Comment: + stents - Pulmonary Hx Respiratory Disorders: No - Neurological Hx Neurological Disorder: No - HEENT Hx HEENT Disorder: No (WEARS RX GLASSES) - Renal Hx Renal Disorder: No - Endocrine/Metabolic Hx Endocrine Disorders: No - Hematological/Oncological Hx Blood Transfusions: Yes Hx Blood Transfusion Reaction: No - Integumentary Hx Dermatological Disorder: No - Musculoskeletal/Rheumatological Hx Falls: No - Gastrointestinal Hx Gastrointestinal Disorders: Yes (COLONIC MASS,POST HEMICOLECTOMY -END TO END ANASTOMOSIS,GI BLEED DIVERTICUL) - Genitourinary/Gynecological Hx Genitourinary Disorders: No Hx Reproductive Disorders: No - Psychiatric Hx Psychophysiologic Disorder: No Hx Emotional Abuse: No Hx Physical Abuse: No Hx Substance Use: No - Surgical History Hx Cardiac Catheterization: Yes (january 21, 2017) Other/Comment: SCAR TO LEFT LOWER LEG. CUT WHEN HE WAS A KID. - Anesthesia Hx Anesthesia Reactions: No Hx Malignant Hyperthermia: No - Suicidal Assessment Feels Threatened In Home Enviroment: No Family/Social History - Physician Review Nursing Documentation Reviewed: Yes Family/Social History: No Known Family HX Smoking Status: Never Smoked Hx Alcohol Use: Yes (OCCASIONALLY) Hx Substance Use: No Allergies/Home Meds Allergies/Adverse Reactions: Allergies No Known Allergies Allergy (Verified 03/22/17 19:50) Home Medications: Home Meds Medication Instructions Recorded Confirmed Ergocalciferol [Drisdol 50,000 1 cap PO Q7D 05/12/18 05/12/18 Intl Units Cap] Fludrocortisone [Florinef] 1 tab PO DAILY 05/12/18 05/12/18 Metoprolol Tartrate [Lopressor] 1 tab PO DAILY 05/12/18 05/12/18 Nitroglycerin [Nitrostat] 1 tab PO PRN PRN 05/12/18 05/12/18 Ranitidine HCl [Acid Supercharge Repair Supervisor] 1 tab PO DAILY 05/12/18 05/12/18 Review of Systems - Physician Review All systems were reviewed & negative as marked: Yes - Review of Systems Constitutional: absent: Fevers Cardiovascular: Syncope (near syncope ). absent: Chest Pain Physical Exam - Physical Exam Narrative Physical Exam (Text): 05/12/18 Constitutional: No acute distress. Head: Normocephalic. Atraumatic. Eyes: PERRL. ENT: Moist mucous membranes. Neck: Supple. Cardiovascular: (+) Bradycardia Chest: No tenderness. Respiratory: Clear to auscultation bilaterally. GI: Soft. Nontender. Nondistended. Back: No CVA tenderness. Musculoskeletal: (+) abrasion on left knee. FROM. No tenderness or swelling of extremities. Skin: No rash. Neurologic: Alert, no focal deficit. Vital Signs Reviewed: Yes Vital Signs Temp Pulse Resp BP Pulse Ox 05/12/18 13:01 55 L 17 164/87 H 99 05/12/18 11:31 87 17 165/97 H 98 05/12/18 09:55 46 L 05/12/18 09:51 98.3 F 65 18 168/73 H 99 Temperature: Afebrile Blood Pressure: Hypertensive Pulse: Regular Respiratory Rate: Normal Appearance: Positive for: Well-Appearing, Non-Toxic, Comfortable Pain Distress: None Mental Status: Positive for: Alert and Oriented X 3 Medical Decision Making ED Course and Treatment: 05/12/18 Impression: 88 year old male with bradycardia and abrasion on left knee with FROM complaining of near-syncope prior to arrival. Plan: -- EKG -- Chest X-ray -- Labs -- Aspirin -- Reassess and disposition Progress Notes: 05/12/18 10:55 Chest X-ray: Creator : Sloan Mcdaniels MD COMPARISON: 02/24/2018 FINDINGS: LUNGS: Mild peribronchial thickening PLEURA: No significant pleural effusion identified, no pneumothorax apparent. CARDIOVASCULAR: Normal. OSSEOUS STRUCTURES: No significant abnormalities. VISUALIZED UPPER ABDOMEN: Normal. OTHER FINDINGS: None. IMPRESSION: Mild peribronchial thickening. No evidence of pneumonia EKG Sinus rhythm, bradycardia in 40s, no ST elevations. - Lab Interpretations Lab Results: 05/12/18 10:26 05/12/18 10:26 Lab Results 05/12/18 10:26: Sodium 145, Potassium 4.0, Chloride 106, Carbon Dioxide 27, Anion Gap 16, BUN 22 H, Creatinine 1.1, Est GFR ( Amer) > 60, Est GFR ( Non-Af Amer) > 60, Random Glucose 93, Calcium 9.0, Total Bilirubin 1.0, AST 35, ALT 27, Alkaline Phosphatase 79, Total Creatine Kinase 110, Troponin I < 0.01, NT-Pro-B Natriuret Pep 391, Total Protein 7.1, Albumin 4.3, Globulin 2.8, Albumin/Globulin Ratio 1.6 05/12/18 10:26: PT 13.2 H, INR 1.14 H, APTT 28.3 05/12/18 10:26: WBC 3.8 L D, RBC 3.23 L, Hgb 11.2 L, Hct 31.7 L, MCV 98.1, MCH 34.7, MCHC 35.3, RDW 15.1 H, Plt Count 103 L, MPV 10.0, Gran % 56.3, Lymph % ( Auto) 29.6, Gove % (Auto) 12.2 H, Eos % (Auto) 1.9, Baso % (Auto) 0.0, Gran # 2.13, Lymph # (Auto) 1.1 L, Gove # (Auto) 0.5, Eos # (Auto) 0.1, Baso # (Auto) 0.00 I have reviewed the lab results: Yes - RAD Interpretation Radiology Orders: 05/12/18 10:05 CHEST PORTABLE [RAD] Stat Surgical Resident: Radiologist - EKG Interpretation Interpreted by ED Physician: Yes Type: 12 lead EKG - Medication Orders Current Medication Orders: Amlodipine Besylate (Norvasc) 10 mg PO DAILY KIA Aspirin (Ecotrin) 81 mg PO DAILY KIA Ezetimibe (Zetia) 10 mg PO DAILY KIA Ergocalciferol (Drisdol 50,000 Intl Units Cap) 1 cap PO Q7D KIA Last Admin: 05/12/18 14:46 Dose: 1 cap Pneumococcal Polyvalent Vaccine (Pneumovax 23 Vaccine) 0.5 ml IM .ONCE ONE Stop: 05/12/18 16:04 Discontinued Medications Aspirin (Aspirin) 325 mg PO STAT STA Stop: 05/12/18 10:12 Last Admin: 05/12/18 10:51 Dose: 325 mg - Scribe Statement The provider has reviewed the documentation as recorded by the Heaven Peña Provider Scribe Attestation: All medical record entries made by the Heaven were at my direction and personally dictated by me. I have reviewed the chart and agree that the record accurately reflects my personal performance of the history, physical exam, medical decision making, and the department course for this patient. I have also personally directed, reviewed, and agree with the discharge instructions and disposition. Disposition/Present on Arrival - Present on Arrival Any Indicators Present on Arrival: No History of DVT/PE: No History of Uncontrolled Diabetes: No Urinary Catheter: No History of Decub. Ulcer: No History Surgical Site Infection Following: None - Disposition Have Diagnosis and Disposition been Completed?: Yes Diagnosis: Syncope, Chest pain, Bradycardia Disposition: HOSPITALIZED Disposition Time: 11:15 Patient Plan: Admission, Telemetry Condition: GUARDED
[2018-05-12 10:52] LABS: EOS # 0.1 (0.0-0.7); EOS % 1.9 % (1.5-5.0); GRAN # 2.13 (1.4-6.5); GRAN % 56.3 % (50.0-68.0); HEMOGLOBIN 11.2 g/dL (14.0-18.0); LYMPH # 1.1 (1.2-3.4); LYMPH % 29.6 % (22.0-35.0); MEAN CELL VOLUME 98.1 fl (80.0-105.0); MEAN CORPUSCULAR HEMOGLOBIN 34.7 pg (25.0-35.0); MEAN CORPUSCULAR HGB CONC 35.3 g/dl (31.0-37.0); MONO # 0.5 (0.1-0.6); MONO % 12.2 % (1.0-6.0); RBC 3.23 10^6/uL (3.5-6.1); RED CELL DISTRIBUTION WIDTH 15.1 % (11.5-14.5); WHITE BLOOD COUNT 3.8 10^3/ul (4.5-11.0)
--- NOTE | 2018-05-12 10:55 | RAD ---
Date of service: 05/12/2018 HISTORY: chest pain COMPARISON: 02/24/2018 FINDINGS: LUNGS: Mild peribronchial thickening PLEURA: No significant pleural effusion identified, no pneumothorax apparent. CARDIOVASCULAR: Normal. OSSEOUS STRUCTURES: No significant abnormalities. VISUALIZED UPPER ABDOMEN: Normal. OTHER FINDINGS: None. IMPRESSION: Mild peribronchial thickening. No evidence of pneumonia
[2018-05-12 11:02] LABS: ALB/GLOB RATIO 1.6 (1.1-1.8); ALBUMIN 4.3 g/dL (3.0-4.8); ALT/SGPT 27 U/L (7-56); AST/SGOT 35 U/L (17-59); BLOOD UREA NITROGEN 22 mg/dL (7-21); GFR AFRICAN-AMERICAN > 60; GFR NON-AFRICAN AMERICAN > 60
[2018-05-12 11:04] LABS: INR 1.14 (0.93-1.08); PARTIAL THROMBOPLASTIN TIME 28.3 Seconds (25.1-36.5); PROTHROMBIN TIME 13.2 SECONDS (9.4-12.5)
[2018-05-12 11:13] LABS: B-TYPE NATRIURETIC PEPTIDE 391 pg/mL (0-450); TROPONIN I < 0.01 ng/mL
[2018-05-12] MEDS ORDERED: Ergocalciferol 50,000 Intl Units Cap PO SCH (13:15)
[2018-05-12] MEDS ORDERED: Pneumococcal 23-Valent Vaccine IM ONE (16:03)
--- NOTE | 2018-05-12 17:53 | CARD ---
APPROVED REPORT Date of service: 05/12/2018 EKG Measurement Heart [id number] CT [id number] <Conclusion> Marked sinus bradycardia Left axis deviation Left ventricular hypertrophy with QRS widening Abnormal ECG
[2018-05-12 19:33] LABS: TROPONIN I 0.01 ng/mL
--- NOTE | 2018-05-12 21:56 | CON ---
DATE: 05/12/2018 REASON FOR CONSULTATION: Followup recurrent syncope, cardiac evaluation, history of coronary artery disease. BRIEF CLINICAL HISTORY: This is an 88-year-old male with past medical history significant for coronary artery disease, status post PTCA of LAD, RCA, and RPD on 01/21/2017 with a 3 drug-coated stents were placed. Later on, the patient had a GI bleed. Workup shows large colonic mass, status post colonic resection, end-to-end anastomosis. The patient is off Plavix during the surgery, then was resumed back to Plavix, now the patient is off Plavix, who was experiencing recurrent syncope. The patient is Bulgarian speaking, does not speak that much Beninese, but tried to reach his nephew, Farrukh Lisa, telephone number [phone] to give all the information and history. He said that the patient was coming for MRI. Dr. Schaffer requested MRI of the brain. While the patient was coming out of the garage, he felt that he was going to pass out. He called his nephew that he is going to pass out, so he held him and gently he walked him to the MRI department. Later on, the patient recovered and had MRI done, but after the MRI, it feels that he is still not good, so he went to Dr. Sanchez's office to see him, was advised to come to the ER and the patient got admitted here with recurrent syncope. Prior to this event, Farrukh Lisa, nephew said that the patient had 2 episodes of syncopal episodes. A week ago, also the patient had abrasion and fell down. The patient said that he is going to pass out. He does not recall anything, but he does not feel any chest pain nor palpitation nor shortness of breath. PAST MEDICAL HISTORY: Significant for coronary artery disease as mentioned above, history of PTCA of RCA, RPD, and LAD with 3 drug-eluting stents on 01/21/2017, history of diabetes, hypertension, hyperlipidemia, colonic mass, status post right hemicolectomy and end-to-end anastomosis last year. SOCIAL HISTORY: Denies smoking. Denies any history of alcohol abuse. RECENT CARDIAC WORKUP: As follows, the patient had a stress test on 03/14/2018 that shows probably negative myocardial perfusion study, fixed defect due to diaphragm attenuation or previous myocardial injury. Normal gated wall motion and thickening left ventricle in comparison to last study on 12/30/2016, previously noted disappear and improved and fixed defect. No reversible ischemia, ejection fraction 54%. The patient had last echo on 01/29/2017 here at the [facility] that shows ejection fraction 55-60%, trace aortic regurgitation. No significant valvular aortic stenosis. Trace mitral regurgitation. Mild to moderate tricuspid regurgitation. RV systolic pressure 58. CURRENT MEDICATIONS: The patient is taking at home amlodipine 10 mg daily, Crestor 20 mg daily, ranitidine 1 tablet daily, nitroglycerin, metoprolol 1 tablet daily, Florinef 1 tablet daily, Zetia and aspirin. REVIEW OF SYSTEMS: As per HPI. PHYSICAL EXAMINATION: As follows; VITAL SIGNS: Height of the patient 5 feet 6 inches, weight is 184 pounds, body mass index 29.7 kg/m2. Temperature afebrile, heart rate 55, blood pressure 164/87. HEENT: PERRLA. Extraocular muscles intact. NECK: Supple. No carotid bruit or thyromegaly. CHEST: Clear to auscultation. HEART: S1 and S2 regular. ABDOMEN: Soft. EXTREMITIES: Clubbing and cyanosis negative. LABORATORY DATA: EKG shows normal sinus, no acute ST-T changes noted except sinus bradycardia. Blood workup; WBC 3.8, hemoglobin 11.8, hematocrit 31.7, platelet count 103. Chemistry shows sodium 145, potassium 4, chloride 106, carbon dioxide 27, anion gap of 16, BUN 22, creatinine 1.1. Troponin 0.01. IMPRESSION: This is an 88-year-old male with past medical history significant for colon cancer, status post resection; history of coronary artery disease, status post stent, left anterior descending, right coronary artery, and right posterior descending on 01/21/2017, followed by the patient had gastrointestinal bleed and found to be chronic mass, status post resection, left hemicolectomy with end-to-end anastomosis, who admitted with recurrent syncope. Rule out orthostatic hypotension and rule out myocardial infarction, though unlikely. Recently, a stress test in February was essentially negative. We will do echocardiogram to rule out any structural heart disease, do orthostatic hypotension. If no obvious source of syncope, finally we will put loop recorder to see any occult arrhythmia causing this syncope. We will follow with you. Thank you, Dr. Zavala, for providing us the opportunity in taking care of the patient, Speedy De Jesus. Tyree Dale MD
[2018-05-13 06:19] LABS: EOS # 0.1 (0.0-0.7); EOS % 2.3 % (1.5-5.0); GRAN # 2.18 (1.4-6.5); GRAN % 56.5 % (50.0-68.0); HEMOGLOBIN 11.3 g/dL (14.0-18.0); LYMPH # 1.2 (1.2-3.4); LYMPH % 30.6 % (22.0-35.0); MEAN CELL VOLUME 98.5 fl (80.0-105.0); MEAN CORPUSCULAR HEMOGLOBIN 34.3 pg (25.0-35.0); MEAN CORPUSCULAR HGB CONC 34.9 g/dl (31.0-37.0); MEAN PLATELET VOLUME 9.9 fl (7.0-11.0); MONO # 0.4 (0.1-0.6); MONO % 10.6 % (1.0-6.0); RBC 3.29 10^6/uL (3.5-6.1); RED CELL DISTRIBUTION WIDTH 14.9 % (11.5-14.5); WHITE BLOOD COUNT 3.9 10^3/ul (4.5-11.0)
[2018-05-13 06:36] LABS: ALT/SGPT 28 U/L (7-56); HDL CHOLESTEROL 44 mg/dL (29-60)
[2018-05-13 06:47] LABS: LDL CHOLESTEROL 48 mg/dL (0-129); TROPONIN I 0.03 ng/mL
[2018-05-13 07:07] LABS: ALB/GLOB RATIO 1.4 (1.1-1.8); ALBUMIN 3.9 g/dL (3.0-4.8); AST/SGOT 36 U/L (17-59); BLOOD UREA NITROGEN 23 mg/dL (7-21); CALCIUM 8.7 mg/dL (8.4-10.5); GFR AFRICAN-AMERICAN > 60; GFR NON-AFRICAN AMERICAN > 60
--- NOTE | 2018-05-13 10:03 | HP ---
05/12/18 CHIEF COMPLAINT: Chest pain and dizziness. HISTORY OF PRESENT ILLNESS: The patient is an 88-year-old male. Mr. Speedy De Jesus is an 88-year-old male with past medical history of coronary artery disease, colon cancer, in remission; coronary stenting, COPD, came to the emergency department with a friend complaining of near syncope episode since prior to arrival. The patient reports having MRI appointment today, requested by Dr. Schaffer. Per friend, prior to MRI, the patient began to feel lightheadedness and almost lost consciousness. The patient's friend noticed that the patient had full syncopal episode 2 weeks ago with abrasion on the left knee and they are unsure how long the patient had loss of consciousness. He also has been having chest pain intermittently for weeks. The patient denies any symptoms at this time. No chest pain. No shortness of breath. No abdominal pain. No nausea, vomiting, diarrhea. No hematuria or hematochezia. No swelling of the leg. PAST MEDICAL HISTORY: Coronary artery disease, colon cancer, in remission; chemotherapy, coronary artery stents, COPD, history of anemia, blood transfusion, history of colonic mass, post hemicolectomy, end-to-end anastomosis, GI diverticulum, history of cardiac catheterization. FAMILY HISTORY: Father and mother noncontributory. HABITS: Never smoked. Alcohol occasionally. No drugs. ALLERGIES: PATIENT IS NOT ALLERGIC WITH ANY MEDICATIONS. HOME MEDICATIONS: Vitamin D, Florinef, Lopressor, Nitrostat, ranitidine. REVIEW OF SYSTEMS: The patient was seen and examined at the bedside in the emergency room. Looking comfortable that moment. No chest pain. No dizziness. No acute distress. No fever, no chills. PHYSICAL EXAMINATION: VITAL SIGNS: Temperature 98.3, pulse 65, respiratory rate 18, blood pressure 168/73, pulse oximetry 99. HEENT: Head normocephalic, atraumatic. Eyes PERRLA. Extraocular muscles intact. Conjunctivae clear. Nose patent. Mucous membrane moist. NECK: Supple. No carotid bruit. No JVD or thyromegaly. CHEST: Bilaterally symmetrical. HEART: S1 and S2 positive. LUNGS: Clear to auscultation. ABDOMEN: Soft. Bowel sounds positive. No organomegaly. EXTREMITIES: No edema. No cyanosis. NEUROLOGICAL: The patient is awake and alert. Moving all four extremities. No focal deficits. LABORATORY DATA: White blood cells 3.8, hemoglobin 12.2, hematocrit 31.7, platelets 103. Sodium 145, potassium 4, BUN 22, creatinine 1.1, glucose 93. ASSESSMENT AND PLAN: Mr. Speedy De Jesus is an 88-year-old male with leukopenia, anemia, thrombocytopenia, renal insufficiency, came with syncopal attack, chest pain, bradycardia, some times getting shortness of breath, history of colon cancer with remission, history of colectomy, end-to-end anastomosis, coronary artery disease, status post cardiac stenting. The patient was seen in Dr. Schaffer's office. She sent him to [facility]. Chest x-ray was done, electrocardiogram done. Seen by Dr. Dale, the patient's panel flow machine operator. Length of time discussion done with Dr. Dale about this patient. The patient had 3 drug-eluting stents. History of diabetes mellitus, hypertension, hypercholesterolemia, rule out orthostatic hypotension, rule out myocardial infarction though unlikely. Recently, a stress test done in February was essentially negative. According to Cardiology, they will do echocardiography to rule out any structural heart disease, rule out orthostatic hypotension and if we cannot find any source of syncope, we can put a loop recorder to see any occurred arrhythmia that is causing this syncope. Gastrointestinal and deep venous thrombosis prophylaxis. Repeat labs. Length of time discussion done with the patient's friend and the patient and Dr. Dale. We will follow. Rosita Zavala MD MTDJaqueline
[2018-05-13] MEDS ORDERED: Barium Sulfate Susp 2.1% w/v, 2.0% w/w 450 mL Bottle PO ONE (11:09)
--- NOTE | 2018-05-13 12:20 | CON ---
DATE: 05/13/2018 CONSULT REQUESTED BY: Rosita Zavala MD. REASON FOR CONSULTATION: Colon cancer, syncope. HISTORY OF PRESENT ILLNESS: Mr. De Jesus is an 88-year-old male admitted to the hospital with syncope. He had history of syncope for past one month. He also fell in the supermarket recently. He has a history of colon cancer stage III, status post resection. Completed one year of oral capecitabine chemotherapy. PET scan done earlier this year showed mediastinal lymphadenopathy, which was FDG positive. He was again started on Xeloda. MRI was scheduled to rule out brain metastases because of history of recent syncope. MRI of the brain done without contrast is reportedly negative for brain metastases. He has chronic kidney disease, creatinine is being monitored in the office, which is stable. Creatinine runs in 1.5 to 1.7. He was taking Xeloda prior to admission. His appetite is good and he is maintaining a stable weight. No history of GI bleeding recently. PAST MEDICAL HISTORY: Coronary artery disease, status post stent placement; history of GI bleed; colon cancer; cardiac catheterization. FAMILY HISTORY: Noncontributory. PERSONAL HISTORY: Never smoked. No history of alcohol abuse. SOCIAL HISTORY: Lives at home with a friend. ALLERGIES: NO KNOWN DRUG ALLERGIES. HOME MEDICATIONS: Vitamin D, metoprolol, nitroglycerin, Zantac. REVIEW OF SYSTEMS: As per HPI. Rest of the 12-point review of systems reviewed and negative. PHYSICAL EXAMINATION: GENERAL: Comfortable in bed, in no acute distress. VITAL SIGNS: Temperature 98.3, heart rate 65 per minute, respiratory rate 18 per minute, blood pressure 160/80, pulse ox is 99% on room air. HEENT: No pallor. NECK: No lymphadenopathy. CHEST: Air entry present and equal bilateral. No added sounds. CARDIOVASCULAR: S1, S2 normal. No murmur, no gallop. ABDOMEN: Soft and nontender. No hepatosplenomegaly. EXTREMITIES: No edema. LABORATORY DATA: White count 3.8, hemoglobin 11.3, hematocrit 31.7, platelet 103. BUN 22, creatinine 1.1, glucose 93, sodium 145, potassium 4. ASSESSMENT: 1. Syncope. 2. Bradycardia. 3. Colon cancer stage III. 4. Chronic kidney disease. PLAN: He was admitted to Tele monitoring. Cardiology consultation, Dr. Dale appreciated, notes reviewed. MRI of the brain negative for brain metastasis. CAT scan of the chest, abdomen, pelvis without contrast, only contrast ordered for today to rule out metastatic disease. PET scan in December of this year showed mediastinal lymphadenopathy which was PET positive. He has chronic kidney disease, so cannot get the IV contrast. Syncope likely due to cardiac reasons. We will also do B12, folate level with morning labs. Hemoglobin and hematocrit is stable. He has mild leukopenia likely related to Xeloda. We will continue to monitor blood count. Thank you Dr. Zavala for allowing us to participate in Mr. Ruff's care. We will continue to follow. Mariela Schaffer MD
--- NOTE | 2018-05-13 14:11 | PN ---
DATE: 05/13/2018 REASON FOR CONSULTATION AND FOLLOWUP: Recurrent syncope, cardiac evaluation, history of coronary artery disease. SUBJECTIVE: The patient denies any chest pain, shortness of breath, or any palpitations. OBJECTIVE: GENERAL: Not in apparent distress. VITAL SIGNS: Temperature afebrile, heart rate 60, blood pressure 147/70. HEENT: PERRLA. Extraocular muscles intact. NECK: Supple. No carotid bruit or thyromegaly. CHEST: Clear to auscultation. HEART: S1 and S2 regular. ABDOMEN: Soft. EXTREMITIES: Clubbing and cyanosis negative. LABORATORY DATA: Blood workup as follows, WBC 3.9, hemoglobin , hematocrit 32.4, platelet count 98. Chemistry shows sodium 144, potassium 4, chloride 107, carbon dioxide 28, anion gap of 13, BUN 23, creatinine 1.1. Telemetry shows normal sinus rhythm. Troponin is negative. IMPRESSION AND PLAN: An 88-year-old male with a past medical history significant for coronary artery disease, status post percutaneous coronary angioplasty of left anterior descending artery, right coronary artery, and right posterior descending artery in 12/2016. Later on, the patient had gastrointestinal bleed, found to be colon cancer, status post resection with end-to-end anastomosis, admitted with multiple recurrent syncope. So far, troponin remains negative. Plan is to do orthostatic hypotension check. Yesterday, orthostatic was checked, found to be lying was 167, sitting was 147, standing 146. Though it is a 20 mm drop, still pressure was pretty up. Rule out arrhythmia. We will get echo to assess LV function. Monitor for orthostatic with loop recorder if no arrhythmia noted. We will follow with you. Interim, we will get an echo and we will control the blood pressure adequately. The patient yesterday was bradycardiac, so beta-marvin is on hold, still the patient is on beta-marvin, which will be kept on hold. Continue amlodipine and we also start 10 mg of lisinopril. We will follow. We will repeat another orthostatic. Keep n.p.o. after the breakfast for loop recorder today. We will start lisinopril 10 mg, hold for blood pressure less than 130s. Tyree Dale MD [facility] # [id number]
--- NOTE | 2018-05-13 16:51 | CARD ---
APPROVED REPORT Date of service: 05/13/2018 EXAM: Two-dimensional and M-mode echocardiogram with Doppler and color Doppler. INDICATION Chest Pain LVFX 2D DIMENSIONS Left Atrium (2D)4.9 (1.6-4.0cm)IVSd1.3 (0.7-1.1cm) LVDd5.2 (3.9-5.9cm)PWd1.3 (0.7-1.1cm) LVDs3.4 (2.5-4.0cm)FS (%) 35.1 % LVEF (%)64.0 (>50%) M-Mode DIMENSIONS Aortic Root3.50 (2.2-3.7cm)Aortic Cusp Exc.1.70 (1.5-2.0cm) Aortic Valve AoV Peak [place]092.0cm/sAoV VTI49.9cmAO Peak GR.21mmHg AO Mean GR.10mmHg Mitral Valve MV E Lnqmlkll43.1cm/sMV A Qgzcyvkq12.4cm/sE/A ratio0.9 TDI Lateral E' Peak V6.24cm/sMedial E' Peak V5.17cm/sE/Lateral E'13.2 E/Medial E'15.9 Pulmonary Valve PV Peak Cbdsoiun638.0cm/sPV Peak Grad.5mmHg Tricuspid Valve TR Peak Cvufhxey677zo/sRAP ZVSSYTKT62cmKmTH Peak Gr.69mmHg VLYR70sfVm LEFT VENTRICLE The left ventricle is normal size. There is mild concentric left ventricular hypertrophy. The left ventricular function is normal. There is normal LV segmental wall motion. Transmitral Doppler flow pattern is Grade III-reversible restrictive diastolic dysfunction. No left ventricle thrombus noted on this study. There is no ventricular septal defect visualized. There is no left ventricular aneurysm. There is no mass noted in the left ventricle. RIGHT VENTRICLE The right ventricle is normal size. There is normal right ventricular wall thickness. The right ventricular systolic function is normal. ATRIA The left atrium is mildly dilated. The right atrium size is normal. The interatrial septum is intact with no evidence for an atrial septal defect. AORTIC VALVE The aortic valve is thickened but opens well. The aortic valve is moderately sclerotic. There is trace aortic regurgitation. There is no aortic valvular stenosis. There is no aortic valvular vegetation. MITRAL VALVE The mitral valve is thickened but opens well. Mitral regurgitation is mild. There is no mitral valve stenosis. There is no evidence of mitral valve prolapse. TRICUSPID VALVE The tricuspid valve leaflets are thickened , but open well. There is moderate to severe tricuspid regurgitation.RVSP_79 mmof Hg. There is no tricuspid valve stenosis. There is no tricuspid valve prolapse or vegetation. PULMONIC VALVE The pulmonary valve is normal in structure. There is trace pulmonic valvular regurgitation. There is no pulmonic valvular stenosis. GREAT VESSELS The aortic root is normal in size. The ascending aorta is normal in size. The pulmonary artery is normal. The IVC is normal in size and collapses >50% with inspiration. PERICARDIAL EFFUSION There is no pleural effusion. There is no pericardial effusion. <Conclusion> The left ventricle is normal size. There is mild concentric left ventricular hypertrophy. The left ventricular function is normal. There is trace aortic regurgitation. Mitral regurgitation is mild. There is moderate to severe tricuspid regurgitation.RVSP_79 mmof Hg. The IVC is normal in size and collapses >50% with inspiration. There is no pericardial effusion.
[2018-05-13] MEDS ORDERED: Lidocaine PF 2% (5 ml) Inj (For Cardiac Arrhy) IV ONE (17:15)
--- NOTE | 2018-05-13 18:32 | CPOSTOP ---
DATE: 05/13/2018 TYPE OF DICTATION: Cardiovascular lab postprocedure note. DICTATING PHYSICIAN: Tyree Dale MD HOSPICE CARE TRANSITIONS COORDINATOR: AMBROCIO Mirza. TYPE OF ANESTHESIA: None. PRE-PROCEDURE DIAGNOSIS: Recurrent syncope. PROCEDURE PERFORMED: Loop recorder implantation (LINQ). FINDINGS: Stable. FINAL DIAGNOSIS: Recurrent syncope. POST PROCEDURE CONDITION: The patient's condition is stable. VASCULAR ACCESS SITE: Left side of the chest, subcutaneous. CLOSURE DEVICE: None. Dermabond applied. RADIATION DOSE: None. FLUORO TIME: None. Tyree Dale MD
[2018-05-13] MEDS: Sodium Chloride 0.9% 1,000 ML IV SCH (18:52)
--- NOTE | 2018-05-13 21:54 | PN ---
DATE: 05/13/2018 SUBJECTIVE: .The patient is 88-year-old male. The patient was seen and examined at bedside on 05/13/2018. Looking comfortable, sometimes complaining about chest pain, coughing, and shortness of breath. Otherwise, no nausea, vomiting, or diarrhea. No hematuria or hematochezia. No swelling of the legs. No headache or dizziness. PHYSICAL EXAMINATION: VITAL SIGNS: Temperature 98.3, heart rate 65, respiratory rate 18, blood pressure 150/80, pulse oximetry 99% on room air. HEENT: Head normocephalic and atraumatic. Eyes: PERRLA. Extraocular muscles intact. Conjunctivae clear. Nose patent. Mucous membranes moist. NECK: Supple. No carotid bruits. No JVD or thyromegaly. CHEST: Bilaterally symmetrical. HEART: S1 and S2 positive. LUNGS: Clear to auscultation. ABDOMEN: Soft. Bowel sounds positive. No organomegaly. EXTREMITIES: No edema. No cyanosis. NEUROLOGIC: The patient is awake and alert. Moving all 4 extremities. No focal deficits. MEDICATIONS: Hydralazine, ursodiol, Ecotrin, Norvasc, Zestril, and Zetia. LABORATORY DATA: White blood cells 3.9, hemoglobin 11.3, hematocrit 32.4, platelet 98. Sodium 144, potassium 4, BUN 23, creatinine 1.1, hemoglobin A1c is 5.2. ASSESSMENT AND PLAN: Mr. Speedy De Jesus is an 88-year-old male with leukopenia, anemia, came with syncopal attack, chest pain. Sent by Dr. Mariela Schaffer, health type technician/oncologist. The patient has history of coronary artery disease, status post cardiac stenting, history of gastrointestinal bleeding, cardiac catheterization, history of anemia, bradycardia, colon cancer stage III, chronic kidney disease ; MRI of the brain is negative for brain metastasis. CAT scan of the chest, abdomen, and pelvis is without contrast only. PET scan in 12/2017 showed mediastinal lymphadenopathy, which was PET positive. He has chronic kidney disease, so cannot give the IV contrast. Syncope maybe due to bradycardia. Bradycardia maybe due to metoprolol. Hold the metoprolol. Discussion with Dr. Dale. Gastric and deep venous thrombosis prophylaxis. Repeat labs. Continue present treatment. Monitoring blood contents. We will follow up. Rosita Zavala MD [facility] # [id number] [facility]ITALJaqueline
--- NOTE | 2018-05-13 22:53 | CARDCATH ---
PROCEDURE DATE: 05/13/2018 CARDIAC CATHETERIZATION LAB PROCEDURE PROCEDURE PERFORMED: Implantation of loop recorder (LINQ). ENGRAVER PICTURE: Tyree Dale MD. CHALK EXTRUDING MACHINE OPERATOR: AMBROCIO Mirza, medication technician. SCHEDULING: Elective. REFERRING PHYSICIAN: Rosita Zavala MD. BRIEF CLINICAL HISTORY: This is an 88-year-old male with past medical history significant for coronary artery disease, status post PTCA of LAD, RCA, and RPDA on 01/21/2017, three drug-eluting stent were placed. Later on, the patient had GI bleed, found to be colon cancer, status post hemicolectomy, end-to-end anastomosis, who was recently admitted with two episodes of syncope, last episode while the patient was in [facility] for MRI and he felt that he was going to pass out. No complaint of chest pain or palpitation. In view of above, the patient was scheduled for loop recorder implantation to determine whether the patient had arrhythmia or significant high-grade AV block. Risks, benefits, and alternatives were explained to the patient and the patient's nephew, name Farrukh Lisa, telephone number [phone] who is in [place] now, jewel oliving machine operator, talked to him in person and now, nephew is in [place]. So, after discussing through the distribution engineer, consent obtained. The patient was put on the operating table. The patient was prepped and draped in a sterile standard fashion. Left side of the chest, 1.5 cm from the midline, at the 4th intercostal space, 2% lidocaine was given and then with Handle 11 Bard-George knife, a small incision was made and then the puncture site, LINQ Reveal was injected and then the puncture site was closed with Dermabond and then interrogation was done with interrogator of [employer]. The patient tolerated the procedure well. Dermabond applied to the puncture site. The patient returned to the floor in stable condition. In summary, loop recorder implantation, Reveal (LINQ) was implanted and arrangement has been made for follow up and transtelephonic recording and continuous monitor. Thank you, Dr. Zavala, for providing us the opportunity in taking care of the patient, Speedy Batresvini. Karied MD Chito cc: Rosita Zavala MD
--- NOTE | 2018-05-14 03:45 | CON ---
DATE: 05/13/2018 PULMONARY CONSULTATION REFERRING PHYSICIAN: Rosita Zavala MD REASON FOR CONSULTATION: Status post recurrent syncopal episode, may have sleep apnea syndrome, history of colon cancer, also has a mediastinal adenopathy. HISTORY OF PRESENT ILLNESS: This is an 88-year-old gentleman with past medical history significant for colon cancer, had a resection and chemotherapy, coronary artery disease with coronary stent, chronic lung disease, anemia. Lately found to have a mediastinal adenopathy with positive SUV on PET scan, being followed by Dr. Schaffer. Admitted with recurrent syncopal episode. Does have a history of snoring, daytime sleepy and tired. No cough. No sputum production. No chest pain. No nausea. No vomiting. No diarrhea. No leg pain or leg swelling. PAST MEDICAL HISTORY: As per history of present illness. ALLERGIES: NONE KNOWN. SOCIAL HISTORY: Nonsmoker, nondrinker. FAMILY HISTORY: No significant cardiopulmonary disease reported. MEDICATIONS: He is on hydralazine 10 mg four times a day p.r.n., vitamin D 50,000 units every 7 days, Ecotrin 81 mg daily, Norvasc 10 mg daily, Zestril 10 mg daily, Zetia 10 mg daily. REVIEW OF SYSTEMS: Presently no headache, no rhinitis, had bedtime snoring, daytime sleepy and tired. No chest pain. No nausea. No vomiting. No diarrhea. No leg pain or leg swelling. PHYSICAL EXAMINATION: GENERAL: In no acute distress. VITAL SIGNS: Temperature is 98, heart rate 51, respiratory rate is 20, blood pressure 155/96. There is some tilt of the blood pressure standing up. HEENT: Moist mucous membrane. Crowded airway. Mallampati score is 4. NECK: Supple. No JVD. LUNGS: Have a few scattered rhonchi. HEART: S1 and S2. ABDOMEN: Soft, nontender. No organomegaly. EXTREMITIES: No edema. NEUROLOGICAL: Awake and alert. Follows simple command. LABORATORY DATA: Shows hemoglobin 11.3, hematocrit 32.4, WBC 3.9, platelet is 98. INR 1.14. PTT is 28. Sodium 144, potassium 4, chloride 107, bicarbonate 28, BUN 23, creatinine 1.1, glucose 100, hemoglobin A1c 5.2, calcium 8.7, phosphorus 3.1, magnesium 2.2, AST 36, ALT is 28, alkaline phosphatase is 69. ProBNP 391. Albumin is 3.9, cholesterol is 110, TSH 1.98. Chest x-ray done on admission shows mild peribronchial thickening. No evidence of pneumonia. EKG was done on admission shows marked sinus bradycardia, rate is 47 with left axis deviation. IMPRESSION AND PLAN: Recurrent syncopal episode. Has a history of coronary artery disease, history of angioplasty. Also, has a colon cancer, which resected and been on chemotherapy. Lately, found to have a mediastinal adenopathy, which was SUV positive. There is some orthostatic hypotension though. It maybe component of sleep apnea syndrome. The patient has been on beta-marvin, which was placed on hold. If still bradycardic, may need to discontinue Norvasc too. Keep head elevated at 45 degrees. Once improved and discharged, will need outpatient attended sleep study to assure that sleep apnea is not one of the contributing factor to bradycardia and syncopal episode. Agree with echocardiogram to assure there is no pulmonary hypertension. Thank you and we will follow with you. Tyree Duque MD
[2018-05-14] MEDS: Sodium Chloride 0.9% 1,000 ML IV SCH ×2 (04:00→14:00)
[2018-05-14 06:45] LABS: EOS # 0.1 (0.0-0.7); EOS % 1.9 % (1.5-5.0); GRAN # 1.89 (1.4-6.5); GRAN % 50.1 % (50.0-68.0); HEMOGLOBIN 11.1 g/dL (14.0-18.0); LYMPH # 1.3 (1.2-3.4); LYMPH % 33.7 % (22.0-35.0); MEAN CELL VOLUME 98.5 fl (80.0-105.0); MEAN CORPUSCULAR HEMOGLOBIN 34.3 pg (25.0-35.0); MEAN CORPUSCULAR HGB CONC 34.8 g/dl (31.0-37.0); MEAN PLATELET VOLUME 10.1 fl (7.0-11.0); MONO # 0.5 (0.1-0.6); MONO % 14.3 % (1.0-6.0); RBC 3.24 10^6/uL (3.5-6.1); RED CELL DISTRIBUTION WIDTH 15.4 % (11.5-14.5); WHITE BLOOD COUNT 3.8 10^3/ul (4.5-11.0)
[2018-05-14 07:36] LABS: ALB/GLOB RATIO 1.3 (1.1-1.8); ALBUMIN 3.7 g/dL (3.0-4.8); ALT/SGPT 33 U/L (7-56); AST/SGOT 35 U/L (17-59); BLOOD UREA NITROGEN 21 mg/dL (7-21); CALCIUM 8.7 mg/dL (8.4-10.5); GFR AFRICAN-AMERICAN > 60; GFR NON-AFRICAN AMERICAN > 60
--- NOTE | 2018-05-14 10:16 | CP.PCM.PN ---
Subjective - Date & Time of Evaluation Date of Evaluation: 05/14/18 Time of Evaluation: 09:20 - Subjective Subjective: resting comfortable, denies chest pain, no SOB Objective - Vital Signs/Intake and Output Vital Signs (last 24 hours): Temp Pulse Resp BP Pulse Ox 98.5 F 59 L 20 136/76 94 L 05/14/18 06:00 05/14/18 09:18 05/14/18 06:00 05/14/18 09:18 05/14/18 06:00 Intake and Output: 05/14/18 05/14/18 06:59 18:59 Intake Total 1200 Balance 1200 - Medications Medications: Current Medications Amlodipine Besylate (Norvasc) 10 mg PO DAILY [facility] Last Admin: 05/14/18 09:18 Dose: 10 mg Aspirin (Ecotrin) 81 mg PO DAILY [facility] Last Admin: 05/14/18 09:19 Dose: 81 mg Ezetimibe (Zetia) 10 mg PO DAILY [facility] Last Admin: 05/14/18 09:19 Dose: 10 mg Ergocalciferol (Drisdol 50,000 Intl Units Cap) 1 cap PO Q7D [facility] Last Admin: 05/12/18 14:46 Dose: 1 cap Hydralazine HCl (Apresoline) 10 mg PO QID PRN PRN Reason: for SBP>170 Sodium Chloride (Sodium Chloride 0.9%) 1,000 mls @ 100 mls/hr IV .Q10H [facility] Last Admin: 05/14/18 04:00 Dose: 100 mls/hr Lisinopril (Zestril) 10 mg PO DAILY [facility] Last Admin: 05/14/18 09:18 Dose: 10 mg - Labs Labs: 05/14/18 06:00 05/14/18 06:00 PT 13.2 SECONDS (9.4-12.5) H 05/12/18 10:26 INR 1.14 (0.93-1.08) H 05/12/18 10:26 APTT 28.3 Seconds (25.1-36.5) 05/12/18 10:26 - Respiratory Exam Respiratory Exam: Clear to Ausculation Bilateral, NORMAL BREATHING PATTERN - Cardiovascular Exam Cardiovascular Exam: REGULAR RHYTHM - GI/Abdominal Exam GI & Abdominal Exam: Soft, Normal Bowel Sounds - Extremities Exam Extremities Exam: Normal Inspection - Neurological Exam Neurological Exam: Alert, Awake - Skin Skin Exam: Dry, Warm Assessment and Plan (1) Syncope Status: Acute (2) Coronary artery disease Status: Acute - Assessment and Plan (Free Text) Plan: s/p cath, cardiology follow-up, loop recorder
[2018-05-14] MEDS ORDERED: Potassium Chloride 20 mEq ER Tab PO ONE (10:39)
--- NOTE | 2018-05-14 12:13 | CARD ---
APPROVED REPORT Date of service: 05/14/2018 EKG Measurement Heart [id number] <Conclusion> Sinus bradycardia with sinus arrhythmia Left axis deviation Left ventricular hypertrophy with QRS widening Abnormal ECG
--- NOTE | 2018-05-14 15:38 | PN ---
DATE: 05/14/2018 REASON FOR THE CONSULTATION AND FOLLOWUP: Recurrent syncope, cardiac evaluation, history of coronary artery disease, status post loop recorder implantation. SUBJECTIVE: The patient denies any chest pain, shortness of breath, or any palpitation. Nephew is at the bedside. Explained the patient's condition to nephew. OBJECTIVE: GENERAL: Not in any apparent distress, complaining of mild pain at the puncture site of loop recorder. No tenderness. VITAL SIGNS: Temperature afebrile, heart rate 59, blood pressure 133/76. Blood pressure recorded for orthostatics as follows: Lying 156/71, sitting 145/70, standing 135/67. HEENT: PERRLA. Extraocular muscles intact. NECK: Supple. No carotid bruit. No thyromegaly. CHEST: Clear to auscultation. HEART: S1 and S2 regular. ABDOMEN: Soft. EXTREMITIES: Clubbing and cyanosis negative. LABORATORY DATA: Blood workup as follows: WBC 3.8, hemoglobin 11.1, hematocrit 31.9, platelet count 93. Chemistry shows sodium 133, potassium 3.8, chloride 101, carbon dioxide 27, anion gap of 12, BUN 21, creatinine 1.1. IMPRESSION: Recurrent syncope, status post loop recorder; orthostatic hypotension; coronary artery disease, status post stent in the left anterior descending artery, right coronary artery, and right posterior descending artery. RECOMMENDATIONS: Loop monitor for 24 hours. Continue IV fluid. We will follow with you. Repeat the lab in the morning. Tyree Dale MD
--- NOTE | 2018-05-14 20:58 | PN ---
DATE: 05/14/2018 PULMONARY PROGRESS NOTE REFERRING PHYSICIAN: Rosita Zavala MD SUBJECTIVE: He is lying in the bed at 45 degrees. Night was unremarkable. No headache, no rhinitis. No nausea, no vomiting, no diarrhea. No leg pain or leg swelling. OBJECTIVE: GENERAL: In no distress. VITAL SIGNS. Temperature is 99, heart rate is 55, respiratory rate is 20, blood pressure 153/96 HEENT: Moist mucous membranes. No ulcer or thrush noted. Mallampati score is 4. NECK: Supple. No JVD. LUNGS: Have a fair airflow with a few rhonchi. HEART: S1 and S2. ABDOMEN: Soft, nontender. No organomegaly. EXTREMITIES: No edema. NEUROLOGIC: Awake and alert. Follows simple command. MEDICATIONS: He is on hydralazine 10 mg four times a day p.r.n., vitamin D 50,000 units every 7 days, Ecotrin 81 mg daily, Norvasc 10 mg daily, IV fluid normal saline 100 mL per hour, Tylenol p.r.n., Zestril 10 mg daily, Zetia 10 mg daily. LABORATORY DATA: Shows hemoglobin 11.1, hematocrit 31.9, WBC 3.8, platelet count is 93. Sodium 146, potassium 3.8, chloride 111, bicarbonate 27, BUN 21, creatinine 1.1, calcium 8.7, phosphorus 3.2, AST 35, ALT 33, alk phos is 69. Albumin is 3.7. Had EKG done today, which shows sinus bradycardia with sinus arrhythmia, left axis deviation. IMPRESSION AND PLAN: Recurrent syncopal episode, bradycardia, coronary artery disease, history of angioplasty, history of colon cancer with resection in the past, been on chemotherapy. Has a mediastinal suspected metastatic disease. Pulmonary point of view, doing okay. Keep head at 45 degrees. Consider discontinuing Norvasc and starting Procardia. Cardiology followup. Out of bed to chair. Fall precaution. Thank you and we will follow with you. Tyree Duque MD
--- NOTE | 2018-05-14 22:16 | PN ---
DATE: 05/14/2018 SUBJECTIVE: He is comfortable in bed, in no acute distress. He underwent loop recorder placement yesterday by Dr. Dale for heart monitoring. He was admitted with syncope for a few times. MRI of the brain was negative. No events overnight. Appetite is good. He is ambulating in the room. REVIEW OF SYSTEMS: As per HPI, rest of 12-point review of systems reviewed and negative. PHYSICAL EXAMINATION: GENERAL: Comfortable in bed, in no acute distress. VITAL SIGNS: Temperature 98.7, heart rate 80 per minute, blood pressure 120/70, pulse ox is 99% on room air. HEENT: Pallor positive. NECK: No lymphadenopathy. CHEST: Air entry present and equal bilaterally. No added sounds. CARDIOVASCULAR: S1 and S2 normal. No murmur. No gallop. ABDOMEN: Soft, nontender. No hepatosplenomegaly. EXTREMITIES: No edema. SPINE: Nontender. SKIN: No petechiae. No rash. LABORATORY DATA: White count 3.8, hemoglobin 11.3, hematocrit 31.7, platelets 103. Potassium 4, creatinine 1.1. ASSESSMENT: 1. Syncope. 2. Colon cancer, stage III. 3. Chronic kidney disease. 4. Bradycardia. PLAN: Loop recorder implanted by Dr. Dale for heart monitoring. He had mediastinal lymphadenopathy on PET scan done in December Xeloda. We will hold Xeloda until the syncopal episodes are resolved. CT/PET scan will be arranged as an outpatient. Blood count is stable. He also has B12 deficiency. Labs ordered for evaluation. Thank you, Dr. Zavala for allowing us to participate in his care. Mariela Schaffer MD
[2018-05-15] MEDS: Sodium Chloride 0.9% 1,000 ML IV SCH ×3 (00:30→20:41)
--- NOTE | 2018-05-15 08:13 | CP.PCM.PN ---
Subjective - Date & Time of Evaluation Date of Evaluation: 05/15/18 Time of Evaluation: 06:20 - Subjective Subjective: Awake, no distress, denies chest pain, Reason for consultation and follow up: Cardiac evaluation for recurrent syncopal episodes, history of coronary artery disease with stents, status post loop recorder. Seen and examined by me and Dr. Dale Objective - Vital Signs/Intake and Output Vital Signs (last 24 hours): Temp Pulse Resp BP Pulse Ox 98.0 F 65 18 172/80 H 95 05/15/18 06:00 05/15/18 07:05 05/15/18 06:00 05/15/18 07:05 05/15/18 06:00 Intake and Output: 05/15/18 05/15/18 06:59 18:59 Intake Total 1440 Output Total 1500 Balance -60 - Medications Medications: Current Medications Acetaminophen (Tylenol 325mg Tab) 650 mg PO Q6H PRN PRN Reason: Pain, moderate (4-7) Aspirin (Ecotrin) 81 mg PO DAILY [facility] Last Admin: 05/14/18 09:19 Dose: 81 mg Ezetimibe (Zetia) 10 mg PO DAILY [facility] Last Admin: 05/14/18 09:19 Dose: 10 mg Ergocalciferol (Drisdol 50,000 Intl Units Cap) 1 cap PO Q7D [facility] Last Admin: 05/12/18 14:46 Dose: 1 cap Hydralazine HCl (Apresoline) 10 mg PO QID PRN PRN Reason: for SBP>170 Last Admin: 05/15/18 05:35 Dose: 10 mg Sodium Chloride (Sodium Chloride 0.9%) 1,000 mls @ 100 mls/hr IV .Q10H [facility] Last Admin: 05/15/18 00:30 Dose: 100 mls/hr Lisinopril (Zestril) 10 mg PO DAILY [facility] Last Admin: 05/15/18 07:05 Dose: 10 mg Nifedipine (Procardia Xl) 60 mg PO DAILY [facility] - Labs Labs: 05/14/18 06:00 05/14/18 06:00 PT 13.2 SECONDS (9.4-12.5) H 05/12/18 10:26 INR 1.14 (0.93-1.08) H 05/12/18 10:26 APTT 28.3 Seconds (25.1-36.5) 05/12/18 10:26 - Constitutional Appears: No Acute Distress - Head Exam Head Exam: NORMOCEPHALIC - Eye Exam Eye Exam: Normal appearance - ENT Exam ENT Exam: Mucous Membranes Moist - Respiratory Exam Respiratory Exam: Clear to Ausculation Bilateral, NORMAL BREATHING PATTERN - Cardiovascular Exam Cardiovascular Exam: Bradycardia, +S1, +S2 Additional comments: Rate 50's/min telemetry - GI/Abdominal Exam GI & Abdominal Exam: Soft, Normal Bowel Sounds - Extremities Exam Extremities Exam: Normal Capillary Refill - Neurological Exam Neurological Exam: Alert, Awake, Oriented x3 - Psychiatric Exam Psychiatric exam: Normal Affect - Skin Skin Exam: Dry, Warm Assessment and Plan - Assessment and Plan (Free Text) Assessment: A 88 year old male who came in to ER due to syncopal episodes.Follows up with Dr. Schaffer. He was scheduled to have MRI prior to this event. History of coronary artery disease with PTCA with drug eluding stents on LAD,RCA ,RPDA on 01/21/2017. History of colon cancer with hemicolectomy (in remission), Loop recorder inserted to assess for any arrythmia. Plan: Denies any complaints With Loop recorder, will follow up results Heart rate and blood pressure stable Cardiac status stable, denies chest pain On ASA 81 mg daily,Zestril 10 mg daily, Procardia XL 60 mg daily Continue current treatment Continue current medications Will follow up Plan and treatment discussed with Dr. Dale
--- NOTE | 2018-05-15 09:55 | CP.PCM.PN ---
Subjective - Date & Time of Evaluation Date of Evaluation: 05/15/18 Time of Evaluation: 09:00 - Subjective Subjective: resting comfortably, NAD, denies chest pain, no SOB Objective - Vital Signs/Intake and Output Vital Signs (last 24 hours): Temp Pulse Resp BP Pulse Ox 98.0 F 65 18 172/80 H 95 05/15/18 06:00 05/15/18 07:05 05/15/18 06:00 05/15/18 07:05 05/15/18 06:00 Intake and Output: 05/15/18 05/15/18 06:59 18:59 Intake Total 1440 Output Total 1500 Balance -60 - Medications Medications: Current Medications Acetaminophen (Tylenol 325mg Tab) 650 mg PO Q6H PRN PRN Reason: Pain, moderate (4-7) Aspirin (Ecotrin) 81 mg PO DAILY [facility] Last Admin: 05/14/18 09:19 Dose: 81 mg Ezetimibe (Zetia) 10 mg PO DAILY [facility] Last Admin: 05/14/18 09:19 Dose: 10 mg Ergocalciferol (Drisdol 50,000 Intl Units Cap) 1 cap PO Q7D [facility] Last Admin: 05/12/18 14:46 Dose: 1 cap Hydralazine HCl (Apresoline) 10 mg PO QID PRN PRN Reason: for SBP>170 Last Admin: 05/15/18 05:35 Dose: 10 mg Sodium Chloride (Sodium Chloride 0.9%) 1,000 mls @ 100 mls/hr IV .Q10H [facility] Last Admin: 05/15/18 00:30 Dose: 100 mls/hr Lisinopril (Zestril) 10 mg PO DAILY [facility] Last Admin: 05/15/18 07:05 Dose: 10 mg Nifedipine (Procardia Xl) 60 mg PO DAILY [facility] - Labs Labs: 05/14/18 06:00 05/14/18 06:00 PT 13.2 SECONDS (9.4-12.5) H 05/12/18 10:26 INR 1.14 (0.93-1.08) H 05/12/18 10:26 APTT 28.3 Seconds (25.1-36.5) 05/12/18 10:26 - Respiratory Exam Respiratory Exam: Clear to Ausculation Bilateral, NORMAL BREATHING PATTERN - Cardiovascular Exam Cardiovascular Exam: REGULAR RHYTHM - GI/Abdominal Exam GI & Abdominal Exam: Soft, Normal Bowel Sounds - Extremities Exam Extremities Exam: Normal Inspection - Skin Skin Exam: Dry, Warm Assessment and Plan (1) Syncope Status: Acute (2) Coronary artery disease Status: Acute - Assessment and Plan (Free Text) Plan: continue cardiology follow-up, loop recorder result pending, Dr. Zavala to resume care of pt in am
[2018-05-15] MEDS: NIFEdipine 60 mg ER Tab PO SCH (10:07)
--- NOTE | 2018-05-15 12:09 | PN ---
DATE: 05/15/2018 SUBJECTIVE: He is comfortable in bed, in no acute distress. He has bradycardia. The lowest heart rate in past 24 hours is 54 beats per minute. He had an implanted loop recorder placed. Cardiology, Dr. Dale on board. He has history of colon cancer stage III, status post Avastin, status post a year of Xeloda, currently in remission. He had some mediastinal lymphadenopathy lighting upon PET scan in December. MRI of the brain negative for metastatic disease. REVIEW OF SYSTEMS: As per HPI. Rest of 12-point review of systems is reviewed and negative. PHYSICAL EXAMINATION GENERAL: Comfortable in bed, in no acute distress. VITAL SIGNS: Temperature 98.7, heart rate 80 per minute, blood pressure 120/70, per minute, respiratory rate 18 per minute, oxygen saturation 98% on room air. HEENT: No pallor. NECK: No lymphadenopathy. CHEST: Air entry present and equal bilaterally. No added sounds. CARDIOVASCULAR: S1 and S2 normal. No murmur, no gallop. ABDOMEN: Soft, nontender. No hepatosplenomegaly. EXTREMITIES: No edema. 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 No focal sensory or motor deficit. LABORATORY DATA: White count 3.8, hemoglobin of 11, hematocrit 31.9, and platelet count 93,000. Sodium 146, potassium , creatinine 1.8. ASSESSMENT AND PLAN: 1. Colon cancer stage III, suspicious lymphadenopathy in the chest for metastatic disease. CT/PET will be scheduled as an outpatient. CEA level is normal. 2. Anemia, thrombocytopenia, leukopenia, likely related to chemotherapy with Xeloda. We will hold Xeloda until cardiac status improved and we will reassess after PET scan the need for further oral agents for colon cancer. Renal . 3. Hematology, pancytopenia, mild, likely to recover spontaneously related to chemotherapy with Xeloda. Thank you Dr. Zavala for allowing us to participate in Mr. Ruff's care. Mariela Schaffer MD
--- NOTE | 2018-05-15 13:34 | PN ---
DATE: 05/15/2018 PULMONARY PROGRESS NOTE REFERRING PHYSICIAN: Rosita Zavala MD. SUBJECTIVE: Sitting on side of the bed, having lunch. Night was unremarkable. No syncopal episode. No nausea. No vomiting, diarrhea, leg pain or leg swelling. OBJECTIVE: GENERAL: In no acute distress. VITAL SIGNS: Temperature is 98, heart rate 64, respiratory rate is 20, blood pressure 173/83. Still has some orthostatic tilt. HEENT: Moist mucous membrane. Crowded airway. NECK: Supple. No JVD. LUNGS: Have a fair airflow with few rhonchi. HEART: S1 and S2. ABDOMEN: Soft, nontender. No organomegaly. EXTREMITIES: There is no edema. NEUROLOGICAL: Awake, alert, follows simple command. MEDICATIONS: He is on hydralazine 10 mg four times a day p.r.n., vitamin D 50,000 units every 7 days, Ecotrin 81 mg daily, Procardia XL 60 mg daily, IV fluid normal saline 100 mL/hour, Tylenol p.r.n. basis, Zestril 10 mg daily, Zetia 10 mg daily. LABORATORY DATA: Shows hemoglobin 11.1, hematocrit 31.9, WBC 3.8, platelet count is 93. Sodium 146 from yesterday. IMPRESSION AND PLAN: Recurrent syncopal episode; bradycardia; coronary artery disease; history of angioplasty; history of colon cancer, resection, has been on chemotherapy; has a mediastinal suspected metastatic disease. Still has some orthostatic hypotension. Yesterday, Norvasc discontinued and Procardia was added because of bradycardia. Noted IV fluid is started. Fall precaution. Follow up labs in the morning. Thank you and we will follow with you. Tyree Duque MD
[2018-05-16 06:44] LABS: EOS # 0.2 (0.0-0.7); EOS % 2.9 % (1.5-5.0); GRAN # 2.98 (1.4-6.5); GRAN % 57.3 % (50.0-68.0); HEMOGLOBIN 11.2 g/dL (14.0-18.0); LYMPH # 1.4 (1.2-3.4); LYMPH % 26.5 % (22.0-35.0); MEAN CELL VOLUME 98.5 fl (80.0-105.0); MEAN CORPUSCULAR HEMOGLOBIN 34.3 pg (25.0-35.0); MEAN CORPUSCULAR HGB CONC 34.8 g/dl (31.0-37.0); MEAN PLATELET VOLUME 10.1 fl (7.0-11.0); MONO # 0.7 (0.1-0.6); MONO % 13.3 % (1.0-6.0); RBC 3.27 10^6/uL (3.5-6.1); RED CELL DISTRIBUTION WIDTH 15.6 % (11.5-14.5); WHITE BLOOD COUNT 5.2 10^3/ul (4.5-11.0)
[2018-05-16] MEDS: Sodium Chloride 0.9% 1,000 ML IV SCH (06:45)
[2018-05-16 07:10] LABS: ALB/GLOB RATIO 1.4 (1.1-1.8); ALBUMIN 3.9 g/dL (3.0-4.8); ALT/SGPT 34 U/L (7-56); AST/SGOT 32 U/L (17-59); BLOOD UREA NITROGEN 15 mg/dL (7-21); GFR AFRICAN-AMERICAN > 60; GFR NON-AFRICAN AMERICAN > 60
--- NOTE | 2018-05-16 07:22 | CP.PCM.PN ---
Subjective - Date & Time of Evaluation Date of Evaluation: 05/16/18 Time of Evaluation: 06:35 - Subjective Subjective: No distress, awake, denies chest pain, Reason for consultation and follow up: Cardiac evaluation for recurrent syncopal episodes, history of coronary artery disease with stents, status post loop recorder. Seen and examined by me and Dr. Dale Objective - Vital Signs/Intake and Output Vital Signs (last 24 hours): Temp Pulse Resp BP Pulse Ox 97.7 F 61 18 161/63 H 95 05/16/18 06:00 05/16/18 06:00 05/16/18 06:00 05/16/18 06:00 05/16/18 06:00 Intake and Output: 05/16/18 05/16/18 06:59 18:59 Intake Total 1640 Output Total 1100 Balance 540 - Medications Medications: Current Medications Acetaminophen (Tylenol 325mg Tab) 650 mg PO Q6H PRN PRN Reason: Pain, moderate (4-7) Aspirin (Ecotrin) 81 mg PO DAILY [facility] Last Admin: 05/15/18 10:06 Dose: 81 mg Ezetimibe (Zetia) 10 mg PO DAILY [facility] Last Admin: 05/15/18 10:06 Dose: 10 mg Ergocalciferol (Drisdol 50,000 Intl Units Cap) 1 cap PO Q7D [facility] Last Admin: 05/12/18 14:46 Dose: 1 cap Hydralazine HCl (Apresoline) 10 mg PO QID PRN PRN Reason: for SBP>170 Last Admin: 05/15/18 05:35 Dose: 10 mg Sodium Chloride (Sodium Chloride 0.9%) 1,000 mls @ 100 mls/hr IV .Q10H [facility] Last Admin: 05/16/18 06:45 Dose: 100 mls/hr Lisinopril (Zestril) 10 mg PO DAILY [facility] Last Admin: 05/15/18 10:07 Dose: 10 mg Nifedipine (Procardia Xl) 60 mg PO DAILY [facility] Last Admin: 05/15/18 10:07 Dose: 60 mg - Labs Labs: 05/14/18 06:00 05/16/18 06:00 PT 13.2 SECONDS (9.4-12.5) H 05/12/18 10:26 INR 1.14 (0.93-1.08) H 05/12/18 10:26 APTT 28.3 Seconds (25.1-36.5) 05/12/18 10:26 - Constitutional Appears: No Acute Distress - Eye Exam Eye Exam: Normal appearance - ENT Exam ENT Exam: Mucous Membranes Moist - Respiratory Exam Respiratory Exam: Decreased Breath Sounds, NORMAL BREATHING PATTERN - Cardiovascular Exam Cardiovascular Exam: REGULAR RHYTHM, +S1, +S2 Additional comments: loop recorder NSR 60's - GI/Abdominal Exam GI & Abdominal Exam: Soft, Normal Bowel Sounds - Extremities Exam Extremities Exam: Normal Capillary Refill, Normal Inspection - Neurological Exam Neurological Exam: Alert, Awake, Oriented x3 - Psychiatric Exam Psychiatric exam: Normal Affect - Skin Skin Exam: Dry, Warm Assessment and Plan - Assessment and Plan (Free Text) Assessment: A 88 year old male who came in to ER due to syncopal episodes.Follows up with Dr. Schaffer. He was scheduled to have MRI prior to this event. History of coronary artery disease with PTCA with drug eluding stents on LAD,RCA ,RPDA on 01/21/2017. History of colon cancer with hemicolectomy (in remission), Loop recorder inserted to assess for any arrythmia. Plan: No complaints, feels okay,gets out of bed with no problems With Loop recorder, will follow up results Heart rate and blood pressure stable Cardiac status stable, denies chest pain Positive for orthostatic hypotension, continue IV fluids On ASA 81 mg daily,Zestril 10 mg daily, Procardia XL 60 mg daily Continue current treatment Continue current medications Will follow up Plan and treatment discussed with Dr. Dale
[2018-05-16 09:06] VITALS: O2SAT 94
[2018-05-16] MEDS: NIFEdipine 60 mg ER Tab PO SCH (09:36)
[2018-05-16 11:55] VITALS: BP 139/79; PULSE 69; RESP 19; TEMP 98.6
--- NOTE | 2018-05-16 22:46 | PN ---
DATE: 05/16/2018 PULMONARY PROGRESS NOTE REFERRING PHYSICIAN: Rosita Zavala MD SUBJECTIVE: The patient is lying in the bed, head at 45 degrees. Night was unremarkable. Denies any dizzy spell. No headache. Admit snoring, daytime sleeping and tired. No nausea. No vomiting. No diarrhea. No leg pain or leg swelling. OBJECTIVE: GENERAL: In no acute distress. VITAL SIGNS: Temperature is 98, heart rate 69, respiratory rate is 20, blood pressure 139/79, pulse ox 94% on room air. HEENT: Moist mucous membrane. No ulcer or thrush noted. NECK: Supple. No JVD. LUNGS: Have a fair airflow with rhonchi. HEART: S1 and S2. ABDOMEN: Soft, nontender. No organomegaly. EXTREMITIES: There is no edema. NEUROLOGIC: Awake and alert. Follows simple command. MEDICATIONS: Reviewed, noted. No new changes in medication reported since yesterday. LABORATORY DATA: Shows hemoglobin 11.2, hematocrit 32.2, WBC 5.2, platelet is 117. Sodium 145, potassium 2.8, chloride 109, bicarbonate 25, BUN 15, creatinine 1. Glucose 86, calcium 9, phosphorous 3.3, magnesium is 2. AST 32, ALT 34, alk phos is 70, albumin is 3.9. IMPRESSION AND PLAN: syncopal episode, bradycardia, coronary artery disease, history of angioplasty in the past, colon cancer requiring resection, been on chemotherapy, mediastinal suspected metastatic lymph node, orthostatic hypotension, may have sleep apnea syndrome. Medication, change Norvasc to Procardia. Clinically, he is doing much better. No more syncopal episode. Loop recorder was placed. Being discharged home. We will schedule him for outpatient attended sleep study and pulmonary function test. Fall precaution. Patient understand his diagnoses, will follow with Cardiology. Thank you and we will follow with you. Tyree Duque MD
--- NOTE | 2018-05-17 00:49 | DS ---
date 05/16/18 CHIEF COMPLAINT: Chest pain and dizziness. HISTORY OF PRESENT ILLNESS: Mr. Speedy De Jesus is an 88-year-old male with past medical history of coronary artery disease; colon cancer, in remission; coronary artery stenting; COPD, came to the emergency department with a friend for near syncope episode. The patient reports having MRI appointment on the day of admission, requested by Dr. Schaffer. Per friend, prior to MRI, the patient began to feeling lightheadedness and almost lost consciousness. The patient's friend noticed that the patient had full syncopal episode 2 weeks ago with abrasion on the left knee and they are unsure how long the patient had loss of consciousness. The patient is having chest pain intermittently also. We admitted the patient, did chest x-rays, cardiac catheterization done, seen by Dr. Duque and Cardiology Dr. Dale and Dr. Mariela Schaffer, oncologist. The patient improved, loop recorder was put, discharged home today. We will follow up as outpatient. Prescription of the medications given by nurse practitioner. PAST MEDICAL HISTORY: Coronary artery disease; colon cancer, in remission; chemotherapy; COPD; history of anemia; blood transfusion; history of colon mass; post hemicolectomy; end-to-end anastomosis; history of cardiac catheterization. FAMILY HISTORY: Father and mother noncontributory. HABITS: Never smoked. Alcohol occasionally. No drugs. ALLERGIES: PATIENT IS NOT ALLERGIC WITH ANY MEDICATIONS. HOME MEDICATIONS: Reviewed by me. REVIEW OF SYSTEMS: The patient was seen and examined at the bedside on 05/16/2018. Looking comfortable. No nausea, vomiting, diarrhea. No hematuria or hematochezia. No headache. No dizziness. No chest pain. No palpitation. Admits snoring daytime. PHYSICAL EXAMINATION: VITAL SIGNS: Temperature 98, heart rate 69, respiratory rate 20, blood pressure 139/79, pulse oximetry 94% on room air. HEENT: Head normocephalic, atraumatic. Eyes PERRLA. Extraocular muscles intact. Conjunctivae clear. Nose patent. Mucous membrane moist. NECK: Supple. No carotid bruit, JVD or thyromegaly. CHEST: Bilaterally symmetrical. HEART: S1 and S2 positive. LUNGS: Clear to auscultation. ABDOMEN: Soft. Bowel sounds positive. No organomegaly. EXTREMITIES: No edema. No cyanosis. NEUROLOGICAL: The patient is awake and alert. Follows simple commands. MEDICATIONS: Reviewed by me. LABORATORY DATA: Hemoglobin 11.2, hematocrit 32.2, white blood cells 5.2, platelets 117. Sodium 145, BUN 15, creatinine 1, glucose 86. AST 32, ALT 34. ASSESSMENT AND PLAN: Mr. Speedy De Jesus is an 88-year-old male, status post syncopal episode; bradycardia; coronary artery disease; history of angioplasty in the past; colon cancer requiring resection, on chemotherapy, in remission; mediastinal suspected metastatic lymph nodes; orthostatic hypotension; sleep apnea syndrome; medication Norvasc changed to Procardia. The patient is doing better. No more episode of syncopal attack. Loop recorder is placed, being discharged today. Prescription of medication given. Need outpatient sleep studies, pulmonary function test. Discussion done with the patient through the friend. Gastrointestinal and deep venous thrombosis prophylaxes. Repeat labs. We will follow up. Rosita Zavala MD MTDJaqueline
== END 2018-05-16 16:56 | disposition home or self-care (01) | DRG 260 ==
LOC: ED 09:50 → ERH 12:25 → 2RNO 13:51
PROVIDERS: ADMIT Internal Medicine; ATTEND Internal Medicine
PROC: 0JH632Z Insertion of Monitoring Device into Chest Subcutaneous Tissue and Fascia, Percutaneous Approach (ICD-10-PCS; principal; 2018-05-13)
DX: R00.1 Bradycardia, unspecified (principal); D61.810 Antineoplastic chemotherapy induced pancytopenia; I95.1 Orthostatic hypotension; J44.9 Chronic obstructive pulmonary disease, unspecified; I25.10 Atherosclerotic heart disease of native coronary artery without angina pectoris; I12.9 Hypertensive chronic kidney disease with stage 1 through stage 4 chronic kidney disease, or unspecified chronic kidney disease; N18.3 Chronic kidney disease, stage 3 (moderate); E78.00 Pure hypercholesterolemia, unspecified; E78.5 Hyperlipidemia, unspecified; I36.1 Nonrheumatic tricuspid (valve) insufficiency; R59.0 Localized enlarged lymph nodes; G47.30 Sleep apnea, unspecified; W19.XXXA Unspecified fall, initial encounter; S80.212A Abrasion, left knee, initial encounter; Z90.49 Acquired absence of other specified parts of digestive tract; Z95.5 Presence of coronary angioplasty implant and graft; Z85.038 Personal history of other malignant neoplasm of large intestine

== ENCOUNTER 2018-05-19 07:02 | Day surgery (SDC) | payer MEDICARE, MEDICAID ==
[2018-05-18 08:05] VITALS: BMI 29.9
[2018-05-19] MEDS ORDERED: Lidocaine PF 2% (5 ml) Inj (For Cardiac Arrhy) ONE (08:32)
[2018-05-19] MEDS ORDERED: Midazolam 2 MG/2 ML VIAL ONE ×2 (09:44→10:14)
[2018-05-19] MEDS ORDERED: Sodium Chloride 0.9% 1,000 ML IV SCH (11:15)
--- NOTE | 2018-05-19 12:06 | RAD ---
Date of service: 05/19/2018 HISTORY: Post Pacemaker COMPARISON: 05/12/2018 FINDINGS: LUNGS: No active pulmonary disease. PLEURA: No significant pleural effusion identified, no pneumothorax apparent. CARDIOVASCULAR: Normal. OSSEOUS STRUCTURES: No significant abnormalities. VISUALIZED UPPER ABDOMEN: Normal. OTHER FINDINGS: Single lead pacemaker IMPRESSION: No active disease.
--- NOTE | 2018-05-19 12:10 | CPOSTOP ---
DATE: 05/19/2018 CARDIOVASCULAR LAB POSTPROCEDURE NOTE DICTATING PHYSICIAN: Tyree Dale MD BLOGS MANAGER: Negro Harrington, brewery technician. TYPE OF ANESTHESIA: Moderate conscious sedation. Total dose given 3 mg of Versed, 150 of fentanyl, periodically started at 1 mg of Versed and 50 of fentanyl. PRE-PROCEDURE DIAGNOSES: Sick sinus syndrome, syncope, multiple pauses, status post loop recorder implantation. PROCEDURES PERFORMED: 1. Implantation of pacemaker, single-chamber VVI. 2. Removal of loop recorder. FINDINGS: Sick sinus syndrome. FINAL DIAGNOSES: Syncope, sick sinus syndrome. POST PROCEDURE CONDITION: Patient's condition is stable. VASCULAR ACCESS SITE: Left subclavian vein. CLOSURE DEVICE: Dermabond applied. RADIATION DOSE: 1000 milligray unit. FLUORO TIME: 1.2 minutes. Tyree Dale MD
--- NOTE | 2018-05-19 15:36 | HP ---
DATE OF EXAM: 05/19/2018 REASON FOR ADMISSION: Implantation of permanent pacemaker, multiple pauses on loop recorder. BRIEF CLINICAL HISTORY: This is an 88-year-old male with a past medical history significant for coronary artery disease, status post PTCA of LAD, RCA and RPDA on 01/11/2017, history of 3 drug eluting stent placed. Later on, the patient had GI bleed, found to be colon cancer. Colonic mass workup shows colon cancer and had colonic resection, end-to-end anastomosis. Recently admitted on 05/12/2018, with a syncopal episode, two episodes of syncope. While the patient was coming to the hospital MRI, he had a syncopal episode. Prior to that patient had syncopal episode. So, patient event loop recorder was placed on 05/13/2018 and the patient was discharged home. Loop recorder revealed day before yesterday, multiple pauses, 3-5 seconds. The patient is cleared for implantation of pacemaker and removal of loop recorder. PAST MEDICAL HISTORY: Significant for coronary artery disease as mentioned above, history of PTCA of RPDA and LAD, 3 drug eluting stents 01/21/2017, history of diabetes, hypertension, hyperlipidemia, colonic mass, status post right hemicolectomy, end-to-end anastomosis. SOCIAL HISTORY: Denies any smoking. Denies any history of alcohol abuse. RECENT CARDIAC WORKUP: Patient had a loop recorder placed on 05/13/2018, revealed that transtelephonic is with multiple pauses. Patient had a stress test on 03/14/2018, that showed probably negative perfusion scan, fixed defect, no reversible ischemia. Normal gated wall motion. on last study dated 12/30/2016, noted previous perfusion defect disappear and improved fixed defect. The patient had an echo on 01/29/2017 at [facility] that showed ejection fraction of 55 to 60%, trace aortic regurgitation, no significant valvular aortic stenosis, trace mitral regurgitation, [id number] tricuspid regurgitation, RV systolic pressure 58. The patient had a repeat echocardiography done on 05/13/2018, that showed mild concentric left ventricular hypertrophy, normal LV function, trace aortic regurgitation, mild mitral regurgitation, [id number] tricuspid regurgitation, RV systolic pressure 79. CURRENT MEDICATIONS: The patient is taking at home amlodipine 10 mg daily, Crestor 20 mg daily, ranitidine, omeprazole, metoprolol, lisinopril and Ecotrin.. REVIEW OF SYSTEMS: As per HPI. PHYSICAL EXAMINATION: VITAL SIGNS: Height of the patient 5 feet 6 inches, weight of the patient 184 pounds, body mass index 30 kg/m2. Temperature afebrile, heart rate 60, blood pressure 164/87. HEENT: PERRLA, intact. NECK: Supple, no carotid bruit or thyromegaly. CHEST: Clear to auscultation. HEART: S1, S2 regular. ABDOMEN: Soft. EXTREMITIES: Clubbing, cyanosis negative. LABORATORY DATA: Blood workup pending, but on last admission, WBC shows 3.8, hemoglobin 11.8, hematocrit 31.7, platelet count 103 dated 05/12/2018. At that time, sodium shows 145, potassium 4, chloride 106, carbon dioxide 27, anion gap of 15, BUN 22, creatinine 1.1. IMPRESSION: An 88-year-old male with a past medical history significant for coronary artery disease, status post percutaneous transluminal coronary angioplasty of left anterior descending, right coronary artery, and right dominant posterior descending artery on 01/11/2017, history of colonic mass, later on found to be colon cancer, status post recession, left hemicolectomy, and end-to-end anastomosis, admitted with two episodes of syncopal episode, status post loop recorder placed. Loop recorder revealed multiple pauses and tachybrady syndrome. So the patient admitted for elective implantation of permanent pacemaker. Risks, benefits, and alternatives discussed with patient. Patient agreed to proceed for cardiac catheterization. Discussed with patient's nephew, Libia Lisa on telephone number [phone]. He agreed and he made the patient understand. So, we will proceed for permanent pacemaker, further recommendation after the pacemaker. Thank you Dr. Zavala for providing us the opportunity in taking care of this patient Speedy Batresvini. Tyree Dale MD cc: Rosita Zavala MD [facility]
--- NOTE | 2018-05-19 16:41 | CARD ---
APPROVED REPORT Date of service: 05/19/2018 HISTORY The Patient is a 88 year-old male with a history of CAD s/p PTCA had Recurrent syncope, S/p Loop Implantation on Last Wednesday, that shows Multe Pauses with Slow heart Rate PROCEDURES Insertion Single Chamber Ventricle Pacemaker INDICATIONS SSS Syncope Bradycardia Multiple pauses CONSCIOUS SEDATION AGENTS Versed Fentanyl IMPLANTED DEVICES Medtronic 5092-58.. Pulse generator...SENSIA SR IS-I 123 Ventricular Lead .. Medtronic 5092-58 OPERATIVE NOTE The patient was brought to the Cardiac Catheterization Laboratory in a fasting state and was prepped and draped in a sterile manner. The left subclavian region was infiltrated with 2% Lidocaine, subcutaneous anesthesia. A transverse incision was made in the left subclavicular area. The subcutaneous pocket was formed via blunt dissection, Percutaneous venous access was achieved and an introducer sheath was inserted into the Lt Subclavian vein. Through the introducer sheath, the ventricular lead wire was postitioned in the right ventricular apex utilizing fluoroscopic guidance. The ventricular was advanced over the wire under fluoroscopic guidance and positioned in the right ventricle. Capturing and sensing thresholds were verified. THE VENTRICULAR ELECTRODE PARAMETERS R WAVE 10.3 THRESHOLD0.5 RESISTANCE 513 The ventricular lead was then secured using Silk 0. The subcutaneous pocket was irrigated with Betadine. The ventricular lead was attached to the appropriate receptacle on the pulse generator and set screws firmly tightened to insure adequate contact and stability. The lead and pulse generator were placed into the subcutaneous pocket. Sharp and sponge counts were confirmed to be correct. At this time the pocket was closed subcutaneously with a Vicryl 2.0 and the skin was closed with a Vicryl 4.0 .The operative site was dressed in sterile fashion. The patient tolerated the procedure well and was transferred to the floor in stable condition. COMPLICATIONS The patient tolerated the procedure well and there were no complications associated with the procedure. CONCLUSION Success ful Implantation of Permanent Pace maker, VVIR Medtronic and removal of Loop recorder ( separate dictation). CC; DRS. Zavala/ Laura
--- NOTE | 2018-05-19 18:54 | CARD ---
APPROVED REPORT Date of service: 05/19/2018 EKG Measurement Heart [id number] <Conclusion> Electronic ventricular pacemaker
[2018-05-20 00:34] VITALS: O2SAT 95
[2018-05-20 06:24] VITALS: RESP 18
[2018-05-20 06:56] LABS: EOS # 0.1 (0.0-0.7); EOS % 2.2 % (1.5-5.0); GRAN # 2.26 (1.4-6.5); GRAN % 56.2 % (50.0-68.0); HEMOGLOBIN 11.6 g/dL (14.0-18.0); LYMPH # 1.1 (1.2-3.4); LYMPH % 27.4 % (22.0-35.0); MEAN CELL VOLUME 99.4 fl (80.0-105.0); MEAN CORPUSCULAR HEMOGLOBIN 34.7 pg (25.0-35.0); MEAN CORPUSCULAR HGB CONC 34.9 g/dl (31.0-37.0); MEAN PLATELET VOLUME 9.7 fl (7.0-11.0); MONO # 0.6 (0.1-0.6); MONO % 14.2 % (1.0-6.0); RBC 3.34 10^6/uL (3.5-6.1); RED CELL DISTRIBUTION WIDTH 15.4 % (11.5-14.5)
[2018-05-20 07:18] LABS: ALB/GLOB RATIO 1.5 (1.1-1.8); ALBUMIN 3.8 g/dL (3.0-4.8); ALT/SGPT 28 U/L (7-56); AST/SGOT 29 U/L (17-59); BLOOD UREA NITROGEN 18 mg/dL (7-21); CALCIUM 8.7 mg/dL (8.4-10.5); GFR AFRICAN-AMERICAN > 60; GFR NON-AFRICAN AMERICAN > 60
--- NOTE | 2018-05-20 08:22 | CARDCATH ---
PROCEDURE DATE: 05/19/2018 PROCEDURES: Two procedures are performed, 1. Implantation of permanent pacemaker, please see separate dictation. 2. Removal of loop recorder. DICTATING PHYSICIAN: Tyree Dale MD. PIPE BOWLS PAINT TRIMMER: Negro Harrington, broadband technician. BRIEF CLINICAL HISTORY: This is an 88-year-old male with past medical history of significant coronary artery disease, status post multiple stents who was recently admitted with 2 episodes of syncopal episode. The patient last Wednesday underwent loop recorder implantation, went home on Wednesday. Transtelephonic recorder showed the patient had multiple pauses, so the patient today brought for implantation of permanent pacemaker, please see separate dictation and now the patient underwent removal of loop recorder. PROCEDURE: Loop recorder previously identified under fluoro. Then a small incision was made from the previous incision and a loop recorder located and removed from the artery forceps and puncture site was closed with 4-0 Vicryl and the Dermabond applied. The patient tolerated the procedure well. Please also see separate dictation for pacemaker implantation. Tyree Dale MD cc: Rosita Zavala MD.
[2018-05-20] MEDS ORDERED: Pantoprazole 40 mg EC Tab PO SCH (10:00)
--- NOTE | 2018-05-20 10:55 | RAD ---
Date of service: 05/20/2018 HISTORY: s/p PPM R/o Pneumothorax COMPARISON: 05/19/2018 TECHNIQUE: Chest PA and lateral FINDINGS: LUNGS: No active pulmonary disease. PLEURA: No significant pleural effusion identified. No pneumothorax apparent. CARDIOVASCULAR: Normal. OSSEOUS STRUCTURES: No significant abnormalities. VISUALIZED UPPER ABDOMEN: Normal. OTHER FINDINGS: None. IMPRESSION: No active disease.
[2018-05-20 12:05] VITALS: BP 148/79; PULSE 62; TEMP 98
--- NOTE | 2018-05-20 12:15 | CON ---
DATE: 05/19/2018 Patient was seen and examined at the bedside on 05/19/2018. CHIEF COMPLAINT: Syncope, cardiac arrhythmia. HISTORY OF PRESENT ILLNESS: Mr. Speedy De Jesus is an 88-year-old, my private patient, with past medical history significant for coronary artery disease, status post PTCA of LAD, RCA, and RPD on 12/2016, history of 3 drug-eluting stents placed. Later on, the patient had GI bleeding, found he has colon cancer. Colon mass workup showed colon cancer and had colon resection, end-to-end anastomosis was done, and patient got chemotherapy. He is under treatment of Dr. Schaffer. After that, patient was admitted for syncopal episode, actually 2 syncopal episodes, was admitted to the hospital. MRI was done. Loop recorder was placed on 05/13/2018. The patient was discharged home. Loop recorder revealed day before yesterday, multiple pauses, 3 to 5 second. The patient is cleared for implantation of pacemaker and removal of the loop recorder. Procedure was done. PAST MEDICAL HISTORY: Coronary artery disease, history of three drug-eluting stents, history of diabetes mellitus, hypertension, hypercholesterolemia, colon cancer, status post surgery, right hemicolectomy, end-to-end anastomosis, getting chemotherapy. SOCIAL HISTORY: No smoking. No drug. No ethanol. FAMILY HISTORY: Father and mother, noncontributory. ALLERGIES: PATIENT IS NOT ALLERGIC WITH ANY MEDICATIONS. HOME MEDICATIONS: Reviewed by me. REVIEW OF SYSTEMS: Patient was seen and examined on the bedside, status post procedure, looking comfortable. Patient is not a good historian. No fever. No chills. No headache. No dizziness. PHYSICAL EXAMINATION: VITAL SIGNS: Temperature 98.7, pulse 90, respiratory rate 18, blood pressure 145/79. HEENT: Head normocephalic, atraumatic. Eyes, PERRLA. Extraocular muscles intact. Conjunctivae clear. Nose patent. Mucous membrane moist. NECK: Supple. No carotid bruit, JVD or thyromegaly. CHEST: Bilaterally symmetrical. HEART: S1 and S2 positive. LUNGS: Clear to auscultation. ABDOMEN: Soft. Bowel sounds present. No organomegaly. EXTREMITIES: No edema. No cyanosis. NEUROLOGIC: Patient is awake and alert. Moving all 4 extremities. No focal deficit. MEDICATIONS: Reviewed by me. LABORATORY DATA: Reviewed by me. ASSESSMENT AND PLAN: Mr. Speedy De Jesus is an 88-year-old male with a history of multiple medical problems, multiple admissions. Has a history of significant coronary artery disease, status post cardiac stenting, drug-eluted; history of diabetes mellitus; hypertension; hypercholesterolemia; colon cancer, end-to-end anastomosis, getting chemotherapy; history of syncopal attacks x2. Loop recorder was placed, shows multiple arrhythmias, and patient was called back, got procedure today. Discussion done with Dr. Dale. Gastrointestinal and deep vein thrombosis prophylaxes. Repeat labs. Appreciated Dr. Dale's help. We will follow up. Rosita Zavala MD
--- NOTE | 2018-05-20 13:37 | PN ---
DATE: 05/20/2018 REASON FOR CONSULTATION AND FOLLOWUP: Implantation of permanent pacemaker and multiple problems with loop recorder. SUBJECTIVE: The patient denies any chest pain, shortness of breath, or any palpitations. OBJECTIVE: GENERAL: Not in apparent distress VITAL SIGNS: Temperature afebrile, heart rate 60, and blood pressure 150/89. HEENT: PERRLA, intact. NECK: Supple. No carotid bruits. No thyromegaly. CHEST: Clear to auscultation. HEART: S1 and S2, regular. ABDOMEN: Soft. EXTREMITIES: Clubbing and cyanosis negative. LABORATORY DATA: Blood workup as follows: WBC 4, hemoglobin 11, hematocrit 33.2, and platelet count 116. Chemistries shows sodium 142, potassium 4, chloride 110, carbon dioxide 24, anion gap of 13. BUN 13, creatinine 1. IMPRESSION: Status post pacemaker, sick sinus syndrome, status post loop recorder, multiple pauses. RECOMMENDATIONS: We will repeat chest x-ray. If chest x-ray remains negative, discharge home. We will follow with you. We will give antibiotics empirically for pacemaker prevent infection. We will repeat chest x-ray stat and if this is negative, we will discharge patient home. Thank you for Dr. Zavala, for providing us the opportunity in taking care of patient, Speedy De Jesus. Tyree Dale MD
--- NOTE | 2018-05-20 17:34 | CARD ---
APPROVED REPORT Date of service: 05/20/2018 EKG Measurement Heart [id number] <Conclusion> Electronic ventricular pacemaker
--- NOTE | 2018-05-20 17:53 | DS ---
BRIEF CLINICAL HISTORY: An 88-year-old male with past medical history significant for coronary artery disease, status post PTCA, admitted after having a loop recorder shows multiple pauses. The patient underwent permanent pacemaker. Hospital course remained uneventful. The patient is currently being discharged with plan to follow up with Dr. Dale in 1 week. MEDICATIONS ON DISCHARGE: Baby aspirin 81 mg a day, Keflex p.o. t.i.d. for 5 days, amlodipine 10 mg daily, clopidogrel 75 mg daily, and lisinopril 10 mg daily. FINAL DIAGNOSES: Sick sinus syndrome, multiple pauses, syncope. include implantation of permanent pacemaker and removal of loop recorder. We will wait for a chest x-ray. Once the chest x-ray is negative, the patient will be discharged home. Thank you Dr. Zavala, for providing us the opportunity in taking care of the patient, Speedy De Jesus. Tyree Dale MD cc: Rosita Zavala MD
== END 2018-05-20 18:21 | disposition home or self-care (01) ==
LOC: SDSVAS 07:02 → 2RSO 12:13 → SDSVAS 05-20 18:21
PROVIDERS: ATTEND Internal Medicine Cardiovascular Disease
DX: I49.5 Sick sinus syndrome (principal); I25.10 Atherosclerotic heart disease of native coronary artery without angina pectoris; I08.3 Combined rheumatic disorders of mitral, aortic and tricuspid valves; I10 Essential (primary) hypertension; E11.9 Type 2 diabetes mellitus without complications; E78.00 Pure hypercholesterolemia, unspecified; E78.5 Hyperlipidemia, unspecified; Z85.038 Personal history of other malignant neoplasm of large intestine; Z90.49 Acquired absence of other specified parts of digestive tract; Z98.0 Intestinal bypass and anastomosis status; Z95.5 Presence of coronary angioplasty implant and graft; Z79.82 Long term (current) use of aspirin
CPT/HCPCS: 33207; 33284; 36415; 71045; 71046; 80053; 83735; 84100; 85025; 93005 ×2; 99152; C1779; C1786; J0690; J2250; J3010; J7030

== ENCOUNTER 2018-12-05 05:41 | Outpatient (CLI) | payer MEDICARE, MEDICAID | END 2018-12-05 05:42 | disposition home or self-care (01) | LOC: PET-BROA 05:41 ==

== ENCOUNTER 2019-02-16 12:28 | Inpatient (IN) | payer MEDICARE, MEDICAID ==
[2019-02-16 12:36] VITALS: BMI 29.0
--- NOTE | 2019-02-16 12:43 | ED PDOC ---
Arrival/HPI - General Time Seen by Provider: 02/16/19 12:31 Historian: Family (Son) - History of Present Illness Narrative History of Present Illness (Text): 02/16/19 12:31 Speedy De Jesus is an 88 year old male, with a past medical history of CAD s/p stents, colon CA (in remission for > 2 years), and sick sinus syndrome s/p pacemaker, send to the emergency department by his oncologist for complaints of shortness of breath, dizziness, and hypertension earlier today. Per Dr. Schaffer, patient was noted to be dyspneic in office. Per son, patient's appreciated symptoms less than a week ago. Patient notes dizziness when standing up and difficulty ambulating. Patient denies swelling in lower extremities. Patient denies fevers, chills, night sweats, vision changes, headache, cough, chest pain, abdominal pain, diarrhea, nausea, vomiting, dysuria, hematuria, back pain, neck pain, rash, diaphoresis, or any other complaint. Oncologist: Dr. Schaffer PMD: Dr. Zavala Time/Duration: Prior to Arrival Symptom Onset: Sudden Symptom Course: Unchanged Activities at Onset: Light Context: Other (Oncologist's office) Past Medical History - Provider Review Nursing Documentation Reviewed: Yes - Infectious Disease Hx of Infectious Diseases: None - Cardiac Other/Comment: + stents - Pulmonary Hx Respiratory Disorders: No - Neurological Hx Dizziness: Yes - HEENT Hx HEENT Disorder: No (WEARS RX GLASSES) - Renal Hx Renal Disorder: No - Endocrine/Metabolic Hx Endocrine Disorders: No - Hematological/Oncological Hx Blood Disorders: Yes (blood transfusion) Hx Blood Transfusions: Yes (2017) Hx Cancer: Yes (colon) Hx Chemotherapy: (pt denies) Other/Comment: colon mass hemicolectomy, pt can't remember how long ago the dx was - Integumentary Other/Comment: left knee abrasion - Musculoskeletal/Rheumatological Hx Musculoskeletal Disorders: Yes Hx Unsteady Gait: Yes - Gastrointestinal Hx Diverticulitis: Yes Other/Comment: gi bleed - Genitourinary/Gynecological Hx Genitourinary Disorders: No Hx Reproductive Disorders: No - Psychiatric Hx Emotional Abuse: No Hx Physical Abuse: No Hx Substance Use: No - Surgical History Hx Coronary Stent: Yes - Anesthesia Hx Anesthesia Reactions: No Hx Malignant Hyperthermia: No - Suicidal Assessment Feels Threatened In Home Enviroment: No Family/Social History - Physician Review Nursing Documentation Reviewed: Yes Family/Social History: Unknown Family HX Smoking Status: Never Smoked Hx Alcohol Use: Yes (OCCASIONALLY) Hx Substance Use: No Allergies/Home Meds Allergies/Adverse Reactions: Allergies No Known Allergies Allergy (Verified 03/22/17 19:50) Home Medications: Home Meds Medication Instructions Recorded Confirmed Metoprolol Tartrate [Lopressor] 1 tab PO DAILY 05/12/18 05/19/18 Ranitidine HCl [Acid Writer Producer] 1 tab PO DAILY 05/12/18 05/20/18 Capecitabine 3 cap PO BID 05/18/18 05/19/18 Omeprazole 40 mg PO DAILY 05/18/18 05/20/18 Clopidogrel [Plavix] 1 tab PO DAILY 05/19/18 05/20/18 Docusate [Colace] 100 mg PO DAILY 05/19/18 05/20/18 Fludrocortisone [Florinef Acetate] 0.1 mg PO DAILY 05/19/18 05/20/18 Meclizine [Antivert] 12.5 mg PO TID 05/19/18 05/19/18 Review of Systems - Physician Review All systems were reviewed & negative as marked: Yes - Review of Systems Constitutional: absent: Fevers, Night Sweats, Other (chills) Eyes: absent: Vision Changes Respiratory: SOB. absent: Cough Cardiovascular: Other (hypertension). absent: Chest Pain Gastrointestinal: absent: Abdominal Pain, Diarrhea, Nausea, Vomiting Genitourinary Male: absent: Dysuria, Hematuria Musculoskeletal: absent: Back Pain, Neck Pain Skin: absent: Rash Neurological: Dizziness (difficulty getting up or ambulating secondary to dizziness). absent: Headache Physical Exam Vital Signs Reviewed: Yes Vital Signs Temp Pulse Resp BP Pulse Ox 02/16/19 12:35 98.4 F 86 18 194/99 H 95 Temperature: Afebrile Blood Pressure: Hypertensive Pulse: Regular Respiratory Rate: Normal Appearance: Positive for: Well-Appearing, Non-Toxic, Comfortable Pain Distress: None Mental Status: Positive for: Alert and Oriented X 3 - Systems Exam Head: Present: Atraumatic, Normocephalic Pupils: Present: PERRL Extroacular Muscles: Present: EOMI Conjunctiva: Present: Normal Mouth: Present: Moist Mucous Membranes Neck: Present: Normal Range of Motion Respiratory/Chest: Present: Accessory Muscle Use, Decreased Breath Sounds, Tachypneic. No: Wheezes, Rales, Rhonchi Cardiovascular: Present: Regular Rate and Rhythm, Normal S1, S2. No: Murmurs Abdomen: Present: Distention, Normal Bowel Sounds. No: Tenderness, Peritoneal Signs, Rebound, Guarding Back: Present: Normal Inspection Upper Extremity: Present: Normal Inspection, Normal ROM, NORMAL PULSES, Neurovascularly Intact, Capillary Refill < 2s. No: Cyanosis, Edema Lower Extremity: Present: Normal Inspection, NORMAL PULSES, Normal ROM, Neurovascularly Intact, Capillary Refill < 2 s. No: Edema Neurological: Present: GCS=15, CN II-XII Intact, Speech Normal Skin: Present: Warm, Dry, Normal Color. No: Rashes Psychiatric: Present: Alert, Oriented x 3, Normal Insight, Normal Concentration Medical Decision Making ED Course and Treatment: 02/16/19 12:31 Impression: 88 year old male, with a past medical history of CAD s/p stents, colon CA (in remission for > 2 years), and sick sinus syndrome s/p pacemaker, sent to the emergency department by his oncologist for shortness of breath, dizziness, and hypertension. Plan: -- Labs -- Chest X-Ray -- Trandate --Nitroglycerin gtt --Lasix -- Urinalysis -- Reassess and disposition Prior Visits: Notes and results from previous visits were reviewed. Progress Notes: 02/16/19 14:25 Labs reviewed with BNP noted to be elevated at 188/100s. Nitro drip ordered. Call placed to Dr. Sanchez(cardiology). Discussed case with Dr. Zavala(PCP) who accepts patient under her care and requests for Dr. Duque(pulmonology) to be consulted. 02/16/19 14:[address] Sanchez who agrees with plan for Lasix and nitro drip. He will see the patient when patient arrives onto the floor. - Lab Interpretations Lab Results: 02/16/19 13:10 02/16/19 13:10 Lab Results 02/16/19 13:19: pO2 25 L, VBG pH 7.39, VBG pCO2 52.0, VBG HCO3 31.5 H, VBG Total CO2 33.1 H, VBG O2 Sat (Calc) 49.3, VBG Base Excess 5.2 H, VBG Potassium 3.8, Glucose 96, Lactate 1.6, FiO2 21.0, Crit Value Called To Francisca, Crit Value Called By Rt, Blood Gas Notified Time 1330, Sodium 143.0, Chloride 107.0, Venous Blood Potassium 3.8 02/16/19 13:10: PT 16.5 H, INR 1.49, APTT 31.5 02/16/19 13:10: Sodium 143, Potassium 4.0, Chloride 105, Carbon Dioxide 30, Anion Gap 12, BUN 18, Creatinine 1.1, Est GFR ( Amer) > 60, Est GFR (Non- Af Amer) > 60, Random Glucose 95, Calcium 9.0, Magnesium 2.1, Total Bilirubin 1.6 H, AST 58, ALT 48, Alkaline Phosphatase 96, Troponin I 0.04 D, NT-Pro-B Natriuret Pep 8180 H, Total Protein 7.2, Albumin 4.2, Globulin 3.0, Albumin/Globulin Ratio 1.4 02/16/19 13:10: WBC 5.2, RBC 3.93, Hgb 12.3 L, Hct 37.9 L, MCV 96.4 D, MCH 31.3, MCHC 32.5, RDW 14.5, Plt Count 137, MPV 10.6, Neut % (Auto) 67.7, Lymph % (Auto) 20.1 L, Bates % (Auto) 10.9 H, Eos % (Auto) 1.3 L, Baso % (Auto) 0.0, Lymph # (Auto) 1.1 L, Bates # (Auto) 0.6, Eos # (Auto) 0.1, Baso # (Auto) 0.00, Absolute Neuts (auto) 3.54 I have reviewed the lab results: Yes - RAD Interpretation Narrative RAD Interpretations (Text): 02/16/19 13:23 Chest X-Ray shows: IMPRESSION: Mild vascular congestion Supply Chain Consultant: Radiologist - Medication Orders Current Medication Orders: 02/16/19 14:35 Nitroglycerin/Dextrose (Nitroglycerin 50 Mg/250 Ml D5w) 50 mg in 250 mls @ 1.5 mls/hr IV .Q24H ONE; Protocol Stop: 02/17/19 14:23 Discontinued Medications Furosemide (Lasix) 40 mg IVP STAT STA Stop: 02/16/19 14:29 Labetalol HCl (Trandate) 20 mg IV STAT STA Stop: 02/16/19 13:09 Last Admin: 02/16/19 13:22 Dose: 20 mg eMAR Start Stop Document 02/16/19 13:22 BB (Rec: 02/16/19 13:22 BB [id number]) Intravenous Solution Start Date 02/16/19 Start Time 13:20 End Date 02/16/19 End time 13:25 Total Infusion Time 5 - Scribe Statement The provider has reviewed the documentation as recorded by the Scribe Omega Gallardo All medical record entries made by the Scribe were at my direction and personally dictated by me. I have reviewed the chart and agree that the record accurately reflects my personal performance of the history, physical exam, medical decision making, and the department course for this patient. I have also personally directed, reviewed, and agree with the discharge instructions and disposition. Disposition/Present on Arrival - Present on Arrival Any Indicators Present on Arrival: No History of DVT/PE: No History of Uncontrolled Diabetes: No Urinary Catheter: No History of Decub. Ulcer: No History Surgical Site Infection Following: None - Disposition Have Diagnosis and Disposition been Completed?: Yes Diagnosis: Volume overload, CHF (congestive heart failure) Disposition: HOSPITALIZED Disposition Time: 14:30 Patient Plan: Admission, Telemetry Patient Problems: Current Active Problems Problem Status Onset Volume overload Acute CHF (congestive heart failure) Acute Condition: FAIR
[2019-02-16] MEDS ORDERED: Labetalol 5mg/ml (4ml) IV STA (13:08)
[2019-02-16] MEDS ORDERED: Labetalol 5 mg/ml Inj 20ML IV STA (13:08)
[2019-02-16 13:25] LABS: EOS # 0.1 (0.0-0.7); EOS % 1.3 % (1.5-5.0); HEMOGLOBIN 12.3 g/dL (14.0-18.0); LYMPH # 1.1 (1.2-3.4); LYMPH % 20.1 % (22.0-35.0); MEAN CELL VOLUME 96.4 fl (80.0-105.0); MEAN CORPUSCULAR HEMOGLOBIN 31.3 pg (25.0-35.0); MEAN CORPUSCULAR HGB CONC 32.5 g/dl (31.0-37.0); MEAN PLATELET VOLUME 10.6 fl (7.0-11.0); MONO # 0.6 (0.1-0.6); MONO % 10.9 % (1.0-6.0); RBC 3.93 10^6/uL (3.5-6.1); RED CELL DISTRIBUTION WIDTH 14.5 % (11.5-14.5); WHITE BLOOD COUNT 5.2 10^3/uL (4.5-11.0)
--- NOTE | 2019-02-16 13:27 | RAD ---
Date of service: 02/16/2019 HISTORY: sob COMPARISON: 05/20/2018 TECHNIQUE: 1 view obtained. FINDINGS: LUNGS: No active pulmonary disease. PLEURA: No significant pleural effusion identified, no pneumothorax apparent. CARDIOVASCULAR: No aortic atherosclerotic calcification present. Moderate cardiomegaly. Mild vascular congestion OSSEOUS STRUCTURES: No significant abnormalities. VISUALIZED UPPER ABDOMEN: Normal. OTHER FINDINGS: Single lead pacemaker IMPRESSION: Mild vascular congestion
[2019-02-16 13:30] LABS: VENOUS BLOOD GAS BASE EXCESS 5.2 mmol/L (0.0-2.0); VENOUS BLOOD GAS PO2 25 mm/Hg (30-55); VENOUS BLOOD PH 7.39 (7.32-7.43)
[2019-02-16 13:34] LABS: INR 1.49; PARTIAL THROMBOPLASTIN TIME 31.5 Seconds (26.9-38.3); PROTHROMBIN TIME 16.5 SECONDS (9.4-12.5)
[2019-02-16 13:37] LABS: ALB/GLOB RATIO 1.4 (1.1-1.8); ALBUMIN 4.2 g/dL (3.0-4.8); ALT/SGPT 48 U/L (7-56); AST/SGOT 58 U/L (17-59); BLOOD UREA NITROGEN 18 mg/dL (7-21); GFR NON-AFRICAN AMERICAN > 60
[2019-02-16 13:48] LABS: B-TYPE NATRIURETIC PEPTIDE 8180 pg/mL (0-450); TROPONIN I 0.04 ng/mL
[2019-02-16] MEDS ORDERED: Nitroglycerin 2% Ointment Foilpak UD TOP STA (14:14)
[2019-02-16] MEDS ORDERED: Nitroglycerin 50mg in D5W 50 MG/250 ML BOTTLE IV ONE (14:24)
[2019-02-16] MEDS ORDERED: Ergocalciferol 50,000 Intl Units Cap PO SCH (18:45)
[2019-02-16] MEDS ORDERED: Pneumococcal 23-Valent Vaccine IM ONE (22:31)
--- NOTE | 2019-02-16 22:46 | CARD ---
APPROVED REPORT Date of service: 02/16/2019 EKG Measurement Heart [id number] <Conclusion> Atrial flutter with variable AV block Left ventricular hypertrophy with repolarization abnormality Abnormal ECG
--- NOTE | 2019-02-17 02:36 | CON ---
PULMONARY CONSULTATION DATE: 02/16/2019 REFERRING PHYSICIAN: Dr. Zavala. REASON FOR CONSULTATION: Shortness of breath, chest pain, sleep apnea syndrome, history of coronary artery disease. HISTORY OF PRESENT ILLNESS: This is an 88-year-old gentleman with past medical history significant for coronary artery disease, history of coronary stent, also has a history of colon cancer about 2 years ago, sick sinus syndrome requiring pacemaker, seen at oncology office with shortness of breath and dizzy, epigastric pain, presently lying in the bed, has some epigastric pain. No nausea, no vomiting, diarrhea, leg pain, or leg swelling. Admitted to snoring, daytime sleepy and tired. PAST MEDICAL HISTORY: Cardiac arrhythmia requiring pacemaker, coronary artery disease, history of coronary stent, history of colon cancer, anemia, diverticulitis, history of GI bleed. SOCIAL HISTORY: Never smoked. Denies any alcohol use. FAMILY HISTORY: No significant cardiopulmonary disease reported. ALLERGIES: NONE KNOWN. MEDICATIONS: He is on metoprolol tartrate daily, also ranitidine daily, omeprazole 40 mg daily, Plavix 75 mg daily, Colace 100 mg daily, Florinef 0.1 mg daily, meclizine 12.5 mg three times a day. REVIEW OF SYSTEMS: On and off headache, no rhinitis, short of breath with exertion, epigastric discomfort. No abdominal distention. No leg pain or leg swelling. Admits to have snoring, daytime sleepy, and tired. PHYSICAL EXAMINATION: GENERAL: Lying in the bed, no acute distress. VITAL SIGNS: Temperature 98, heart rate 86, respiratory rate is 18, blood pressure 163/102, pulse ox 95% on room air. HEENT: Moist mucous membranes. Crowded airway. Mallampati score is 4. NECK: Supple. JVD. LUNGS: Have fair airflow with rhonchi. HEART: S1, S2. ABDOMEN: Soft. Mild epigastric pain. EXTREMITIES: There is no edema. NEUROLOGIC: Awake, alert, follows simple commands. LABORATORY DATA: Shows hemoglobin 12.3, hematocrit 37.9, WBC 5.2, platelet is 137. INR 1.49, PTT 32. The ABG showed pH 7.39, pCO2 is 52, O2 of 25, sodium 143, potassium 4.0, chloride 105, bicarbonate is 30, BUN 18, creatinine 1.1, calcium is 9.0, magnesium 2.1, total bili 1.6, AST 58, ALT 48, alk phos is 96. Troponin less than 0.04. ProBNP 8180. Albumin is 4.2. Chest x-ray done today shows mild vascular congestion. IMPRESSION AND PLAN: Heart failure, coronary artery disease, cardiac arrhythmia requiring pacemaker, history of colon cancer, uncontrolled hypertension, may have sleep apnea syndrome. Case discussed with family at bedside. All the questions answered. We will continue Protonix, will increase twice a day. Restart his home medication. Rule out cardiac event. Gastric prophylaxis. SCD to lower extremity. We will start chemical prophylaxis, already on antiplatelet and has history of gastrointestinal bleed. May have a component of sleep apnea syndrome, careful with sedation. Will need sleep study upon discharge as outpatient. We will also check orthostatic hypotension. Thank you and we will follow with you. Tyree Duque MD
[2019-02-17] MEDS: Pantoprazole 40 mg EC Tab PO SCH ×2 (05:40→18:51)
[2019-02-17 07:11] LABS: IRON 78 ug/dL (45-180)
[2019-02-17 07:16] LABS: HDL CHOLESTEROL 30 mg/dL (29-60)
[2019-02-17 07:22] LABS: % IRON SATURATION 25 % (20-55); TOTAL IRON BINDING CAPACITY 312 ug/dL (261-462)
[2019-02-17 07:28] LABS: LDL CHOLESTEROL 58 mg/dL (0-129)
[2019-02-17] MEDS ORDERED: Amiodarone 150 mg/D5W 100 ml 150 MG/100 ML BAG IVPB ONE (08:32)
[2019-02-17] MEDS: Potassium Chloride 20 mEq ER Tab PO SCH (09:30)
[2019-02-17] MEDS ORDERED: Non Formulary Medication (Omeprazole [Omeprazole] 40 MG) PO SCH (10:00)
[2019-02-17 10:16] LABS: URINE BILIRUBIN NEGATIVE (NEGATIVE); URINE BLOOD TRACE-LYSED (NEGATIVE); URINE GLUCOSE (UA) NEGATIVE (NEGATIVE); URINE LEUKOCYTE ESTERASE NEGATIVE Leu/uL (NEGATIVE); URINE PROTEIN 100 mg/dL (<30 mg/dL)
[2019-02-17 10:35] LABS: URINE APPEARANCE CLEAR (CLEAR); URINE COLOR YELLOW (YELLOW)
[2019-02-17 10:50] LABS: URINE WBC 0 - 2 /hpf (0-6)
[2019-02-17 10:52] LABS: URINE AMORPHOUS SEDIMENT FEW /hpf; URINE BACTERIA MOD /hpf
--- NOTE | 2019-02-17 11:14 | CP.PCM.APN ---
Subjective - Date & Time of Evaluation Date of Evaluation: 02/17/19 Time of Evaluation: 11:05 - Subjective Subjective: [facility] , pt reports cp is better , pt noted on iV nitro drip pt helped to bathroom . pt in NAD Review of Systems - Constitutional Constitutional: As Per HPI Objective - Vital Signs/Intake and Output Vital Signs (last 24 hours): Temp Pulse Resp BP Pulse Ox 97.8 F 78 18 166/83 H 96 02/17/19 06:00 02/17/19 09:33 02/17/19 06:00 02/17/19 09:33 02/16/19 20:49 Intake and Output: 02/17/19 02/17/19 06:59 18:59 Intake Total 9 360 Output Total 300 900 Balance -291 -540 - Medications Medications: Current Medications Amiodarone HCl (Cordarone) 200 mg PO DAILY [facility] Amiodarone HCl (Cordarone) 400 mg PO TID [facility] Stop: 02/17/19 23:59 Last Admin: 02/17/19 09:27 Dose: 400 mg Amlodipine Besylate (Norvasc) 10 mg PO DAILY [facility] Last Admin: 02/17/19 09:29 Dose: 10 mg Apixaban (Eliquis) 5 mg PO BID [facility]; Protocol Last Admin: 02/17/19 09:30 Dose: 5 mg Aspirin (Ecotrin) 81 mg PO DAILY [facility] Last Admin: 02/17/19 09:30 Dose: 81 mg Clopidogrel Bisulfate (Plavix) 75 mg PO DAILY [facility] Last Admin: 02/17/19 09:28 Dose: 75 mg Docusate Sodium (Colace) 100 mg PO BID [facility] Last Admin: 02/17/19 09:30 Dose: 100 mg Ergocalciferol (Drisdol 50,000 Intl Units Cap) 1 cap PO Q7D [facility] Last Admin: 02/16/19 19:09 Dose: 1 cap Fludrocortisone Acetate (Florinef) 0.1 mg PO DAILY [facility] Last Admin: 02/17/19 09:28 Dose: 0.1 mg Furosemide (Lasix) 40 mg IV 0800,1400 [facility] Nitroglycerin/Dextrose (Nitroglycerin 50 Mg/250 Ml D5w) 50 mg in 250 mls @ 1.5 mls/hr IV .Q24H ONE; Protocol Stop: 02/17/19 14:23 Last Titration: 02/16/19 20:24 Dose: 15 mcg/min, 4.5 mls/hr Lisinopril (Zestril) 20 mg PO DAILY [facility] Last Admin: 02/17/19 09:29 Dose: 20 mg Metoprolol Tartrate (Lopressor) 50 mg PO BID [facility] Last Admin: 02/17/19 09:33 Dose: 50 mg Pantoprazole Sodium (Protonix Ec Tab) 40 mg PO 0600,1600 [facility] Last Admin: 02/17/19 05:40 Dose: 40 mg Potassium Chloride (K-Dur 20 Meq Er Tab) 20 meq PO BRK [facility] Last Admin: 02/17/19 09:30 Dose: 20 meq - Labs Labs: 02/16/19 13:10 02/16/19 13:10 PT 16.5 SECONDS (9.4-12.5) H 02/16/19 13:10 INR 1.49 02/16/19 13:10 APTT 31.5 Seconds (26.9-38.3) 02/16/19 13:10 - Constitutional Appears: No Acute Distress - Head Exam Head Exam: NORMAL INSPECTION - Eye Exam Eye Exam: Normal appearance, PERRL Pupil Exam: NORMAL ACCOMODATION - Respiratory Exam Respiratory Exam: Decreased Breath Sounds, NORMAL BREATHING PATTERN - Cardiovascular Exam Cardiovascular Exam: +S1, +S2 - GI/Abdominal Exam GI & Abdominal Exam: Soft, Normal Bowel Sounds - Extremities Exam Extremities Exam: Full ROM Additional comments: moves all extremities, walked to bathroom independently - Neurological Exam Neurological Exam: Alert, Awake, Oriented x3 - Psychiatric Exam Psychiatric exam: Normal Affect, Normal Mood - Skin Skin Exam: Dry, Intact Assessment and Plan - Assessment and Plan (Free Text) Plan: ITS Impressions Chest X-Ray 02/16/19 12:43 IMPRESSION: Mild vascular congestion a/p 88 yr old male with pmh sig for colon ca s/p hemiclectomy, sss s/p ppm, gi bleed, diverticulitis, cad with stents who presented to ER after being found with sob/ dypsnea at heme/onc office. pt is now admitted for further eval with cardiology, pulm and onc consultation. pt with hypertension, trop at 0.04 and 0.05, pt on iV nitroglycerin drip and undergoing amiodarone loading. pt with elevateed bnp at 8180,vasc congestion on cxr on IV lasix regimen. pt with echo pending will continue to follow clinical course. Jana Lyn APN BPCI/TIC - BPCIA/TIC Educated pt/family on BPCIA/CIR/Med to Bed Programs: Yes Flyers given, including CMS Beneficiary letter: Yes Pt/family verbalized understanding & agreed to program: Yes
[2019-02-17] MEDS ORDERED: Albuterol-Ipratrop 3 mg / 0.5 (3 ml) UD IH PRN (11:35)
[2019-02-17 12:38] LABS: FOLATE > 20.0 ng/mL
--- NOTE | 2019-02-17 12:45 | PN ---
DATE: 02/17/2019 PULMONARY PROGRESS NOTE REFERRING PHYSICIAN: Rosita Zavala MD SUBJECTIVE: The patient is seen sitting at bedside, no acute distress. No overnight events reported. States that he feels better this morning. No cough. No shortness of breath. No chest pain, abdominal pain, nausea, vomiting, diarrhea, leg pain, or leg swelling reported. OBJECTIVE: GENERAL: No acute distress. VITAL SIGNS: Blood pressure 166/83, pulse 78, temperature 97.8, oxygen saturation 96% on room air. HEENT: Moist mucous membranes. Crowded airway. Mallampati score of 4. NECK: Supple. No JVD. LUNGS: Fair airflow bilaterally. CARDIOVASCULAR: S1 and S2. ABDOMEN: Soft, nontender. No distention. No organomegaly. EXTREMITIES: No bilateral lower extremity edema. NEUROLOGIC: Awake, alert and verbal. Following commands. MEDICATIONS: Reviewed. Amiodarone 400 mg three times a day, amiodarone 200 mg daily to start on 02/18/2019, Norvasc 10 mg daily, Eliquis 5 mg twice a day, aspirin 81 mg daily, Plavix 75 mg daily, Colace 100 mg twice a day, ergocalciferol 50,000 units every 7 days, Florinef 0.1 mg daily, Lasix 40 mg twice a day, Lisinopril 20 mg daily, metoprolol tartarate 50 mg twice a day, nitroglycerin 50 mg in 250 mL D5W at 1.5 mL/hour, Protonix 40 mg twice a day, potassium chloride 20 mEq at breakfast. LABORATORY DATA: Reviewed. Troponin 0.05, TSH 0.64. Hemoglobin A1c 5.8. Urinalysis shows urine protein 100, urine blood trace, urine ketones 15, urobilinogen 1, urine rbc's 2-5. IMPRESSION AND PLAN: Heart failure, coronary artery disease, cardiac arrhythmia requiring pacemaker, history of colon cancer, uncontrolled hypertension to suspect sleep apnea in this patient. Continue gastric prophylaxis. The patient on anticoagulation therapy. We will do orthostatic hypotension. Discussed with nursing staff. We will place the patient on as-needed inhaled bronchodilators for shortness of breath. We suspect the patient may have sleep apnea syndrome, will need sleep study as outpatient. Echocardiogram pending to be done. We will follow up when available. The patient was seen and examined with Dr. Duque. Discussed assessment and plan as described above. The patient was seen and examined with Antoine Dodson, nurse practitioner. Discussed assessment and plan as described above. Thank you for this consult. We will follow with you. Antoine Dodson APN Tyree Duque MD
--- NOTE | 2019-02-17 12:53 | HP ---
DATE OF EXAM: 02/16/2019 HISTORY AND PHYSICAL The patient was seen and examined at bedside on 02/16/2019. CHIEF COMPLAINT: Shortness of breath. HISTORY OF PRESENT ILLNESS: Mr. Speedy De Jesus is an 88-year-old male with past medical history of coronary artery disease, status post cardiac stenting, colon cancer, in remission for more than 2 years and sick sinus syndrome, status post pacemaker, sent to the emergency department by his oncologist for complaints of shortness of breath, dizziness, hypertension, and appreciated symptoms less than 2 weeks ago. The patient noticed dizziness when standing up and difficulty of ambulating. The patient denies swelling of the lower extremities. The patient denies fever, chills, nausea, vomiting, or diarrhea. Denies dizziness, chest pain or palpitation. We admitted the patient. Discussion done with Dr. Schaffer. She called me, called Cardiology and Pulmonary consult. PAST MEDICAL HISTORY: As above, history of blood transfusions status post anemia; colon cancer, colon mass, hemicolectomy. The patient remembers couple of years ago; ataxia, GI bleeding, coronary artery stents. FAMILY HISTORY: Father and mother noncontributory. HABITS: Never smoked. No drugs. No ethanol. ALLERGIES: THE PATIENT NOT ALLERGIC WITH ANY MEDICATIONS. HOME MEDICATIONS: Reviewed by me. REVIEW OF SYSTEMS: The patient was seen and examined at the bedside, looking comfortable. No fever, no chills. No hematuria, hematemesis, hematochezia. Denies any chest pain, no palpitation. Abdomen soft. Bowel sounds present. No organomegaly.. Extremities: No edema, no cyanosis. Neurologic: The patient is awake and alert. Moving all four extremities. No focal deficits. PHYSICAL EXAMINATION: VITAL SIGNS: Temperature 98.4, pulse 86, respiratory rate 18, blood pressure 194/99, pulse oximetry 99. HEENT: Head normocephalic, atraumatic. Eyes PERRLA, Extraocular muscles intact. Conjunctiva clear. Nose patent. Mucous membrane moist. NECK: Supple. No carotid bruit or thyromegaly. CHEST: Bilaterally symmetrical. HEART: S1 and S2 positive. LUNGS: Clear to auscultation. ABDOMEN: Soft, bowel sounds positive. No organomegaly. EXTREMITIES: No edema, no cyanosis. NEUROLOGIC: The patient awake, alert, moving all 4 extremities. No focal deficits. LABORATORY DATA: White blood cell 5.3, hemoglobin 12.3, hematocrit 37.9, platelets 137. Sodium 140, potassium 4, BUN 18, creatinine 1.1, glucose 95. ASSESSMENT AND PLAN: Mr. Speedy De Jesus is an 88-year-old male with anemia, came with accelerated hypertension, got treatment in the emergency room. Chest x-ray done. The patient was seen in oncologist home office today. He has had coronary artery disease, status post cardiac stenting, colon cancer, in remission more than 2 years ago, sick sinus syndrome, status post pacemaker. Gastrointestinal and deep venous thrombosis prophylaxis. Repeat labs. Restarted home medications. We will follow up. Rosita Zavala MD
--- NOTE | 2019-02-17 14:14 | PN ---
DATE: 02/17/2019 SUBJECTIVE: The patient was seen and examined at the bedside on 02/17/2019. The patient is looking comfortable, but still coughing with shortness of breath, but better. No fever. No chills. No hematuria. No hematochezia. No headache. No dizziness. No chest pain. No palpitations. PHYSICAL EXAMINATION: VITAL SIGNS: Temperature, the patient is afebrile; pulse 78; blood pressure 166/80; respiratory rate 18. HEENT: Head; normocephalic and atraumatic. Eyes; PERRLA. Extraocular muscles intact. Conjunctivae clear. Nose patent. Mucous membranes moist. NECK: Supple. No carotid bruits. No JVD. No thyromegaly. CHEST: Bilaterally symmetrical. HEART: S1 and S2 positive. LUNGS: Clear to auscultation. ABDOMEN: Soft. Bowel sounds present. No organomegaly. EXTREMITIES: No edema. No cyanosis. NEUROLOGIC: The patient is awake, alert. Moving all four extremities. No focal deficits. MEDICATIONS: Colace, amiodarone, vitamin D, Ecotrin, Eliquis, Florinef, Lasix, Lopressor, nitroglycerin, Norvasc, Plavix, Protonix, Zestril. LABORATORY DATA: White blood cells 5.3, hemoglobin 12.3, hematocrit 37.9, platelets 137. Sodium 143, potassium 4.0, BUN 18, creatinine 1.1, glucose 95. Bilirubin 1.6. ASSESSMENT AND PLAN: Mr. De Jesus is an 88 year old male with anemia, abnormal liver function tests, congestive heart failure, proteinuria, ketonuria, hematuria, seen by Dr. 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 He is under care of Dr. Schaffer. 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 History of congestive heart failure; history of colon cancer, got chemotherapy from Dr. Schaffer; sleep apnea syndrome. Gastrointestinal and deep venous thrombosis prophylaxis, sequential compression devices for lower extremity. We will repeat labs, out of bed. Appreciated Cardiology and Pulmonary input, repeat labs. We will followup. Rosita Zavala MD [facility] # [id number] ILIA[place]
[2019-02-17] MEDS: Sodium Chloride 0.9% 1,000 ML IV SCH (14:58)
--- NOTE | 2019-02-17 15:24 | CT ---
Date of service: 02/17/2019 PROCEDURE: CT HEAD WITHOUT CONTRAST. HISTORY: ams COMPARISON: None available. TECHNIQUE: Axial computed tomography images were obtained through the head/brain without intravenous contrast. Radiation dose: Total exam DLP = 1011.08 mGy-cm. This CT exam was performed using one or more of the following dose reduction techniques: Automated exposure control, adjustment of the mA and/or kV according to patient size, and/or use of iterative reconstruction technique. FINDINGS: HEMORRHAGE: No intracranial hemorrhage. BRAIN: No mass effect or edema. Chronic microvascular changes VENTRICLES: Unremarkable. No hydrocephalus. CALVARIUM: Unremarkable. PARANASAL SINUSES: Unremarkable as visualized. No significant inflammatory changes. MASTOID AIR CELLS: Unremarkable as visualized. No inflammatory changes. OTHER FINDINGS: None. IMPRESSION: Chronic microvascular changes. No acute findings
--- NOTE | 2019-02-17 16:08 | CON ---
DATE: 02/17/2019 NEUROLOGY CONSULTATION CHIEF COMPLAINT: Confusion. HISTORY OF PRESENT ILLNESS: This is an 88-year-old man with history of coronary artery disease, history of coronary stents, history of colon cancer 2 years ago, sick sinus syndrome requiring pacemaker, seen at oncology office with shortness of breath and dizzy, and therefore came in, found to be in CHF exacerbation, echo is currently pending. I was called because he was mildly confused. He does have cognitive impairment and he remember things in the past, but has mildly diffuse attention span at this time. CAT scan of the head has been ordered. He does have mild cognitive impairment and there is definite transient confusion state and transient cerebellar hypoperfusion to the brain. He is on Eliquis as well as Plavix for stroke prevention. He is on baby aspirin, which he does not need to be on since he is on Eliquis and Plavix itself. He is seen up in bed, eating his food. PAST MEDICAL HISTORY: As above. SOCIAL HISTORY: No illicit drug use, smoking or EtOH abuse. REVIEW OF SYSTEMS: A 14-point review of systems is negative except as per the HPI.. FAMILY HISTORY: Noncontributory. MEDICATIONS: Reviewed by nurses' reconciliation sheet. LABORATORY DATA: Hemoglobin A1c 5.8, BNP 8180. PHYSICAL EXAMINATION GENERAL: The patient is seen up in bed, in no acute distress. VITAL SIGNS: Current temperature 98.3, pulse rate 71, blood pressure 126/69, respiratory rate 18. HEENT: Atraumatic and normocephalic. PERRLA. Extraocular muscles are intact. NECK: Supple. No JVD. No adenopathy noted. LUNGS: Clear to auscultation. No adventitious sounds. HEART: S1 and S2. Normal rate and rhythm. No murmurs, rubs or gallops. ABDOMEN: Soft, nontender and nondistended. Bowel sounds are present. EXTREMITIES: No clubbing. No cyanosis. Peripheral pulses 2+ felt bilaterally. NEUROLOGIC: The patient is alert and oriented to person, place,but not year. Recall after 5 minutes 0/3. Poor attention span. Slow thought process. Cranial nerves II through XII are intact. Motor exam; moves all extremities equally. No pronator drift seen. Sensory exam; decreased light touch to pinprick up to the calves bilaterally. Decreased vibration at the toes. DTRs are 2+ throughout and 1 at both knees and ankles. Coordination; [id number] intact. No dysmetria noted. Gait is deferred for now. IMPRESSION: Transient confusional state in the patient with acute congestive heart failure exacerbation with history of cardiac arrhythmia requiring pacemaker and sick sinus syndrome on Eliquis and Plavix. RECOMMENDATIONS: At this time; we recommend: 1. CAT scan of the head to assess any acute abnormities. 2. Has evidence of orthostatic hypotension, avoid cerebellar hyperperfusion and keep blood pressure between 120s to 130s systolic and diastolic 70s to 80s. 3. Discontinue aspirin if needed given that the patient is already on 3 blood thinners, so therefore discontinue Plavix 75 mg and Eliquis for stroke prevention. 4. Monitor electrolytes and correct accordingly and PT/OT , echocardiogram and delirium precautions. Vu Trinh MD
--- NOTE | 2019-02-17 16:08 | CON ---
DATE: 02/17/2019 REASON FOR CONSULTATION: History of colon cancer. CONSULT REQUESTED BY: Dr. Zavala. HISTORY OF PRESENT ILLNESS: Mr. Ruff is 88-year-old male, seen in the office yesterday. He had history of colon cancer, status post hemicolectomy. Status post adjuvant chemotherapy with Xeloda. He has been in remission since the diagnosis from colon cancer. Presented to office yesterday with extreme shortness of breath, unable to tie his shoelaces. Blood pressure was found to be 200/101 in the office. He was transported to the ER immediately. Evaluated for accelerated hypertension and pulmonary edema. Currently on nitroglycerine drip. No chest pain. He had a pacemaker placement for sick sinus on prior admissions. Blood work done in the ER showed mild anemia. He has history of GI bleed and has received IV iron more than a year ago. Bilirubin mildly elevated at 1.6. Currently denies any chest pain. No shortness of breath. PAST MEDICAL HISTORY: Colon cancer, anemia, GI bleeding, ataxia, bradycardia, and coronary stents. PAST SURGICAL HISTORY: Right hemicolectomy and pacemaker placement. FAMILY HISTORY: Father and mother, noncontributory. PERSONAL HISTORY: Never smoked. No history of alcohol abuse. SOCIAL HISTORY: Lives with the friend at home. ALLERGIES: NO KNOWN DRUG ALLERGIES. CURRENT MEDICATIONS: Albuterol every 6 hours p.r.n., amiodarone 400 three times a day, Norvasc 10 mg daily, Eliquis 5 mg p.o. b.i.d., aspirin 81 mg daily, Plavix 75 mg daily, Colace 100 mg p.o. b.i.d., Lasix 40 mg b.i.d., Protonix, and IV fluids at 50 mL an hour. LABORATORY DATA: White count 5.2, hemoglobin 12.3, hematocrit 37.9, and platelet 137. Sodium 143, potassium 4, creatinine 1.4, iron 78, iron saturation 25, and total bilirubin 1.6. LFTs within normal limits. BNP 8000. PHYSICAL EXAMINATION: GENERAL: Comfortable in bed; in no acute distress. VITAL SIGNS: Temperature 98.3; heart rate 71 per minute; blood pressure 121/69, prior was 166/83 and respiratory rate 18 per minute. HEENT: Pallor positive. NECK: No lymphadenopathy. CHEST: Air entry present and equal bilateral. No added sounds. CARDIOVASCULAR: S1 and S2 normal. No murmur. No gallop. ABDOMEN: Soft and nontender. No hepatosplenomegaly. EXTREMITIES: No edema. CENTRAL NERVOUS SYSTEM: Alert and oriented x3. No focal, sensory, or motor deficit. ASSESSMENT AND PLAN: 1. Colon cancer, in remission, status post right hemicolectomy, status post adjuvant treatment with Xeloda. We will continue to monitor as outpatient. 2. Mild anemia, history of gastrointestinal bleed. We will do the iron study. White count and platelet count within normal limits. Currently on aspirin, Plavix, and Eliquis as per Cardiology. 3. Hypertensive crisis. He was on nitroglycerin drip, currently blood pressure controlled. Nitroglycerin just discontinued. Cardiology Dr. Dale following. 4. Gastrointestinal. Bilirubin elevated at 1.6. We will repeat it again with a.m. labs. Thank you Dr. Zavala for allowing us to participate in his care. Mariela Schaffer MD MTDJaqueline
--- NOTE | 2019-02-17 18:01 | CARD ---
APPROVED REPORT Date of service: 02/17/2019 EXAM: Two-dimensional and M-mode echocardiogram with Doppler and color Doppler. INDICATION Congestive Heart Failure LVFX 2D DIMENSIONS Left Atrium (2D)5.3 (1.6-4.0cm)IVSd1.7 (0.7-1.1cm) LVDd5.3 (3.9-5.9cm)PWd1.7 (0.7-1.1cm) LVDs4.5 (2.5-4.0cm)FS (%) 14.1 % LVEF (%)29.8 (>50%) M-Mode DIMENSIONS Aortic Root3.40 (2.2-3.7cm)Aortic Cusp Exc.1.60 (1.5-2.0cm) Aortic Valve AoV Peak Madfwzvn105.0cm/Haim Peak GR.10mmHg Mitral Valve MV E Ubnjdgqy10.9cm/sMV A Xvmzviyd55.9cm/sE/A ratio1.8 TDI Lateral E' Peak V9.46cm/sMedial E' Peak V4.29cm/sE/Lateral E'8.9 E/Medial E'19.6 Pulmonary Valve PV Peak Jrhqiggs24.2cm/sPV Peak Grad.2mmHg Tricuspid Valve TR Peak Nguvfbyf615hy/sRAP BOLXFLYP23njKtLS Peak Gr.48mmHg [id number] LEFT VENTRICLE The left ventricle is normal size.LV Shows Severe Hypertrophy. LV Shows Mild Decrease in Systolic Function. Ej.Fr:35-40%. RIGHT VENTRICLE The right ventricle is normal size. The right ventricular systolic function is normal. ATRIA LA is Moderately Dilated. RA is Moderately Dilatedf AORTIC VALVE Aortic Valve is Calcified. Valve Opening is still adequate. MITRAL VALVE Mitral Valve Leaflets Thickened. Valve Opening Normal. Mild to Moderate Mitral Regurge Present. TRICUSPID VALVE The tricuspid valve is normal in structure. There is moderate to severe tricuspid regurgitation.RVSP:58 Moderate to Severe Pulmonary Hypertension. <Conclusion> The left ventricle is normal size.LV Shows Severe Hypertrophy. LV Shows Mild Decrease in Systolic Function. Ej.Fr:35-40%. The right ventricle is normal size. The right ventricular systolic function is normal. LA is Moderately Dilated. RA is Moderately Dilated. Aortic Valve is Calcified. Valve Opening is still adequate. Mitral Valve Leaflets Thickened. Valve Opening Normal. Mild to Moderate Mitral Regurge Present. The tricuspid valve is normal in structure. There is moderate to severe tricuspid regurgitation.RVSP:58 Moderate to Severe Pulmonary Hypertension. Echogenic Density in RA, RV is Pacemaker Electrode.
--- NOTE | 2019-02-17 19:24 | PN ---
DATE: 02/17/2019 CONSULT SERVICE: Cardiology. REASON FOR CONSULTATION: Followup cardiac evaluation, rule out CHF. 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 Schaffer, and was sent for admission because of shortness of breath. Denies any chest pain. Denies any palpitations. Past history is also significant for implantation of permanent pacemaker after the patient had a loop recorder that shows multiple pauses on 05/19/2018. PAST MEDICAL HISTORY: Significant for coronary artery disease status post multiple stents, who recently admitted with two episodes of syncope and then the patient had a loop recorder implantation done in 04/2018. Following the loop recorder, his transtelephonic record shows multiple pauses, so the patient was called in and had permanent pacemaker implanted on 05/19/2018. The patient had a single-chamber pacemaker, VVI Medtronic pacemaker, Sensia SR dated 05/19/2018. Past history is significant for coronary artery disease as mentioned above, history of PTCA of RCA, RPD and LAD with 3 drug-eluting stents on 01/21/2017, history of diabetes, hypertension, hyperlipidemia, colonic mass, status post right hemicolectomy and end-to-end anastomosis in 2017. SOCIAL HISTORY: Denies smoking. Denies any history of alcohol abuse. RECENT CARDIAC WORKUP: As follows; the patient had stress test on 03/14/2018, that shows probably negative myocardial perfusion study, fixed defect, no reversible ischemia, normal gated wall motion. As compared to the previous study dated 12/30/2016, the previously noted ischemia is disappeared and not seen in the current study dated 03/14/2018. The patient had a pacemaker as mentioned on 05/13/2018, first the patient had a loop recorder because of recurrent syncope and loop recorder on 05/13/2018. A week later, the patient was readmitted for implantation of pacemaker, Sensia and the loop recorder was then removed. On transtelephonic loop recorder on 05/13/2018, revealed multiple pauses, so the patient had implantation of a permanent pacemaker on 05/19/2018. As mentioned, a stress test on 03/14/2018, negative stress test and improvement in the stress test for the previous result on 12/30/2016. The patient has last echo on 01/29/2017, at [facility], ejection fraction 55% to 60%. Later on, the patient had a repeat echo on admission when the patient presented with syncope dated 05/13/2018, that shows mild concentric LVH, normal function, trace aortic regurgitation, mild mitral regurgitation, [id number]-ld-jbzssr tricuspid regurgitation, RV systolic pressure of 79. REVIEW OF SYSTEMS: As per HPI. History of 3 stents in 01/21/2017. CURRENT MEDICATIONS: The patient is taking amlodipine, Crestor, ranitidine, omeprazole, metoprolol, meclizine, lisinopril, fludrocortisone, clopidogrel and aspirin. PAST SURGICAL HISTORY: Significant for first loop recorder implantation on 05/13/2018, followed by permanent pacemaker 05/19/2018, history of colonic mass, status post right hemicolectomy and end-to-end anastomosis in the past, history of GI bleed and found to be colon cancer at that time, being followed by Hematology, Dr. Schaffer. PHYSICAL EXAMINATION VITAL SIGNS: Height of the patient 5 feet 6 inches, weight of the patient 180 pounds, body mass index 29.1 kg/m2. Temperature is afebrile, heart rate 60, blood pressure 162/85. HEENT: PERRLA. Extraocular muscles intact. NECK: Supple. No carotid bruit or thyromegaly. CHEST: Clear to auscultation. HEART: S1 and S2 regular. ABDOMEN: Soft. EXTREMITIES: Clubbing and cyanosis negative. LABORATORY DATA: EKG shows atrial flutter rate of 82. Blood workup; WBC 5.2, hemoglobin 12.3, hematocrit 37.9, platelet count 137. Chemistry shows sodium 142, potassium 4, chloride 105, carbon dioxide 30, anion gap 12, BUN 18, creatinine 1.1. BNP 8080. Troponin 0.04. The EKG as mentioned has atrial flutter with 4:1 conduction. The patient was prior in normal sinus before the pacemaker, so probably this atrial flutter is of new onset. IMPRESSION: An 88-year-old male with past medical history significant for coronary artery disease, status post multiple stents in 2017, left anterior descending, right posterior descending artery and right coronary artery were stented, history of sick sinus syndrome, status post permanent pacemaker. First the patient had a loop recorder because of syncope on 05/13/2018, upgraded on 05/19/2018 to a single-chamber VVI, admitted with shortness of breath and found to be atrial flutter, possibly this atrial flutter is of new onset. Chest x-ray consistent with congestive heart failure. An 88-year-old male with past medical history significant for coronary artery disease as mentioned, history of colon cancer, history of pacemaker, history of syncope, loop recorder upgraded to a pacemaker, admitted with congestive heart failure. A chest x-ray consistent with congestive heart failure possibly secondary to atrial flutter of new onset. RECOMMENDATIONS: We will load with amiodarone, start a low dose of Eliquis, repeat the echo to assess LV function, continued aggressive diuresis. Further recommendations will depend upon the hospital course. We will follow with you. Thank you, Dr. Zavala, for providing us the opportunity in taking care of the patient, Speedy Neal. Tyree Dale MD
--- NOTE | 2019-02-17 22:25 | CP.PCM.PN ---
Subjective - Date & Time of Evaluation Date of Evaluation: 02/17/19 Time of Evaluation: 22:24 - Subjective Subjective: Patient was seen at bedside because he was agitated. Medical record was reviewed. This 88 year old male was admitted with shortness of breath, dizziness. Has PMH: CAD. Anemia. History of blood transfusion. Breast cancer Sick sinus syndrome PPM History hemicolectomy History ataxia. History gingival bleeding. Objective - Vital Signs/Intake and Output Vital Signs (last 24 hours): Temp Pulse Resp BP Pulse Ox 98.2 F 77 20 166/83 H 95 02/17/19 18:00 02/17/19 21:50 02/17/19 18:00 02/17/19 18:33 02/17/19 18:00 Intake and Output: 02/17/19 02/18/19 18:59 06:59 Intake Total 360 900 Output Total 900 750 Balance -540 150 - Medications Medications: Current Medications Albuterol/Ipratropium (Duoneb 3 Mg/0.5 Mg (3 Ml) Ud) 3 ml IH [id number] PRN PRN Reason: Shortness of Breath Amiodarone HCl (Cordarone) 200 mg PO DAILY [facility] Amiodarone HCl (Cordarone) 400 mg PO TID [facility] Stop: 02/17/19 23:59 Last Admin: 02/17/19 18:32 Dose: 400 mg Amlodipine Besylate (Norvasc) 10 mg PO DAILY [facility] Last Admin: 02/17/19 09:29 Dose: 10 mg Apixaban (Eliquis) 5 mg PO BID [facility]; Protocol Last Admin: 02/17/19 18:33 Dose: 5 mg Aspirin (Ecotrin) 81 mg PO DAILY [facility] Last Admin: 02/17/19 09:30 Dose: 81 mg Clopidogrel Bisulfate (Plavix) 75 mg PO DAILY [facility] Last Admin: 02/17/19 09:28 Dose: 75 mg Docusate Sodium (Colace) 100 mg PO BID [facility] Last Admin: 02/17/19 18:33 Dose: 100 mg Enoxaparin Sodium (Lovenox) 70 mg SC Q12H [facility]; Protocol Stop: 02/19/19 23:59 Ergocalciferol (Drisdol 50,000 Intl Units Cap) 1 cap PO Q7D [facility] Last Admin: 02/16/19 19:09 Dose: 1 cap Fludrocortisone Acetate (Florinef) 0.1 mg PO DAILY [facility] Last Admin: 02/17/19 09:28 Dose: 0.1 mg Furosemide (Lasix) 40 mg IV 0800,1400 [facility] Last Admin: 02/17/19 14:56 Dose: 40 mg Furosemide (Lasix) 40 mg PO BID [facility] Hydralazine HCl (Apresoline) 10 mg PO QID PRN PRN Reason: for SBP>170 Hydralazine HCl (Apresoline) 25 mg PO BID [facility] Sodium Chloride (Sodium Chloride 0.9%) 1,000 mls @ 50 mls/hr IV .Q20H [facility] Stop: 02/18/19 23:59 Last Admin: 02/17/19 14:58 Dose: 50 mls/hr Lisinopril (Zestril) 20 mg PO DAILY [facility] Last Admin: 02/17/19 09:29 Dose: 20 mg Metoprolol Tartrate (Lopressor) 50 mg PO BID [facility] Last Admin: 02/17/19 18:33 Dose: 50 mg Pantoprazole Sodium (Protonix Ec Tab) 40 mg PO 0600,1600 [facility] Last Admin: 02/17/19 18:51 Dose: 40 mg Potassium Chloride (K-Dur 20 Meq Er Tab) 20 meq PO BRK [facility] Last Admin: 02/17/19 09:30 Dose: 20 meq Sacubitril/Valsartan (Entresto 24 Mg-26 Mg Tablet) 1 each PO BID [facility] - Labs Labs: 02/16/19 13:10 02/16/19 13:10 PT 16.5 SECONDS (9.4-12.5) H 02/16/19 13:10 INR 1.49 02/16/19 13:10 APTT 31.5 Seconds (26.9-38.3) 02/16/19 13:10 - Constitutional Appears: Well, No Acute Distress - Head Exam Head Exam: ATRAUMATIC, NORMAL INSPECTION, NORMOCEPHALIC - Eye Exam Eye Exam: Normal appearance - ENT Exam ENT Exam: Normal External Ear Exam - Neck Exam Neck Exam: Normal Inspection - Respiratory Exam Respiratory Exam: NORMAL BREATHING PATTERN - Cardiovascular Exam Cardiovascular Exam: absent: JVD - GI/Abdominal Exam GI & Abdominal Exam: absent: Distended - Rectal Exam Rectal Exam: Deferred - Exam Additional comments: Deferred. - Extremities Exam Extremities Exam: Normal Inspection - Back Exam Back Exam: NORMAL INSPECTION - Neurological Exam Neurological Exam: Altered - Psychiatric Exam Psychiatric exam: Agitated - Skin Skin Exam: Normal Color Assessment and Plan - Assessment and Plan (Free Text) Assessment: Agitation. CAD. Anemia. History of blood transfusion. Breast cancer Sick sinus syndrome PPM History hemicolectomy History ataxia. History gingival bleeding. Plan: Ativan 0.25 mg IV x 1. Ativan 0.25 mg IV prn x 1 in 15 minutes. Continue present management.
--- NOTE | 2019-02-18 00:34 | CP.PCM.PN ---
<Benny Ma - Last Filed: 02/18/19 03:33> Subjective - Date & Time of Evaluation Date of Evaluation: 02/18/19 Time of Evaluation: 00:31 - Subjective Subjective: Paged by nursing staff to assess patient and possibly discontinuing 1:1 sitter due to nursing staff being short staffed. Patient is asleep and is not agitated. Plan: - Patient moved to a bed close to nursing station - Patient is sleeping and not agitated - 1:1 discontinued - Will monitor patient and put back on 1:1 if necessary Benny Ma, PGY-1 Objective - Vital Signs/Intake and Output Vital Signs (last 24 hours): Temp Pulse Resp BP Pulse Ox 98.2 F 77 20 166/83 H 95 02/17/19 18:00 02/17/19 21:50 02/17/19 18:00 02/17/19 18:33 02/17/19 18:00 Intake and Output: 02/17/19 02/18/19 18:59 06:59 Intake Total 360 900 Output Total 900 750 Balance -540 150 - Medications Medications: Current Medications Albuterol/Ipratropium (Duoneb 3 Mg/0.5 Mg (3 Ml) Ud) 3 ml IH [id number] PRN PRN Reason: Shortness of Breath Amiodarone HCl (Cordarone) 200 mg PO DAILY [facility] Amlodipine Besylate (Norvasc) 10 mg PO DAILY [facility] Last Admin: 02/17/19 09:29 Dose: 10 mg Apixaban (Eliquis) 5 mg PO BID [facility]; Protocol Last Admin: 02/17/19 18:33 Dose: 5 mg Aspirin (Ecotrin) 81 mg PO DAILY [facility] Last Admin: 02/17/19 09:30 Dose: 81 mg Clopidogrel Bisulfate (Plavix) 75 mg PO DAILY [facility] Last Admin: 02/17/19 09:28 Dose: 75 mg Docusate Sodium (Colace) 100 mg PO BID [facility] Last Admin: 02/17/19 18:33 Dose: 100 mg Enoxaparin Sodium (Lovenox) 70 mg SC Q12H [facility]; Protocol Stop: 02/19/19 23:59 Ergocalciferol (Drisdol 50,000 Intl Units Cap) 1 cap PO Q7D [facility] Last Admin: 02/16/19 19:09 Dose: 1 cap Fludrocortisone Acetate (Florinef) 0.1 mg PO DAILY [facility] Last Admin: 02/17/19 09:28 Dose: 0.1 mg Furosemide (Lasix) 40 mg IV 0800,1400 [facility] Last Admin: 02/17/19 14:56 Dose: 40 mg Furosemide (Lasix) 40 mg PO BID [facility] Hydralazine HCl (Apresoline) 10 mg PO QID PRN PRN Reason: for SBP>170 Hydralazine HCl (Apresoline) 25 mg PO BID [facility] Sodium Chloride (Sodium Chloride 0.9%) 1,000 mls @ 50 mls/hr IV .Q20H [facility] Stop: 02/18/19 23:59 Last Admin: 02/17/19 14:58 Dose: 50 mls/hr Lisinopril (Zestril) 20 mg PO DAILY [facility] Last Admin: 02/17/19 09:29 Dose: 20 mg Metoprolol Tartrate (Lopressor) 50 mg PO BID [facility] Last Admin: 02/17/19 18:33 Dose: 50 mg Pantoprazole Sodium (Protonix Ec Tab) 40 mg PO 0600,1600 [facility] Last Admin: 02/17/19 18:51 Dose: 40 mg Potassium Chloride (K-Dur 20 Meq Er Tab) 20 meq PO BRK [facility] Last Admin: 02/17/19 09:30 Dose: 20 meq Sacubitril/Valsartan (Entresto 24 Mg-26 Mg Tablet) 1 each PO BID [facility] - Labs Labs: 02/16/19 13:10 02/16/19 13:10 PT 16.5 SECONDS (9.4-12.5) H 02/16/19 13:10 INR 1.49 02/16/19 13:10 APTT 31.5 Seconds (26.9-38.3) 02/16/19 13:10 <Cassandra Calderon - Last Filed: 02/19/19 02:17> Objective - Vital Signs/Intake and Output Vital Signs (last 24 hours): Temp Pulse Resp BP Pulse Ox 98.1 F 64 22 124/79 99 02/18/19 18:00 02/18/19 18:36 02/18/19 18:00 02/18/19 18:36 02/18/19 18:00 Intake and Output: 02/18/19 02/19/19 18:59 06:59 Intake Total 225 918 Output Total 740 Balance 225 178 - Medications Medications: Current Medications Albuterol/Ipratropium (Duoneb 3 Mg/0.5 Mg (3 Ml) Ud) 3 ml IH [id number] PRN PRN Reason: Shortness of Breath Amiodarone HCl (Cordarone) 200 mg PO DAILY [facility] Last Admin: 02/18/19 09:50 Dose: 200 mg Amlodipine Besylate (Norvasc) 10 mg PO DAILY [facility] Last Admin: 02/18/19 09:49 Dose: 10 mg Apixaban (Eliquis) 5 mg PO BID [facility]; Protocol Last Admin: 02/17/19 18:33 Dose: 5 mg Aspirin (Ecotrin) 81 mg PO DAILY [facility] Last Admin: 02/18/19 09:50 Dose: 81 mg Clopidogrel Bisulfate (Plavix) 75 mg PO DAILY [facility] Last Admin: 02/18/19 09:50 Dose: 75 mg Docusate Sodium (Colace) 100 mg PO BID [facility] Last Admin: 02/18/19 18:35 Dose: 100 mg Enoxaparin Sodium (Lovenox) 70 mg SC Q12H [facility]; Protocol Stop: 02/19/19 23:59 Last Admin: 02/18/19 18:36 Dose: 70 mg Ergocalciferol (Drisdol 50,000 Intl Units Cap) 1 cap PO Q7D [facility] Last Admin: 02/16/19 19:09 Dose: 1 cap Fludrocortisone Acetate (Florinef) 0.1 mg PO DAILY [facility] Last Admin: 02/18/19 09:50 Dose: 0.1 mg Furosemide (Lasix) 40 mg PO BID [facility] Last Admin: 02/18/19 18:35 Dose: 40 mg Haloperidol Lactate (Haldol) 0.25 mg PO Q6 PRN; Protocol PRN Reason: Agitation Hydralazine HCl (Apresoline) 10 mg PO QID PRN PRN Reason: for SBP>170 Hydralazine HCl (Apresoline) 25 mg PO BID [facility] Last Admin: 02/18/19 18:35 Dose: 25 mg Lisinopril (Zestril) 20 mg PO DAILY [facility] Last Admin: 02/17/19 09:29 Dose: 20 mg Lorazepam (Ativan) 0.25 mg PO Q6 PRN; Protocol PRN Reason: Agitation Metoprolol Tartrate (Lopressor) 50 mg PO BID [facility] Last Admin: 02/18/19 18:36 Dose: 50 mg Pantoprazole Sodium (Protonix Ec Tab) 40 mg PO 0600,1600 [facility] Last Admin: 02/18/19 18:35 Dose: 40 mg Potassium Chloride (K-Dur 20 Meq Er Tab) 20 meq PO BRK [facility] Last Admin: 02/18/19 09:49 Dose: 20 meq Sacubitril/Valsartan (Entresto 24 Mg-26 Mg Tablet) 1 each PO BID [facility] - Labs Labs: 02/18/19 08:27 02/18/19 08:27 PT 16.5 SECONDS (9.4-12.5) H 02/16/19 13:10 INR 1.49 02/16/19 13:10 APTT 31.5 Seconds (26.9-38.3) 02/16/19 13:10 Attending/Attestation - Attestation I have personally seen and examined this patient.: Yes I have fully participated in the care of the patient.: Yes I have reviewed all pertinent clinical information, including history, physical exam and plan: Yes
[2019-02-18] MEDS: Enoxaparin 80 mg Syringe SC SCH ×2 (06:07→18:36)
[2019-02-18] MEDS: Pantoprazole 40 mg EC Tab PO SCH ×2 (06:08→18:35)
[2019-02-18 08:52] LABS: ALB/GLOB RATIO 1.4 (1.1-1.8); ALBUMIN 4.1 g/dL (3.0-4.8); ALT/SGPT 37 U/L (7-56); AST/SGOT 51 U/L (17-59); BILIRUBIN,DIRECT 0.2 mg/dL (0.0-0.4); BLOOD UREA NITROGEN 22 mg/dL (7-21); GFR NON-AFRICAN AMERICAN 52
[2019-02-18 09:19] LABS: HEMOGLOBIN 12.5 g/dL (14.0-18.0); MEAN CELL VOLUME 97.5 fl (80.0-105.0); MEAN CORPUSCULAR HEMOGLOBIN 30.8 pg (25.0-35.0); MEAN CORPUSCULAR HGB CONC 31.6 g/dl (31.0-37.0); MEAN PLATELET VOLUME 10.2 fl (7.0-11.0); RBC 4.06 10^6/uL (3.5-6.1); RED CELL DISTRIBUTION WIDTH 14.6 % (11.5-14.5)
[2019-02-18] MEDS: Potassium Chloride 20 mEq ER Tab PO SCH (09:49)
[2019-02-18] MEDS: Sodium Chloride 0.9% 1,000 ML IV SCH (09:51)
[2019-02-18] MEDS ORDERED: Haloperidol Lactate 2 mg/ml Liquid PO PRN (10:08)
[2019-02-18] MEDS ORDERED: Potassium Chloride 20 mEq ER Tab PO ONE (11:42)
--- NOTE | 2019-02-18 16:05 | PN ---
DATE: 02/18/2019 PULMONARY PROGRESS NOTE REFERRING PHYSICIAN: Rosita Zavala MD SUBJECTIVE: The patient is lying in the bed, head at 45 degrees under observation. Night was unremarkable. Denies any new complaint. No cough. No sputum production. No nausea, vomiting, diarrhea, leg pain or leg swelling. OBJECTIVE: GENERAL: No acute distress. VITAL SIGNS: Temperature is 98, heart rate 68, respiratory rate 20, blood pressure 158/103, pulse ox 94%. HEENT: Moist mucous membranes. Crowded airway. NECK: Supple. No JVD. LUNGS: Has a fair airflow with rhonchi. HEART: S1 and S2. ABDOMEN: Soft, nontender. No organomegaly. EXTREMITIES: No edema. NEUROLOGIC: Sleepy, arousable, follows simple command. MEDICATIONS: He is on hydralazine 10 mg four times a day p.r.n., hydralazine 20 mg twice a day [id number], lorazepam 0.25 mg every 6 hours p.r.n., Colace 100 mg twice a day, amiodarone 200 mg daily, vitamin D 50,000 units every 7 days, DuoNebs every 6 hours p.r.n., Ecotrin 81 mg daily, Eliquis 5 mg twice a day. He is on Entresto one tablet twice a day, Florinef 0.1 mg daily, Haldol 0.25 mg every 6 hours p.r.n., potassium 20 mEq daily, Lasix 40 twice a day p.o. IV put on hold, 50 mg twice a day, Lovenox 70 mg subcu twice a day, Norvasc 10 mg daily, Plavix 75 mg daily, Protonix 40 mg daily, IV normal saline 50 mL/hour and Zestril 20 mg daily. LABORATORY DATA: Shows hemoglobin 12.5, hematocrit 39.6, WBC 6, platelet is 137. Sodium 143, potassium 3.1, chloride 102, bicarbonate is 30, BUN 22, creatinine 1.3, glucose 75. Hemoglobin A1c was 5.8, calcium 9, total bilirubin 1.6, AST 51, ALT 37, alk phos is 87, albumin is 4.1 and vitamin B12 352. TSH 0.64. Microbiology; blood cultures being negative. CAT scan of the head done yesterday shows chronic microvascular changes. No acute finding noted. IMPRESSION AND PLAN: Heart failure, coronary artery disease, history of cardiac arrhythmia requiring pacemaker, history of colon cancer, uncontrolled hypertension, may have sleep apnea syndrome, on gastric prophylaxis, on anticoagulation. He does have an EKG done, which shows atrial fibrillation with variable atrioventricular block and his echo suggested right ventricular systolic pressure is 58, left ventricular ejection fraction is 35-40% with [id number] mitral regurgitation, severe tricuspid regurgitation. So, I will continue diuretics. Control blood pressure. Discontinue intravenous fluid. I am not sure why he is getting Florinef, replace potassium. Sleep apnea precaution. Avoid nocturnal sedative. We will obtain sleep study upon discharge. Cardiac followup. Thank you for this consult. We will follow with you. Tyree Duque MD
--- NOTE | 2019-02-18 16:39 | PN ---
DATE: 02/18/[address] Dale. SUBJECTIVE: The patient is confused to place. He denies having chest pain. PHYSICAL EXAMINATION: VITAL SIGNS: Blood pressure 158/103, heart rate 68, temperature 98 and respiration 20. HEENT: Normocephalic. CHEST: Bibasilar rhonchi. HEART: S1 and S2, regular. ABDOMEN: Soft. EXTREMITIES: 1+ pitting edema. Chest x-ray revealed cardiomegaly, mild CHF, biventricular pacemaker. Head CT scan without contrast done yesterday reveal chronic microvascular changes, no acute findings. LABORATORY DATA: Today's hemoglobin and hematocrit are 12.5 and 39.6, white count and platelet count are within normal limits. Today's SMA-7 is within normal limits except for potassium of 3.1 and BUN of 22. Admitting EKG revealed atrial flutter with variable AV block. Left ventricular hypertrophy with repolarization abnormality. Echocardiographic study revealed ejection fraction in the range of 35% to 40% and severe pulmonary hypertension. ASSESSMENT AND PLAN: 1. Congestive heart failure, consider underlying ischemic cardiomyopathy. 2. Atrial flutter. 3. Coronary artery disease with history of percutaneous coronary intervention in the past. 4. Hypertension. 5. Severe pulmonary hypertension. RECOMMENDATIONS: Continue hydralazine 10 mg p.o. four times a day p.r.n., continue hydralazine 25 mg twice a day, amiodarone 200 mg once a day, aspirin 81 mg once a day, Eliquis 5 mg twice a day, Florinef 0.1 mg daily, K-Dur 20 mEq daily, Lasix 40 mg p.o. twice a day, Lopressor 50 mg twice a day, therapeutic Lovenox is 70 mg every 12 hours, Norvasc 10 mg once a day, Plavix 75 mg once a day and Vistaril 20 mg once a day. Cardiac catheterization is planned for Wednesday as per Dr. Dale. I will obtain a followup SMA-7 and magnesium level in a.m. Kris Saavedra MD
--- NOTE | 2019-02-18 19:35 | CON ---
DATE: 02/18/2019 HISTORY OF PRESENT ILLNESS: The patient is an 88-year-old [place] speaking male who has no formal psychiatric history, who was admitted to Medicine after he was sent to the emergency room complaining of shortness of breath and dizziness for about a week. Apparently while the patient was on the medical floor, he had displayed an acute change in mental status in which he became acutely confused, disoriented, and disinhibited, trying to get out of bed and difficult to redirect even when his [place] language was communicated. Psychiatry was called to evaluate due to his change in mental status, and generally when there is an acute change in mental status such as this it is usually due to medical reasons on the medical floor, and I recommended Medicine and Neurology become involved in this respect. Nevertheless, I did try to speak with the patient at bedside this morning by the speaking translate ti and he is really cooperative though preoccupied and shows low energy or interest at the moment. I provided information about the current circumstances, month, year, location and sought to reassure the patient about staff members trying to help him and request for his cooperation, which he agrees to; however, it is unclear whether he will recall any of our conversation. He does not exhibit any discomfort at this time. He does not appear uncomfortable. He denies any psychiatric concerns. The patient's focus and attention are inconsistent nonetheless. He does not appear to be hallucinating. He has not vocalized any delusions. As noted in the staff notes, he is only oriented to himself at this time. His insight and judgment are considered to be poor. The patient is not on any psychiatric medications at this time. Labs and vitals are reviewed. IMPRESSION: The change in mental status could be due to waxing and waning portraitions of delirium. It could be psychosis and disorganization due to medical condition or medication. Please note this is in the background of the patient being diagnosed with dementia. RECOMMENDATIONS: At this time this provider would recommend that the patient be provided with a low-dose antipsychotic only if necessary for acute agitation due to the patient's numerous medical issues as well as Ativan low dose only as a p.r.n. The patient should be thoroughly medically evaluated for etiology of his acute mental status changes and once that has been ruled out, Psychiatry can provide a more formal recommendations and analysis. This provider will follow peripherally. Please re-consult p.r.n. if you need my intervention for changes in patient's presentation in the future. Iris Rubin MD
[2019-02-19] MEDS: Enoxaparin 80 mg Syringe SC SCH ×2 (06:16→17:51)
[2019-02-19] MEDS: Pantoprazole 40 mg EC Tab PO SCH ×2 (06:17→16:03)
[2019-02-19 07:58] LABS: ALB/GLOB RATIO 1.3 (1.1-1.8); ALBUMIN 4.2 g/dL (3.0-4.8); CALCIUM 8.8 mg/dL (8.4-10.5)
[2019-02-19] MEDS: SACUBITRIL 24mg/VALSARTAN 26mg tab PO SCH ×2 (10:35→17:51)
[2019-02-19] MEDS: Potassium Chloride 20 mEq ER Tab PO SCH (10:35)
--- NOTE | 2019-02-19 18:32 | PN ---
DATE: 02/19/2019 SUBJECTIVE: The patient is confused, but does not appear to be in any distress. PHYSICAL EXAMINATION: VITAL SIGNS: Blood pressure 130/77, heart rate 62, temperature 98, and respirations 18. HEENT: Normocephalic. CHEST: Diminished breath sounds over the bases. HEART: S1 and S2, regular. EXTREMITIES: No edema. LABORATORY DATA: Today's SMA-7: Sodium 144, potassium 3.2, chloride 101, CO2 of 33, glucose 82, BUN 28, creatinine 1.4. Head CT scan without contrast performed two days ago, chronic microvascular changes, no acute findings. ASSESSMENT: 1. Congestive heart failure, consider underlying ischemic cardiomyopathy. 2. Coronary artery disease with history of coronary intervention in the past. 3. Atrial flutter. 4. Severe pulmonary hypertension. 5. Systemic hypertension. 6. History of colon cancer. RECOMMENDATIONS: Continue hydralazine 25 mg b.i.d., Ativan 0.5 mg every 6 hours p.r.n., amiodarone 200 mg daily, aspirin 81 mg once a day, Eliquis 5 mg twice a day, K-Dur 20 mEq daily, Lasix 40 mg twice a day, Lopressor 50 mg twice a day, subcutaneous Lovenox 70 mg every 12 hours, Norvasc 10 mg once a day, Plavix 75 mg once a day, and Zestril 20 mg once a day. The case will be discussed with Dr. Chito albert. Kris Saavedra MD
[2019-02-19] MEDS ORDERED: Potassium Chloride 20 mEq ER Tab PO ONE (19:00)
--- NOTE | 2019-02-19 21:33 | PN ---
DATE: 02/19/2019 PULMONARY PROGRESS NOTE REFERRING PHYSICIAN: Rosita Zavala MD SUBJECTIVE: He is lying in the bed. Night was unremarkable. No headache. No rhinitis. No nausea. No vomiting. No diarrhea, leg pain, or leg swelling. OBJECTIVE: GENERAL: No acute distress. VITAL SIGNS: Temperature 98, heart rate 62, respiratory rate is 18, blood pressure 130/77. HEENT: Moist mucous membranes. Crowded airway. NECK: Supple. No JVD. LUNGS: Has fair airflow. No rhonchi. HEART: S1, S2. ABDOMEN: Soft, nontender. No organomegaly. EXTREMITIES: There is no edema. NEUROLOGIC: Awake, alert. Follows simple commands. MEDICATIONS: He is on hydralazine 10 mg four times a day p.r.n., Ativan 0.25 mg every 6 hours p.r.n., Colace 100 mg twice a day, amiodarone 200 mg daily, vitamin D 50,000 units every 7 days, DuoNeb every 6 hours p.r.n., Ecotrin 81 mg daily, Eliquis 5 mg twice a day, Entresto one tablet twice a day, Florinef 0.1 mg daily, Haldol 0.25 mg every 6 hours p.r.n., potassium 20 mEq daily, Lasix 40 mg twice a day, metoprolol tartrate 50 mg twice a day, Lovenox 70 mg subcu every 12 hours, Norvasc 10 mg daily, Plavix 75 mg daily, Protonix 40 mg daily, Zestril 20 mg daily. LABORATORY DATA: Reviewed, showed sodium 144, potassium 3.2, chloride 101, bicarbonate 33, BUN 28, creatinine 1.4, glucose 82, calcium is 8.2, magnesium 2.1. Total bili 1.4, AST 52, ALT 38, alk phos is 86, albumin is 4.2. Microbiology: Blood culture has been negative. IMPRESSION AND PLAN: Heart failure, coronary artery disease, history of cardiac arrhythmia requiring pacemaker, history of colon cancer, uncontrolled hypertension, may have sleep apnea syndrome. Pulmonary point of view, doing okay. Continue gastric prophylaxis. On platelet inhibitors. Has cardiomyopathy with decreased left ventricular function and pulmonary hypertension. Keep head elevated at 45 degrees. We will start him on continuous positive airway pressure, angiotensin-converting enzyme inhibitor with 35% oxygen while sleeping specially in the setting of cardiomyopathy. We will need to obtain a sleep study upon discharge as outpatient. Cardiology followup. Thank you and we will follow with you. Tyree Duque MD
[2019-02-20] MEDS: Pantoprazole 40 mg EC Tab PO SCH ×2 (05:20→18:25)
[2019-02-20 07:21] LABS: EOS # 0.1 (0.0-0.7); EOS % 1.2 % (1.5-5.0); HEMOGLOBIN 14.1 g/dL (14.0-18.0); LYMPH # 1.2 (1.2-3.4); LYMPH % 20.1 % (22.0-35.0); MEAN CELL VOLUME 97.6 fl (80.0-105.0); MEAN CORPUSCULAR HEMOGLOBIN 31.3 pg (25.0-35.0); MEAN CORPUSCULAR HGB CONC 32.1 g/dl (31.0-37.0); MEAN PLATELET VOLUME 10.7 fl (7.0-11.0); MONO # 0.7 (0.1-0.6); MONO % 11.1 % (1.0-6.0); RBC 4.5 10^6/uL (3.5-6.1); RED CELL DISTRIBUTION WIDTH 14.6 % (11.5-14.5)
[2019-02-20] MEDS: Potassium Chloride 20 mEq ER Tab PO SCH (08:26)
--- NOTE | 2019-02-20 09:06 | PN ---
DATE: 02/18/2019 SUBJECTIVE: This is an 88-year-old male, came in with shortness of breath, fatigue, CHF. The patient has a past medical history of hyperlipidemia, hypertension, CAD with stenting, shortness of breath, chest pain. Talking to him today at bedside, he denies chest pain, hematuria, hematochezia, abdominal pain. The patient had O2 at 3 liters nasal cannula, PHYSICAL EXAMINATION: VITAL SIGNS: Temperature 98, pulse 85, blood pressure 148/101, respirations 20, and O2 sat 94% with O2 at 2 L. GENERAL APPEARANCE: HEENT: Normocephalic. PERRLA. Mucous membranes moist. NECK: Supple. Normal inspection. RESPIRATORY: Clear to auscultation. CARDIOVASCULAR: S1 and S2. No murmur, rub, gallop. GASTROINTESTINAL: Abdomen is soft and nontender. No guarding. No tenderness. No organomegaly. SKIN: Intact. No edema. No cyanosis. NEUROLOGIC: The patient is alert and oriented x2 to x3. Cranial nerves II through XII intact. Some cognitive deficits. MEDICATIONS: The patient is on Norvasc 10 mg daily, Avapro 5 mg b.i.d., aspirin 81 mg daily, Plavix 75 daily, Colace 100 mg b.i.d., Lovenox prophylactically, Drisdol 50,000 units, Florinef, Lasix 40 mg three times a day IV agitation, hydralazine 10 mg four times a day, Zestril 20 mg daily, Ativan 0.25 every 6 hours, Lopressor 50 mg b.i.d., Protonix 40 mg daily, K-Dur 20 mEq. LABORATORY DATA: White blood cell 6, hemoglobin 12.5, hematocrit 39.6, and platelets 137. Sodium 143, potassium 3.1, BUN 22, creatinine 1.3, and GFR 52. ASSESSMENT AND PLAN: This is an 88-year-old male who came in with congestive heart failure symptoms exacerbation. The patient will continue Lasix, K-Dur, Norvasc, Eliquis, Plavix. The patient also has coronary artery disease, hypertension, saw the patient today at bedside looking comfortable, had oxygen on via nc, he reports some SOB, with exertion and at rest. Cardiology and pulmonology is on the case we will f/u and plan accordinately. PT IS S/E AT BED SIDE . LOOKING COMFORTABLE . AGREED WITH ALL ABOVE , WILL F/U Richard Lilly APN Rosita Zavala MD MTDJaqueline
[2019-02-20] MEDS ORDERED: Lidocaine PF 2% (5 ml) Inj (For Cardiac Arrhy) ONE (09:26)
[2019-02-20] MEDS ORDERED: Iodixanol 320 MG/ML 200 ML BOTTLE IV ONE (09:27)
[2019-02-20] MEDS ORDERED: Iodixanol 320 MG/ML 100 ML BOTTLE IV ONE ×2 (09:27→11:49)
[2019-02-20] MEDS ORDERED: Iohexol 350mgl/ml 50 ML ONE (09:27)
[2019-02-20] MEDS ORDERED: Phenylephrine 10 mg/ml Inj ONE (09:28)
[2019-02-20] MEDS ORDERED: Nitroglycerin 50mg in D5W 0 MG/0 ML BOTTLE IV ONE (09:29)
[2019-02-20 10:13] LABS: ALB/GLOB RATIO 1.3 (1.1-1.8); ALBUMIN 4.5 g/dL (3.0-4.8); CALCIUM 9.7 mg/dL (8.4-10.5)
[2019-02-20] MEDS ORDERED: Midazolam 2 MG/2 ML VIAL ONE (10:38)
[2019-02-20] MEDS ORDERED: Eptifibatide 20 mg/10mL Inj IVP ONE (11:13)
[2019-02-20] MEDS ORDERED: Sodium Chloride 0.9% 1,000 ML IV SCH (12:15)
[2019-02-20] MEDS: SACUBITRIL 24mg/VALSARTAN 26mg tab PO SCH ×2 (12:52→18:25)
--- NOTE | 2019-02-20 12:52 | CPOSTOP ---
DATE: 02/20/2019 CARDIOVASCULAR LAB POST PROCEDURE NOTE PHYSICIAN: Tyree Dale MD. PERFORMANCE IMPROVEMENT ANALYST: Avelina donor technician. TYPE OF ANESTHESIA: Moderate conscious sedation; total 2 mg of Versed and 100 of fentanyl given. PRE-PROCEDURE DIAGNOSES: Unstable angina and decompensated congestive heart failure. PROCEDURE PERFORMED: 1. Left heart catheterization. 2. Right heart catheterization. 3. Stenting of ramus intermedius. FINDINGS: Ramus intermedius 99% stenosis and decreased LV function. FINAL DIAGNOSIS: One vessel critical disease, ramus intermedius POST PROCEDURE CONDITION: The patient's condition is stable. VASCULAR ACCESS SITE: Right femoral artery. CLOSURE DEVICE: Mynx in the right femoral artery and Mynx in the right femoral vein. TOTAL RADIATION DOSE: 88264.70 milligray unit. CUMULATIVE DOSE: 887 milligray unit. TOTAL FLUORO TIME: 19.7 minutes. Tyree Dale MD
--- NOTE | 2019-02-20 13:00 | IP.NPCORE ---
Heart Failure Core Measure - Heart Failure Ejection Fraction: Less Than 40 % VIPUL Inhibitor Prescribed: Yes Beta-Arline Prescribed: Metoprolol Succinate Angiotensin II Receptor Arline Prescribed: Yes AnticoagulationTherapy for Atrial Fibrillation/Atrialflutter: Yes Aldosterone Antagonist Prescribed: Yes Hydralazine Nitrate Prescribed: Yes Implantable Cardioverter Defibrillator Therapy: No Contraindication/Reason for not providing: pt has PPM Cardiac Resynchronization Therapy Prescribed: Yes - Follow up Will be discharged to: [facility] ([facility]) Follow Up Date (must be within 7 days from discharge): 02/24/19 (recommended )
--- NOTE | 2019-02-20 13:06 | PN ---
DATE: 02/20/2019 PULMONARY PROGRESS NOTE REFERRING PHYSICIAN: Rosita Zavala MD SUBJECTIVE: The patient is seen status post cardiac cath. No acute distress. No headache, rhinitis, cough, shortness of breath, chest pain, abdominal pain, nausea, vomiting, diarrhea, leg pain or leg swelling reported. OBJECTIVE: GENERAL: No acute distress. VITAL SIGNS: Blood pressure 117/69, pulse 62, temperature 98.3 and oxygen saturation 95% on nasal cannula. HEENT: Moist mucous membranes. Crowded airway. NECK: Supple. No JVD. LUNGS: Fair airflow bilaterally. CARDIOVASCULAR: S1 and S2. ABDOMEN: Soft and nontender. No distention. No organomegaly. EXTREMITIES: No bilateral lower extremity edema. NEUROLOGIC: Awake, alert and verbal. Following commands. MEDICATIONS: Reviewed. DuoNeb 3 mL inhalation every 6 hours p.r.n., amiodarone 200 mg daily, Norvasc 10 mg daily, Eliquis 5 mg twice a day on hold, aspirin 81 mg daily, Plavix 75 mg daily, Colace 100 mg twice a day, ergocalciferol 50,000 units every 7 days, Florinef 0.1 mg daily, Lasix 40 mg twice a day, Haldol 0.25 mg every 6 hours p.r.n., hydralazine 10 mg four times a day p.r.n. for systolic blood pressure greater than 170, lisinopril 20 mg daily, Ativan 0.25 mg every 6 hours p.r.n., metoprolol tartrate 50 mg twice a day, Protonix 40 mg twice a day, potassium chloride 20 mEq at breakfast, Entresto twice a day and sodium chloride 0.9% a 1000 mL at 100 mL per hour. LABORATORY DATA: Reviewed. WBC 6, RBC 4.50, hemoglobin 14.1, hematocrit 43.9 and platelets 188. Sodium 145, potassium 3.6, chloride 100, carbon dioxide 35, anion gap 13, BUN 29, creatinine 1.5, GFR is 44, random glucose 102, calcium 9.7, phosphorous 3.4, magnesium 2.3, total bilirubin 1.1, AST is 89, ALT 40, alkaline phosphatase 98, total protein 8.0, albumin 4.5, globulin 3.5 and albumin-globulin ratio 1.3. Blood cultures preliminary no growth after 3 days. Cardiac catheterization pending report. EKG pending report. IMPRESSION AND PLAN: Heart failure, coronary artery disease, history of cardiac arrhythmia requiring pacemaker, history of colon cancer, uncontrolled hypertension and suspected sleep apnea syndrome. The patient is status post cardiac cath on today. We will review cath report when unavailable. Pulmonary point of view, continue gastric prophylaxis currently on anticoagulation therapy which is hold for cardiac catheterization today. The patient has cardiomyopathy with decreased left ventricular function. Pulmonary hypertension. Continue continuous positive airway pressure use at bedtime. Sleep apnea precaution, head of bed elevated at 45 degree. Recommend the patient have attended sleep study as outpatient for suspected sleep apnea syndrome. Continue Cardiology followup. This patient was seen and examined with Dr. Duque. Discussed assessment and plan as described above. This patient was seen and examined with Antoine Dodson, nurse practitioner. Discussed assessment and plan as described above. Thank you for this consult. We will follow with you. Antoine Dodson APN Tyree Duque MD
--- NOTE | 2019-02-20 14:15 | PQF ---
PROVIDER RESPONSE TEXT: CHF is secondary to Acute Systolic dysfunction. REVIEWER QUERY TEXT: CHF Acuity and Type Physician?s Documentation Request This Form is Not a Permanent Document in the Medical Record Pt Name: RAYMOND CROFT MR #: [id number] Payor: MEDICARE PART A Unit/Bed: [id number] Adm Date: 02/16/2019 2:30:00 PM Reviewer: Shagufta Anthony Ext. Query Date: 02/20/2019 2:07:14 PM CHF Acuity and Type [id number] By submitting this query, we are merely seeking further clarification of documentation to accurately reflect all conditions that you are monitoring, evaluating, treating or that extend the hospitalizati on or utilize additional resources of care. Please utilize your independent clinical judgment when ad dressing the question(s) below. Dear Doctor Tyree Dale, The patient?s Clinical Indicators include: Congestive Heart Failure is documented in the Medical Record. Please document the type and acuity (in cludes probable or suspected) Such as: Type: -- Systolic -- Diastolic -- Combined -- Other, please specify Acuity: -- Acute -- Chronic -- Acute on chronic -- Other, please specify Also please document the underlying cause of the CHF (includes probable or suspected) PLEASE DOCUMENT ANY ADDITIONAL DIAGNOSES AND/OR SPECIFICITY IN THE PROGRESS NOTES AND/OR DISCHARGE [facility]. Clinically unable to determine/unknown Disagree with the above request Need to discuss Query created by: Shagufta Anthony on 02/20/2019 2:07 PM Electronically signed by: Tyree Dale 02/20/2019 2:12 PM
--- NOTE | 2019-02-20 16:03 | PN ---
DATE: 02/20/2019 REASON FOR CONSULTATION AND FOLLOWUP: Unstable angina, acute decompensated congestive heart failure, CAD, status post PTCA. SUBJECTIVE: The patient denies any chest pain, shortness of breath, any palpitation. Because in view of deteriorating LV function, unstable angina, chest pain and acute decompensated CHF, the patient was taken to [facility] and left and right catheterization and stenting of ramus intermedius was done because it was found 99% of ramus intermedius was blocked. Code STEMI was called on the table because the patient was confused and having chest pain. Two drug-eluting stents of the ramus intermedius were done. The patient remained stable. Now, the patient is in normal sinus. PLAN: Continue baby aspirin. Continue Plavix 75 mg daily. Continue Entresto. Hold Lasix today, resume Lasix tomorrow. Continue IV fluid. Today creatinine is 1.5, hydrate the patient. Monitor renal function tomorrow and continue Lasix tomorrow, hold Lasix today. Also, we will discontinue Florinef and we will discontinue hydralazine 25 mg p.o. b.i.d., we will put p.r.n., continue p.r.n. Check the lab in the morning. Further recommendations depending on the hospital course. We will followup with you. Thank you Dr. Zavala for providing us the opportunity in taking care of this patient, Neal Ruff. As mentioned, the patient had echo , which showed ejection 35%-40%, severe LVH, but normal LV size. LA was moderately dilated, RA was moderately dilated, mild-to moderate mitral regurgitation, [id number] tricuspid regurgitation, RV systolic pressure 58, but now on right heart cath RV pressure was 27/6. We will continue aggressive medical treatment. Discontinue Lovenox and if the patient remains normal sinus, we will discontinue Eliquis as well. Tyree Dale MD cc: MD Tyree Wills MD
--- NOTE | 2019-02-20 17:50 | CARD ---
APPROVED REPORT Date of service: 02/20/2019 Procedure(s) performed: Complete Heart Catheterization PTCA with Stenting of Ramus inter medius ( proximal and Mid)with EUSEBIA HISTORY The patient is a 88 year-old male with a history of : most recent EF: 40%. (EF Method: Echocardiogram), previous CHF, chronic lung disease, previous diagnostic cath, previous PCI (The PCI date was ), hypertension , dyslipidemia , Admitted with unstable angina , new onset of CHF and decreased LV systolic function.Hx of PTCA LAD, RCA, and R PDA in 01/21/2017.SSS s/p PPM in 05/19/2018.. INDICATION The indication(s) include : unstable angina , chest pain, dyspnea. CASE TECHNIQUE The patient was brought urgently to the Cardiac Catheterization Laboratory in a fasting state and was prepped and draped in a sterile manner. The right femoral groin was infiltrated with 2% Lidocaine subcutaneous anesthesia. A sheath was inserted into the right femoral artery without difficulty. Coronary angiography was performed using coronary diagnostic catheters. The left coronary system was accessed and visualized with a Diagnostic ,5F JL 4 CATH DXT 100 CM catheter. The right coronary system was accessed and visualized with a Diagnostic ,5F JR 4 CATH DXT 100 CM catheter. The left ventricle was accessed and visualized with a 5F PIGTAIL 145 CATH DXT 110 CM catheter. Left ventricular/Aortic Valve gradient assessed on pullback. Left ventriculogram was performed in LAWLER projection. A Right Heart Catheterization was performed with a 7 Fr. [place]-Juan Ramon catheter and pressure were recorded. Cardiac outputs were obtained by the Thermal Dilution method. Pre-demployment femoral angiogram was performed . Closure device was deployed with a 6 Fr / 7 Fr MynxGrip without any complications. The patient tolerated the procedure well and there were no complications associated with the procedure. Vessel Analysis The patient's coronary anatomy is co-dominant. The left main coronary artery is a medium size vessel with diffuse calcification noted throughout this vessel and without significant stenosis. The left main bifurcates to the left anterior descending and circumflex. The left anterior descending artery is a medium size vessel with diffuse calcification noted throughout this vessel and without significant stenosis. patent stent The first diagonal branch is a medium size vessel with diffuse calcification noted throughout this vessel and without significant stenosis. The second diagonal branch is a medium size vessel with diffuse calcification noted throughout this vessel and without significant stenosis. The third diagonal branch is a medium size vessel with diffuse calcification noted throughout this vessel and without significant stenosis. The circumflex artery is a medium size vessel with diffuse calcification noted throughout this vessel and with significant stenosis. There is a 100% stenosis in the mid segment. with bridge collaterals The first obtuse marginal branch is a medium size vessel with diffuse calcification noted throughout this vessel and without significant stenosis. The left posterior descending artery is a small size vessel with diffuse calcification noted throughout this vessel and without significant stenosis. The ramus intermedius artery is a large size vessel with diffuse calcification noted throughout this vessel and with significant stenosis. There is a 99% stenosis in the mid segment. proximal Ramus has 80% stenosis. The right coronary artery is a large size vessel with diffuse calcification noted throughout this vessel and without significant stenosis. patent stent in mid to distal segment The right posterior descending artery is a large size vessel with diffuse calcification noted throughout this vessel and without significant stenosis. Pastent stent in Proximal segment. The right posterolateral branch is a small size vessel . There is a 100% stenosis in the ostial segment. Left Ventricle The left ventricle is enlarged in size with moderately decreased contractility. Ischemic cardiomyopathy. The left ventricular ejection fraction is estimated to be 35%. The left ventricular end diastolic pressure is 6-8 mmHg. There was no gradient across the aortic valve upon pullback. Right Heart Cath Findings The Right Atrial Pressure is 3-4 mmHg. The Right Ventricular Pressure is 27/4 mmHg. The Pulmonary Artery Pressure is 30/10 mmHg. mean of 16 The Pulmonary Catheter Wedge Pressure is 4 mmHg. PVR 4.9 Wood units. The cardiac output and index were assessed using thermo dilution. The Cardiac Output is 2.43 L/min. The Cardiac index is 1.32 L/min/m2. PCI Technique Lesion Anticoagulation was achieved with Heparin and Integrellin Bolluses. Percutaneous coronary intervention was performed on the proximal ramus intermedius segment. The lesion stenosis prior to intervention was 80% with CYNDEE 2 flow. A 6 Fr XB 3.5 Guide Catheter was used to engage the ostium. A Luge 182 Interventional Guidewire was used to cross the lesion. BALLOON DILATION A Balloon catheter 2.0 x 8 mm Mini Trek RX was inserted and inflated up to 10atm for 15seconds. STENT DEPLOYMENT A drug-eluting stent STENT RESOLUTE MAULIK 2.25 X 08 was inserted and inflated up to 12atm for 30seconds. Final angiography reveals 0 % stenosis with CYNDEE 3 flow. PCI Technique Lesion 2 Percutaneous Coronary Intervention was performed on the Mid ramus intermedius segment. The lesion stenosis prior to intervention was 99% with CYNDEE 1 flow. A 6 Fr XB 3.5 Guide Catheter was used to engage the ostium. A Luge 182 Interventional Guidewire was used to cross the lesion. BALLOON DILATION A Balloon catheter 2.0 x 8 mm Mini Trek RX was inserted and inflated up to 8.00atm for 15seconds. STENT DEPLOYMENT A drug-eluting stent STENT RESOLUTE MAULIK 2.25 X 08 was inserted and inflated up to 14.00atm for 10seconds. POST STENT DEPLOYMENT BALLOON DILATION A Balloon catheter 2.5 x 6 mm Sprinter NC was inserted and inflated up to 18.00atm for 23seconds. Final angiography reveals 0 % stenosis with CYNDEE 3 flow. Conclusion Critical One vessel CAD involving 99% stenosis of ramus intermedius. Decrteased LV Fx. EF-35%, EDP6-8 mmof Hg. RHC-RA-3-4, RV-27/4, PA 30/10 with a mean of 16, PCW-4,CO-2.43, CI,-1.32, PVR-4.9 [place]egas unit. After LHC/RHC Pt. developed chest pain, EKG was done Stat, B/c of critical disease in Ramus which is larger in size than LAD, Code STEMI activated and stenting of Proximal and Mid Ramus done, with EUSEBIA. Recommendations Daily ASA with Plavix for at least one year Aggressive Medical Therapy Diuretic, enteresto, Amiodarone for PAF ( admitted with Flutter now coverted chad NSR), dig, and spironlactone. Cc; drs. Zavala/ Neto/ sukumar.
[2019-02-20 19:34] LABS: EOS % 0.4 % (1.5-5.0); HEMOGLOBIN 13.1 g/dL (14.0-18.0); LYMPH # 0.9 (1.2-3.4); LYMPH % 12.9 % (22.0-35.0); MEAN CELL VOLUME 96.6 fl (80.0-105.0); MEAN CORPUSCULAR HEMOGLOBIN 31.4 pg (25.0-35.0); MEAN CORPUSCULAR HGB CONC 32.5 g/dl (31.0-37.0); MEAN PLATELET VOLUME 10.2 fl (7.0-11.0); MONO # 0.5 (0.1-0.6); MONO % 7.5 % (1.0-6.0); RBC 4.17 10^6/uL (3.5-6.1); RED CELL DISTRIBUTION WIDTH 14.4 % (11.5-14.5); WHITE BLOOD COUNT 6.7 10^3/uL (4.5-11.0)
[2019-02-20 19:47] LABS: BLOOD UREA NITROGEN 25 mg/dL (7-21); CALCIUM 8.7 mg/dL (8.4-10.5); GFR NON-AFRICAN AMERICAN 57
--- NOTE | 2019-02-20 20:14 | PN ---
DATE: 02/20/2019 SUBJECTIVE: He is sitting comfortably in bed, in no acute distress. Underwent cardiac catheterization today and had coronary stent placed. Friend at bedside. As per friend, he is little disoriented after the procedure. Denies any chest pain, no shortness of breath. Blood pressure is better controlled with current medications. REVIEW OF SYSTEMS: As per HPI. Rest of 12-point review of systems reviewed and negative. PHYSICAL EXAMINATION: GENERAL: Comfortable in bed, in no acute distress. VITAL SIGNS: Temperature 97.8, heart rate 63 per minute, blood pressure 145/82, respiratory rate 19 per minute. HEENT: No pallor. NECK: No lymphadenopathy. CHEST: Air entry present, equal bilaterally. No added sounds. CARDIOVASCULAR: S1, S2 normal. No murmur. No gallop. ABDOMEN: Soft, nontender. No hepatosplenomegaly. EXTREMITIES: No edema. Bruises on the right arm present. LABORATORY DATA: White count 6000, hemoglobin 14.1, hematocrit 43.9, platelet 188. Sodium 145, potassium 3.6, iron 78, iron saturation 25%. LFTs normal now, bilirubin 1.1. MEDICATIONS: DuoNeb every 6 hours p.r.n., Cardura 200 mg daily, Norvasc 10 mg daily, Eliquis 5 mg p.o. b.i.d., aspirin 81 mg daily, Plavix 75 mg p.o. daily, digoxin 0.125 mg daily, vitamin D, Colace, Lasix 40 mg p.o. b.i.d., hydralazine 10 mg four times a day p.r.n., lisinopril, Ativan p.r.n. for agitation, metoprolol. ASSESSMENT: 1. Colon cancer, stage 2, currently in remission, status post hemicolectomy, status post adjuvant Xeloda. 2. Mild anemia. Iron studies are normal. We will continue to monitor, hemoglobin/hematocrit stable. 3. Coronary artery disease, status post cardiac stent placed today. 4. Accelerated hypertension. Blood pressure controlled with current medications. Management as per Dr. Zavala. Currently on Eliquis, aspirin and Plavix. Management as per Dr. Dale, Cardiology. PLAN: His friend at bedside requesting placement to a rehab. He is anticipating the transitional care unit in the hospital. Evaluation has already been requested by Dr. Zavala, informed the friend about that. Thank you Dr. Zavala for allowing us to participate in his care. Mariela Schaffer MD
[2019-02-21] MEDS: Pantoprazole 40 mg EC Tab PO SCH ×2 (05:54→17:27)
[2019-02-21 06:45] VITALS: O2SAT 97
[2019-02-21 07:06] LABS: BASO # 0.01 K/mm3 (0.0-2.0); BASO % 0.1 % (0.0-3.0); EOS # 0.1 (0.0-0.7); EOS % 1.1 % (1.5-5.0); HEMOGLOBIN 13.2 g/dL (14.0-18.0); MEAN CELL VOLUME 96.7 fl (80.0-105.0); MEAN CORPUSCULAR HEMOGLOBIN 31.3 pg (25.0-35.0); MEAN CORPUSCULAR HGB CONC 32.4 g/dl (31.0-37.0); MEAN PLATELET VOLUME 10.6 fl (7.0-11.0); MONO # 0.8 (0.1-0.6); RBC 4.22 10^6/uL (3.5-6.1); RED CELL DISTRIBUTION WIDTH 14.6 % (11.5-14.5); WHITE BLOOD COUNT 7.4 10^3/uL (4.5-11.0)
--- NOTE | 2019-02-21 07:14 | CP.PCM.PN ---
Subjective - Date & Time of Evaluation Date of Evaluation: 02/21/19 Time of Evaluation: 06:35 - Subjective Subjective: Awake, alert, no distress, denies chest pain Reason for consult and follow up; Cardiac evaluation of shortness of breath, decompensated congestive heart failure See nad examined by me and Dr. Dale Objective - Vital Signs/Intake and Output Vital Signs (last 24 hours): Temp Pulse Resp BP Pulse Ox 97.3 F L 73 20 118/77 97 02/21/19 06:00 02/21/19 06:00 02/21/19 06:00 02/21/19 06:00 02/21/19 06:00 Intake and Output: 02/21/19 02/21/19 06:59 18:59 Intake Total 1711 Output Total 400 Balance 1311 - Medications Medications: Current Medications Albuterol/Ipratropium (Duoneb 3 Mg/0.5 Mg (3 Ml) Ud) 3 ml IH [id number] PRN PRN Reason: Shortness of Breath Amiodarone HCl (Cordarone) 200 mg PO DAILY [facility] Last Admin: 02/20/19 12:52 Dose: Not Given Amlodipine Besylate (Norvasc) 10 mg PO DAILY [facility] Last Admin: 02/20/19 12:53 Dose: Not Given Apixaban (Eliquis) 5 mg PO BID [facility]; Protocol Last Admin: 02/17/19 18:33 Dose: 5 mg Aspirin (Ecotrin) 81 mg PO DAILY [facility] Last Admin: 02/20/19 12:52 Dose: Not Given Clopidogrel Bisulfate (Plavix) 75 mg PO DAILY [facility] Last Admin: 02/20/19 12:53 Dose: Not Given Digoxin (Digoxin) 0.125 mg PO 1400 [facility] Docusate Sodium (Colace) 100 mg PO BID [facility] Last Admin: 02/20/19 18:25 Dose: 100 mg Ergocalciferol (Drisdol 50,000 Intl Units Cap) 1 cap PO Q7D [facility] Last Admin: 02/16/19 19:09 Dose: 1 cap Fludrocortisone Acetate (Florinef) 0.1 mg PO DAILY [facility] Last Admin: 02/20/19 12:53 Dose: Not Given Furosemide (Lasix) 40 mg PO BID [facility] Haloperidol Lactate (Haldol) 0.25 mg PO Q6 PRN; Protocol PRN Reason: Agitation Hydralazine HCl (Apresoline) 10 mg PO QID PRN PRN Reason: for SBP>170 Lisinopril (Zestril) 20 mg PO DAILY [facility] Last Admin: 02/17/19 09:29 Dose: 20 mg Lorazepam (Ativan) 0.25 mg PO Q6 PRN; Protocol PRN Reason: Agitation Metoprolol Tartrate (Lopressor) 50 mg PO BID [facility] Last Admin: 02/20/19 18:25 Dose: 50 mg Pantoprazole Sodium (Protonix Ec Tab) 40 mg PO 0600,1600 [facility] Last Admin: 02/21/19 05:54 Dose: 40 mg Potassium Chloride (K-Dur 20 Meq Er Tab) 20 meq PO BRK [facility] Last Admin: 02/20/19 08:26 Dose: 20 meq Sacubitril/Valsartan (Entresto 24 Mg-26 Mg Tablet) 1 each PO BID [facility] Last Admin: 02/20/19 18:25 Dose: 1 each Spironolactone (Aldactone) 25 mg PO DAILY [facility] - Labs Labs: 02/21/19 06:45 02/20/19 19:28 PT 16.5 SECONDS (9.4-12.5) H 02/16/19 13:10 INR 1.49 02/16/19 13:10 APTT 31.5 Seconds (26.9-38.3) 02/16/19 13:10 - Constitutional Appears: Non-toxic, No Acute Distress - Head Exam Head Exam: NORMAL INSPECTION, NORMOCEPHALIC - Eye Exam Eye Exam: Normal appearance Pupil Exam: NORMAL ACCOMODATION - ENT Exam ENT Exam: Mucous Membranes Moist, Normal Exam - Neck Exam Neck Exam: Full ROM, Normal Inspection - Respiratory Exam Respiratory Exam: Decreased Breath Sounds, Clear to Ausculation Bilateral, NORMAL BREATHING PATTERN - Cardiovascular Exam Cardiovascular Exam: +S1, +S2 Additional comments: PPM V- pacing at 60's - GI/Abdominal Exam GI & Abdominal Exam: Soft, Normal Bowel Sounds - Extremities Exam Extremities Exam: Full ROM, Normal Capillary Refill - Neurological Exam Neurological Exam: Alert, Awake - Psychiatric Exam Psychiatric exam: Normal Affect, Normal Mood - Skin Skin Exam: Dry, Normal Color, Warm Assessment and Plan - Assessment and Plan (Free Text) Assessment: An 88 year old male who came in to the ER due to shortness of breath, dizziness, and hypertension. History of coronary artery disease post multiple stents in 2017, , colon cancer, post hemicolectomy,diverticulitis, loop recorder then PPM (04/2018) for sick sinus syndrome. Chest X ray consistent with congestive heart failure. New onset atrial flutter/fibrillation. started on Amiodarone. Post cardiac cath yesterday and showed critical one vessel disease of the ramus intermedius 99% stenosis, decreased LV function, LVEF 35%, After Left and right heart cath patient developed chest pain and code STEMI activated. Successful stenting of the proximal and mid Ramus done with EUSEBIA. Stabilized. Denies chest pain or shortness of breath now. Plan: Denies chest pain, no distress Heart rate V- pacing Blood pressure controlled On Amiodarone 200 mg daily, Norvasc 10 mg daily, Eliquis 5 mg BID,ASA 81 mg daily, Plavix 75 mg daily, Digoxin 0.125 mg daily, Lasix 40 mg BID,Lisinopril 20 mg daily Lopressor 50 mg BID,Kdur 20 meq daily, Entresto 1 tab BID Aldactone 25 mg daily Continue current treatment Continue current medications Plavix and Aspirin for at least a year Will repeat chest X ray today to evaluate congestion Will follow up Plan and treatment discussed with Dr. Dale
[2019-02-21 07:45] LABS: ALB/GLOB RATIO 1.3 (1.1-1.8); ALBUMIN 4.1 g/dL (3.0-4.8); ALT/SGPT 33 U/L (7-56); AST/SGOT 45 U/L (17-59); BLOOD UREA NITROGEN 24 mg/dL (7-21); CALCIUM 9.2 mg/dL (8.4-10.5); GFR NON-AFRICAN AMERICAN 52
--- NOTE | 2019-02-21 08:24 | PN ---
DATE: 02/20/2019 SUBJECTIVE: Looking comfortable. No fever. No chills. No hematuria. No hematochezia. No syncope. No shortness of breath. No diarrhea. No swelling of the leg. The patient went for catheterization by Dr. Dale today. PHYSICAL EXAMINATION VITAL SIGNS: Blood pressure 117/50, pulse 62, temperature 98.4, and oxygen saturation 96% on nasal cannula. HEENT: Head; normocephalic and atraumatic. Eyes; PERRLA. Extraocular muscles intact. Conjunctivae clear. Nose patent. Mucous membranes moist. NECK: Supple. No carotid bruit. No thyromegaly. CHEST: Bilaterally symmetrical. HEART: S1 and S2 positive. LUNGS: Fair airflow bilaterally. ABDOMEN: Soft and nontender. No organomegaly. EXTREMITIES: No edema. No cyanosis. NEUROLOGIC: The patient is awake and alert. Follow simple commands. MEDICATIONS: DuoNeb, amiodarone, Eliquis, aspirin, Plavix. vitamin D, Florinef, Lasix, Haldol, hydralazine, lisinopril, and Ativan. Dr. Dale discontinued Florinef, Protonix, potassium, and metoprolol. LABORATORY DATA: White blood cell 6, hemoglobin 14.1, hematocrit 42.9, and platelet 188. Sodium 147, potassium 3.9, BUN 29, creatinine 1.5, random glucose 102, AST 89, and ALT 40. ASSESSMENT AND PLAN: The patient is an 88-year-old male with multiple medical problem, came with congestive heart failure; coronary artery disease; history of cardiac arrhythmia, requiring pacemaker; history of colon cancer, under care of oncologist; uncontrolled hypertension; and obstructive sleep apnea syndrome. He is a status post cardiac catheterization today. Continue present treatment. The patient's cardiac catheterization has finished right now. I spoke to Dr. Dale, results of catheterization pending. Discussion done with the patient's friends. GI and DVT prophylaxes. Repeat labs. We will followup. Rosita Zavala MD
--- NOTE | 2019-02-21 09:11 | CARD ---
APPROVED REPORT Date of service: 02/21/2019 EKG Measurement [id number] <Conclusion> Electronic ventricular pacemaker
--- NOTE | 2019-02-21 09:26 | CARD ---
APPROVED REPORT Date of service: 02/20/2019 EKG Measurement Heart [id number] <Conclusion> Electronic ventricular pacemaker
--- NOTE | 2019-02-21 09:31 | CARD ---
APPROVED REPORT Date of service: 02/20/2019 EKG Measurement Heart [id number] <Conclusion> Electronic ventricular pacemaker
--- NOTE | 2019-02-21 10:01 | RAD ---
Date of service: 02/21/2019 HISTORY: reevaluate congestion COMPARISON: Portable chest 02/16/2019. TECHNIQUE: 1 view obtained. FINDINGS: LUNGS: No active pulmonary disease. PLEURA: No significant pleural effusion identified, no pneumothorax apparent. CARDIOVASCULAR: No aortic atherosclerotic calcification present. Mildly prominent cardiac silhouette appears stable. No pulmonary vascular congestion. Permanent pacemaker reiterated. OSSEOUS STRUCTURES: No significant abnormalities. VISUALIZED UPPER ABDOMEN: Mild left hemidiaphragm elevation noted. OTHER FINDINGS: None. IMPRESSION: Markedly improved aeration is appreciated bilaterally with no infiltrate, pleural effusion or pneumothorax. No pulmonary vascular congestion. Left hemidiaphragm minimally elevated, etiology unclear. Pacemaker reiterated. Stable mildly prominent cardiac silhouette.
[2019-02-21] MEDS: Potassium Chloride 20 mEq ER Tab PO SCH (10:11)
[2019-02-21] MEDS: SACUBITRIL 24mg/VALSARTAN 26mg tab PO SCH ×2 (10:12→17:27)
--- NOTE | 2019-02-21 10:26 | CP.PCM.PCO ---
Physician Communication Note - Physician Communication Note Physician Communication Note: pt seenand examined at [facility]. pt calm, NAD - friend at bedside Additional Comments - Additional Comments Additional Comments: pt s/p 2 EUSEBIA yeterday, VSS awaiting TCU eval , discuss with IDT, will follow
[2019-02-21 12:26] VITALS: RESP 18; TEMP 98
[2019-02-21 13:22] VITALS: PULSE 62
--- NOTE | 2019-02-21 13:25 | PN ---
DATE: 02/21/2019 PULMONARY PROGRESS NOTE REFERRING PHYSICIAN: Rosita Zavala MD. SUBJECTIVE: The patient seen lying in bed, in no acute distress. No overnight events reported. Reports feeling well this morning. The patient is status post cardiac catheterization. No headache, rhinitis, cough, shortness of breath, chest pain, abdominal pain, nausea, vomiting, diarrhea, leg pain, leg swelling reported. PHYSICAL EXAMINATION: GENERAL: No acute distress. VITAL SIGNS: Blood pressure 118/77, pulse 73, temperature 97.3, oxygen saturation 97 on room air. HEENT: Moist mucous membranes. Crowded airway. NECK: Supple. No JVD. LUNGS: Fair air flow bilaterally. CARDIOVASCULAR: S1, S2. ABDOMEN: Soft, nontender. No distention. No organomegaly. EXTREMITIES: No bilateral lower extremity edema. NEUROLOGIC: Awake, alert, verbal, following commands. MEDICATIONS: Reviewed. DuoNeb 3 mL inhalation every 6 hours p.r.n., amiodarone 200 mg daily, Norvasc 10 mg daily on hold, Eliquis 5 mg twice a day hold, aspirin 81 mg daily, Plavix 75 mg daily, digoxin 0.125 mg daily, Colace 100 mg twice a day, ergocalciferol 50,000 units every 7 days, Florinef 0.1 mg daily, Lasix 40 mg twice a day, Haldol 0.25 mg every 6 hours p.r.n., hydralazine 10 mg four times a day p.r.n., systolic blood pressure greater than 170, lisinopril 20 mg daily, Ativan 0.25 mg every 6 hours p.r.n., metoprolol tartrate 50 mg twice a day, Protonix 40 mg twice a day, potassium chloride 20 mEq breakfast, Entresto 1 twice a day, spironolactone 25 mg daily. LABORATORY DATA: Reviewed. WBC is 7.4, RBC 4.23, hemoglobin 13.2, hematocrit 40.8, platelets 171. Sodium 143, potassium 4.1, chloride 104, carbon dioxide 32, anion gap 11, BUN 24, creatinine 1.3, GFR 52, random glucose 107, calcium 9.2, phosphorus 3.1, magnesium 2.2, total bilirubin 1.2, AST 45, ALT 33, alkaline phosphatase 87, total protein 7.3, albumin 4.1, globulin 3.1, albumin-globulin ratio 1.3. Blood cultures preliminary, no growth up to 4 days. Chest x-ray, shows markedly improved aeration is appreciated bilaterally. No infiltrates, pleural effusion, or pneumothorax. No pulmonary vascular congestion. Pacemaker reiterated. Stable mildly prominent cardiac silhouette. IMPRESSION AND PLAN: Heart failure, coronary artery disease, history of cardiac arrhythmia requiring pacemaker. He has colon cancer, uncontrolled hypertension, suspected sleep apnea syndrome. The patient is status post cardiac cath, which was done yesterday. Catheterization showed critical one-vessel disease of the ramus intermedius, 99% stenosis, ejection fraction 35%. There is stenting of the proximal and mid ramus done with drug-eluting stent. The patient also has history of pulmonary hypertension. Case discussed with nursing staff today. The patient for TRCU evaluation. From pulmonary point of view, the patient is stable for TRCU. Recommend continuing continuous positive airway pressure use at bedtime. Sleep apnea precaution, head of bed elevated at 45 degrees. We want to continue continuous positive airway pressure in the setting of coronary artery disease as to not to repeat injury to the heart. We recommend the patient have attended sleep study as outpatient. Continue Cardiology followup. The patient was seen and examined with Dr. Duque. Discussed assessment and plan as described above. The patient was seen and examined with Antoine Dodson, nurse practitioner. Discussed assessment and plan as described above. Thank you for this consult. We will follow with you. Antoine Dodson APN Tyree Duque MD
[2019-02-21] MEDS ORDERED: Digoxin 125 mcg (0.125 mg) Tab PO SCH (14:00)
--- NOTE | 2019-02-21 17:27 | PN ---
DATE: 02/21/2019 SUBJECTIVE: Comfortable in bed, in no acute distress. Status post cardiac catheterization. Denies any chest pain, no shortness of breath. Blood pressure is better controlled now. Admitted with accelerated hypertension, history of colon cancer status post resection, currently in remission. REVIEW OF SYSTEMS: As per HPI. Rest of 12-point review of systems reviewed and negative. PHYSICAL EXAMINATION: GENERAL: Comfortable in bed, in no acute distress. VITAL SIGNS: Temperature 97.3, heart rate 73 per minute, blood pressure 120/77, oxygen saturation 97% on room air. HEENT: No pallor. NECK: No lymphadenopathy. CHEST: Air entry present, equal bilaterally. No added sounds. CARDIOVASCULAR: S1, S2 normal. No murmur. No gallop. ABDOMEN: Obese, nontender. No hepatosplenomegaly. EXTREMITIES: No edema. NEURO: Awake, alert, oriented x3. No focal sensory or motor deficit. MEDICATIONS: DuoNeb inhalation, Norvasc 10 mg daily, Eliquis 5 mg p.o. b.i.d., aspirin 81 mg daily, Plavix 75 mg daily, digoxin 0.125 mg daily, Colace b.i.d., Lasix, hydralazine 10 mg four times a day p.r.n., metoprolol 50 mg twice a day and Protonix. LABORATORY DATA: White count 7.4, hemoglobin 13.2, hematocrit 40.8, platelet 171 and creatinine 1.3. Chest x-ray marked improvement in aeration. ASSESSMENT: 1. Colon cancer, stage 2, status post hemicolectomy, currently in remission. 2. Mild anemia. We will continue to follow hemoglobin and hematocrit, has received intravenous iron in the past. 3. Coronary artery disease, cardiac catheterization, coronary stent placed. 4. Uncontrolled hypertension. Blood pressure better controlled now. 5 On eliquis, asa, plavix. will be transferred to [facility] Thank you, Dr. Zavala, for allowing us to participate in Mr. De Jesus's care. Mariela Schaffer MD [facility]
[2019-02-21 17:30] VITALS: BP 140/82; PULSE 65
--- NOTE | 2019-02-21 19:15 | CARD ---
APPROVED REPORT Date of service: 02/21/2019 EKG Measurement Heart [id number] <Conclusion> Electronic ventricular pacemaker
--- NOTE | 2019-02-22 06:16 | DS ---
HISTORY OF PRESENT ILLNESS: This 88-year-old male came in on 02/16/2019 with symptoms of CHF, fatigue, and shortness of breath. He has a past medical history of hyperlipidemia, hypertension, coronary artery disease with stent, osteoarthritis, chest pain NOS, hypertrophy of prostate, BPH, and gastroesophageal reflux disease. Seen the patient today at the bedside. He was looking much better. He was alert. He is oriented. He denies shortness of breath, palpitations, abdominal pain, hematuria, hematochezia, fevers, or chills. The patient had cardiac angioplasty with stenting yesterday. Discussed with the patient to be transferred to TCU for rehab. The patient agrees with plan. PHYSICAL EXAMINATION: VITAL SIGNS: Temperature 98, pulse rate 73, blood pressure 123/74, respiratory rate 18, the patient saturating between 95% and 97% on room air today. GENERAL APPEARANCE: Looking very well today, chronically ill, and no acute distress. HEENT: Normocephalic and atraumatic. PERRLA. Mucous membranes moist. NECK: Supple. Normal inspection. RESPIRATORY: Clear to auscultation. No wheeze. No rhonchi. CARDIOVASCULAR: S1 and S2. No murmur. No gallop. ABDOMEN: Soft and nontender. No guarding. Positive bowel sounds. No organomegaly. SKIN: Intact. No edema. No cyanosis. NEUROLOGIC: The patient alert and oriented x3. Cranial nerves II through XII intact. MEDICATIONS: Albuterol every 6 hours, amiodarone 200 mg a day, Norvasc 10 mg daily, Eliquis 5 mg b.i.d., aspirin 81 mg daily, Plavix 75 daily, digoxin 0.125 mg p.o. daily, Colace 100 mg b.i.d., Florinef 0.1 p.o. daily, Lasix 40 mg b.i.d., hydralazine with parameters , Zestril 20 mg, Ativan 0.25 every 6 hours p.r.n., Lopressor 50 mg p.o. b.i.d., Protonix 40 mg twice a day, K-Dur 20 mg daily, losartan b.i.d., and Aldactone 25 mg p.o. daily. LABORATORY DATA: White blood cell 7.4, hemoglobin 13.2, hematocrit 14.8, and platelet count 171. Sodium 143, potassium 4.1, BUN 24, creatinine 1.3, and GFR 52. ASSESSMENT AND PLAN: The patient came in with congestive heart failure exacerbation symptoms. He was seen by Cardiology, which he went in for angioplasty and stenting on 02/20/2019. Cardiology and Pulmonary on the case The patient remains on ASA, Plavix, and Eliquis. He remains on beta-marvin, calcium-channel blockers, VIPUL inhibitor, amiodarone, and hydralazine. The patient will be transferred to TCU unit today. We will follow up with the patient in TCU unit. 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
--- NOTE | 2019-02-22 23:24 | CON ---
DATE: 02/22/2019 HISTORY OF PRESENT ILLNESS: This is an 88-year-old male with past medical history of sick sinus syndrome, status post pacemaker; coronary artery disease, status post stents; and a colon CA in remission. He came here with the complaint of shortness of breath and dizziness. The patient was worked up and now transferred to [facility]. I was called to evaluate the patient for change in mental status. The patient is lying comfortably, knows his whereabouts and at times gets confused. He denies any problems. The patient also felt dizzy while ambulating. He is on the bed, comfortable. ALLERGIES: NO KNOWN DRUG ALLERGIES. SOCIAL HISTORY: He does not smoke or drink. PHYSICAL EXAMINATION: HEENT: Normocephalic and atraumatic. NECK: Supple. NEUROLOGIC: Awake and oriented to self. Cranial nerves II through XII were tested. Pupils reactive. Spontaneous movement of the extremities noted. Deep tendon reflexes 1+. Both plantars are downgoing. Sensory appears intact. Cerebellar gait deferred. IMPRESSION AND PLAN: Intermittent confusional state. Vitals are under control. Continue present management. Maybe physical therapy will help. Kain Trinh MD
== END 2019-02-21 18:14 | DRG 247 ==
LOC: ED 12:28 → ERH 14:30 → 2RNO 20:41 → 2RSO 02-20 12:31
PROVIDERS: ADMIT Internal Medicine; ATTEND Internal Medicine
PROC: 027035Z Dilation of Coronary Artery, One Artery with Two Drug-eluting Intraluminal Devices, Percutaneous Approach (ICD-10-PCS; principal; 2019-02-20)
PROC: 4A023N8 Measurement of Cardiac Sampling and Pressure, Bilateral, Percutaneous Approach (ICD-10-PCS; 2019-02-20)
PROC: B211YZZ Fluoroscopy of Multiple Coronary Arteries using Other Contrast (ICD-10-PCS; 2019-02-20)
PROC: B215YZZ Fluoroscopy of Left Heart using Other Contrast (ICD-10-PCS; 2019-02-20)
PROC: 3E033PZ Introduction of Platelet Inhibitor into Peripheral Vein, Percutaneous Approach (ICD-10-PCS; 2019-02-20)
DX: I11.0 Hypertensive heart disease with heart failure (principal); I50.23 Acute on chronic systolic (congestive) heart failure; I48.92 Unspecified atrial flutter; I16.9 Hypertensive crisis, unspecified; I97.790 Other intraoperative cardiac functional disturbances during cardiac surgery; I25.110 Atherosclerotic heart disease of native coronary artery with unstable angina pectoris; R07.89 Other chest pain; I48.0 Paroxysmal atrial fibrillation; I25.5 Ischemic cardiomyopathy; E11.9 Type 2 diabetes mellitus without complications; F03.90 Unspecified dementia, unspecified severity, without behavioral disturbance, psychotic disturbance, mood disturbance, and anxiety; N40.0 Benign prostatic hyperplasia without lower urinary tract symptoms; I08.1 Rheumatic disorders of both mitral and tricuspid valves; I27.20 Pulmonary hypertension, unspecified; G47.33 Obstructive sleep apnea (adult) (pediatric); E78.5 Hyperlipidemia, unspecified; D64.9 Anemia, unspecified; Z85.038 Personal history of other malignant neoplasm of large intestine; Z79.02 Long term (current) use of antithrombotics/antiplatelets; Z92.21 Personal history of antineoplastic chemotherapy; Y84.0 Cardiac catheterization as the cause of abnormal reaction of the patient, or of later complication, without mention of misadventure at the time of the procedure; Z95.0 Presence of cardiac pacemaker; Z95.5 Presence of coronary angioplasty implant and graft; Z90.49 Acquired absence of other specified parts of digestive tract; Z87.891 Personal history of nicotine dependence

== ENCOUNTER 2019-02-21 18:17 | Inpatient (IN) | payer OTHER, MEDICAID ==
[2019-02-21] MEDS ORDERED: Haloperidol Lactate 2 mg/ml Liquid PO PRN (18:36)
[2019-02-21] MEDS ORDERED: Albuterol-Ipratrop 3 mg / 0.5 (3 ml) UD IH PRN (18:36)
[2019-02-21 22:47] VITALS: BMI 27.4
[2019-02-21] MEDS ORDERED: Pneumococcal 23-Valent Vaccine IM ONE (22:47)
[2019-02-22] MEDS: Pantoprazole 40 mg EC Tab PO SCH ×2 (05:48→17:29)
[2019-02-22 07:23] LABS: EOS # 0.1 (0.0-0.7); EOS % 0.9 % (1.5-5.0); HEMOGLOBIN 13.8 g/dL (14.0-18.0); LYMPH # 1.2 (1.2-3.4); LYMPH % 17.7 % (22.0-35.0); MEAN CELL VOLUME 96.4 fl (80.0-105.0); MEAN CORPUSCULAR HEMOGLOBIN 31.3 pg (25.0-35.0); MEAN CORPUSCULAR HGB CONC 32.5 g/dl (31.0-37.0); MEAN PLATELET VOLUME 10.4 fl (7.0-11.0); MONO # 0.8 (0.1-0.6); MONO % 11.2 % (1.0-6.0); RBC 4.41 10^6/uL (3.5-6.1); RED CELL DISTRIBUTION WIDTH 14.4 % (11.5-14.5); WHITE BLOOD COUNT 6.9 10^3/uL (4.5-11.0)
[2019-02-22 07:34] LABS: ALB/GLOB RATIO 1.3 (1.1-1.8); ALBUMIN 4.2 g/dL (3.0-4.8); ALT/SGPT 34 U/L (7-56); AST/SGOT 46 U/L (17-59); BLOOD UREA NITROGEN 23 mg/dL (7-21); GFR NON-AFRICAN AMERICAN 52
[2019-02-22] MEDS: Potassium Chloride 20 mEq ER Tab PO SCH (07:47)
--- NOTE | 2019-02-22 09:17 | CP.PCM.PCO ---
Physician Communication Note - Physician Communication Note Physician Communication Note: Psychiatrist signed off, please reconsult if new symptoms occur.
[2019-02-22] MEDS: SACUBITRIL 24mg/VALSARTAN 26mg tab PO SCH ×2 (10:13→17:28)
--- NOTE | 2019-02-22 16:57 | CON ---
DATE: 02/22/2019 PULMONARY CONSULTATION NOTE REFERRING PHYSICIAN: Rosita Zavala MD REASON FOR CONSULTATION: Sleep apnea syndrome, coronary artery disease and shortness of breath. HISTORY OF PRESENT ILLNESS: This is an 88-year-old male known to us from the acute side of the hospital with past medical history significant for coronary artery disease, history of coronary stents, history of colon cancer and sick sinus rhythm requiring pacemaker. The patient was treated on the acute side of the hospital and he has status post cardiac catheterization. The patient presently on [facility] for rehabilitation. Today seen lying in bed, reports feeling okay today, no acute distress. During catheterization, it was showed that the patient had critical 1 vessel disease of the ramus intermedius 99% stenosis, ejection fraction was 35%, stenting of proximal and mid venous was done with EUSEBIA. PAST MEDICAL HISTORY: Cardiac arrhythmia requiring pacemaker, coronary artery disease, history of coronary stents, history of colon cancer, anemia, diverticulitis and history of GI bleed. SOCIAL HISTORY: Nonsmoker. No EtOH abuse. No illicit drug use. FAMILY HISTORY: No significant cardiopulmonary disease reported. ALLERGIES: NO KNOWN ALLERGIES. MEDICATIONS: Reviewed. DuoNeb 3 mL inhalation every 6 hours p.r.n. amiodarone 200 mg daily, Norvasc 10 mg daily, Eliquis 5 mg twice a day, aspirin 81 mg daily, Plavix 75 mg daily, Colace 100 mg twice a day, Ergocalciferol 50,000 units every 7 days, Florinef 0.1 mg daily, Lasix 40 mg twice a day, hydralazine 10 mg four times a day p.r.n., lisinopril 10 mg daily, Ativan 0.25 mg every 6 hours p.r.n., metoprolol tartrate 25 mg daily, Protonix 40 mg twice a day, potassium chloride 20 mEq daily, Entresto 1 tablet twice a day and Aldactone 25 mg daily. REVIEW OF SYSTEMS: No headache, rhinitis, cough, shortness of breath, chest pain, abdominal pain, nausea, vomiting, diarrhea, leg pain and leg swelling reported. The patient does admit to snoring and having daytime sleepiness. PHYSICAL EXAMINATION: GENERAL: No acute distress. VITAL SIGNS: Blood pressure 120/71, pulse 67, oxygen 96% on room air and temperature 98.7. HEENT: Moist mucous membranes. Crowded airway. Mallampati score of 4. NECK: Supple. No JVD. LUNGS: Fair airflow bilaterally. CARDIOVASCULAR: S1 and S2. ABDOMEN: Soft and nontender. No distention. No organomegaly. EXTREMITIES: No bilateral lower extremity edema. NEUROLOGIC: Awake, alert and verbal. Following commands. LABORATORY DATA: Reviewed. WBC 6.9, RBC 4.41, hemoglobin 13.8, hematocrit 42.5, and platelets 160. Sodium 143, potassium 3.9, chloride 101, carbon dioxide 33, anion gap 12, BUN 23, creatinine 1.3, GFR 52, random glucose 119, calcium 9.0, total bilirubin 1.2, AST 46, ALT 34, alkaline phosphatase 95, total protein 7.4, albumin 4.2, globulin 3.2 and albumin-globulin ration 1.3. IMPRESSION AND PLAN: Heart failure, coronary artery disease, history of cardiac arrhythmia requiring pacemaker, history of colon cancer, uncontrolled hypertension, suspected sleep apnea syndrome, status post cardiac catheterization and pulmonary hypertension. Pulmonary point of view, continue to encourage continuous positive airway pressure use at bedtime, sleep apnea precaution and head of bed elevated at 45 degrees. Continue gastric prophylaxis. The patient currently on anticoagulation therapy. Continue physical therapy. Recommend the patient have sleep study as outpatient. This patient was seen and examined with Dr. Duque. Discussed assessment and plan as described above. This patient was seen and examined with Antoine Dodson, nurse practitioner. Discussed assessment and plan as described above. Thank you for this consult and we will follow with you. Antoine Dodson APN Tyree Duque MD
--- NOTE | 2019-02-22 23:14 | CON ---
DATE: 02/22/2019 LOCATION: The patient is in room 319, bed 1. REASON FOR CONSULTATION: Coronary artery disease, status post coronary angioplasty and stent insertion, congestive heart failure, and deconditioning. HISTORY OF PRESENT ILLNESS: The patient is an 88-year-old male who was admitted to the medical floor with a history that he was having shortness of breath, which was gradually getting worse and the patient was found to be in congestive heart failure. The patient's echocardiogram done on 02/17/2019, showed normal size LV, severe LV hypertrophy, ejection fraction 35% to 40%, right atrium and left atrium both moderately dilated, mefw-yg-mcqewspu mitral regurgitation, ocwuncri-xn-dmtfgv tricuspid regurgitation with RVSP 58 mmHg suggestive of moderate pulmonary hypertension, pacemaker electrode was seen by ultrasound. The patient showed deterioration in LV function. The patient was treated medically and due to deterioration of LV function, the patient had cardiac catheterization both right and left and the left heart showed the patient's ejection fraction 35%, ramus intermedius showed 99% stenosis. So there were two stents placed in ramus intermedius in the proximal and mid vessel. This vessel is a large vessel and actually larger than LAD. The patient's right heart catheterization showed RA pressure of 3 to 4, RV pressure 27/4, PA pressure 30/10, and wedge pressure of 6. PAST MEDICAL HISTORY: Significant for coronary artery disease, status post multiple stents. The patient had pacemaker insertion due to syncope and found to have long pauses of sinus rests on the loop recorder, which was implanted on 04/2018. The patient's pacemaker done on 05/19/2018, single-chamber pacemaker VVI Medtronic pacemaker, Sensia SR implanted on 05/19/2018. The patient in the past also had coronary artery disease and had history of PTCA of the RCA, RPD, and LAD with three drug eluting stents on 01/21/2017. History of diabetes, hypertension, hyperlipidemia, colonic mass for which he had a colon surgery, a right hemicolectomy and end-to-end anastomosis in 2017. PERSONAL HISTORY: He denies smoking, denies any history of alcohol abuse. RECENT CARDIAC WORKUP: As mentioned above, the patient had a stress test that was done on 03/14/2018 that showed probably negative myelogenous study, fixed defect, no ischemia, normal gated wall motion. As compared to the previous study dated 12/30/2016, the previously noted ischemia is disappeared and not seen in the current study from 03/14/2018. Pacemaker was put in 05/13/2018 as sinus pauses was recorded on the loop recorder. The patient's echo on 01/29/2017 showed ejection fraction of 55% to 60%. Again echo on 05/13/2018 showed mild concentric LVH, normal systolic function, trace aortic regurgitation, mild mitral regurgitation, segzsbfh-hd-jkfllj tricuspid regurgitation, RV systolic pressure of 79 mmHg. MEDICATIONS AT HOME: The patient is taking amlodipine, Crestor, ranitidine, omeprazole, metoprolol, meclizine, lisinopril, Plavix, and aspirin. PAST SURGICAL HISTORY: The patient had loop recorder inserted on 05/13/2018, following that has permanent pacemaker insertion on 05/19/2018, history of colonic mass, status post right hemicolectomy and end-to-end anastomosis in 2016. The patient is also being followed by Hematology and Oncology, Dr. Schaffer. REVIEW OF SYSTEMS: All the systems reviewed, positives mentioned in the history, others were negative. DIAGNOSES: Congestive heart failure, coronary artery disease, hyperlipidemia, status post permanent pacemaker, history of colonic mass, status post right hemicolectomy and end-to-end anastomosis, hypertension, diabetes, hyperlipidemia, and deconditioning. PHYSICAL EXAMINATION VITAL SIGNS: Blood pressure 120/71, respirations 18, pulse 64. The patient is afebrile. HEENT: Head is normocephalic. Eyes; pupils normal. Conjunctivae normal. Nose and throat normal. NECK: JVP low. Carotid equal. THORAX: AP diameter normal. LUNGS: Clear. CARDIOVASCULAR: S1 and S2. ABDOMEN: Soft. No tenderness. No organomegaly. Bowel sounds normal. EXTREMITIES: No clubbing. No cyanosis. LABORATORY DATA: WBC 6.9, hemoglobin 13.8, hematocrit 42.5, platelet 160. Sodium 143, potassium 3.9, BUN 23, creatinine 1.3. AST and ALT normal. Total protein and albumin normal. DIAGNOSES: Coronary artery disease, status post angioplasty, stent insertion in ramus intermedius which was 99% blocked, stent was put in proximal and mid ramus intermedius. Previously, the patient had percutaneous transluminal coronary angioplasty of left anterior descending artery, right coronary artery, and right posterior descending artery in 01/21/2017. He also has history of hypertension, diabetes, dyslipidemia, and was admitted with congestive heart failure prior to admission and deterioration in left ventricular ejection fraction to 35% to 40% where previously it was normal 55% to 60%. The patient also had right heart catheterization, findings were described above; right atrial pressure 3 to 4, right ventricular pressure of 27/4, pulmonary artery pressure 30/10, and wedge pressure of 4. Echocardiogram was done on 02/17/2019, which showed normal size, severe left ventricular hypertrophy with deterioration of left ventricular ejection fraction of 35% to 40%. Right atrium and left atrium moderately dilated, aiuq-cv-ehxivlco mitral regurgitation, mbefqhmg-yg-duoeii tricuspid regurgitation with right ventricular systolic pressure of 58 mmHg and the patient's pacemaker electrodes were also seen on the echocardiogram, deconditioning. PLAN: The patient is now in the Transitional Care Unit for physical therapy. The patient is on spironolactone 25 mg daily, amiodarone 200 mg p.o. daily, aspirin 81 mg daily, Eliquis 5 mg b.i.d., potassium 20 mEq p.o. daily, furosemide 40 mg b.i.d., metoprolol 25 mg b.i.d., amlodipine 10 mg daily, Plavix 75 mg daily, Protonix 40 mg b.i.d., lisinopril 10 mg daily. We will continue physical therapy and will continue to follow closely. Tyree Sanchez MD [facility] # [id number]
[2019-02-23] MEDS: Pantoprazole 40 mg EC Tab PO SCH ×2 (05:26→17:24)
--- NOTE | 2019-02-23 08:58 | PN ---
DATE: 02/22/2019 This case was discussed with Dr. Zavala. She is in agreement with plan. SUBJECTIVE: This is an 88-year-old male, came in with exacerbation of CHF, syncope, bradycardia. The patient has past medical history of hyperlipidemia, hypertension, chest pain, osteoarthritis, diabetes mellitus, colon CA, chronic anemia. The patient was seen today at the bedside. He was very alert, very talkative, smiling, very pleasant today. The patient denies abdominal pain, shortness of breath, chest pain, hematuria, hematochezia, fever or chills. The patient in TCU for physical therapy. PHYSICAL EXAMINATION: VITAL SIGNS: Temperature 98.1, pulse rate 52, blood pressure 104/67, respiratory rate 20, O2 sat 95% on room air. GENERAL APPEARANCE: No acute distress, chronically ill. HEENT: Normocephalic and atraumatic. PERRLA. Mucous membranes moist. NECK: Supple. Normal inspection. No thyromegaly. RESPIRATORY: Clear to auscultation. No rhonchi. No wheezing. CARDIOVASCULAR: S1 and S2. No JVD. No murmur. No gallop. GASTROINTESTINAL: Abdomen soft, nontender. No guarding. No tenderness. No organomegaly. EXTREMITIES: Moving all extremities. SKIN: No cyanosis. No calf pain. No edema. NEUROLOGIC: The patient is alert and oriented x3. No cognitive deficits. MEDICATIONS: The patient continued on DuoNeb, amiodarone, Norvasc, Eliquis, Ecotrin, Plavix, Colace, Drisdol 50,000 units weekly, Florinef, Lasix, hydralazine, lisinopril, Ativan, Lopressor, K-Dur, Entresto, Aldactone. LABORATORY DATA: White blood cell 6.9, hemoglobin 13.8, hematocrit 42.5, platelet count 160. Sodium 143, potassium 3.9, BUN 23, creatinine 1.3, GFR is 60, glucose is 119 today. ASSESSMENT AND PLAN: This is an 88-year-old male who came in with exacerbation of congestive heart failure, had cardiac angioplasty with stenting inpatient. The patient transferred to transitional care unit for rehabilitation. The patient has congestive heart failure, hypertension, benign prostatic hyperplasia. The patient will continue on DuoNeb, Norvasc, Eliquis, Ecotrin, Plavix, Lasix, hydralazine, Zestril, potassium, and Lasix. We will continue to monitor labs; monitor progresse with physical therapy. Cardiology and Pulmonology is on the case. We will follow up. ALL ABOVE NOTED , AGREED ALL ABOVE , WILL F/U Richard Lilly APN Rosita Zavala MD [facility]
[2019-02-23] MEDS: Potassium Chloride 20 mEq ER Tab PO SCH (09:31)
[2019-02-23] MEDS: Ergocalciferol 50,000 Intl Units Cap PO SCH (09:32)
[2019-02-23] MEDS: SACUBITRIL 24mg/VALSARTAN 26mg tab PO SCH ×2 (09:32→17:25)
--- NOTE | 2019-02-23 11:51 | PN ---
DATE: 02/23/2019 LOCATION: The patient is in room 319, bed 1. REASON FOR CONSULTATION AND FOLLOWUP: Coronary artery disease, status post coronary artery angioplasty and stent insertion, congestive heart failure, and deconditioning. SUBJECTIVE: The patient lying flat in bed without chest pain, shortness of breath, or palpitation. PHYSICAL EXAMINATION: VITAL SIGNS: Blood pressure 101/65, respirations 20, pulse 60. The patient is afebrile. HEENT: Head is normocephalic. Eyes: Pupils normal. Conjunctivae normal. NECK: JVP low. Carotids equal. THORAX: AP diameter normal. LUNGS: Clear. CARDIOVASCULAR: S1, S2. ABDOMEN: Soft. No tenderness. No organomegaly. Bowel sounds normal. EXTREMITIES: No clubbing. No cyanosis. LABORATORY DATA: WBC 6.9, hemoglobin 13.8, hematocrit 42.5, platelets 160. Sodium 143, potassium 3.9, BUN 23, creatinine 1.3. AST and ALT normal. Total protein and albumin normal. DIAGNOSES: Cardiac history has been put in our consult of 02/22/2019. The patient has coronary artery disease, status post angioplasty and stent insertion with ramus intermedius, which was 99% blocked. Two stents were put, one in proximal and one in mid ramus intermedius. Prior to that, the patient had angioplasty of left anterior descending artery, right coronary artery, and right posterior descending artery on 01/21/2017. Hypertension, diabetes, dyslipidemia, ischemic cardiomyopathy, the patient's ejection fraction has fallen from 55% to 35% to 40%, [id number] mitral regurgitation, [id number]-[id number] tricuspid regurgitation, right ventricular systolic pressure 58 mmHg, status post pacemaker insertion, deconditioning, and pulmonary hypertension as mentioned above. PLAN: To continue physical therapy. The patient on spironolactone 25 daily, amiodarone 200 mg daily, aspirin 81 daily, Eliquis 5 b.i.d., fludrocortisone 0.1 mg p.o. daily, potassium 20 mEq daily, furosemide 40 mg b.i.d., metoprolol 25 b.i.d., amlodipine 10 mg daily, Plavix 75 daily, Protonix 40 b.i.d., lisinopril 10 daily. We will continue present therapy and hopefully with angioplasty and stent insertion in ramus intermedius on 02/21/2019 will help the left ventricular ejection fraction. So, we will continue to follow. Tyree Sanchez MD
--- NOTE | 2019-02-23 13:23 | PN ---
DATE: 02/23/2019 PULMONARY PROGRESS NOTE REFERRING PHYSICIAN: Rosita Zavala MD SUBJECTIVE: The patient is seen sitting in bed. No acute distress. No overnight events reported. Refused CPAP machine last night. Nursing staff report the patient noted with orthostatic hypotension. The lying down blood pressure was 110/70, sitting 90/54, standing 82/64. Today, nurse reports that the patient's blood pressure was 109/69, heart rate of 63. The patient reports no headache, rhinitis, cough, shortness of breath, chest pain, abdominal pain, nausea, vomiting, diarrhea, leg pain, or leg swelling reported. States he does gets dizzy sometimes when standing. OBJECTIVE: GENERAL: No acute distress. VITAL SIGNS: Blood pressure 109/69, heart rate 63, temperature 98.1, oxygen saturation 95. HEENT: Moist mucous membranes. Mallampati score of 4. Crowded airway. NECK: Supple. No JVD. LUNGS: Fair airflow bilaterally. CARDIOVASCULAR: S1 and S2. ABDOMEN: Soft and nontender. No distention. No organomegaly. EXTREMITIES: No bilateral lower extremity edema. NEUROLOGIC: Awake, alert, and verbal. Following commands. MEDICATIONS: Reviewed. DuoNeb 3 mL inhalation every 6 hours p.r.n., amiodarone 200 mg daily, Norvasc 10 mg daily, Eliquis 5 mg twice a day, aspirin 81 mg daily, Plavix 75 mg daily, Colace 100 mg twice a day, ergocalciferol 50,000 units every 7 days, Florinef 0.1 mg daily, Lasix 40 mg twice a day, hydralazine 10 mg four times a day p.r.n., Ativan 0.25 mg every 6 hours p.r.n., metoprolol tartarate 25 mg daily, Protonix 40 mg twice a day, MiraLax 17 g twice a day, potassium chloride 20 mEq daily, Entresto one tab twice a day, Aldactone 25 mg daily. LABORATORY DATA: Reviewed. No new labs. IMPRESSION AND PLAN: Heart failure, coronary artery disease, history of cardiac arrhythmia requiring pacemaker, history of colon cancer, uncontrolled hypertension, suspected sleep apnea syndrome status post cardiac catheterization, pulmonary hypertension. Discussed the patient's orthostatic vital signs reading with Dr. Zavala. The patient to be seen by taker away to adjust medications. Fall precautions. Pulmonary point of view, continue to encourage continuous positive airway pressure use at bedtime. Sleep apnea precaution, head of bed elevated at 45 degrees. Continue gastric prophylaxis, currently on anticoagulation therapy. Continue physical therapy. Recommend the patient have extended sleep study as outpatient to rule out sleep apnea as cause for history of cardiac arrhythmia, cardiac disease. The patient was seen and examined with Dr. Duque. Discussed assessment and plan as described above. The patient was seen and examined with Antoine Dodson, nurse practitioner. Discussed assessment and plan as described above. Thank you for this consult. We will follow with you. Antoine Dodson APN Tyree Duque MD MTDJaqueline
[2019-02-23] MEDS: POLYETHYLENE GLYCOL 3350 17 GM/Dose PACKET PO SCH (17:24)
--- NOTE | 2019-02-24 00:29 | HP ---
DATE OF EXAM: 02/23/2019 CHIEF COMPLAINT: Deconditioned, fatigue, and tired. HISTORY OF PRESENT ILLNESS: Mr. Speedy De Jesus is an 88-year-old male, my private patient, came to the hospital with past medical history significant for coronary artery disease, history of coronary stents, history of colon cancer, sick sinus syndrome, requiring a pacemaker. The patient was treated on the acute side of the hospital and he has status post cardiac catheterization. The patient presently transferred to TCU for rehabilitation, deconditioning, and for shortness of breath. I saw the patient in the TCU today. A friend was sitting on the bedside also. Feeling better. No fever. No chills. No hematuria. No hematochezia. No headache. No dizziness. No chest pain. No palpitations. PAST MEDICAL HISTORY: Cardiac arrhythmia requiring pacemaker, coronary artery disease, coronary stents, history of colon cancer, anemia, diverticulitis, history of GI bleeding. SOCIAL HISTORY: Nonsmoker. No ethanal abuse. No illicit drugs. FAMILY HISTORY: Father and mother noncontributory. ALLERGIES: THE PATIENT IS NOT ALLERGIC WITH ANY MEDICATIONS. REVIEW OF SYSTEMS: The patient was seen and examined at the bedside. Looking comfortable. No fever. No chills. No hematuria. No hematochezia. No headache. No dizziness. No chest pain. No palpitations. PHYSICAL EXAMINATION VITAL SIGNS: Blood pressure 120/70, pulse 67, oxygen saturation 93% on room air, and temperature 98.7. HEENT: Head is normocephalic and atraumatic. Eyes; PERRLA. Extraocular muscles intact. Conjunctivae clear. Nose patent. Mucous membranes moist. NECK: Supple. No carotid bruits. No JVD. No thyromegaly. CHEST: Bilaterally symmetrical. HEART: S1 and S2 positive. LUNGS: Clear to auscultation. ABDOMEN: Soft. Bowel sounds present. No organomegaly. EXTREMITIES: No edema. No cyanosis. NEUROLOGIC: The patient awake, alert, and follows simple commands. LABORATORY DATA: White blood cells 6.9, hemoglobin 13.8, hematocrit 42.5, and platelets 160. Sodium 143, potassium 3.9, BUN 23, creatinine 1.3, glucose 119 and calcium 9. AST 46 and ALT 34. ASSESSMENT AND PLAN: Mr. Speedy De Jesus is an 88-year-old male with multiple medical problems, has history of colon cancer, congestive heart failure, coronary artery disease, cardiac arrhythmia requiring pacemaker, uncontrolled hypertension, sleep apnea syndrome, status post cardiac catheterization, has pulmonary hypertension. We will continue present treatment. Cardiology and a organic section technical lead is on the case. That is why the patient has sleep study as per organic section technical lead. We will continue DuoNeb, amiodarone, Norvasc, Eliquis, aspirin, Plavix, Colace, vitamin D, Florinef, Lasix, hydralazine, lisinopril, Ativan, metoprolol, Protonix, aldolase, out of bed, physical therapy. Repeat labs. We will follow up. Rosita Zavala MD
[2019-02-24] MEDS: Pantoprazole 40 mg EC Tab PO SCH ×2 (06:16→17:19)
[2019-02-24] MEDS: Potassium Chloride 20 mEq ER Tab PO SCH (07:51)
[2019-02-24] MEDS: POLYETHYLENE GLYCOL 3350 17 GM/Dose PACKET PO SCH ×2 (09:08→17:19)
[2019-02-24] MEDS: SACUBITRIL 24mg/VALSARTAN 26mg tab PO SCH ×2 (09:09→17:19)
--- NOTE | 2019-02-24 12:40 | PN ---
DATE: 02/24/2019 PULMONARY PROGRESS NOTE REFERRING PHYSICIAN: Rosita Zavala MD SUBJECTIVE: The patient is seen lying in bed, no acute distress. No overnight events reported. Refused CPAP machine last night. Continues with orthostatic hypotension. Blood pressure this morning lying down 106/65, sitting 96/60, standing 85/51. Lisinopril was discontinued by retail performance coach yesterday. The patient is asymptomatic at this time. No headache, rhinitis, cough, shortness of breath, chest pain, abdominal pain, nausea, vomiting, diarrhea, leg pain, or leg swelling reported. PHYSICAL EXAMINATION: GENERAL: No acute distress. VITAL SIGNS: Blood pressure 101/65, pulse 70, temperature 97.9, and oxygen saturation 96 on room air. HEENT: Moist mucous membranes. Mallampati score of 4. Crowded airway. NECK: Supple. No JVD. RESPIRATORY: Fair airflow bilaterally. CARDIOVASCULAR: S1 and S2. ABDOMEN: Soft and nontender. No distention. No organomegaly. EXTREMITIES: No bilateral lower extremity edema. NEUROLOGIC: Awake, alert, and verbal. Following commands. MEDICATIONS: Reviewed. DuoNeb 3 mL inhalation every 6 hours p.r.n., amiodarone 200 mg daily, Norvasc 10 mg daily, Eliquis 5 mg twice a day, aspirin 81 mg daily, Plavix 75 mg daily, Colace 100 mg twice a day, Ergocalciferol 50,000 units every seven days, Florinef 0.1 mg daily, Lasix 40 mg twice a day, hydralazine 10 mg four times a day p.r.n., Ativan 0.25 mg every 6 hours p.r.n., metoprolol tartrate 25 mg daily, Protonix 40 mg twice a day, MiraLax 17 g twice a day, potassium chloride 20 mEq daily, Entresto 1 tablet twice a day, spironolactone 25 mg daily. LABORATORY DATA: Reviewed. No new labs. IMPRESSION AND PLAN: Heart failure, coronary artery disease, history of cardiac arrhythmia requiring pacemaker, history of colon cancer, uncontrolled hypertension, suspected sleep apnea syndrome. The patient is status post cardiac catheterization, pulmonary hypertension. The patient has orthostatic hypotension. Continue followup with retail performance coach. We will decrease Lasix to 20 mg twice a day. Sleep apnea precaution. Pulmonary point of view, continue to encourage continuous positive airway pressure use at bedtime, sleep apnea precaution, and head of bed elevated at 45 degrees. Continue gastric prophylaxis. Currently on anticoagulation therapy. Continue physical therapy. Recommend the patient have attended sleep study as outpatient to rule out sleep apnea syndrome as a cause for cardiac arrhythmia, heart disease. Fall precautions. The patient was seen and examined with Dr. Duque. Discussed assessment and plan as described above. The patient was seen and examined with Antoine Dodson, nurse practitioner. Discussed assessment and plan as described above. Thank you for this consult. We will follow with you. Antoine Dodson APN Tyree Duque MD
--- NOTE | 2019-02-24 13:58 | CP.PCM.CON ---
History of Present Illness - History of Present Illness History of Present Illness: Transferred from acute side. was admitted with accelerated HTN. Underwent cardiac cath with stents placement. h/O colon cancer, s/p resection. adjuvant xeloda. small b/l pulmonary nodules being followed with serial scans. CEA remains normal. GC improved. Review of Systems - Constitutional Constitutional: Fatigue - EENT Eyes: absent: As Per HPI, Blind Spots, Blurred Vision, Change in Vision, Decreased Night Vision, Diplopia, Discharge, Dry Eye, Exophthalmos, Floaters, Irritation, Itchy Eyes, Loss of Peripheral Vision, Pain, Photophobia, Requires Corrective Lenses, Sees Flashes, Spots in Vision, Tunnel Vision, Other Visual Disturbances, Loss of Vision, Other - Cardiovascular Cardiovascular: As Per HPI - Respiratory Respiratory: As Per HPI - Gastrointestinal Gastrointestinal: As Per HPI - Genitourinary Genitourinary: absent: As Per HPI, Change in Urinary Stream, Difficulty Urinating, Dysuria, Flank Pain, Hematuria, Pyuria, Nocturia, Urinary Incontinence, Urinary Frequency, Urinary Hesitance, Urinary Urgency, Voiding Freq/Small Amts, Freq UTI, Hx Renal/Bladder Calculi, Hx /Renal Surgery, Bladder Distension, Other - Musculoskeletal Musculoskeletal: absent: As Per HPI, Abnormal Gait, Arthralgias, Atrophy, Back Pain, Deformity, Joint Swelling, Limited Range of Motion, Loss of Height, Muscle Cramps, Muscle Weakness, Myalgias, Neck Pain, Numbness, Radiating Pain into Limb, Stiffness, Tingling, Other - Integumentary Integumentary: absent: As Per HPI, Acne, Alopecia, Bleeding Lesions, Change in Hair, Change in Nails, Change in Pigmentation, Changing Lesions, Dry Skin, Erythema, Furuncle, Hirsutism, Lesions, New Lesions, Non-Healing Lesions, Photosensitivity, Pruritus, Rash, Skin Pain, Skin Ulcer, Sores, Striae, Swelling, Unusual Bruising, Wounds, Jaundice, Other - Psychiatric Psychiatric: absent: As Per HPI, Abnormal Sleep Pattern, Anhedonia, Anxiety, Auditory Hallucinations, Behavioral Changes, Change in Appetite, Change in Libido, Confusion, Depression, Difficulty Concentrating, Hallucinations, Homicidal Ideation, Hopelessness, Irritability, Memory Loss, Mood Swings, Panic Attacks, Paranoia, Suicidal Ideation, Visual Hallucinations, Tactile Hallucinations, Other Past Patient History - Infectious Disease Hx of Infectious Diseases: None - Past Medical History & Family History Past Medical History?: No - Past Social History Smoking Status: Never Smoked - CARDIAC Hx Cardiac Disorders: Yes (stent 02/20/19) Hx Hypercholesterolemia: Yes - PULMONARY Hx Respiratory Disorders: No - NEUROLOGICAL Hx Dementia: Yes - HEENT Hx HEENT Problems: No (WEARS RX GLASSES) - RENAL Hx Chronic Kidney Disease: No - ENDOCRINE/METABOLIC Hx Endocrine Disorders: No - HEMATOLOGICAL/ONCOLOGICAL Hx Anemia: Yes Hx Cancer: Yes Hx Chemotherapy: Yes - INTEGUMENTARY Hx Dermatological Problems: No - MUSCULOSKELETAL/RHEUMATOLOGICAL Hx Arthritis: Yes - GASTROINTESTINAL Hx Gastrointestinal Disorders: Yes (gi bleed) - GENITOURINARY/GYNECOLOGICAL Hx Genitourinary Disorders: No Hx Reproductive Disorders: No - PSYCHIATRIC Hx Psychophysiologic Disorder: No Hx Emotional Abuse: No Hx Physical Abuse: No Hx Substance Use: No - SURGICAL HISTORY Hx Surgeries: Yes Hx Cardiac Catheterization: Yes Hx Coronary Stent: Yes - ANESTHESIA Hx Anesthesia Reactions: No Meds Allergies/Adverse Reactions: Allergies Allergy/AdvReac Type Severity Reaction Status Date / Time No Known Allergies Allergy Verified 03/22/17 19:50 - Medications Medications: Current Medications Albuterol/Ipratropium (Duoneb 3 Mg/0.5 Mg (3 Ml) Ud) 3 ml IH [id number] PRN; Protocol PRN Reason: Shortness of Breath Amiodarone HCl (Cordarone) 200 mg PO DAILY [facility]; Protocol Last Admin: 02/24/19 10:02 Dose: Not Given Amlodipine Besylate (Norvasc) 10 mg PO DAILY [facility]; Protocol Last Admin: 02/24/19 09:06 Dose: Not Given Apixaban (Eliquis) 5 mg PO BID [facility]; Protocol Last Admin: 02/24/19 09:09 Dose: 5 mg Aspirin (Ecotrin) 81 mg PO 0800 [facility]; Protocol Last Admin: 02/24/19 07:51 Dose: 81 mg Clopidogrel Bisulfate (Plavix) 75 mg PO 0800 [facility]; Protocol Last Admin: 02/24/19 07:52 Dose: 75 mg Docusate Sodium (Colace) 100 mg PO BID [facility]; Protocol Last Admin: 02/24/19 09:09 Dose: 100 mg Ergocalciferol (Drisdol 50,000 Intl Units Cap) 1 cap PO Q7D [facility]; Protocol Last Admin: 02/23/19 09:32 Dose: 1 cap Fludrocortisone Acetate (Florinef) 0.1 mg PO 0800 [facility]; Protocol Last Admin: 02/24/19 07:51 Dose: 0.1 mg Furosemide (Lasix) 20 mg PO 0600,1600 [facility]; Protocol Hydralazine HCl (Apresoline) 10 mg PO QID PRN; Protocol PRN Reason: elevated b/p Lorazepam (Ativan) 0.25 mg PO Q6H PRN; Protocol PRN Reason: Agitation Metoprolol Tartrate (Lopressor) 25 mg PO 0800 [facility] Last Admin: 02/24/19 07:54 Dose: Not Given Pantoprazole Sodium (Protonix Ec Tab) 40 mg PO 0600,1600 [facility]; Protocol Last Admin: 02/24/19 06:16 Dose: 40 mg Polyethylene Glycol (Miralax) 17 gm PO BID [facility] Last Admin: 02/24/19 09:08 Dose: 17 gm Potassium Chloride (K-Dur 20 Meq Er Tab) 20 meq PO 0800 [facility]; Protocol Last Admin: 02/24/19 07:51 Dose: 20 meq Sacubitril/Valsartan (Entresto 24 Mg-26 Mg Tablet) 1 each PO BID [facility]; Protocol Last Admin: 02/24/19 09:09 Dose: 1 each Spironolactone (Aldactone) 25 mg PO DAILY [facility]; Protocol Last Admin: 02/24/19 09:04 Dose: Not Given Physical Exam - Constitutional Appears: Well, Non-toxic - Head Exam Head Exam: ATRAUMATIC, NORMAL INSPECTION, NORMOCEPHALIC - Eye Exam Eye Exam: Normal appearance - ENT Exam ENT Exam: Mucous Membranes Moist - Neck Exam Neck exam: Positive for: Normal Inspection - Respiratory Exam Respiratory Exam: Clear to Auscultation Bilateral, NORMAL BREATHING PATTERN - Cardiovascular Exam Cardiovascular Exam: REGULAR RHYTHM, +S1, +S2 - GI/Abdominal Exam GI & Abdominal Exam: Normal Bowel Sounds, Soft - Back Exam Back exam: NORMAL INSPECTION - Neurological Exam Neurological exam: CN II-XII Intact, Normal Gait, Oriented x3 - Psychiatric Exam Psychiatric exam: Normal Affect, Normal Mood Results - Vital Signs Recent Vital Signs: Last Vital Signs Temp 97.9 F 02/24/19 06:00 Pulse 70 02/24/19 07:54 Resp 16 02/24/19 06:00 BP 96/60 L 02/24/19 11:20 Pulse Ox 96 02/24/19 06:00 - Labs Result Diagrams: 02/22/19 07:00 02/22/19 07:00 Assessment & Plan - Assessment and Plan (Free Text) Assessment: 1. Colon cancer- in remission. 2. New diagnosis-CAD, s/p cardiac cath. 3, HTN : BP controlled with current meds. 4. Iron deficiency anemia : stable blood counts. Thank you Dr. Zavala for allowing to participate in his care.
--- NOTE | 2019-02-24 16:01 | PN ---
This case was discussed with Dr. Zavala and she is in agreement with treatment plan. DATE: 02/24/2019 SUBJECTIVE: This is an 88-year-old male, came into the hospital with complaints of shortness of breath, chest pain, and fatigue. He has a past medical history of hyperlipidemia, hypertension, coronary artery disease with stenting, diabetes mellitus, colon CA, and chronic anemia. The patient was seen at the bedside today was having physical therapy, I spoke to physical therapy today noted that the patient is having orthostatic hypertension, blood pressure is dropping, especially when the patient stands up. The patient still reports somewhat dizzy especially during the morning, but, however, blood pressure seems to be better as the day goes by from morning to evening per nurse. The patient denying chest pain, shortness of breath, abdominal pain, hematuria, hematochezia, fever or chills. PHYSICAL EXAMINATION GENERAL: The patient appeared in no acute distress. VITAL SIGNS: Temperature 97.9, pulse 87, blood pressure 90/60, respiratory rate 16 on room air. HEENT: Normocephalic and atraumatic. PERRLA. Mucous membranes moist. NECK: Supple. Normal inspection. RESPIRATORY: Clear to auscultation. No wheezing. No rhonchi. CARDIOVASCULAR: S1 and S2. No JVD. GASTROINTESTINAL: Abdomen soft, nontender. Positive bowel sounds. No organomegaly. SKIN: Intact. No cyanosis. No edema. NEUROLOGIC: The patient is alert and oriented x3. MEDICATIONS: The patient continues on DuoNeb, amiodarone, Norvasc, Eliquis, Ecotrin, Plavix, Colace, Florinef, Lasix, hydralazine p.r.n., Ativan, Lopressor, Protonix, MiraLax, K-Dur, Entresto, and Aldactone. LABORATORY DATA: White blood cell 6.9, hemoglobin 13.8, hematocrit 42.5, and platelet count 160. ASSESSMENT AND PLAN: This is an 88-year-old male who came in with exacerbation of congestive heart failure, coronary artery disease, hypertension, cardiac angioplasty with stenting on patient, the patient receiving rehab in TCU, orthostatic hypotension, bradycardia. Cardiology is on the case. Pulmonology is on the case. Cardiology was contacted due to orthostatic blood pressures We will followup with Cardiology and plan accordingly. ALL ABOVE NOTED , EDUCATION DONE , ALL LAB , MEDS AND CONSULTANTS NOTED AGREED WITH SOLUTION DEVELOPER NOTES , CONT. PRESENT TREATMENT , WILL F/U Richard Lilly APN Rosita Zavala MD ILIANA
--- NOTE | 2019-02-24 17:05 | PN ---
DATE: 02/24/2019 LOCATION: The patient is in room 319, bed 1. REASON FOR CONSULTATION AND FOLLOWUP: Coronary artery disease, status post coronary artery angioplasty and stent insertion; congestive heart failure; and deconditioning. SUBJECTIVE: The patient is lying flat in bed without any chest pain or shortness of breath. He is getting physical therapy and during physical therapy, he does not have any cardiac symptoms. PHYSICAL EXAMINATION VITAL SIGNS: The patient's blood pressure lying down 101/65, sitting up 96/60 and standing up 85/51, so he has borderline postural hypotension. Yesterday, his lisinopril was discontinued. The patient was continued on Entresto. HEENT: Head is normocephalic. Eyes; pupils normal. Conjunctivae normal. Nose and throat, normal. NECK: JVP low. Carotids equal. THORAX: AP diameter normal. LUNGS: Clear. CARDIOVASCULAR: S1 and S2. ABDOMEN: Soft. No tenderness. No organomegaly. Bowel sounds normal. EXTREMITIES: No clubbing. No cyanosis. LABORATORY DATA: Labs were done on 02/22/2019 and they were reported previous progress notes. DIAGNOSES: Coronary artery disease, status post angioplasty and stent insertion with ramus intermedius, which was 99% blocked. Two stents were placed, one in the proximal and one in the mid ramus intermedius. Prior to that, the patient had angioplasty of left anterior descending artery and right coronary artery and right posterior descending artery on 01/21/2017. The patient also know to have hypertension, diabetes, dyslipidemia, ischemic cardiomyopathy. The patient's ejection fraction has fallen from 55% with 35-40%, [id number] mitral regurgitation, [id number] tricuspid regurgitation, right ventricular systolic pressure 58 mmHg, suggestive of icirpwrf-[id number]-mmbovx pulmonary hypertension, status post pacemaker insertion, deconditioning, and borderline postural hypotension. PLAN: The patient's lisinopril was discontinued yesterday and Entresto was continued. The patient is on spironolactone 25 daily, amiodarone 200 daily, aspirin 81 daily, Eliquis 5 b.i.d., fludrocortisone 0.1 mg p.o. daily, potassium 20 mEq p.o. daily, furosemide 40 b.i.d., metoprolol 25 b.i.d., amlodipine 10 mg daily, Plavix 75 daily, and Protonix 40 b.i.d. With angioplasty of ramus intermedius which is a large vessel, hoping that his LV ejection fraction will improve and this procedure was done on 02/21/2019. We will continue physical therapy and we will follow with you. Tyree Sanchez MD
[2019-02-25] MEDS: Pantoprazole 40 mg EC Tab PO SCH ×2 (05:44→16:58)
[2019-02-25] MEDS: Potassium Chloride 20 mEq ER Tab PO SCH (08:13)
[2019-02-25] MEDS: SACUBITRIL 24mg/VALSARTAN 26mg tab PO SCH ×2 (09:29→17:00)
[2019-02-25] MEDS: POLYETHYLENE GLYCOL 3350 17 GM/Dose PACKET PO SCH ×2 (09:29→17:00)
--- NOTE | 2019-02-25 11:18 | PN ---
DATE: 02/25/2019 PULMONARY PROGRESS NOTE REFERRING PHYSICIAN: Rosita Zavala MD SUBJECTIVE: The patient is seen sitting in bed, head of bed elevated. No acute distress. No overnight events reported. Reports not using CPAP machine last night. No headache, rhinitis, cough, shortness of breath, chest pain, abdominal pain, nausea, vomiting, diarrhea, leg pain, leg swelling reported. OBJECTIVE: GENERAL: No acute distress. VITAL SIGNS: Blood pressure 138/79, pulse 61, temperature 98.2, oxygen saturation 96% on room air. HEENT: Moist mucous membranes. Mallampati score 4. Crowded airway. NECK: Supple. No JVD. RESPIRATORY: Fair airflow bilaterally. CARDIOVASCULAR: S1, S2. ABDOMEN: Soft, nontender. No distention. No organomegaly. EXTREMITIES: No bilateral lower extremity edema. NEUROLOGIC: Awake, alert, verbal. Following commands. MEDICATIONS: Reviewed. DuoNeb 3 mL inhalation every 6 hours, amiodarone 200 mg daily, Norvasc 10 mg daily, Eliquis 5 mg twice a day, aspirin 81 mg daily, Plavix 75 mg daily, Colace 100 mg twice a day, ergocalciferol 50,000 units every 7 days, Florinef 0.1 mg daily, Lasix 20 mg twice a day, hydralazine 10 mg four times a day p.r.n., Ativan 0.25 mg every 6 hours p.r.n., metoprolol tartrate 25 mg daily, Protonix 40 mg twice a day, MiraLax 17 g twice a day, potassium chloride 20 mEq daily, Entresto 1 tablet twice a day, spironolactone 25 mg daily. LABORATORY DATA: Reviewed. No new labs. IMPRESSION AND PLAN: Heart failure, coronary artery disease, history of cardiac arrhythmia requiring pacemaker, history of colon cancer, uncontrolled hypertension, suspected sleep apnea syndrome, pulmonary hypertension, orthostatic hypotension, status post cardiac catheterization. Continue Cardiology followup. Spoke to the patient this morning regarding using continuous positive airway pressure machine, post spoke to the patient regarding sleep apnea and the risk of cardiopulmonary disease associated with sleep apnea. The patient verbalized understanding and stated that he will try to use continuous positive airway pressure machine tonight. Continue to encourage continuous positive airway pressure at bedtime. Sleep apnea precaution. Head of the bed elevated at 45 degrees. Continue gastric prophylaxis. Currently, on anticoagulation therapy. Continue physical therapy. Recommend this patient have sleep study as outpatient to rule out sleep apnea as cause for cardiac arrhythmia, heart disease. Fall precautions. The patient was seen and examined with Dr. Duque. Discussed assessment and plan as described above. The patient was seen and examined by Antoine Dodson, nurse practitioner. Discussed assessment and plan as described above. Thank you for this consult. We will follow with you. Antoine Dodson APN Tyree Duque MD
--- NOTE | 2019-02-25 13:36 | PN ---
DATE: 02/25/2019 LOCATION: The patient is in room 319, bed 1. REASON FOR CONSULTATION AND FOLLOWUP: Coronary artery disease, status post coronary artery angioplasty and stent insertion; congestive heart failure; and deconditioning. SUBJECTIVE: The patient denies any chest pain or shortness of breath, continues to get physical therapy. The patient was on medical floor with very congestive heart failure and had cardiac catheterization found to have ramus intermedius 99% block for which 2 stents were put in, one in the proximal and one in the mid ramus intermedius on February 21, 2019. PHYSICAL EXAMINATION: VITAL SIGNS: Blood pressure 107/68 earlier pressure was 138/79, respirations 18, pulse 61, and the patient is afebrile. HEENT: Head is normocephalic. Eyes; pupils normal and conjunctivae normal. NECK: JVP low. Carotids equal. THORAX: AP diameter normal. LUNGS: Clear. CARDIOVASCULAR: S1 and S2. ABDOMEN: Soft and nontender. No organomegaly. Bowel sounds normal. EXTREMITIES: No clubbing. No cyanosis. LABORATORY DATA: WBC 6.9, hemoglobin 13.8, hematocrit 42.5 and platelets 160. Sodium 143, potassium 4.9, BUN 33, creatinine 1.3. AST and ALT are normal. Total protein and albumin are normal. DIAGNOSES: Coronary artery disease, 2 stent inserted in ramus intermedius in proximal and mid portion on February 21, 2019 due to 99% blockage, congestive heart failure. Prior to those stents, the patient also had angioplasty in the past on left anterior descending artery and right coronary artery and right posterior descending coronary artery on January 21, 2017. The patient known to have congestive heart failure, hypertension, diabetes, dyslipidemia, ischemic cardiomyopathy. The patient's ejection fraction has fallen from previous 55% to now 35% to 40% on catheterization, ntow-if-pwfuteys mitral regurgitation, uyrmjiil-zu-fcyddb tricuspid regurgitation, right ventricular systolic pressure 58 mmHg, suggestive of embvewob-kl-wsptxt pulmonary hypertension, status post pacemaker insertion, deconditioning, and borderline postural hypotension. PLAN: The patient denies any cardiac symptoms. Denies any dizziness. Continuing physical therapy and we will continue present therapy with spironolactone 25 mg daily, amiodarone 200 mg daily, aspirin 81 mg daily, Eliquis 5 mg b.i.d., fludrocortisone 0.1 mg p.o. daily, potassium 20 mEq daily, furosemide 40 mg b.i.d., metoprolol 25 mg b.i.d., amlodipine 10 mg daily, Plavix 75 mg daily, and Protonix 40 mg b.i.d. Hope is that the patient's ejection fraction will improve with opening up of the ramus intermedius which is that large vessel. In the meantime, physical therapy will be continued. Tyree Sanchez MD
--- NOTE | 2019-02-25 15:47 | PN ---
DATE: 02/25/2019 SUBJECTIVE: He is comfortable in bed in no acute distress. No chest pain. No shortness of breath. He is participating in physical therapy. Blood count is stable. REVIEW OF SYSTEMS: As per HPI. Rest of 12-point review of systems reviewed and negative. PHYSICAL EXAMINATION: GENERAL: Comfortable in bed in no acute distress. VITAL SIGNS: Temperature 98, blood pressure 107/68, heart rate is 61, respiratory rate 18 per minute. HEENT: No pallor. NECK: No lymphadenopathy. CHEST: Air entry present and equal bilaterally. No added sounds. CARDIOVASCULAR: S1 and S2 normal. No murmur. No gallop. ABDOMEN: Soft and nontender. No hepatosplenomegaly. EXTREMITIES: No edema. LABORATORY DATA: White count 6.9, hemoglobin 13.8, hematocrit 42 and platelets 160. BUN 33, creatinine 1.3. MEDICATIONS: Reviewed. ASSESSMENT AND PLAN: 1. Colon cancer in remission. 2. Coronary artery disease, status post 2 stent placed in the coronary artery with . 3. Congestive heart failure, currently stable. 4. Participating in physical therapy. 5. Accelerated hypertension. Blood pressure controlled with current medications. 6. History of anemia, hemoglobin and hematocrit stable. We will continue to follow. Thank you Dr. Rosita Zavala for allowing us to participate in Mr. Ruff's care. Mariela Schaffer MD
[2019-02-26] MEDS: Pantoprazole 40 mg EC Tab PO SCH ×2 (06:22→17:00)
--- NOTE | 2019-02-26 08:09 | PN ---
DATE: 02/26/2019 REFERRING PHYSICIAN: Rosita Zavala MD SUBJECTIVE: The patient seen lying in bed, no acute distress. No overnight events reported. Did not wear CPAP machine last night. Reports feeling well this morning. No headache, rhinitis, cough, shortness of breath, chest pain, abdominal pain, nausea, vomiting, diarrhea, leg pain or leg swelling reported. OBJECTIVE: VITAL SIGNS: Blood pressure 131/70, pulse 80, oxygen saturation 93%, afebrile. GENERAL: No acute distress. HEENT: Moist mucous membranes. Mallampati score 4. Crowded airway. NECK: Supple. No JVD. RESPIRATORY: Fair airflow bilaterally. CARDIOVASCULAR: S1, S2. ABDOMEN: Soft, nontender. No distention. No organomegaly. EXTREMITIES: No bilateral lower extremity edema. NEUROLOGIC: Awake, alert, verbal. Following commands. MEDICATIONS: Reviewed. DuoNeb 3 mL inhalation every 6 hours p.r.n., amiodarone 200 mg daily, Norvasc 10 mg daily, Eliquis 5 mg twice a day, aspirin 81 mg daily, Plavix 75 mg daily, Colace 100 mg twice a day, ergocalciferol 50,000 units every 7 days, Florinef 0.1 mg daily, Lasix 20 mg twice a day, hydralazine 10 mg four times a day p.r.n., Ativan 0.25 mg every 6 hours p.r.n., metoprolol tartrate 25 mg daily, Protonix 40 mg twice a day, MiraLax 17 g twice a day, potassium chloride 20 mEq daily, Entresto one tablet twice a day, spironolactone 25 mg daily. LABORATORY DATA: Reviewed. No new labs. IMPRESSION AND PLAN: Heart failure, coronary artery disease, history of cardiac arrhythmia requiring pacemaker, history of colon cancer, uncontrolled hypertension, suspected sleep apnea syndrome, pulmonary hypertension, orthostatic hypotension, status post cardiac catheterization. Continue Cardiology followup. Pulmonary point of view, continue to encourage continuous positive airway pressure use at bedtime, sleep apnea precaution, and head of bed elevated at 45 degrees. Continue gastric prophylaxis. Currently on anticoagulation therapy. Continue physical therapy. Recommend the patient have sleep study as outpatient to rule out sleep apnea syndrome as cause for cardiac arrhythmia, heart disease. Fall precautions. We will order labs to be drawn in the morning. The patient was seen and examined with Dr. Duque. Discussed assessment and plan as described above. The patient was seen and examined with Antoine Dodson, nurse practitioner. Discussed assessment and plan as described above. Thank you for this consult. We will follow with you. Antoine Dodson APN Tyree Duque MD
[2019-02-26] MEDS: Potassium Chloride 20 mEq ER Tab PO SCH (08:13)
[2019-02-26] MEDS: SACUBITRIL 24mg/VALSARTAN 26mg tab PO SCH ×2 (10:09→17:16)
[2019-02-26] MEDS: POLYETHYLENE GLYCOL 3350 17 GM/Dose PACKET PO SCH ×2 (11:00→17:18)
--- NOTE | 2019-02-26 16:27 | PN ---
DATE: 02/26/2019 LOCATION: The patient is in room 319, bed 1. REASON FOR CONSULTATION AND FOLLOWUP: Coronary artery disease, status post coronary artery angioplasty and stent insertion; congestive heart failure; and deconditioning. SUBJECTIVE: The patient is sitting in chair without any chest pain or shortness of breath. No palpitation. The patient was on medical floor from where he is transferred to Transitional Care Unit on medical floor. The patient had cardiac catheterization done, ramus intermedius 99% blockage, for which two stents were put in, one in the proximal and one in the mid ramus intermedius on 02/21/2019. The patient is asymptomatic from cardiac point of view. PHYSICAL EXAMINATION: VITAL SIGNS: Blood pressure 100/65, respirations 18, pulse 62. The patient is afebrile. HEENT: Head is normocephalic. Eyes: Pupils normal, conjunctivae normal. Nose and throat normal. NECK: JVP low. Carotids equal. THORAX: AP diameter normal. LUNGS: Clear. CARDIOVASCULAR: S1 and S2. ABDOMEN: Soft. No tenderness. No organomegaly. Bowel sounds normal. EXTREMITIES: No clubbing. No cyanosis. LABORATORY DATA: WBC 6.9, hemoglobin 13.8, hematocrit 42.5 and platelets 160. Sodium 143, potassium 3.9, BUN 33, creatinine 1.3. Random glucose 119. Calcium, AST, ALT, total protein, albumin and globulin are normal. DIAGNOSES: Coronary artery disease; two stents insertion in ramus intermedius in proximal and mid portion on February 21, 2019 due to 90% blockage of ramus intermedius, for which stents were put in, one in the proximal and one in the middle; congestive heart failure. The patient in the past also had stents insertion in left anterior descending artery and right coronary artery and right posterior descending coronary artery on January 21, 2017. The patient known to have congestive heart failure, hypertension, diabetes, dyslipidemia, ischemic cardiomyopathy. The patient's ejection fraction has fallen from 45% to now 35-40% on cardiac catheterization, socd-bu-rikcoyer mitral regurgitation, erxyzsoz-ui-bvoucv tricuspid regurgitation, right ventricular systolic pressure 58 mmHg, suggestive of lfxlmvgv-qh-wcryav pulmonary hypertension on echocardiogram, status post pacemaker insertion, deconditioning, and borderline postural hypotension. PLAN: The patient is asymptomatic now. Denies any dizziness, chest pain, shortness of breath. We will continue the medications as ordered. Spironolactone 25 mg daily, amiodarone 200 mg daily, aspirin 81 mg daily, Eliquis 5 mg b.i.d., potassium 20 mEq daily, furosemide 20 mg b.i.d., metoprolol 25 mg daily, amlodipine 10 mg daily, Plavix 75 mg daily, and Protonix 40 mg b.i.d. The patient's lisinopril was stopped because of hypotension. The patient also on Entresto 1 b.i.d. We will continue physical therapy. Tyree Sanchez MD
--- NOTE | 2019-02-26 23:09 | PN ---
DATE: 02/26/2019 SUBJECTIVE: The patient was seen and examined at the bedside on 02/26/2019. No change in the status, looking comfortable. No fever. No chills. No hematuria. No hematochezia. No headache. No dizziness. No chest pain. No palpitations. PHYSICAL EXAMINATION: VITAL SIGNS: Blood pressure 130/70, pulse 88, and oxygen saturation 93%. HEENT: Head; normocephalic and atraumatic. Eyes; PERRLA. Extraocular muscles intact. Conjunctivae clear. Nose patent. Mucous membranes moist. NECK: Supple. No carotid bruit. No thyromegaly. CHEST: Bilaterally symmetrical. HEART: S1 and S2 positive. LUNGS: Clear to auscultation. ABDOMEN: Soft. Bowel sounds present. No organomegaly. EXTREMITIES: No edema. No cyanosis. NEUROLOGIC: The patient is awake, alert. Moving all four extremities. No focal deficits. MEDICATIONS: DuoNeb, amiodarone, Eliquis, aspirin, Plavix, Colace, vitamin D, Florinef, Lasix, hydralazine, Ativan, metoprolol tartrate, MiraLax, spironolactone. LABORATORY DATA: We do not have recent labs today, but I reviewed the old labs. ASSESSMENT AND PLAN: Mr. Speedy De Jesus is an 88-year-old male with multiple medical problems,colon cancer, anemia, congestive heart failure, coronary artery disease, history of cardiac arrhythmia requiring pacemaker, uncontrolled hypertension, sleep apnea syndrome, orthostatic hypotension status post cardiac catheterization. Cardiology is on the case. Seen by the knife glazer also. Sleep apnea precautions. Bed elevated by 45 degrees. Continue gastrointestinal and deep venous thrombosis prophylaxis. Continue physical therapy. Repeat labs. We will follow up. Rosita Zavala MD
[2019-02-27] MEDS: Pantoprazole 40 mg EC Tab PO SCH ×2 (06:21→16:45)
[2019-02-27 07:02] LABS: BASO # 0.01 K/mm3 (0.0-2.0); BASO % 0.2 % (0.0-3.0); EOS # 0.1 (0.0-0.7); EOS % 1.6 % (1.5-5.0); HEMOGLOBIN 13.2 g/dL (14.0-18.0); LYMPH # 1.5 (1.2-3.4); LYMPH % 24.2 % (22.0-35.0); MEAN CELL VOLUME 96.7 fl (80.0-105.0); MEAN CORPUSCULAR HEMOGLOBIN 30.8 pg (25.0-35.0); MEAN CORPUSCULAR HGB CONC 31.9 g/dl (31.0-37.0); MEAN PLATELET VOLUME 10.7 fl (7.0-11.0); MONO # 0.9 (0.1-0.6); MONO % 13.7 % (1.0-6.0); RBC 4.28 10^6/uL (3.5-6.1); RED CELL DISTRIBUTION WIDTH 14.1 % (11.5-14.5); WHITE BLOOD COUNT 6.4 10^3/uL (4.5-11.0)
[2019-02-27 07:30] LABS: CALCIUM 9.2 mg/dL (8.4-10.5)
[2019-02-27] MEDS: Potassium Chloride 20 mEq ER Tab PO SCH (07:46)
[2019-02-27] MEDS: POLYETHYLENE GLYCOL 3350 17 GM/Dose PACKET PO SCH ×2 (09:35→17:22)
--- NOTE | 2019-02-27 09:37 | PN ---
DATE: 02/25/2019 SUBJECTIVE: The patient is an 88-year-old male. The patient was seen and examined at bedside on 02/25/2019. Looking comfortable. No fever, no chills. No hematuria, no hematochezia. No headache, no dizziness. No chest pain, no palpitations. PHYSICAL EXAMINATION: VITAL SIGNS: Blood pressure 130/70, pulse 61, temperature 98.3, oxygen saturation 96% on room air. HEENT: Head, normocephalic and atraumatic. Eyes, PERRLA, extraocular muscles intact, conjunctivae clear. Nose patent. Mucous membranes moist. NECK: Supple. No carotid bruits. No JVD. No thyromegaly. CHEST: Bilaterally symmetrical. HEART: S1 and S2 positive. LUNGS: Clear to auscultation. ABDOMEN: Soft. Bowel sounds are present. No organomegaly. EXTREMITIES: No edema. No cyanosis. NEUROLOGIC: The patient is awake and alert. Moving all 4 extremities. No focal deficits. MEDICATIONS: DuoNeb, amiodarone, Norvasc, Eliquis, aspirin, Plavix, Florinef, Lasix, hydralazine, Ativan, pantoprazole, Protonix, potassium. LABORATORY DATA: We do not have recent labs of today, but I reviewed the old labs. ASSESSMENT AND PLAN: an 88-year-old male with multiple medical problems. He has congestive heart failure, coronary artery disease, history of cardiac arrhythmia, requiring pacemaker, history of colon cancer, uncontrolled hypertension, sleep apnea syndrome, pulmonary hypertension, orthostatic hypotension, status post cardiac catheterization. Continue current treatment. Physical therapy. Gastrointestinal and deep venous thrombosis prophylaxis. Repeat laboratories. We will follow up. Rosita Zavala MD IL[facility]
[2019-02-27] MEDS: SACUBITRIL 24mg/VALSARTAN 26mg tab PO SCH ×2 (10:06→17:22)
[2019-02-27 10:29] VITALS: RESP 18
--- NOTE | 2019-02-27 13:24 | PN ---
DATE: 02/27/2019 PULMONARY PROGRESS NOTE REFERRING PHYSICIAN: Rosita Zavala MD SUBJECTIVE: The patient is seen lying in bed. No acute distress. No overnight events reported. The patient noted low blood pressure. The patient denies any symptoms, did not wear CPAP machine last night. No headache, rhinitis, cough, shortness of breath, chest pain, abdominal pain, nausea, vomiting, diarrhea, leg pain or leg swelling reported. OBJECTIVE: GENERAL: No acute distress. VITAL SIGNS: Blood pressure 91/62, pulse 64, temperature 97.6, oxygen saturation 96% on room air. HEENT: Moist mucous membranes. Mallampati score 4. Crowded airway. NECK: Supple. No JVD. RESPIRATORY: Fair airflow bilaterally. CARDIOVASCULAR: S1, S2. ABDOMEN: Soft, and nontender. No distention. No organomegaly. EXTREMITIES: No bilateral lower extremity edema. NEUROLOGIC: Awake, alert and verbal. Following commands. MEDICATIONS: Reviewed. DuoNeb 3 mL inhalation every 6 hours p.r.n., amiodarone 200 mg daily, Norvasc 10 mg daily, Eliquis 5 mg twice a day, aspirin 81 mg daily, Plavix 75 mg daily, Colace 100 mg daily, ergocalciferol 50,000 units one cap every 7 days, Florinef 0.1 mg daily, Lasix 20 mg twice a day, hydralazine 10 mg 4 times a day p.r.n., Ativan 0.25 mg every 6 hours p.r.n., metoprolol tartrate 25 mg daily, Protonix 40 mg twice a day, MiraLax 17 g twice a day, Entresto 1 tablet twice a day, Aldactone 25 mg daily. LABORATORY DATA: Reviewed. WBC 6.4, RBC 4.28, hemoglobin 13.2, hematocrit 41.4 and platelets 185. Sodium 140, potassium 5.0, chloride 102, carbon dioxide 30, anion gap 14, BUN 46, creatinine 2.0, GFR 32, random glucose 113, calcium 9.2. IMPRESSION AND PLAN: Heart failure, coronary artery disease, history of cardiac arrhythmia requiring pacemaker, history of colon cancer, uncontrolled hypertension, obstructive sleep apnea syndrome, pulmonary hypertension, orthostatic hypotension, status post cardiac catheterization. Continue Cardiology followup. We will discontinue Lasix and Aldactone as the patient at this time does not have any sign and symptoms of heart failure and BUN and creatinine have elevated. We will order labs to be drawn in the morning may need to be followed up closely. We will monitor the patient closely for any signs of symptoms of heart failure, should the patient have any signs and symptoms of heart failure, we will restart medication. Continue to encourage continuous positive airway pressure use at bedtime, sleep apnea precaution, head of bed elevated at 45 degrees. Gastric prophylaxis, currently on anticoagulation therapy. Continue physical therapy. Recommend the patient have sleep study as outpatient to rule out sleep apnea syndrome is caused for cardiac arrhythmia, heart disease, fall precautions. The patient was seen and examined with Dr. Duque. Discussed assessment and plan as described above. The patient was seen and examined by Antoine Dodson, nurse practitioner. Discussed assessment and plan as described above. Thank you for this consult and we will follow with you. Antoine Dodson APN Tyree Duque MD [facility]
--- NOTE | 2019-02-27 15:07 | CARD ---
APPROVED REPORT Date of service: 02/27/2019 EKG Measurement Heart [id number] <Conclusion> Electronic ventricular pacemaker
--- NOTE | 2019-02-27 16:48 | PN ---
DATE: 02/27/2019 LOCATION: The patient is in room 319, bed 1. REASON FOR CONSULTATION: Follow up coronary artery disease, status post coronary artery angioplasty and stent insertion; congestive heart failure; and deconditioning. SUBJECTIVE: The patient admitted with shortness of breath and decreasing LV ejection fraction cardiac catheterization and has two stents put in his ramus intermedius in the proximal and middle of the segment because of the 99% stenosis; this was done on 02/21/2019. The patient is now getting physical therapy. No chest pain. No shortness of breath. No palpitation. PHYSICAL EXAMINATION: VITAL SIGNS: Blood pressure 91/62, respirations 18, pulse 64, and temperature 97.6. HEENT: Head is normocephalic. Eyes; pupils normal, conjunctivae normal. Nose and throat normal. NECK: JVP low. Carotids equal. THORAX: AP diameter normal. LUNGS: Clear. CARDIOVASCULAR: S1 and S2. ABDOMEN: Soft. No tenderness. No organomegaly. Bowel sounds normal. EXTREMITIES: No clubbing. No cyanosis. LABORATORY DATA: WBC 6.4, hemoglobin 13.2, hematocrit 41.4, and platelets 185. Sodium 140, potassium 5.0, BUN 46, creatinine 2.0, glucose 113, and calcium 9.2. DIAGNOSES: Coronary artery disease, two stents insertion in ramus intermedius, proximal and mid portion on 02/21/2019 due to 90% blockage of the vessel and congestive heart failure. Previously, the patient had stent insertion in the left anterior descending artery and right coronary artery and right posterior descending coronary artery on 01/21/2007. Known to have congestive heart failure, hypertension, diabetes, dyslipidemia, and ischemic cardiomyopathy. The patient's ejection fraction has fallen from 45% to now 35-40%. Cardiac catheterization, njoj-zs-jnprvtan mitral regurgitation, ndnthzlg-kj-plwbga tricuspid regurgitation, right ventricular systolic pressure 58 mmHg suggestive of ckpbkixe-ed-klhwod pulmonary hypertension, on echocardiogram status post pacemaker insertion, deconditioning, and borderline postural hypotension. PLAN: Continue physical therapy. The patient denies any cardiac symptom,s physical therapy. Continue spironolactone 25 mg daily, amiodarone 200 mg daily, aspirin 81 mg daily. Eliquis is 5 mg b.i.d., but BUN 46, creatinine 2.0, so we will cut back for the time being to 2.5 b.i.d. Eliquis will be changed as I mentioned and the patient is also getting aspirin 81, Eliquis 5 b.i.d., potassium 20 daily, furosemide 20 b.i.d., metoprolol 25 mg daily, amlodipine 10 mg daily, Plavix 75 mg daily, and Protonix 40. Ativan daily, but we will stop the aspirin. We will continue Plavix. The patient's lisinopril was already stopped before. The patient is also on Entresto 1 b.i.d. and we will follow with you. Tyree Sanchez MD
--- NOTE | 2019-02-27 19:09 | PN ---
DATE: 02/27/2019 SUBJECTIVE: The patient was seen at the bedside on 02/27/2019. The patient is looking comfortable. No fever. No chills. No hematuria. No hematochezia. No headache. No dizziness. No chest pain. No palpitations. PHYSICAL EXAMINATION: VITAL SIGNS: Temperature 97.6, pulse 67, blood pressure 82/61, respiratory rate 18. HEENT: Head; normocephalic, atraumatic. Eyes; PERRLA. Extraocular muscles intact. Conjunctivae clear. Nose patent. Mucous membranes moist. NECK: Supple. No carotid bruit. No thyromegaly. CHEST: Bilaterally symmetrical. HEART: S1, S2. Positive. LUNGS: Clear to auscultation. ABDOMEN: Soft. Bowel sounds present. No organomegaly. EXTREMITIES: No edema. No cyanosis. NEUROLOGIC: The patient is awake, alert. Follows simple commands. MEDICATIONS: Hydralazine, Ativan, Colace, Cardizem, amiodarone, albuterol, Eliquis, Florinef, Lopressor, MiraLax, Norvasc, Plavix, Protonix. LABORATORY DATA: White blood cell 6.4, hemoglobin 13.2, hematocrit 41.4, platelets 185. Sodium 140, potassium 5, BUN 46, creatinine 2, glucose 113. ASSESSMENT AND PLAN: The patient is an 88 year old male with anemia, renal insufficiency, hyperglycemia, had coronary artery disease, status post two stents in the ramus intermedius in proximal and mid portion on 02/21/2019 with 90% blockage of the ramus intermedius for which the stents were put, one in the proximal and one in the middle, history of congestive heart failure, colon cancer, anemia status post blood transfusion, dyslipidemia, ischemic cardiomyopathy, chronic obstructive pulmonary disease. The patient is asymptomatic as per evp and chief operating officer. Blood pressure is going down. Continue medications as per Cardiology, spironolactone, amiodarone, aspirin, Eliquis. The patient is getting physical therapy in transitional care unit. GI prophylaxis. Repeat labs. We will follow up. Rosita Zavala MD MTDD
[2019-02-28] MEDS: Pantoprazole 40 mg EC Tab PO SCH ×2 (05:51→17:47)
[2019-02-28 07:35] LABS: CALCIUM 9.3 mg/dL (8.4-10.5)
[2019-02-28] MEDS: SACUBITRIL 24mg/VALSARTAN 26mg tab PO SCH ×2 (09:57→17:47)
[2019-02-28] MEDS ORDERED: Sodium Chloride 0.9% 1,000 ML IV SCH (10:30)
[2019-02-28] MEDS: POLYETHYLENE GLYCOL 3350 17 GM/Dose PACKET PO SCH ×2 (11:05→17:48)
--- NOTE | 2019-02-28 12:22 | PN ---
DATE: 02/28/2019 PULMONARY PROGRESS NOTE REFERRING PHYSICIAN: Roista Zavala MD SUBJECTIVE: The patient is seen lying in bed. No acute distress. No overnight events reported. Did not wear CPAP machine last night. No headache, rhinitis, cough, shortness of breath, chest pain, abdominal pain, nausea, vomiting, diarrhea, leg pain, leg swelling reported. OBJECTIVE: GENERAL: No acute distress. VITAL SIGNS: Blood pressure 111/71, pulse 63, temperature 98.5, oxygen saturation 98% on room air. HEENT: Moist mucous membranes. Mallampati score 4. Crowded airway. NECK: Supple. No JVD. RESPIRATORY: Fair airflow bilaterally. CARDIOVASCULAR: S1 and S2. ABDOMEN: Soft and nontender. No distention. No organomegaly. EXTREMITIES: No bilateral lower extremity edema. NEUROLOGIC: Awake, alert, and verbal. Following commands. MEDICATIONS: Reviewed. DuoNeb 3 mL inhalation every 6 hours p.r.n., amiodarone 200 mg daily, Eliquis 2.5 mg twice a day, Coreg 3.125 mg twice a day, Plavix 75 mg daily, digoxin 0.125 mg Wednesday, Wednesday, Wednesday, Colace 100 mg twice a day, ergocalciferol 50,000 units one cap every 7 days, Florinef 0.1 mg daily, hydralazine 10 mg four times a day p.r.n. for elevated blood pressure, Ativan 0.25 mg every 6 hours p.r.n., Protonix 40 mg twice a day, MiraLax 17 g twice a day, potassium chloride 20 mEq daily, Entresto 1 tab twice a day, sodium chloride 0.9% at 1000 mL at 50 mL/hour. LABORATORY DATA: Reviewed. Sodium 141, potassium 5, chloride 104, carbon dioxide 30, anion gap 13, BUN 48, creatinine 2.1, GFR 30, random glucose 117, calcium 9.3. EKG shows electronic ventricular pacemaker. IMPRESSION AND PLAN: Heart failure, coronary artery disease, history of cardiac arrhythmia requiring pacemaker, history of colon cancer, uncontrolled hypertension, obstructive sleep apnea syndrome, pulmonary hypertension, orthostatic hypotension, status post cardiac catheterization, which showed 98% blockage of the ramus intermedius for which stents were placed one in the proximal and one in the middle, history of anemia, ischemic cardiomyopathy. Continue Cardiology followup. The patient has new orders to start intravenous fluids. Amlodipine was discontinued this morning. Continue physical therapy. Continue Cardiology followup. Continue to encourage continuous positive airway pressure use at bedtime. Sleep apnea precaution. Head of bed elevated at 45 degrees. Gastric prophylaxis, currently on anticoagulation therapy. Recommend the patient to have sleep study as outpatient to rule out sleep apnea syndrome as a cause for cardiac arrhythmia, heart disease. Fall precautions. Labs are ordered to be drawn in the morning. The patient was seen and examined with Dr. Duque. Discussed assessment and plan as described above. The patient was seen and examined by Antoine Dodson, nurse practitioner. Discussed assessment and plan as described above. Thank you for this consult. We will follow with you. Antoine Dodson APN Tyree Duque MD
--- NOTE | 2019-02-28 15:43 | PN ---
DATE: 02/28/2019 REASON FOR CONSULTATION AND FOLLOWUP: Acute coronary artery disease with status post angioplasty, atrial fibrillation and flutter the patient has persistent atrial flutter, deconditioning of the body. SUBJECTIVE: The patient denies any chest pain, shortness of breath, any palpitation. OBJECTIVE: GENERAL: Not in apparent distress. VITAL SIGNS: Temperature afebrile. Heart rate 60 and blood pressure 101/78. HEENT: PERRLA. Extraocular muscles intact. NECK: Supple. No carotid bruits. No thyromegaly. CHEST: Clear to auscultation. HEART: S1 and S2, regular. ABDOMEN: Soft. EXTREMITY: Clubbing and cyanosis, negative. LABORATORY DATA: Blood workup as follows, WBC 6.4, hemoglobin 13.2, hematocrit 41.4 and platelet count 185. Chemistry shows sodium of 141, potassium 5, chloride 104, carbon dioxide 30, anion gap of 13, BUN 28 and creatinine 2.1. EKG done that shows v-paced rhythm with underlying atrial flutter with variable block, now since the patient is v-paced, x-ray shows v-paced rhythm. ASSESSMENT AND PLAN: An 88-year-old male with past medical history significant for coronary artery disease, status post stent, post stent, the patient developed gastrointestinal bleed. 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 The patient underwent cardiac catheterization that revealed ramus intermedius high grade stenosis 90% status post stent with drug eluting on 02/21/2019, also found to be atrial fibrillation converting into sinus briefly, where he was found to be later on the patient persistent atrial flutter. Yesterday repeat EKG was then found to be atrial flutter with v-paced rhythm. The patient with a prior stent in left anterior descending as mentioned in the right coronary artery and right posterior descending artery in 01/21/2017. The patient has a decreased left ventricular function 45, now 35. Cardiac catheterization mild to moderate mitral regurgitation and moderate to severe tricuspid regurgitation after the systolic pressure of 58, seems to moderate to severe pulmonary hypertension by echo. RECOMMENDATION: Entresto started. Continue amiodarone 200 mg daily. Continue Eliquis 2.5 p.o. b.i.d. for atrial flutter and fibrillator. Continue Entresto one tablet p.o. b.i.d. Continue Plavix 75 mg daily. Discontinue aspirin. I will also discontinue amlodipine because the patient is running low blood pressure and we changed to Coreg 3.125 mg daily. We will discontinue also metoprolol, simplify the heart failure therapy regime. We will discontinue Norvasc as the patient is running low blood pressure. We will put depending upon the kidney function, we will put Digoxin Wednesday, Wednesday and Wednesday with holding parameters, also systolic less than 110. The patient has a pacemaker, heart rate is not an issue for Coreg. Continue Eliquis and Plavix for 1 year and then followed by baby aspirin and Eliquis after 1 year. We will also put Digoxin Wednesday, Wednesday and Wednesday 0.125 mg because of the renal adjusted dose. We will also hold the Lasix for day or two because of the worsening renal insufficiency and dehydration. Once becomes euvolemic, we will start Lasix again. We will give the gentle hydration. Normal saline at 50 mL an hour for 24 hours. I will do SMA-7 in the morning. Thank you Dr. Zavala for providing us the opportunity in taking care of the patient Neal. Tyree Dale MD
[2019-02-28 16:45] VITALS: O2SAT 97
[2019-03-01] MEDS: Pantoprazole 40 mg EC Tab PO SCH ×2 (06:12→17:40)
[2019-03-01 07:32] LABS: CALCIUM 8.9 mg/dL (8.4-10.5)
--- NOTE | 2019-03-01 08:34 | PN ---
DATE: 02/28/2019 SUBJECTIVE: The patient is an 88-year-old male. The patient was seen and examined at the bedside on 02/28/2019, looking comfortable. No fever. No chills. No hematuria. No hematochezia. No headache. No dizziness. No chest pain. No palpitations. PHYSICAL EXAMINATION: VITAL SIGNS: Temperature 97.6, pulse 67, blood pressure 82/61, and respiratory rate 18. HEENT: Head; normocephalic and atraumatic. Eyes; PERRLA. Extraocular muscles intact. Conjunctivae clear. Nose patent. NECK: Supple. No carotid bruit, JVD or thyromegaly. CHEST: Bilaterally symmetrical. HEART: S1 and S2 positive. LUNGS: Clear to auscultation. ABDOMEN: Soft. Bowel sounds present. No organomegaly. EXTREMITIES: No edema. No cyanosis. NEUROLOGIC: The patient is awake and alert. Follows simple commands. MEDICATIONS: Hydralazine, Ativan, Colace, Cardizem, amiodarone, albuterol, Eliquis, Florinef, Lopressor, MiraLax, Norvasc, Plavix, and Protonix. LABORATORY DATA: White blood cell 6.4, hemoglobin 13.2, hematocrit 41.4, and platelets 184. Sodium 140, potassium 5, and BUN 46. ASSESSMENT AND PLAN: Mr. De Jesus is an 88-year-old male with multiple medical problems, history of anemia, status post blood transfusion, renal insufficiency, hyperglycemia, coronary artery disease, status post 2 cardiac stents, history of colon cancer, congestive heart failure, cardiac arrhythmia, requiring pacemaker, uncontrolled hypertension off and on, pulmonary hypertension, and orthostatic changes . Gastrointestinal and deep venous thrombosis prophylaxes, getting physical therapy, repeat labs, and we will follow up. Rosita Zavala MD MTDJaqueline
[2019-03-01] MEDS ORDERED: Digoxin 125 mcg (0.125 mg) Tab PO SCH (10:00)
[2019-03-01] MEDS: SACUBITRIL 24mg/VALSARTAN 26mg tab PO SCH ×2 (10:45→17:39)
[2019-03-01] MEDS: POLYETHYLENE GLYCOL 3350 17 GM/Dose PACKET PO SCH ×3 (10:46→17:39)
[2019-03-01 10:47] VITALS: PULSE 64
--- NOTE | 2019-03-01 15:44 | PN ---
DATE: 03/01/2019 PULMONARY PROGRESS NOTE REFERRING PHYSICIAN: Rosita Zavala MD SUBJECTIVE: The patent seen in bed, no acute distress, no overnight events reported. Did not wear CPAP machine last night. No headache, rhinitis, cough, shortness of breath, chest pain, abdominal pain, nausea, vomiting, diarrhea, leg pain, or leg swelling reported. The patient denies dizziness when changing positions. OBJECTIVE: GENERAL: No acute distress. VITAL SIGNS: Blood pressure 119/71, pulse 64, temperature 98.5, and oxygen saturation 97% on room air. HEENT: Moist mucous membranes. Mallampati score 4. Crowded airway. NECK: Supple. No JVD. RESPIRATORY: Fair airflow bilaterally. CARDIOVASCULAR: S1 and S2. ABDOMEN: Soft and nontender. No distention. No organomegaly. EXTREMITIES: No bilateral lower extremity edema. NEUROLOGIC: Awake, alert, and verbal. Following commands. MEDICATIONS: Reviewed. DuoNeb 3 mL inhalation every 6 hours p.r.n., amiodarone 200 mg daily, Eliquis 2.5 mg twice a day, Coreg 3.125 mg twice a day, Plavix 75 mg daily, digoxin 0.125 mg Wednesday, Wednesday, and Wednesday, Colace 100 mg twice a day, ergocalciferol 50,000 units every 7 days, Florinef 0.1 mg daily, hydralazine 10 mg four times a day p.r.n., Ativan 0.25 mg every 6 hours p.r.n., Protonix 40 mg p.o. twice a day, MiraLax 17 g twice a day, potassium chloride 20 mEq daily, and Entresto 1 tab twice a day. LABORATORY DATA: Reviewed. Sodium 142, potassium 4.8, chloride 105, carbon dioxide 28, anion gap 13, BUN 39, creatinine 1.8, GFR 36, random glucose 103, and calcium 8.9. IMPRESSION AND PLAN: Heart failure, coronary artery disease, history of cardiac arrhythmia requiring pacemaker, history of colon cancer, obstructive sleep apnea syndrome, uncontrolled hypertension, pulmonary hypertension, status post cardiac catheterization, which showed 98% blockage of the ramus intermedius for which stents were placed during rehabilitation stay. The patient was noted with orthostatic hypotension. Past history of anemia and ischemic cardiomyopathy. Continue Cardiology followup. Continue physical therapy. Continue to encourage continuous positive airway pressure use at bedtime. Sleep apnea precaution, head of bed elevated at 45 degrees, gastric prophylaxis on anticoagulation therapy. Recommend the patient to have sleep study as outpatient to rule out sleep apnea syndrome as a cause for cardiac arrhythmia and heart disease. Labs were ordered for the morning. Fall precautions. We will follow up. The patient was seen and examined with Dr. Duque. Discussed assessment and plan as described above. The patient was seen and examined by Ivory Schultz, nurse practitioner. Discussed assessment and plan as described above. Thank you for this consult. We will follow with you. Antoine Dodson APN Tyree Duque MD
--- NOTE | 2019-03-01 15:44 | PN ---
DATE: 03/01/2019 LOCATION: The patient is in room 319, bed 1. REASON FOR CONSULTATION AND FOLLOWUP: Acute coronary artery disease, status post angioplasty and stent insertion, atrial fibrillation, flutter, deconditioning, history of CHF, and cardiomyopathy. SUBJECTIVE: The patient is lying flat in bed without chest pain or shortness of breath. He does not complain any cardiac symptom or getting physical therapy. PHYSICAL EXAMINATION: VITAL SIGNS: Blood pressure 119/71, respiration 18, pulse 64, and the patient is afebrile. HEENT: Head is normocephalic. Eyes; pupils normal. Conjunctivae normal. Nose and throat normal. NECK: JVP low. Carotids equal. THORAX: AP diameter normal. LUNGS: Clear. CARDIOVASCULAR: S1 and S2. ABDOMEN: Soft. No tenderness. No organomegaly. Bowel sounds normal. EXTREMITIES: No clubbing. No cyanosis. LABORATORY DATA: WBC 6.4, hemoglobin 13.2, hematocrit 41.4, and platelet 185. Sodium 142, potassium 4.8, BUN 39, creatinine 1.8, random glucose 103, and calcium 8.9. DIAGNOSES: An 88-year-old male with past medical history significant for coronary artery disease, status post stent. The patient had sinus breathing. 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 Admitted this time with acute coronary syndrome and cardiomyopathy. The patient underwent cardiac catheterization that revealed ramus intermedius high grade stenosis 90%, status post stent insertion with drug-eluting stent on 02/21/2019, also found to be in atrial fibrillation converted to sinus rhythm briefly, but later on it persisted into atrial flutter and fibrillation. Recent EKG also showed atrial fibrillation with ventricular paced rhythm. The patient's past stent was left anterior descending as mentioned in the right coronary and right posterior descending artery on 01/21/2017. The patient had decreased left ventricular ejection fraction of 45% and now it is 35%. Cardiac catheterization; [id number] mitral regurgitation and [id number] tricuspid regurgitation, and right ventricular systolic pressure 58 mmHg, [id number] pulmonary hypertension by echocardiogram. PLAN: Continue amiodarone 200 mg p.o. daily, Eliquis 2.5 mg b.i.d. for atrial fibrillation and flutter. The patient is also on Entresto 1 tablet p.o. b.i.d., and Plavix 75 mg daily. Discontinue aspirin. The patient's amlodipine has been discontinued because of low blood pressure. Earlier lisinopril was also discontinued due to low blood pressure, and we will change Coreg to 3.125 mg daily. The patient has a pacemaker. We will continue Eliquis and Plavix for one year; then follow by baby aspirin and Eliquis after one year. Digoxin on Wednesday, Wednesday, and Wednesday 0.125 because of renal dysfunction. Hold Lasix for a day or two because of worsening renal insufficiency. The patient was started on IV fluids 50 mL an hour yesterday, and today his BUN is 39 and creatinine 1.8. We will continue the same therapy and we will repeat SMA-7 in the morning. We will follow with you. Tyree Sanchez MD
[2019-03-01 16:43] VITALS: TEMP 98.1
--- NOTE | 2019-03-01 23:57 | PN ---
DATE: 03/01/2019 SUBJECTIVE: This is an 88-year-old male, came in with CHF exacerbation. The patient has past medical history of hypertension, CAD with stenting, hyperlipidemia, chronic anemia, deconditioning. I saw the patient today at the bedside. The patient looking comfortable, alert, oriented. Denies chest pain or shortness of breath. Denies hematuria, hematochezia, fevers, or chills. The patient is continuing physical therapy. PHYSICAL EXAMINATION GENERAL: The patient appeared in no acute distress, chronically ill. VITAL SIGNS: Temperature 97.9, pulse 87, blood pressure 90/*0, respiratory rate 1* on room air. HEENT: Normocephalic and atraumatic. PERRLA. Mucous membranes moist. NECK: Supple. No thyromegaly. RESPIRATORY: Clear to auscultation. CARDIOVASCULAR: S1 and S2. No JVD. ABDOMEN: Soft, nontender, nondistended. No organomegaly. SKIN: Intact. EXTREMITIES: The patient is moving all extremities. Ambulating with walker. No cyanosis. No edema. NEUROLOGIC: The patient is alert and oriented x3. No cognitive deficit. MEDICATIONS: The patient continues on DuoNeb, amiodarone, Eliquis, Coreg, Plavix, digoxin, Colace, hydralazine, Protonix, MiraLax, K-Dur. The patient is on Entresto.. LABORATORY DATA: From 02/27; white blood cells 6.4, hemoglobin 13.2, hematocrit 41.4, and platelet count 185. Sodium 142, potassium 4.8, BUN 39, GFR is 36, glucose 103. ASSESSMENT AND PLAN: This is an 88-year-old male with congestive heart failure, bradycardia, coronary artery disease with stenting, The patient continues on amiodarone, Eliquis, Coreg. The patient continues on digoxin, hydralazine, gastric prophylaxis Protonix. The patient is ambulating in physical therapy daily. The patient continues on valsartan. Cardiology and Pulmonology are on the case. The patient will probably be discharged tomorrow. Follow up with Cardiology as outpatient and Pulmonology as outpatient for sleep apnea. We will follow the patient. AGREED ALL ABOVE , CHART , MEDS , LABS NOTED , SATISFY WITH SYSTEMS ACCOUNTANT TREATMENT PLAN . LABS ORDERED FOR TOMORROW , Richard Lilly APN Rosita Zavala MD [facility] # [id number] [place]
[2019-03-02] MEDS: Pantoprazole 40 mg EC Tab PO SCH (05:25)
[2019-03-02 07:10] LABS: BASO # 0.01 K/mm3 (0.0-2.0); BASO % 0.2 % (0.0-3.0); EOS # 0.1 (0.0-0.7); HEMOGLOBIN 12.8 g/dL (14.0-18.0); LYMPH % 18.7 % (22.0-35.0); MEAN CELL VOLUME 96.4 fl (80.0-105.0); MEAN CORPUSCULAR HEMOGLOBIN 31.1 pg (25.0-35.0); MEAN CORPUSCULAR HGB CONC 32.2 g/dl (31.0-37.0); MEAN PLATELET VOLUME 10.6 fl (7.0-11.0); MONO # 0.6 (0.1-0.6); MONO % 10.8 % (1.0-6.0); RBC 4.12 10^6/uL (3.5-6.1); RED CELL DISTRIBUTION WIDTH 13.9 % (11.5-14.5); WHITE BLOOD COUNT 5.5 10^3/uL (4.5-11.0)
[2019-03-02 07:53] LABS: CALCIUM 9.1 mg/dL (8.4-10.5)
[2019-03-02 08:18] VITALS: BP 117/73
[2019-03-02] MEDS: Ergocalciferol 50,000 Intl Units Cap PO SCH (09:30)
[2019-03-02] MEDS: POLYETHYLENE GLYCOL 3350 17 GM/Dose PACKET PO SCH (09:31)
[2019-03-02] MEDS: SACUBITRIL 24mg/VALSARTAN 26mg tab PO SCH (09:31)
[2019-03-02 09:33] VITALS: PULSE 70
--- NOTE | 2019-03-02 10:48 | PN ---
DATE: 03/02/2019 PULMONARY PROGRESS NOTE REFERRING PHYSICIAN: Rosita Zavala MD SUBJECTIVE: The patent seen lying in bed. No acute distress. No overnight events reported. Did not wear CPAP machine last night. No headache, rhinitis, cough, shortness of breath, chest pain, abdominal pain, nausea, vomiting, diarrhea, leg pain, or leg swelling reported. OBJECTIVE: GENERAL: No acute distress. VITAL SIGNS: Blood pressure 117/73, pulse 73, temperature 98.1, and oxygen saturation 97% on room air. HEENT: Moist mucous membranes. Mallampati score of 4. Crowded airway. NECK: Supple. No JVD. RESPIRATORY: Fair airflow bilaterally. CARDIOVASCULAR: S1 and S2. ABDOMEN: Soft and nontender. No distention. No organomegaly. EXTREMITIES: No bilateral lower extremity edema. NEUROLOGIC: Awake, alert, and verbal. Following commands. MEDICATIONS: Reviewed. DuoNeb 3 mL inhalation every 6 hours p.r.n.; amiodarone 200 mg daily; Eliquis 2.5 mg twice a day; Coreg 3.125 mg twice a day; Plavix 75 mg daily; digoxin 0.125 mg Wednesday, Wednesday, and Wednesday; Colace 100 mg twice a day; ergocalciferol 50,000 units every 7 days; Florinef 0.1 mg daily; hydralazine 10 mg 4 times a day p.r.n.; Ativan 0.25 mg every 6 hours p.r.n.; Protonix 40 mg twice a day; MiraLax 17 g twice a day and Entresto 1 tab twice a day. LABORATORY DATA: Reviewed. WBC 5.5, RBC 4.12, hemoglobin 12.8, hematocrit 39.7 and platelets 152. Sodium 142, potassium 5.0, chloride 108, carbon dioxide 20, anion gap 11, BUN 29, creatinine 1.5, GFR 44, random glucose 102, and calcium 9.1, phosphorus 3.2, magnesium 2.3. IMPRESSION AND PLAN: Heart failure, coronary artery disease, history of cardiac arrhythmia requiring pacemaker, history of colon cancer, obstructive sleep apnea syndrome, uncontrolled hypertension, pulmonary hypertension, status post cardiac catheterization, which showed 98% blockage of the ramus intermedius for which stents were placed, history of anemia, ischemic cardiomyopathy during rehabilitation stay. The patient also noted with some orthostatic hypotension. Continue Cardiology followup. Continue physical therapy. Continue to encourage continuous positive airway pressure use at bedtime. Sleep apnea precaution, head of bed elevated at 45 degrees. The patient is currently on anticoagulation therapy. Continue gastric prophylaxis. Recommend the patient have sleep study as outpatient to rule out sleep apnea syndrome as a cause for cardiac arrhythmia and heart disease, fall precautions. The patient was seen and examined with Dr. Duque. Discussed assessment and plan as described above. The patient was seen and examined by Ivory Schultz, nurse practitioner. Discussed assessment and plan as described above. Thank you for this consult and we will follow with you. Antoine Dodson APN Tyree Duque MD
--- NOTE | 2019-03-02 14:47 | PN ---
DATE: 03/02/2019 REASON FOR CONSULTATION AND FOLLOWUP: Acute coronary syndrome, unstable angina, status post angioplasty stent, AFib flutter, deconditioning of the body, congestive heart failure, cardiomyopathy. SUBJECTIVE: The patient denied any chest pain, shortness of breath or any palpitations. PHYSICAL EXAMINATION: GENERAL: Not in apparent distress. VITAL SIGNS: Temperature afebrile, heart rate 73, blood pressure 117/73. HEENT: PERRLA. Extraocular movements are intact. NECK: Supple. No carotid bruits or thyromegaly. CHEST: Clear to auscultation. HEART: S1 and S2 regular. ABDOMEN: Soft. EXTREMITIES: Clubbing, cyanosis negative. LABORATORY DATA: Blood workup as follows. WBC 5.5, hemoglobin 12.8, hematocrit 39.7, platelets 152. Chemistry showed sodium 140, potassium 5, chloride 108, carbon dioxide 28, anion gap of 11, BUN 29, creatinine 1.5. Magnesium 2.3, calcium 9.1, phosphorus 3.2. EKG done yesterday that revealed V-paced rhythm with underlying atrial flutter. IMPRESSION: An 88-year-old male with past medical history of significant coronary artery disease, status post stent. Post stent, the patient developed gastrointestinal bleed. Workup shows adenocarcinoma status post colectomy and end-to-end anastomosis, admitted at this time with acute coronary syndrome, cardiomyopathy. Cardiac catheterization revealed ramus intermedius high-grade 90% stenosis, drug-eluting stents deployed 02/21/2019. Also found to be atrial fibrillation, converted to normal sinus briefly where the patient was found to be later on persistent atrial flutter and V-paced rhythm, history of sick sinus syndrome with status post permanent pacemaker. Now the patient is in transitional care unit in continuity of care. RECOMMENDATIONS: Continue dig Wednesday, Wednesday, and Wednesday. Continue Eliquis at 2.5 p.o. b.i.d. because of the renal-adjusted dose and because the patient's age 88 for 44 mL an hour. Aspirin was discontinued. Continue carvedilol, continue Plavix, and Entresto was started because of cardiomyopathy. We will continue Plavix and Eliquis for one year after the . Continue baby aspirin. Continue amiodarone. Also re-assess LV function 3 to 6 months in a year. EF remains below 35. Consider upgrading pacemaker to AICD. We will follow with you. Possible discharge planning. Monitor potassium closely. We will discontinue potassium because the patient becomes hyperkalemic. To resume back low dose of Lasix when the patient becomes euvolemic or blood pressure remains stable with no evidence of orthostatic hypotension. Yesterday also, the patient had blood pressure of 95, so Lasix was on hold. We will follow with you. Thank you Dr. Zavala for providing us the opportunity in taking care of the patient, Speedy Neal. Tyree Dale MD
--- NOTE | 2019-03-03 08:38 | DS ---
This case was discussed with Dr. Zavala. She is in agreement with the plan. HISTORY OF PRESENT ILLNESS: The patient came in with exacerbation of CHF symptoms and bradycardia. The patient has a past medical history of hyperlipidemia, hypertension, coronary artery disease, chest pain, syncope, diabetes, chronic anemia, and chronic kidney disease. PAST MEDICAL HISTORY: The patient has had cardiac catheterization and has had stenting in the past. SOCIAL HISTORY: The patient denied smoking. Drinks socially. Lives alone in the community. FAMILY HISTORY: Mother and father health history noncontributory. HOME MEDICATIONS: Reviewed by me. ALLERGIES: THE PATIENT HAS NO KNOWN ALLERGIES. REVIEW OF SYSTEMS: The patient denies blurred vision, facial numbness, or pain. Denies chest pain, cough, palpitations, or hemoptysis. The patient denies abdominal pain, hematuria, or hematochezia. Denies joint pain or deformity. Denies skin rashes, fevers, or chills. PHYSICAL EXAMINATION: VITAL SIGNS: Temperature 98.1, pulse 70, blood pressure 117/73, and saturating 97% on room air. GENERAL APPEARANCE: The patient appears in no acute distress. HEENT: Normocephalic and atraumatic. PERRLA. Mucous membranes moist. NECK: Supple. Normal inspection. No thyromegaly. RESPIRATORY: Clear to auscultation. No wheeze. No rhonchi. CARDIOVASCULAR: S1 and S2. No JVD. ABDOMEN: Soft and nontender. No organomegaly. EXTREMITIES: Moving all extremities. No edema. No cyanosis. SKIN: Intact. NEUROLOGIC: The patient is alert and oriented x3. No cognitive deficits. ASSESSMENT AND PLAN: The patient came in with exacerbation of congestive heart failure and bradycardia. Cardiology is on the case. Pulmonology is on the case. The patient had cardiac catheterization, had two stents inpatient The patient was transferred to Transitional Care Unit where he received physical therapy and occupational therapy. Cardiology and Pulmonary remained on case. The patient was having orthostatic blood pressures. At one point, Cardiology reviewed medications. Medications were adjusted. The patient's blood pressures have been maintaining between 111/70 and 117/70. The patient will be discharged today with home care services. The patient will follow up with primary care physician in one week. We will follow up. ALL ABOVE NOTED , AGREED WITH [facility] , CHART , LABS AND MEDS NOTED . NEW LABS ORDERED , CONT. SAME TREATMENT . WILL F/U Richard Lilly APN Rosita Zavala MD [facility]
== END 2019-03-02 14:01 | disposition home health service (06) | DRG 292 ==
LOC: TRCU 18:17
PROVIDERS: ADMIT Internal Medicine; ATTEND Internal Medicine
PROC: F07Z9FZ Gait Training/Functional Ambulation Treatment using Assistive, Adaptive, Supportive or Protective Equipment (ICD-10-PCS; principal; 2019-02-22)
PROC: F07M6ZZ Therapeutic Exercise Treatment of Musculoskeletal System - Whole Body (ICD-10-PCS; 2019-02-22)
PROC: F08Z1ZZ Dressing Techniques Treatment (ICD-10-PCS; 2019-02-22)
PROC: F08Z2ZZ Grooming/Personal Hygiene Treatment (ICD-10-PCS; 2019-02-22)
PROC: F08Z0ZZ Bathing/Showering Techniques Treatment (ICD-10-PCS; 2019-02-22)
PROC: F08Z4ZZ Home Management Treatment (ICD-10-PCS; 2019-02-22)
DX: I13.0 Hypertensive heart and chronic kidney disease with heart failure and stage 1 through stage 4 chronic kidney disease, or unspecified chronic kidney disease (principal); I24.9 Acute ischemic heart disease, unspecified; I48.92 Unspecified atrial flutter; I50.9 Heart failure, unspecified; E78.5 Hyperlipidemia, unspecified; E78.00 Pure hypercholesterolemia, unspecified; E11.65 Type 2 diabetes mellitus with hyperglycemia; Z85.038 Personal history of other malignant neoplasm of large intestine; D50.9 Iron deficiency anemia, unspecified; E11.22 Type 2 diabetes mellitus with diabetic chronic kidney disease; N18.9 Chronic kidney disease, unspecified; F03.90 Unspecified dementia, unspecified severity, without behavioral disturbance, psychotic disturbance, mood disturbance, and anxiety; G47.33 Obstructive sleep apnea (adult) (pediatric); I08.1 Rheumatic disorders of both mitral and tricuspid valves; I25.5 Ischemic cardiomyopathy; I25.110 Atherosclerotic heart disease of native coronary artery with unstable angina pectoris; I27.20 Pulmonary hypertension, unspecified; I48.91 Unspecified atrial fibrillation; I95.1 Orthostatic hypotension; J44.9 Chronic obstructive pulmonary disease, unspecified; N40.0 Benign prostatic hyperplasia without lower urinary tract symptoms; Z53.20 Procedure and treatment not carried out because of patient's decision for unspecified reasons; Z90.49 Acquired absence of other specified parts of digestive tract; Z93.3 Colostomy status; Z95.0 Presence of cardiac pacemaker; Z95.5 Presence of coronary angioplasty implant and graft